=== PATIENT | female | born 1960 | race Caucasian/White ===

== ENCOUNTER 2016-01-30 11:20 | Outpatient (RCR) | payer BC ==
[~2016-01-30 11:20] MED LIST: ACET1TAB19 PO; ALPR0.5T7 PO; BTR10SP2 NS; CIPR-225 PO; DIVA500T7 PO; DOCU100C37 PO; DULO60CA58 PO; ENAL20TA PO; ESTR1TAB24 PO; HYDR-753 PO; HYDR12.5 PO; HYDR1TAB8 PO; HYOS0.1218 SL; HYOS0.1283 SL; IBUP-1780; IBUP-1780 PO; METR500T PO; NITR-65 PO; NORT25CA PO; OMEP20CA12 PO; OMEP20TA7 PO; ONDA4TAB8 SL; TRAM50TA2 PO
--- OUTSIDE RECORDS SUMMARY | 2016-01-30 11:24 | XMS REPORT | Continuity of Care Document ---
Author Author [facility] Organization [facility] Address Unknown Phone Unavailable Care Team Providers Care Documentation Lead Name Role Phone Unverified, Unverified PCP Unavailable Source Comments Some departments are not documenting in the electronic medical record. If you do not see the information that you expected, contact Release of Information in the Health Information Management department at [phone] for further assistance in locating additional records.[facility] Active Allergies and Adverse Reactions Not on File Current Medications Not on file Active Problems Not on file Social History Tobacco Use Types Packs/Day Years Used Date Never Assessed Plan of Care Health Maintenance Due Date Last Done Comments Physical (Comprehensive) 12/15/1967 Exam Pertussis Vaccine 12/15/1971 Tetanus Vaccine 1977 Cervical Cancer Screening 1981 Breast Cancer Screening 2000 Colorectal Cancer 2010 Screening Influenza Vaccine 12/20/2015 Results from Last 3 Months Not on file
[2016-01-30 11:42] LABS: RED BLOOD COUNT 4.91 10^6/uL (4.35-5.85); RED CELL DISTRIBUTION WIDTH 13.6 % (10.0-14.5); WHITE BLOOD COUNT 9.9 10^3/uL (4.3-11.0)
[2016-01-30 12:09] LABS: ALANINE AMINOTRANSFERASE 30 U/L (0-55); ALBUMIN 4.6 G/DL (3.2-4.5); ANION GAP 16 MMOL/L (5-14); ASPARTATE AMINO TRANSFERASE 21 U/L (5-34); BILIRUBIN,TOTAL 0.4 MG/DL (0.1-1.0); BLOOD UREA NITROGEN 9 MG/DL (7-18); BUN/CREATININE RATIO 11; CARBON DIOXIDE 21 MMOL/L (21-32); CHLORIDE 101 MMOL/L (98-107); CREATININE SERUM 0.83 MG/DL (0.60-1.30); GFR ESTIMATED > 60; GLUCOSE 99 MG/DL (70-105); POTASSIUM 3.9 MMOL/L (3.6-5.0); SODIUM 138 MMOL/L (135-145); TOTAL PROTEIN 7.3 G/DL (6.4-8.2)
== END 2016-04-29 | disposition home or self-care (01) ==
LOC: LAB 11:20
PROVIDERS: ATTEND Family Medicine
DX: R10.13 Epigastric pain (principal); R10.2 Pelvic and perineal pain
CPT/HCPCS: 36415; 80053; 85027

== ENCOUNTER 2016-05-25 17:35 | Emergency (ER) | payer BC ==
[~2016-05-25] VITALS: Ht 165.1 cm; Wt 80.7 kg
--- OUTSIDE RECORDS SUMMARY | 2016-05-25 17:40 | XMS REPORT | Continuity of Care Document ---
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 If you do not see the information that you expected, contact Release of Information in the Health Information Management department at [phone] for further assistance in locating additional records.[facility] Active Allergies and Adverse Reactions Allergen Noted Date Severity Reactions Comments Augmentin 03/03/2016 Medium RASH Latex 03/31/2016 Medium RASH Current Medications Prescription Sig. Disp. Refills Start End Date Status Date DULOXETINE HCL (CYMBALTA Take 1 Tab by mouth every Active PO) 48 hours. DOCOSAHEXANOIC ACID/EPA Take 1,200 mg by mouth at Active (FISH OIL PO) bedtime daily. ATORVASTATIN CALCIUM Take 10 mg by mouth at Active (LIPITOR PO) bedtime daily. enalapril (VASOTEC) 10 mg Take 20 mg by mouth at Active tablet bedtime daily. butorphanol (STADOL) 10 Apply 1 [place] to one Active mg/mL nasal spray nostril as directed every 4 hours as needed. traMADol (ULTRAM) 50 mg Take 50 mg by mouth every Active tablet 6 hours as needed for Pain. Acetaminophen-Caffeine Take 2 Tabs by mouth as Active (EXCEDRIN TENSION Needed. HEADACHE) 500-65 mg tab electrolyte GUT PEG Split dose 4000 mL 0 03/03/20 Active (NULYTELY, COLYTE, 16 GAVILYTE-N) 420 gram oral solution estradiol (ESTRACE) 1 mg Take 1 mg by mouth daily. Active tablet nortriptyline (PAMELOR) Take 3 Caps by mouth at 90 Cap 1 04/02/20 Active 25 mg capsule bedtime daily. 16 Active Problems Problem Noted Date Ischemic colitis (HCC) 04/01/2016 Most Recent Encounters Date Type Specialty Providers Description 05/22/2016 Telephone Anesthesia Pain Emiliana Long RN Appointment 05/19/2016 Telephone Anesthesia Pain Emiliana Long RN Post Procedure 04/17/2016 Procedure visit Anesthesia Pain Sergio Whitt MD Incisional pain (Primary Bello Marina MD Dx); Abdominal pain, epigastric; Abdominal pain, right lower quadrant; Abdominal pain, left lower quadrant; Neuropathic pain; Periumbilical pain 04/02/2016 Telephone Anesthesia Pain Deandre James MD Medication Reconciliation 04/01/2016 Hospital Radiology Bello Marina MD Encounter 04/01/2016 Office Visit Cardiology Latonia Miller MD Test - CTA abd /Pelv @ Glendy Owen MD 10am today; New Patient - Ischemic colitis 04/01/2016 Hospital Radiology Latonia Miller MD Encounter 04/01/2016 Ancillary Radiology Bello Marina MD H/O degenerative disc Orders disease (Primary Dx) 04/01/2016 Ancillary Anesthesia Pain Bello Marina MD Orders 03/31/2016 Office Visit Gastroenterology Farideh Parmar ARNP Abdominal pain, unspecified location (Primary Dx); Ischemic colitis (HCC) 03/31/2016 Office Visit Anesthesia Pain Bello Marina MD Abdominal pain, epigastric (Primary Dx); Abdominal pain, left lower quadrant; Abdominal pain, right lower quadrant; Periumbilical pain; Incisional pain; Neuropathic pain; Allodynia; Myofascial pain 03/31/2016 Telephone Anesthesia Pain Emiliana Long RN Appointment Question 03/28/2016 Screening Form 03/20/2016 Result Letter Gastroenterology Latonia Miller MD 03/20/2016 Ancillary Radiology Outpatient, Radiologist Diagnosis unknown Orders (Primary Dx) 03/19/2016 Telephone Cardiology Teresa Navarro RN Referral - From Dr. Miller 03/19/2016 Telephone GastroenterLatonia Arriaga MD Records Request - Via Jessika Scanlon in PACS 03/19/2016 Telephone Latonia Mckinnon MD Follow-up Phone Call 03/18/2016 Telephone GastroenterLatonia Arriaga MD Follow-up Phone Call 03/17/2016 [facility] Latonia Miller MD Unspecified abdominal Encounter pain 03/17/2016 Orders Only Gastroenterology Latonia Miller MD 03/12/2016 Screening Form 03/05/2016 Telephone Gastroenterology Latonia Miller MD Follow-up Phone Call 03/03/2016 [facility] Latonia Miller MD Encounter 03/03/2016 Office Visit Gastroenterology Latonia Miller MD Abdominal pain, unspecified location (Primary Dx); Colitis Social History Tobacco Use Types Packs/Day Years Used Date Never Smoker Alcohol Use Drinks/Week oz/Week Comments Yes 0-1 Glasses 0.0 - 0.6 of wine Last Filed Vital Signs Vital Sign Reading Time Taken Blood Pressure 136/102 04/17/2016 9:29 AM OR SCRUB TECH Pulse 111 04/17/2016 9:27 AM OR SCRUB TECH Temperature 36.7 C (98 F) 04/17/2016 9:27 AM OR SCRUB TECH Respiratory Rate 18 04/17/2016 9:27 AM OR SCRUB TECH Height 1.651 m (5' 5") 04/17/2016 9:27 AM OR SCRUB TECH Weight 81.194 kg (179 lb) 04/17/2016 9:27 AM OR SCRUB TECH Body Mass Index 29.79 04/17/2016 9:27 AM OR SCRUB TECH Oxygen Saturation 99% 04/17/2016 9:27 AM OR SCRUB TECH Plan of Care Date Type Specialty Providers Description 05/26/2016 Appointment Anesthesia Pain Bello Marina MD [address] [facility] [address] [place] [address] [phone] (Fax) Health Maintenance Due Date Last Done Comments Hepatitis C Screening 1960 Physical (Comprehensive) 12/15/1967 Exam Pertussis Vaccine 12/15/1971 Tetanus Vaccine 1977 Cervical Cancer Screening 1981 Breast Cancer Screening 2000 Influenza Vaccine 12/20/2015 Colorectal Cancer 03/17/2026 03/17/2016 Screening Procedures from Last 3 Months Procedure Name Priority Date/Time Associated Diagnosis Comments MI INJECT NERV BLCK,OTHR Routine 04/17/2016 Abdominal pain, Results for this PERIPH NERV 5:17 PM OR SCRUB TECH epigastric procedure are in the Abdominal pain, right results section. lower quadrant Abdominal pain, left lower quadrant Incisional pain Neuropathic pain Periumbilical pain MI INJECTION INTO SKIN Routine 04/17/2016 Abdominal pain, right Results for this LESIONS 5:16 PM OR SCRUB TECH lower quadrant procedure are in the Abdominal pain, left results section. lower quadrant Incisional pain Neuropathic pain Periumbilical pain Results from Last 3 Months [facility] (04/17/2016 5:17 PM) Alexandru Marina MD 04/17/20165:17 PM Nerve Block Nerve: abdominal cutaneous Laterality: bilateral Consent: Consent obtained: verbal Consent given by: patient Alternatives discussed: referral, no treatment, delayed treatment and alternative treatment Discussed with patient the purpose of the treatment/procedure, other ways of treating my condition, including no treatment/ procedure and the risks and benefits of the alternatives. Patient has decided to proceed with treatment/procedure. [place] Protocol: Relevant documents: relevant documents present and verified Site marked: the operative site was marked Patient identity confirmed: Patient identify confirmed verbally with patient. Time out: Immediately prior to procedure a "time out" was called to verify the correct patient, procedure, equipment, customer support specialist and site/side marked as required Procedures Details: Indications: Neuritis and Pain Relief Preparation: Patient was prepped and draped in the usual sterile fashion. Prep: 2% chlorhexidine Patient position: supine Needle gauge: 25 G Guidance: ultrasound Justification for use of ultrasound guidance: The use of direct sonographic visualization of the needle was required to ensure accurate injection placement for diagnostic specificity, to maximize clinical efficacy and for safety purposes to minimize risk of bleeding or injury to nearby neurovascular structures Medications administered: 10 mL bupivacaine PF 0.25 %; 5 mL lidocaine PF 20 mg/mL (2 %) Outcome: Pain improved Patient tolerance: tolerated well, no immediate complications Comments: PROCEDURE: bilateral Transverse Abdominis Plexus Block (TAP) with Ultrasound needle guidance PREPROCEDURE DIAGNOSES: Abdominal pain and neuropathic pain. POSTPROCEDURE DIAGNOSES: Abdominal pain and neuropathic pain. SURGEON: Bello Marina MD MEDICATION INJECTED: 10mL of 25:75 solution of Lidocaine 2% and Bupivacaine 0.25% each side. LOCAL ANESTHETIC: As above. SEDATION: None. ESTIMATED BLOOD LOSS: None. COMPLICATIONS: None. TECHNIQUE: A time-out was taken to identify the correct patient, procedure, and site prior to starting the procedure. A consent was signed and placed in the chart. Lying in a supine position, the patient was prepped in sterile fashion using DuraPrep. The area to be injected was determined using Ultrasound guidance. A 22-gauge, 3.5-inch spinal needle was advanced to the border between the internal oblique and the transverse abdominus muscle under ultrasound visualization. Following negative aspiration initially and intermittently, the solution was injected with excellent spread in the desired plane. The procedure was completed without complications and was tolerated well. The patient was monitored after the procedure. The patient was given postprocedure and discharge instructions to follow at home. The patient was discharged in stable condition. SKIN LESION DESTRUCTION (04/17/2016 5:16 PM) Narrative Bello Marina MD 04/17/20165:16 PM PROCEDURE: Intra-Incisional Injection (Scar injection) Pre-Procedure Diagnoses: 1. Incisional pain Post-Procedure Diagnoses: Same Physician: Bello Marina MD ANESTHESIA: 3ml of Bupivacaine 0.5% and 1ml of lidocaine 2% and 40mg of Kenalog COMPLICATIONS: None. DESCRIPTION OF PROCEDURE: The procedure risks, hazards and alternatives were discussed with the patient and a proper consent was obtained. The area surrounding the incision was prepped with alcohol utilizing sterile technique. A 27-gauge 1.5" needle was inserted in the daly-incisional area and with multiple passes through and around the incision scar tissue and following negative aspiration, the solution above was injected. The patient tolerated the procedure well without any complications. FLUORO MOBILE IN OR (04/01/2016 2:51 PM) Narrative This order has been auto finalized and does not contain a result. CTA ABD/PELVIS (04/01/2016 8:37 AM) Impressions 1. Normal caliber abdominal aorta with minimal aortoiliac atherosclerotic plaque. Patent central mesenteric vasculature.No high-grade stenosis. 2. Normal caliber large and small bowel loops. No bowel obstruction, pericolonic inflammation, or ascites. Finalized by MOMO BOYER M.D. on 04/01/2016 9:38 AM. Dictated by MOMO BOYER M.D. on 04/01/2016 8:58 AM. Narrative CTA ABDOMEN AND PELVIS Clinical Indication:Female, 55 years old. Ischemic colitis. Recurrent ischemic colitis. Technique:Multiple contiguous axial images were obtained through the abdomen and pelvis following the administration of IV contrast material. Noncontrast and delayed imaging was also obtained. Post processing coronal and sagittal reconstruction images were made from the axial images.Image post- processing was obtained. IV contrast: Isovue-370 Bowel contrast:None Comparison: Outside CT abdomen and pelvis exams on 11/21/2015 and 01/30/2016. FINDINGS: Lower Thorax: Minimal bibasilar atelectasis or scarring. Heart size normal. Liver and Biliary system: Unremarkable. Spleen: Unremarkable. Adrenal Glands and Kidneys: Adrenal glands unremarkable. Punctate subcentimeter hypodensity in the lower pole left kidney is too small to characterize but probably a benign cyst. Kidneys otherwise unremarkable. No hydronephrosis. Pancreas and Retroperitoneum: Unremarkable. Aorta and Major Vessels: Normal caliber abdominal aorta with minimal calcified eccentric infrarenal atherosclerotic plaque. The celiac axis and superior mesenteric artery are patent. Accessory left hepatic artery arising from the left gastric artery. The inferior mesenteric artery is opacified. Single right renal artery is patent with early branching just after the takeoff from the abdominal aorta. Two left renal arteries are patent. Common iliac arteries are patent with mild calcified eccentric atherosclerotic plaque in the distal left common iliac artery. The bilateral internal iliac arteries are patent with mild calcified atherosclerotic plaque. Bilateral external iliac and common femoral arteries are patent without significant atherosclerotic plaque. No high-grade stenosis identified. Bowel, Mesentery and Peritoneal space: Large and small bowel loops normal in caliber. Mild retained stool throughout the colon. No pericolonic inflammation or fluid collection. Normal appendix. No mesenteric adenopathy or ascites. Pelvis: Uterus absent. Region of the vaginal cuff markable. Urinary bladder is decompressed but grossly unremarkable. No pelvic lymphadenopathy or ascites. Abdominal wall and Osseous Structures: Mild laxity of the ventral abdominal wall in the region of the umbilicus. Mild thoracolumbar spondylosis. No destructive osseous lesion. Procedure Note Interface, Radiant Results - Tue Apr 01, 2016 9:41 AM OR SCRUB TECH CTA ABDOMEN AND PELVIS Clinical Indication: Female, 55 years old. Ischemic colitis. Recurrent ischemic colitis. Technique: Multiple contiguous axial images were obtained through the abdomen and pelvis following the administration of IV contrast material. Noncontrast and delayed imaging was also obtained. Post processing coronal and sagittal reconstruction images were made from the axial images. Image post-processing was obtained. IV contrast: Isovue-370 Bowel contrast: None Comparison: Outside CT abdomen and pelvis exams on 11/21/2015 and 01/30/2016. FINDINGS: Lower Thorax: Minimal bibasilar atelectasis or scarring. Heart size normal. Liver and Biliary system: Unremarkable. Spleen: Unremarkable. Adrenal Glands and Kidneys: Adrenal glands unremarkable. Punctate subcentimeter hypodensity in the lower pole left kidney is too small to characterize but probably a benign cyst. Kidneys otherwise unremarkable. No hydronephrosis. Pancreas and Retroperitoneum: Unremarkable. Aorta and Major Vessels: Normal caliber abdominal aorta with minimal calcified eccentric infrarenal atherosclerotic plaque. The celiac axis and superior mesenteric artery are patent. Accessory left hepatic artery arising from the left gastric artery. The inferior mesenteric artery is opacified. Single right renal artery is patent with early branching just after the takeoff from the abdominal aorta. Two left renal arteries are patent. Common iliac arteries are patent with mild calcified eccentric atherosclerotic plaque in the distal left common iliac artery. The bilateral internal iliac arteries are patent with mild calcified atherosclerotic plaque. Bilateral external iliac and common femoral arteries are patent without significant atherosclerotic plaque. No high-grade stenosis identified. Bowel, Mesentery and Peritoneal space: Large and small bowel loops normal in caliber. Mild retained stool throughout the colon. No pericolonic inflammation or fluid collection. Normal appendix. No mesenteric adenopathy or ascites. Pelvis: Uterus absent. Region of the vaginal cuff markable. Urinary bladder is decompressed but grossly unremarkable. No pelvic lymphadenopathy or ascites. Abdominal wall and Osseous Structures: Mild laxity of the ventral abdominal wall in the region of the umbilicus. Mild thoracolumbar spondylosis. No destructive osseous lesion. IMPRESSION 1. Normal caliber abdominal aorta with minimal aortoiliac atherosclerotic plaque. Patent central mesenteric vasculature. No high-grade stenosis. 2. Normal caliber large and small bowel loops. No bowel obstruction, pericolonic inflammation, or ascites. Finalized by MOMO BOYER M.D. on 04/01/2016 9:38 AM. Dictated by MOMO BOYER M.D. on 04/01/2016 8:58 AM. SURGICAL PATHOLOGY (03/17/2016 8:13 AM) Component Value Range PATHOLOGY REPORT [facility] [email or web address] Sherrill Gibson MD, PhD, Director of Anatomic Pathology Department of Pathology and Laboratory Medicine [address] [place] [phone] Surgical Pathology Office: [phone] SURGICAL PATHOLOGY REPORT NAME: ALYCIA LYNCH SURG PATH #: [id number] MR #: [id number] SPECIMEN CLASS: SR BILLING #: [id number] ALT ID #: LOCATION: [facility] DATE OF PROCEDURE: 03/17/2016 AGE: 55 SEX: F DATE RECEIVED: 03/18/2016 : 1960 TIME RECEIVED: 08:13 PHYSICIAN: LATONIA MILLER M.D. DATE OF REPORT: 03/20/2016 COPY TO: DATE OF PRINTIN03/20/2016 ################################################## ###################### Final Diagnosis: A. Small bowel mucosa, duodenal", biopsy: Normal villous architecture with no diagnostic abnormalities. B. Gastric mucosa, "gastric", biopsy: No diagnostic abnormalities. No H. pylorilike organisms are identified on H and E stained sections. C. Colonic mucosa, "random colon", biopsy: No diagnostic abnormalities. Attestation: By this signature, I attest that I have personally formulated the final interpretation expressed in this report and that the above diagnosis is based upon my examination of the slides and/or other material indicated in this report. +++Electronically Signed Out By+++ ma/03/19/2016 Interpreted by: Tanika Arredondo D.O. 03/20/2016 ################################################## ###################### Material Received: A: duodenal biopsy B: gastric biopsy C: random colon biopsy History: 55-year-old female with a clinical history of ischemic colitis, abdominal pain. Gross Description: A. Received in formalin labeled "duodenum" is a 0.7 x 0.6 x 0.4 cm aggregate of arguelles-brown soft tissue fragments. The specimen is entirely submitted in cassette A1. (tn) B. Received in formalin labeled "gastric" is a 0.6 x 0.4 x 0.3 cm aggregate of arguelles-brown soft tissue fragments. The specimen is entirely submitted in cassette B1. (tn) C. Received in formalin labeled "random colon" is a 0.7 x 0.6 x 0.2 cm aggregate of arguelles-brown soft tissue fragments. The specimen is entirely submitted in cassette C1. (tn) arguelles/03/18/2016 Carmen Eastman D.O. COLONOSCOPY (03/17/2016)EGD (03/17/2016)ANTI-NUCLEAR AB(YRIS)-QUANT (03/03/2016 11:29 AM) Component Value Range YRIS Titer/Pattern 160 (H)Comment: SPECKLED <80 ACTIVATED PC RESISTANCE (03/03/2016 11:29 AM) Component Value Range Activated Protein C 3.4 >2.7 RATIO Resistance MPO/MI-3 (03/03/2016 11:29 AM) Component Value Range Myeloperoxidase AB <0.2 Reference range: <0.4 (Negative) Unit: U [facility] [employer] Serine Protease3 AB <0.2 Reference range: <0.4 (Negative) Unit: U [facility] Specimen Blood ANTI-NEUT CYTO AB (ANCA/PANCA) (03/03/2016 11:29 AM) Component Value Range C-ANCA <20,NEGATIVE TITER P-ANCA <20,NEGATIVE TITER Specimen Blood ANTI-NUCLEAR ANTIBODY(YRIS) (03/03/2016 11:29 AM) Component Value Range YRIS Screen SEE TITER <80 TITER Specimen Blood C REACTIVE PROT-HI SENSITIVITY (03/03/2016 11:29 AM) Component Value Range CRP, High Sensitivity 0.66Comment: MG/DL HSCRP CARDIAC RISK RANGES <0.06 LOWEST 0.06 - 0.09 LOW 0.10 - 0.16 MODERATE 0.17 - 0.32 HIGH >0.32 HIGHEST Specimen Blood SED RATE (03/03/2016 11:29 AM) Component Value Range Sed Rate -ESR 13 0-30 MM/HR Specimen Blood COMPREHENSIVE METABOLIC PANEL (03/03/2016 11:29 AM) Component Value Range Sodium 135 (L) 137-147 MMOL/L Potassium 3.9 3.5-5.1 MMOL/L Chloride 100 98-110 MMOL/L Glucose 88 70-100 MG/DL Blood Urea Nitrogen 15 7-25 MG/DL Creatinine 0.71 0.4-1.00 MG/DL Calcium 9.4 8.5-10.6 MG/DL Total Protein 6.8 6.0-8.0 G/DL Total Bilirubin 0.2 (L) 0.3-1.2 MG/DL Albumin 4.1 3.5-5.0 G/DL Alk Phosphatase 102 25-110 U/L AST (SGOT) 26 7-40 U/L CO2 26 21-30 MMOL/L ALT (SGPT) 51 7-56 U/L Anion Gap 9 3-12 eGFR Non >60Comment: >60 mL/min The eGFR is not validated for use in drug dosing adjustments. Continue to use estimated creatinine clearance per dosing reference text. Please contact the Clinical Pharmacist for questions. eGFR >60Comment: >60 mL/min The eGFR is not validated for use in drug dosing adjustments. Continue to use estimated creatinine clearance per dosing reference text. Please contact the Clinical Pharmacist for questions. Specimen Blood DILUTE OMID VIPER VENOM (03/03/2016 11:29 AM) Component Value Range Dilute Omid Viper 1.0 <1.3 RATIO Venom DRVVT Comment Dilute Omid viper venom time ratio is negative for lupus anticoagulant. The hexagonal phospholipid neutralization test should also be performed before excluding lupus anticoagulant (Call [phone] to request further testing). Pathologist Signature INTERPRETED BY CATHY TENA M.D. 03/17/16 By the PATH SIGNATURE ABOVE, I attest that I have personally formulated the final interpretation expressed in this report and that the above diagnosis is based upon my examination of the slides and/or other material indicated in this report. Specimen Blood CARDIOLIPIN AB IGG/IGM (03/03/2016 11:29 AM) Component Value Range Cardiolipin, IgG 2.8 <15 GPL/ML Cardiolipin, IgM 10.2 <12.5 MPL/ML Specimen Blood ANTI-THROMBIN III(AT3) (03/03/2016 11:29 AM) Component Value Range Anti-Thrombin 3 99 80-120 % Specimen Blood PROTEIN C ACTIVITY (03/03/2016 11:29 AM) Component Value Range Protein C Activity >150 (H) 70-130 % Specimen Blood PROTEIN S SCREEN (03/03/2016 11:29 AM) Component Value Range Protein S Screen 112.0 54.7-123.7 % PTT (APTT) (03/03/2016 11:29 AM) Component Value Range APTT 31.3 24.0-40.0 SEC Specimen Blood PROTIME INR (PT) (03/03/2016 11:29 AM) Component Value Range INR 0.9 0.8-1.2 Specimen Blood
[2016-05-25] MEDS ORDERED: ORPHENADRINE 60 MG/2 ML (NORFLEX) AMP IV STA (19:49)
[2016-05-25] MEDS ORDERED: KETOROLAC 30 MG/ML VIAL IVP STA (19:49)
[2016-05-25] MEDS ORDERED: NS IV 1000 ML 1,000 ML IV ONE (19:49)
[2016-05-25] MEDS ORDERED: ONDANSETRON 4 MG/2 ML (SDV) Z0FRAN IVP ONE ×2 (20:00→21:45)
--- NOTE | 2016-05-25 20:09 | ED Headache ---
General Chief Complaint: Head/Cervical Problems Stated Complaint: MIGRAINE, STOMACH ACHE Nursing Triage Note: PT TO ED 3 W/ FRIEND FOR C/O HERMOSILLO ONSET THIS AM, WORSE TONIGHT. REPORTS HX OF MIGRAINES, HAS TAKEN STADOL NASAL SPRAY FOR C/O BUT DENIES IMPROVEMENT. ALSO C/O N/V X1. Nursing Sepsis Screen: No Definite Risk Source: patient, family Exam Limitations: no limitations History of Present Illness Time seen by provider: 19:50 Initial Comments 55-year-old female patient presents to the emergency department complains of a migraine headache beginning this a.m. Symptoms worse this evening. Patient states she did try using her Stadol without improvement in symptoms. Does report nausea, vomiting, photophobia, sound sensitivities. Patient reports similar to usual migraines. Patient denies using any other medications at home for the pain. Patient states she has chronic upper abdominal pain and sees her PCP for this. Patient reports home medications as lipitor, Aventy?, cymbalta, vasotec, estradiol, and stadol. Timing/Duration: other (onset this AM.) Severity/Quality: throbbing Location: frontal (rt), parietal (rt) Prior Headaches/Recent Trauma: chronic headaches Modifying Factors: worse with exposure to light, worse with medication (no improvement with stadol.) Allergies and Home Medications Allergies Coded Allergies: amoxicillin (Verified Allergy, Unknown, 02/17/15) clavulanic acid (Verified Allergy, Unknown, 02/17/15) Home Medications Docusate Sodium 100 Mg Capsule #60 100 MG PO BID Prescribed by: HAKAN VALLE on 12/18/15734 Duloxetine HCl 60 Mg Capsule.dr 60 MG PO Q48H (Reported) TAKES AT BEDTIME Enalapril Maleate 20 Mg Tablet 10 MG PO HS (Reported) TAKES 1/2 (20MG) TABLET Estradiol 1 Mg Tablet #90 1 MG PO DAILY Prescribed by: HAKAN VALLE on 12/18/15734 Ibuprofen 800 Mg Tablet #60 800 MG PO Q6HR Prescribed by: HAKAN VALLE on 12/18/1535 Constitutional: No chills, No diaphoresis, No dizziness, No fever, No malaise Eyes: Denies Blindness, Denies Blurred Vision, Denies Inflammation, Denies Pain , PhotophobiaDenies Tunnel Vision, Denies Vision Changes Ears, Nose, Mouth, Throat: no symptoms reported Respiratory: no symptoms reported Cardiovascular: no symptoms reported Gastrointestinal: No abdominal pain, No constipation, No diarrhea, loss of appetite nausea vomiting Genitourinary: no symptoms reported Musculoskeletal: no symptoms reported Skin: no symptoms reported Psychiatric/Neurological: HeadacheDenies Numbness, Denies Paresthesia, Denies Seizure, Denies Tingling, Denies Weakness All Other Systems Reviewed Negative Unless Noted: Yes (Negative excepted noted.) Past Dlmjkjn-Hvfpqx-Miujrd Hx Patient Social History Alcohol Use: Denies Use Recreational Drug Use: No Smoking Status: Never a Smoker 2nd Hand Smoke Exposure: No Recent Foreign Travel: No Contact w/Someone Who Travel: No Recent Infectious Disease Expo: No Recent Hopitalizations: Yes (COLITIS) Immunizations Up To Date Tetanus Booster (TDap): Less than 5yrs PED Vaccines UTD: No Seasonal Allergies Seasonal Allergies: No Surgeries HX Surgeries: Yes (LAPAROSCOPY X3-ENDOMETRIOSIS, LEFT BREAST BX) Surgeries: Abdominal, Breast, Section, Eye Surgery, Tonsillectomy, Tubal Ligation Respiratory Hx Respiratory Disorders: No Respiratory Disorders: Sleep Apnea Cardiovascular Hx Cardiac Disorders: Yes Cardiac Disorders: Hypertension Neurological Hx Neurological Disorders: Yes Neurological Disorders: 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 Reproductive System Hx Reproductive Disorders: Yes (CPP, DUB) Sexually Transmitted Disease: No HIV/AIDS: No Female Reproductive Disorders: Endometriosis, Ovarian Cyst Genitourinary Hx Genitourinary Disorders: No Genitourinary Disorders: UTI-Chronic Gastrointestinal Hx Gastrointestinal Disorders: Yes Gastrointestinal Disorders: Colitis Musculoskeletal Hx Musculoskeletal Disorders: Yes (NECK PAIN AND RIGHT ARM PAIN) Endocrine Hx Endocrine Disorders: No HEENT HX ENT Disorders: Yes (GLASSES) HEENT Disorders: Cataract Loss of Vision: Bilateral Hearing Impairment: Denies Cancer Hx Cancer: No Psychosocial Hx Psychiatric Problems: No Behavioral Health Disorders: Depression Integumentary HX Skin/Integumentary Disorder: No Blood Transfusions Hx Blood Disorders: No Adverse Reaction to a Blood Tr: No (N/A) Reviewed Nursing Assessment Reviewed/Agree w Nursing PMH: Yes Family Medical History Significant Family History: GI Disease, Hypertension Family Medial History: Arthritis 19 MOTHER Gastroenteritis G8 BROTHER Headache disorder 19 MOTHER G8 SISTER Hypertension 19 FATHER Prostate cancer 19 FATHER Physical Exam Vital Signs Vital Sign - Last 12Hours 05/25/16 19:19 Temp 97.0 Pulse 114 Resp 16 B/P 142/99 Capillary Refill : Less Than 3 Seconds General Appearance: WD/WN no apparent distress HEENT: PERRL/EOMI normal ENT inspection TMs normal pharynx normal photophobia Neck: non-tender full range of motion supple normal inspection Cardiovascular: normal peripheral pulses no edema no murmur tachycardia Respiratory: lungs clear normal breath sounds no respiratory distress Gastrointestinal: normal bowel sounds soft no organomegalyNo distended, No guarding, No rebound, tenderness ((epigastric)) Extremities: normal inspection no pedal edema normal capillary refill Psychiatric: alert oriented x 3 Crainal Nerves: normal hearing normal speech PERRL Coordination/Gait: normal finger to nose normal gait negative Romberg's sign Motor/Sensory: no motor deficit no sensory deficit no pronator drift Skin: normal color warm/dry Progress/Results/Core Measures Results/Orders My Orders Orders-CARLEE LIU Saline Lock/Iv-Start (05/25/16 19:49) Ketorolac Injection (Toradol Injection) (05/25/16 19:49) Orphenadrine Injection (Norflex Injectio (05/25/16 19:49) Ondansetron Injection (Zofran Injectio (05/25/16 20:00) Ns Iv 1000 Ml (Sodium Chloride 0.9%) (05/25/16 19:49) Morphine Injection (Morphine Injection (05/25/16 20:44) Promethazine Injection (Phenergan Injec (05/25/16 20:44) Acetaminophen Tablet (Tylenol Tablet) (05/25/16 21:35) Hydromorphone Injection (Dilaudid Inject (05/25/16 21:35) Ondansetron Injection (Zofran Injectio (05/25/16 21:45) Medications Given in ED Current Medications Medications Dose Ordered Sig/Litzy Route Start Time Stop Time Status Last Admin Dose Admin Ondansetron HCl 4 mg ONCE ONCE IVP 05/25/16 21:45 05/25/16 21:46 DC 05/25/16 21:57 4 MG Ondansetron HCl 4 mg 4 mg ONCE ONCE IVP 05/25/16 20:00 05/25/16 20:07 DC 05/25/16 20:29 4 MG Sodium Chloride 1,000 ml @ 0 mls/hr Q0M ONCE IV 05/25/16 19:49 05/25/16 20:07 DC 05/25/16 20:28 1,000 MLS/HR Vital Signs/I&O Vital Sign - Last 12Hours 05/25/16 19:19 Temp 97.0 Pulse 114 Resp 16 B/P 142/99 Blood Pressure Mean: 113 Departure Communication Progress Notes Patient is seen and evaluated. Patient was given 30 mg of toradol, 60 mg of norflex, 4 mg of zofran, and 1 L NS. Patient reports headache improved to an 8/ 10. Friend reports that she does not think the patient can take benadryl due to it "makes her about crawl out of her skin." Patient agrees with this. Patient was then given 8 mg of Morphine and 12.5 mg of phenergan. Patient reported very little improvement with these medications. I did ask the patient what pain medication works for her headache. Patient is unable to recall the name of the pain medication and she states "I just have a really high tolerance to pain medication. I'm not really sure why though." Patient had previously reported only having Stadol at home for migraine symptoms. Per [facility] patient receives frequent tramadol and hydrocodone prescriptions as well as A monthly Stadol prescription. See information below. Patient instructed to take one hydrocodone or tramadol at home after arriving. She is also to follow-up with Dr. Lou as an outpatient for recheck. Patient states she is to schedule an appointment with him in the next 2 weeks. All return precautions were discussed with the patient as described in the discharge instructions of this report. Patient voices understanding and agrees with the treatment plan. Patient ambulated from the emergency department without difficulty. Per [facility] patient receives stadol 10 mg/ml spray #3 bottles/month; tramadol 50 mg po QID #40 tabs every 10 days from Robbie Lou MD in [place], [place]; and Hydrocodone 10/325 mg po BID #[address] Jaiden Alanis. Patient has had 49 narcotic prescriptions from 6 different prescribers in the last 12 months. She has filled at 5 different pharmacies. Impression Impression: Primary Impression: Migraine Disposition: 01 HOME, SELF-CARE Condition: Improved Departure-Patient Inst. Decision time for Depature: 20:33 Referrals: ISAI ALANIS MD (PCP/Family) Primary Care Physician Patient Instructions: Migraine Headache (DC) Add. Discharge Instructions: All discharge instructions reviewed with patient and/or family. Voiced understanding. Continue usual home medications including the tramadol, stadol, and hydrocodone as prescribed by Dr. Robbie Ackerman and Dr. Jaiden Alanis. Tylenol Extra Strength hrib-fut-dknqijd as directed for pain or headache. DO NOT TAKE MORE THAN 3000 MG OF TYLENOL IN 24 HOURS. Ibuprofen 800 mg by mouth every 8 hours as needed for pain or headache. Drink plenty of fluids. Avoid bright lights and loud noises. Follow-up with your family practitioner for recheck if needed. Return to the emergency department for worsened headache, dizziness, changes in vision, slurred speech, numbness, weakness, seizure, shortness of air, chest pain, decreased urination, or any other concerns. Copy Copies To 1: ISAI ALANIS MD Copies To 2: MD ALEXA Troy GRETCHEN L PA May 25, 2016 20:09
[2016-05-25] MEDS ORDERED: morphine INJ 10 MG/ML 1ML (SYR OR VIAL) IVP STA (20:44)
[2016-05-25] MEDS ORDERED: PROMETHAZINE INJ 25 MG/ML (PHENERGAN) AMP IVP STA (20:44)
[2016-05-25] MEDS ORDERED: ACETAMINOPHEN 500 MG TAB (TYLENOL) PO STA (21:35)
[2016-05-25] MEDS ORDERED: HYDROmorphone (DILAUDID) 2 MG/ML VIAL IVP STA (21:35)
[2016-05-25 22:06] VITALS: BP 136/91
== END 2016-05-25 22:06 | disposition home or self-care (01) ==
LOC: EDUNIT# 17:35 → ER 17:36
DX: G43.909 Migraine, unspecified, not intractable, without status migrainosus (principal); I10 Essential (primary) hypertension; Z79.891 Long term (current) use of opiate analgesic; Z79.899 Other long term (current) drug therapy
CPT/HCPCS: 96361; 96374; 96375; 96376

== ENCOUNTER 2016-05-30 16:00 | Emergency (ER) | payer BC ==
[~2016-05-30] VITALS: Ht 165.1 cm; Wt 80.7 kg
--- OUTSIDE RECORDS SUMMARY | 2016-05-30 16:06 | XMS REPORT | Continuity of Care Document ---
Author Author [facility] Organization [facility] Address Unknown Phone Unavailable Care Team Providers Care Bill Clerk Name Role Phone Zeke Freddy PCP [phone] Source Comments Some departments are not documenting in the electronic medical record. If you do not see the information that you expected, contact Release of Information in the Health Information Management department at [phone] for further assistance in locating additional records.[facility] Active Allergies and Adverse Reactions Allergen [...] bedtime daily. butorphanol (STADOL) 10 Apply 1 Constantia to one Active mg/mL nasal spray nostril [...] Recent Encounters Date Type Specialty Providers Description 05/26/2016 Telephone Anesthesia Pain Emiliana Long RN Appointment Request 05/22/2016 Telephone Anesthesia Emiliana Park RN Appointment 05/19/2016 Telephone Anesthesia Emiliana Park RN Post Procedure 04/17/2016 Procedure visit Anesthesia [...] Question 03/28/2016 Screening Form 03/20/2016 Result Letter GastroenterLatonia Arriaga MD 03/20/2016 Ancillary Radiology Outpatient, Radiologist Diagnosis unknown Orders (Primary Dx) 03/19/2016 Telephone Cardiology Teresa Navarro RN Referral - From Dr. Miller 03/19/2016 Telephone Latonia Mckinnon MD Records Request - Via [facility] in [facility] 03/19/2016 Telephone Latonia Mckinnon MD Follow-up Phone Call 03/18/2016 Telephone Latonia Mckinnon MD Follow-up Phone Call 03/17/2016 [facility] Latonia Miller MD Unspecified abdominal Encounter pain 03/17/2016 Orders Only Gastroenterology Latonia Miller MD 03/12/2016 Screening Form 03/05/2016 Telephone Gastroenterology Latonia Miller MD Follow-up Phone Call 03/03/2016 [facility] Latonia Miller MD Encounter 03/03/2016 Office Visit Gastroenterology Latonia Miller MD Abdominal pain, unspecified location (Primary Dx); Colitis Social History Tobacco Use Types Packs/Day Years Used Date Never Smoker Alcohol Use Drinks/Week oz/Week Comments Yes 0-1 Glasses 0.0 - 0.6 of wine Last Filed Vital Signs Vital Sign Reading Time Taken Blood Pressure 136/102 04/17/2016 9:29 AM [employer] Pulse 111 04/17/2016 9:27 AM [employer] Temperature 36.7 C (98 F) 04/17/2016 9:27 AM [employer] Respiratory Rate 18 04/17/2016 9:27 AM [employer] Height 1.651 m (5' 5") 04/17/2016 9:27 AM [employer] Weight 81.194 kg (179 lb) 04/17/2016 9:27 AM [employer] Body Mass Index 29.79 04/17/2016 9:27 AM [employer] Oxygen Saturation 99% 04/17/2016 9:27 AM [employer] Plan of Care Date Type Specialty Providers Description 06/02/2016 Appointment Anesthesia Pain Bello Marina MD [address] [facility] [address] [place] [address] [phone] (Fax) Health Maintenance Due Date Last Done Comments Hepatitis C Screening 1960 Physical (Comprehensive) 12/15/1967 Exam Pertussis Vaccine 12/15/1971 Tetanus Vaccine 1977 Cervical Cancer Screening 1981 Breast Cancer Screening 2000 Influenza Vaccine 12/20/2015 Colorectal Cancer 03/17/2026 03/17/2016 Screening Procedures from Last 3 Months Procedure Name Priority Date/Time Associated Diagnosis Comments FL INJECTION ANES OTHER Routine 04/17/2016 Abdominal pain, Results for this PERIPHERAL NERVE/BRANCH 5:17 PM [employer] epigastric procedure are in the Abdominal pain, right results section. lower quadrant Abdominal pain, left lower quadrant Incisional pain Neuropathic pain Periumbilical pain FL INJECTION Routine 04/17/2016 Abdominal pain, right Results for this INTRALESIONAL UP TO & 5:16 PM [employer] lower quadrant procedure are in the INCLUD 7 LESIONS Abdominal pain, left results section. lower quadrant Incisional pain Neuropathic pain Periumbilical pain Results from Last 3 Months [facility] (04/17/2016 5:17 PM) Alexandru [...] Patient has decided to proceed with treatment/procedure. Stem Protocol: Relevant documents: relevant documents present and verified Site marked: the operative site was marked Patient identity confirmed: Patient identify confirmed verbally with patient. Time out: Immediately prior to procedure a "time out" was called to verify the correct patient, procedure, equipment, support merchandiser and site/side marked as required Procedures Details: [...] - Tue Apr 01, 2016 9:41 AM [employer] CTA ABDOMEN AND PELVIS Clinical Indication: Female, [...] AM) Component Value Range PATHOLOGY REPORT [facility] [email or web address] Sherrill Gibson MD, PhD, Director of Anatomic Pathology Department of Pathology and Laboratory Medicine [address] [place] [id number] Surgical Pathology Office: [phone] SURGICAL PATHOLOGY REPORT NAME: ALYCIA LYNCH Edu SURG PATH #: [id number] MR #: [id number] SPECIMEN CLASS: SR BILLING #: [id number] ALT ID #: LOCATION: [facility] DATE OF PROCEDURE: 03/17/2016 AGE: 55 SEX: [...] Activated Protein C 3.4 >2.7 RATIO Resistance MPO/FL-3 (03/03/2016 11:29 AM) Component Value Range Myeloperoxidase AB <0.2 Reference range: <0.4 (Negative) Unit: [facility] Serine Protease3 AB <0.2 Reference range: <0.4 (Negative) Unit: [facility] Specimen Blood ANTI-NEUT CYTO AB (ANCA/PANCA) (03/03/2016 [...] be performed before excluding lupus anticoagulant (Call [id number] to request further testing). Pathologist Signature INTERPRETED [...]
--- NOTE | 2016-05-30 16:22 | ED Headache ---
General Chief Complaint: Head/Cervical Problems Stated Complaint: MIGRAINE Source: patient Exam Limitations: no limitations History of Present Illness Time seen by provider: 16:20 Initial Comments To ER with a recurrent retro-orbital right-sided headache that radiates into the right side of her neck. This is typical of her migraines for which she sees neurology, Dr. Lou in [place]. She receives a monthly supply of Stadol nasal spray, ultram and when necessary hydrocodone. She has not taken any Stadol or the Ultram today because she states they do not help. Severity/Quality: moderate Location: frontal, temporal, parietal Associated Symptoms: No confusion, No fatigue, No facial pain, No fever/chills , No flushing, No loss of consciousness, No nausea/vomiting, No sinus infection , No vision changes Allergies and Home Medications Allergies Coded Allergies: amoxicillin (Verified Allergy, Unknown, 02/17/15) clavulanic acid (Verified Allergy, Unknown, 02/17/15) Home Medications Atorvastatin Calcium 10 Mg Tablet #30 (Reported) Butorphanol Tartrate 25 Mg [place] #3 (Reported) Estradiol 1 Mg Tablet #90 1 MG PO DAILY Prescribed by: HAKAN VALLE on 12/18/15 0735 Nortriptyline HCl 25 Mg Capsule #60 (Reported) Tramadol HCl 50 Mg Tablet #40 (Reported) Constitutional: see HPINo chills, No fever Eyes: No Symptoms Reported Ears, Nose, Mouth, Throat: no symptoms reported Respiratory: no symptoms reported Cardiovascular: no symptoms reported Genitourinary: no symptoms reported Musculoskeletal: no symptoms reported Skin: no symptoms reported Psychiatric/Neurological: No Symptoms Reported Past Awcrteg-Cwknee-Phnlqn Hx Patient Social History 2nd Hand Smoke Exposure: No Recent Foreign Travel: No Contact w/Someone Who Travel: No Recent Hopitalizations: Yes (COLITIS) Immunizations Up To Date Tetanus Booster (TDap): Less than 5yrs PED Vaccines UTD: No Seasonal Allergies Seasonal Allergies: No Surgeries HX Surgeries: Yes (LAPAROSCOPY X3-ENDOMETRIOSIS, LEFT BREAST BX) Surgeries: Abdominal, Breast, Section, Eye Surgery, Tonsillectomy, Tubal Ligation Respiratory Hx Respiratory Disorders: No Respiratory Disorders: Sleep Apnea Cardiovascular Hx Cardiac Disorders: Yes Cardiac Disorders: Hypertension Neurological Hx Neurological Disorders: Yes Neurological Disorders: 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 Reproductive System Hx Reproductive Disorders: Yes (CPP, DUB) Sexually Transmitted Disease: No HIV/AIDS: No Female Reproductive Disorders: Endometriosis, Ovarian Cyst Genitourinary Hx Genitourinary Disorders: No Genitourinary Disorders: UTI-Chronic Gastrointestinal Hx Gastrointestinal Disorders: Yes Gastrointestinal Disorders: Colitis Musculoskeletal Hx Musculoskeletal Disorders: Yes (NECK PAIN AND RIGHT ARM PAIN) Endocrine Hx Endocrine Disorders: No HEENT HX ENT Disorders: Yes (GLASSES) HEENT Disorders: Cataract Loss of Vision: Bilateral Hearing Impairment: Denies Cancer Hx Cancer: No Psychosocial Hx Psychiatric Problems: No Behavioral Health Disorders: Depression Integumentary HX Skin/Integumentary Disorder: No Blood Transfusions Hx Blood Disorders: No Adverse Reaction to a Blood Tr: No (N/A) Family Medical History Significant Family History: GI Disease, Hypertension Family Medial History: Arthritis 19 MOTHER Gastroenteritis G8 BROTHER Headache disorder 19 MOTHER G8 SISTER Hypertension 19 FATHER Prostate cancer 19 FATHER Physical Exam Vital Signs Vital Sign - Last 12Hours 05/30/16 16:10 Temp 98.0 Pulse 100 Resp 18 B/P 175/109 Pulse Ox 98 Capillary Refill : General Appearance: WD/WN no apparent distress HEENT: PERRL/EOMI normal ENT inspection TMs normal (all) Neck: non-tender full range of motion Cardiovascular: regular rate, rhythm no murmur Respiratory: lungs clear normal breath sounds no respiratory distress no accessory muscle use Gastrointestinal: normal bowel sounds non tender Extremities: normal range of motion non-tender Psychiatric: alert Skin: normal color warm/dry Progress/Results/Core Measures Results/Orders My Orders Orders-MIGUEL CHENG APRN Clonidine Tablet (Catapres Tablet) (05/30/16 16:30) Prochlorperazine Injection (Compazine In (05/30/16 16:30) Ketorolac Injection (Toradol Injection) (05/30/16 16:30) Medications Given in ED Current Medications Medications Dose Ordered Sig/Litzy Route Start Time Stop Time Status Last Admin Dose Admin Clonidine HCl 0.1 mg ONCE ONCE PO 05/30/16 16:30 05/30/16 16:31 DC 05/30/16 16:30 0.1 MG Ketorolac Tromethamine 60 mg ONCE ONCE IM 05/30/16 16:30 05/30/16 16:31 DC 05/30/16 16:33 60 MG Prochlorperazine Edisylate 10 mg ONCE ONCE IM 05/30/16 16:30 05/30/16 16:31 DC 05/30/16 16:32 10 MG Vital Signs/I&O Vital Sign - Last 12Hours 05/30/16 05/30/16 16:10 17:18 Temp 98.0 Pulse 100 86 Resp 18 16 B/P 175/109 Pulse Ox 98 98 Departure Impression Impression: Primary Impression: Migraine Qualified Code: G43.009 - Migraine without aura, not intractable, without status migrainosus Disposition: HOME, SELF-CARE Condition: Stable Departure-Patient Inst. Decision time for Depature: 16:22 Referrals: ISAI TRAORE MD (PCP/Family) Primary Care Physician Patient Instructions: Migraine Headache (DC) Add. Discharge Instructions: 1. Go home and take your headache medications 2. Follow-up with your doctor next week 3. All discharge instructions reviewed with patient and/or family. Voiced understanding. MIGUEL CHENG APRN May 30, 2016 16:22
[2016-05-30] MEDS ORDERED: BTR10SP2 (16:24)
[2016-05-30] MEDS ORDERED: NORT25CA (16:24)
[2016-05-30] MEDS ORDERED: ATOR10TA66 (16:24)
[2016-05-30] MEDS ORDERED: TRAM50TA2 (16:24)
[2016-05-30] MEDS ORDERED: cloNIDine 0.1 MG (CATAPRES) TAB PO ONE (16:30)
[2016-05-30] MEDS ORDERED: PROCHLORPERAZINE 10 MG/2ML INJ (COMPAZINE) IM ONE (16:30)
[2016-05-30] MEDS ORDERED: KETOROLAC 60 MG/2 ML VIAL IM ONE (16:30)
[2016-05-30 17:18] VITALS: BP 116/72
== END 2016-05-30 17:18 | disposition home or self-care (01) ==
LOC: EDUNIT# 16:00 → ER 16:01
DX: G43.909 Migraine, unspecified, not intractable, without status migrainosus (principal); I10 Essential (primary) hypertension; Z79.899 Other long term (current) drug therapy
CPT/HCPCS: 96372; 99282

== ENCOUNTER 2016-06-19 19:16 | Emergency (ER) | payer BC ==
[~2016-06-19] VITALS: Ht 165.1 cm; Wt 79.4 kg
[~2016-06-19 19:16] MED LIST changes: +ATOR10TA66; +BTR10SP2; +NORT25CA; +TRAM50TA2
--- OUTSIDE RECORDS SUMMARY | 2016-06-19 19:21 | XMS REPORT | Continuity of Care Document ---
[facility] Address Unknown Phone Unavailable Care Team Providers Care School Based Therapist Name Role Phone MaulikFreddy aranda PCP [phone] Source Comments Some departments are not documenting in the electronic medical record. If you do not see the information that you expected, contact Release of Information in the Health Information Management department at [phone] for further assistance in locating additional records.[facility] Active Allergies and Adverse Reactions Allergen Noted Date Severity Reactions Comments Augmentin 03/03/2016 Medium RASH Benadryl 06/02/2016 Low SEE COMMENTS Makes Pt. twitchy Latex 03/31/2016 Medium RASH Current Medications Prescription [...] bedtime daily. butorphanol (STADOL) 10 Apply 1 Bowden to one Active mg/mL nasal spray nostril [...] Active 25 mg capsule bedtime daily. 16 pregabalin (LYRICA) 25 mg Take 1 Cap by mouth three 90 Cap 2 06/02/19 Active capsule times daily. One cap qhs 17 x7d, then bid x7d, then tid Active Problems Problem Noted Date Ischemic colitis (HCC) 04/01/2016 Most Recent Encounters Date Type Specialty Providers Description 06/02/2016 Office Visit Anesthesia Pain Bello Marina MD Abdominal pain, right lower quadrant (Primary Dx); Abdominal pain, epigastric; Abdominal pain, left lower quadrant; Incisional pain; Neuropathic pain; Allodynia; Periumbilical pain 05/26/2016 Telephone Anesthesia Pain Emiliana Long RN Appointment Request 05/22/2016 Telephone Anesthesia Pain Emiliana Long RN Appointment 05/19/2016 Telephone Anesthesia Pain Emiliana Long RN Post Procedure 04/17/2016 Procedure visit Anesthesia Pain Sergio Whitt MD Incisional pain (Primary Bello Marina MD Dx); Abdominal pain, epigastric; Abdominal pain, right lower quadrant; Abdominal pain, left lower quadrant; Neuropathic pain; Periumbilical pain 04/02/2016 Telephone Anesthesia Pain Deandre James MD Medication Reconciliation 04/01/2016 [facility] Radiology Bello Marina MD Encounter 04/01/2016 Office Visit Cardiology Alejandro Miller MD Test - CTA abd /Pelv @ Glendy Owen MD 10am today; New Patient - Ischemic colitis 04/01/2016 [facility] Radiology Alejandro Miller MD Encounter 04/01/2016 Ancillary Radiology Bello [...] Long RN Appointment Question 03/28/2016 Screening Form Social History Tobacco Use Types Packs/Day Years Used Date Never Smoker Alcohol Use Drinks/Week oz/Week Comments Yes 0-1 Glasses 0.0 - 0.6 of wine Last Filed Vital Signs Vital Sign Reading Time Taken Blood Pressure 155/103 06/02/2016 11:24 AM EQUIPMENT MAINTENANCE ENGINEER Pulse 105 06/02/2016 11:24 AM EQUIPMENT MAINTENANCE ENGINEER Temperature 36.4 C (97.5 F) 06/02/2016 11:24 AM EQUIPMENT MAINTENANCE ENGINEER Respiratory Rate 18 04/17/2016 9:27 AM EQUIPMENT MAINTENANCE ENGINEER Height 1.651 m (5' 5") 06/02/2016 11:24 AM EQUIPMENT MAINTENANCE ENGINEER Weight 81.194 kg (179 lb) 06/02/2016 11:24 AM EQUIPMENT MAINTENANCE ENGINEER Body Mass Index 29.79 06/02/2016 11:24 AM EQUIPMENT MAINTENANCE ENGINEER Oxygen Saturation 97% 06/02/2016 11:24 AM EQUIPMENT MAINTENANCE ENGINEER Plan of Care Health Maintenance Due Date Last Done Comments Hepatitis C Screening 1960 Physical (Comprehensive) 12/15/1967 Exam Pertussis Vaccine 12/15/1971 Tetanus Vaccine 1977 Cervical Cancer Screening 1981 Breast Cancer Screening 2000 Influenza Vaccine 12/19/2016 Colorectal Cancer 03/17/2026 03/17/2016 Screening Procedures from Last 3 Months Procedure Name Priority Date/Time Associated Diagnosis Comments NM INJECTION ANES OTHER Routine 04/17/2016 Abdominal pain, Results for this PERIPHERAL NERVE/BRANCH 5:17 PM EQUIPMENT MAINTENANCE ENGINEER epigastric procedure are in the Abdominal pain, right results section. lower quadrant Abdominal pain, left lower quadrant Incisional pain Neuropathic pain Periumbilical pain NM INJECTION Routine 04/17/2016 Abdominal pain, right Results for this INTRALESIONAL UP TO & 5:16 PM EQUIPMENT MAINTENANCE ENGINEER lower quadrant procedure are in the INCLUD 7 LESIONS Abdominal pain, left results section. lower quadrant Incisional pain Neuropathic pain Periumbilical pain Results from Last 3 Months [facility] (04/17/2016 5:17 PM) Narrative Bello Marina MD 04/17/20165:17 PM Nerve Block Nerve: abdominal cutaneous Laterality: bilateral Consent: Consent obtained: verbal Consent given by: patient Alternatives discussed: referral, no treatment, delayed treatment and alternative treatment Discussed with patient the purpose of the treatment/procedure, other ways of treating my condition, including no treatment/ procedure and the risks and benefits of the alternatives. Patient has decided to proceed with treatment/procedure. [place] Protocol: Relevant documents: relevant documents present and verified Site marked: the operative site was marked Patient identity confirmed: Patient identify confirmed verbally with patient. 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
[2016-06-19] MEDS ORDERED: ENAL20TA (20:00)
[2016-06-19] MEDS ORDERED: ONDANSETRON 4 MG (ZOFRAN) ORAL DISSOLVE TAB SL STA (20:01)
[2016-06-19] MEDS ORDERED: KETOROLAC 60 MG/2 ML VIAL IM STA (20:01)
--- NOTE | 2016-06-19 20:16 | ED Headache ---
General Chief Complaint: Head/Cervical Problems Stated Complaint: MIGRAINE Nursing Triage Note: Onset of migraine this am. Has taken motrin one time this morning around 0900. States she is nauseated and is vomiting in room. has history of migraine Nursing Sepsis Screen: No Definite Risk History of Present Illness Time seen by provider: 20:05 Initial Comments Patient evaluated for a headache, started at 09 100 this morning on the right frontal side. She has vomited once today upon arrival to the room, small amount. She reports a history of migraine she sees Dr. Ackerman in [place] she has tried multiple different medications with no success. This is her third emergency room visit since May 25, 2016 for migraines. She has multiple medications per [facility] Tracs. She is taking by mouth fluids well. Timing/Duration: 4-6 hours Severity/Quality: moderate Location: frontal (right) Prior Headaches/Recent Trauma: frequent headaches, chronic headaches Modifying Factors: improves with immobilization, improves with rest Associated Symptoms: nausea/vomiting Allergies and Home Medications Allergies Coded Allergies: amoxicillin (Verified Allergy, Unknown, 06/19/16) clavulanic acid (Verified Allergy, Unknown, 06/19/16) diphenhydramine (Unverified Allergy, Unknown, "hebby jebby", 06/19/16) Home Medications Atorvastatin Calcium 10 Mg Tablet #30 (Reported) Butorphanol Tartrate 25 Mg Rescue #3 (Reported) Enalapril Maleate 20 Mg Tablet #30 (Reported) Estradiol 1 Mg Tablet #90 1 MG PO DAILY Prescribed by: HAKAN VALLE on 12/18/15 0735 Nortriptyline HCl 25 Mg Capsule #60 (Reported) Tramadol HCl 50 Mg Tablet #40 (Reported) Constitutional: no symptoms reported see HPI Eyes: See HPI Photophobia Ears, Nose, Mouth, Throat: no symptoms reported see HPI Respiratory: no symptoms reported see HPI Cardiovascular: no symptoms reported see HPI Gastrointestinal: no symptoms reported see HPI Genitourinary: no symptoms reported see HPI Musculoskeletal: no symptoms reported see HPI Skin: no symptoms reported see HPI Psychiatric/Neurological: No Symptoms Reported See HPI All Other Systems Reviewed Negative Unless Noted: Yes Past Zitpfvj-Xlnfth-Apdnsb Hx Patient Social History 2nd Hand Smoke Exposure: No Recent Foreign Travel: No Contact w/Someone Who Travel: No Recent Infectious Disease Expo: No Recent Hopitalizations: Yes (COLITIS) Immunizations Up To Date Tetanus Booster (TDap): Less than 5yrs PED Vaccines UTD: No Seasonal Allergies Seasonal Allergies: No Surgeries HX Surgeries: Yes (LAPAROSCOPY X3-ENDOMETRIOSIS, LEFT BREAST BX) Surgeries: Abdominal, Breast, Section, Eye Surgery, Tonsillectomy, Tubal Ligation Respiratory Hx Respiratory Disorders: No Respiratory Disorders: Sleep Apnea Cardiovascular Hx Cardiac Disorders: Yes Cardiac Disorders: Hypertension Neurological Hx Neurological Disorders: Yes Neurological Disorders: 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 Reproductive System Hx Reproductive Disorders: Yes (CPP, DUB) Sexually Transmitted Disease: No HIV/AIDS: No Female Reproductive Disorders: Endometriosis, Ovarian Cyst Genitourinary Hx Genitourinary Disorders: No Genitourinary Disorders: UTI-Chronic Gastrointestinal Hx Gastrointestinal Disorders: Yes Gastrointestinal Disorders: Colitis Musculoskeletal Hx Musculoskeletal Disorders: Yes (NECK PAIN AND RIGHT ARM PAIN) Endocrine Hx Endocrine Disorders: No HEENT HX ENT Disorders: Yes (GLASSES) HEENT Disorders: Cataract Loss of Vision: Bilateral Hearing Impairment: Denies Cancer Hx Cancer: No Psychosocial Hx Psychiatric Problems: No Behavioral Health Disorders: Depression Integumentary HX Skin/Integumentary Disorder: No Blood Transfusions Hx Blood Disorders: No Adverse Reaction to a Blood Tr: No (N/A) Reviewed Nursing Assessment Reviewed/Agree w Nursing PMH: Yes Family Medical History Significant Family History: GI Disease, Hypertension Family Medial History: Arthritis 19 MOTHER Gastroenteritis G8 BROTHER Headache disorder 19 MOTHER G8 SISTER Hypertension 19 FATHER Prostate cancer 19 FATHER Physical Exam Vital Signs Vital Sign - Last 12Hours 06/19/16 19:53 Temp 98.3 Pulse 111 Resp 18 B/P 127/60 Pulse Ox 97 Capillary Refill : Less Than 3 Seconds General Appearance: WD/WN no apparent distress HEENT: PERRL/EOMI normal ENT inspection TMs normal pharynx normal Neck: non-tender full range of motion supple normal inspection Cardiovascular: normal peripheral pulses regular rate, rhythm no edema no murmur Respiratory: chest non-tender lungs clear normal breath sounds Gastrointestinal: normal bowel sounds non tender soft no organomegalyNo distended, No guarding, No rebound, No tenderness Back: normal inspection no CVA tenderness no vertebral tenderness Extremities: normal range of motion non-tender normal inspection no pedal edema no calf tenderness normal capillary refill Psychiatric: alert oriented x 3 Crainal Nerves: normal hearing normal speech PERRLNo facial droop, No facial paresthesias, No facial weakness, No tongue deviation to R, No tongue deviation to L Coordination/Gait: normal finger to nose normal gait Motor/Sensory: no motor deficit no sensory deficit no pronator drift Skin: normal color warm/dry Lymphatic: no adenopathy Progress/Results/Core Measures Results/Orders My Orders Orders-JOHANNA BAEZ Ondansetron Oral Dissolve Tab (Zofran (06/19/16 20:01) Ketorolac Injection (Toradol Injection) (06/19/16 20:01) Hydrocodone/Apap 7.5/325 Tab (Lortab 7. (06/19/16 20:56) Vital Signs/I&O Vital Sign - Last 12Hours 06/19/16 06/19/16 19:53 22:05 Temp 98.3 98.0 Pulse 111 90 Resp 18 18 B/P 127/60 Pulse Ox 97 99 Blood Pressure Mean: 82 Progress Note : Time: 20:05 Progress Note Initial evaluation completed, reviewed previous ER visits from May 2016. Toradol 60 mg IM and Zofran 4 mg sublingual. Will reevaluate. Will delay starting IV fluids at this time to see if she improves with current treatment. 2049 patient reports nausea is improving, pain is subsiding slowly but still not relieved. Will get Hydrocodone 7.5 mg by mouth. Discussed with the patient and her follow-up with Dr. 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 2199 no further nausea, pain reported at 4/10. Discharge to home. Departure Impression Impression: Primary Impression: Migraine Qualified Code: G43.009 - Migraine without aura, not intractable, without status migrainosus Disposition: HOME, SELF-CARE Condition: Improved Departure-Patient Inst. Decision time for Depature: 21:45 Referrals: ISAI TRAORE MD (PCP/Family) Primary Care Physician Patient Instructions: Migraine Headache (DC) Add. Discharge Instructions: All discharge instructions reviewed with patient and/or family. Voiced understanding. Increase oral intake. Continue to manage migraines with medication she has at home. Follow up with Dr. Ackerman for additional treatment Return to emergency room for worsening headache, uncontrolled vomiting, changes in mental status, or new concerns. Copy Copies To 1: ISAI TRAORE MD, AMY ARNP Jun 19, 2016 20:16
[2016-06-19] MEDS ORDERED: HYDROcodone/APAP 7.5 MG/325 MG (LORTAB, LORCET PLUS) TABLET PO STA (20:56)
[2016-06-19 22:05] VITALS: BP 123/62
== END 2016-06-19 22:05 | disposition home or self-care (01) ==
LOC: EDUNIT# 19:16 → ER 19:17
DX: G43.909 Migraine, unspecified, not intractable, without status migrainosus (principal); I10 Essential (primary) hypertension; Z79.899 Other long term (current) drug therapy
CPT/HCPCS: 96372; 99282

== ENCOUNTER 2016-08-27 20:16 | Emergency (ER) | payer BC ==
[~2016-08-27] VITALS: Ht 165.1 cm; Wt 83.0 kg
[~2016-08-27 20:16] MED LIST changes: +ENAL20TA
[2016-08-27] MEDS ORDERED: PREG25CA PO (20:30)
[2016-08-27] MEDS ORDERED: PROCHLORPERAZINE 10 MG/2ML INJ (COMPAZINE) IM ONE (20:45)
--- NOTE | 2016-08-27 20:53 | ED Headache ---
General Chief Complaint: Head/Cervical Problems Stated Complaint: MIGRAINE Nursing Triage Note: pt states she has a migraine but also has chronic migraines. This migraine started this morning. Nursing Sepsis Screen: No Definite Risk Source: patient Exam Limitations: no limitations History of Present Illness Time seen by provider: 20:50 Initial Comments To ER with a left frontal migraine that is typical of her chronic migraines for which she sees a neurologist, Dr. Robbie Lou in [place]. She took an Ultram at home without relief. This began this morning and is associated with nausea. Timing/Duration: waxing and waning Severity/Quality: moderate Location: frontal Prior Headaches/Recent Trauma: frequent headaches, chronic headaches Associated Symptoms: No confusion, No loss of consciousness, No nausea/vomiting , No nasal congestion, No seizures, No stiff neck Allergies and Home Medications Allergies Coded Allergies: amoxicillin (Verified Allergy, Unknown, 06/19/16) clavulanic acid (Verified Allergy, Unknown, 06/19/16) diphenhydramine (Unverified Allergy, Unknown, "hebby jebby", 06/19/16) latex (Verified Allergy, Unknown, 08/27/16) Home Medications Atorvastatin Calcium 10 Mg Tablet, #30 (Reported) Enalapril Maleate 20 Mg Tablet, #30 (Reported) Estradiol 1 Mg Tablet, 1 MG PO DAILY, #90 Ref 3 Prescribed by: HAKAN VALLE on 12/18/15 0735 Nortriptyline HCl 25 Mg Capsule, #60 (Reported) Pregabalin 25 Mg Capsule, 25 MG PO, (Reported) Tramadol HCl 50 Mg Tablet, #40 (Reported) Constitutional: see HPI Eyes: No Symptoms Reported Ears, Nose, Mouth, Throat: no symptoms reported Respiratory: no symptoms reported Cardiovascular: no symptoms reported Genitourinary: no symptoms reported Musculoskeletal: no symptoms reported Skin: no symptoms reported Psychiatric/Neurological: No Symptoms Reported Past Ymlmsrw-Gtumdz-Hwpyah Hx Patient Social History Alcohol Use: Denies Use Recreational Drug Use: No Smoking Status: Never a Smoker 2nd Hand Smoke Exposure: No Recent Foreign Travel: No Contact w/Someone Who Travel: No Recent Infectious Disease Expo: No Recent Hopitalizations: Yes (COLITIS) Immunizations Up To Date Tetanus Booster (TDap): Less than 5yrs PED Vaccines UTD: No Seasonal Allergies Seasonal Allergies: No Surgeries HX Surgeries: Yes (LAPAROSCOPY X3-ENDOMETRIOSIS, LEFT BREAST BX) Surgeries: Abdominal, Breast, Section, Eye Surgery, Tonsillectomy, Tubal Ligation Respiratory Hx Respiratory Disorders: No Respiratory Disorders: Sleep Apnea Cardiovascular Hx Cardiac Disorders: Yes Cardiac Disorders: Hypertension Neurological Hx Neurological Disorders: Yes Neurological Disorders: 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 Reproductive System Hx Reproductive Disorders: Yes (CPP, DUB) Sexually Transmitted Disease: No HIV/AIDS: No Female Reproductive Disorders: Endometriosis, Ovarian Cyst Genitourinary Hx Genitourinary Disorders: No Genitourinary Disorders: UTI-Chronic Gastrointestinal Hx Gastrointestinal Disorders: Yes Gastrointestinal Disorders: Colitis Musculoskeletal Hx Musculoskeletal Disorders: Yes (NECK PAIN AND RIGHT ARM PAIN) Endocrine Hx Endocrine Disorders: No HEENT HX ENT Disorders: Yes (GLASSES) HEENT Disorders: Cataract Loss of Vision: Bilateral Hearing Impairment: Denies Cancer Hx Cancer: No Psychosocial Hx Psychiatric Problems: No Behavioral Health Disorders: Depression Integumentary HX Skin/Integumentary Disorder: No Blood Transfusions Hx Blood Disorders: No Adverse Reaction to a Blood Tr: No (N/A) Family Medical History Significant Family History: GI Disease, Hypertension Family Medial History: Arthritis 19 MOTHER Gastroenteritis G8 BROTHER Headache disorder 19 MOTHER G8 SISTER Hypertension 19 FATHER Prostate cancer 19 FATHER Physical Exam Vital Signs Vital Sign - Last 12Hours 08/27/16 20:20 Temp 96.5 Pulse 98 Resp 20 B/P (MAP) 130/87 Pulse Ox 99 O2 Delivery Room Air Capillary Refill : Less Than 3 Seconds General Appearance: WD/WN, no apparent distress HEENT: PERRL/EOMI, normal ENT inspection Neck: non-tender, full range of motion Cardiovascular: regular rate, rhythm, no murmur Respiratory: normal breath sounds, no respiratory distress, no accessory muscle use Gastrointestinal: non tender, soft Psychiatric: alert, oriented x 3 Crainal Nerves: normal hearing, normal speech, PERRL Skin: normal color, warm/dry Progress/Results/Core Measures Results/Orders My Orders Orders - MIGUEL CHENG APRN Ketorolac Injection (Toradol Injection) (08/27/16 20:45) Prochlorperazine Injection (Compazine In (08/27/16 20:45) Vital Signs/I&O Vital Sign - Last 12Hours 08/27/16 20:20 Temp 96.5 Pulse 98 Resp 20 B/P (MAP) 130/87 Pulse Ox 99 O2 Delivery Room Air Blood Pressure Mean: 101 Departure Impression Impression: Primary Impression: Headache Disposition: 01 HOME, SELF-CARE Condition: Stable Departure-Patient Inst. Decision time for Depature: 20:52 Referrals: ISAI TRAORE MD (PCP/Family) Primary Care Physician Patient Instructions: Headache, Adult (DC) Add. Discharge Instructions: All discharge instructions reviewed with patient and/or family. Voiced understanding. MIGUEL CHENG ROAD ADVISOR August 27, 2016 20:53
[2016-08-27] MEDS: KETOROLAC 60 MG/2 ML VIAL IM ONE ×2 (21:08→21:11)
[2016-08-27] MEDS ORDERED: ONDANSETRON 4 MG (ZOFRAN) ORAL DISSOLVE TAB PO ONE (21:45)
[2016-08-27 21:50] VITALS: BP 119/68
== END 2016-08-27 21:53 | disposition home or self-care (01) ==
LOC: EDUNIT# 20:16 → ER 20:18
DX: R51 Headache (principal); I10 Essential (primary) hypertension; Z79.899 Other long term (current) drug therapy
CPT/HCPCS: 99282

== ENCOUNTER → 2017-06-29 | Outpatient (CLI) | payer BC ==
[~2017-06-29] MED LIST changes: +HYOS-19 SL; -HYOS0.1218 SL; +PREG25CA PO
--- NOTE | 2017-06-29 17:17 | Diagnostic Imaging Report ---
INDICATION: Cough and chest tightness. PA and lateral chest obtained at 5:03 p.m. FINDINGS: Heart and mediastinal silhouette are normal in appearance. The lungs are clear. There is no pneumothorax or pleural fluid. IMPRESSION: Negative chest. Dictated by: Dictated on workstation # [id number]
== END ==
LOC: RAD 16:35
PROVIDERS: ATTEND Family Medicine
DX: R05 Cough (principal); R07.89 Other chest pain
CPT/HCPCS: 71046

== ENCOUNTER → 2017-08-31 | Outpatient (CLI) | payer BC ==
--- NOTE | 2017-08-31 14:55 | Diagnostic Imaging Report ---
INDICATION: Right breast lump. The lump was felt by the patient's physician at the 10 o'clock location. The patient denies a palpable abnormality. COMPARISON: Correlation is made with the diagnostic mammogram from earlier the same day. FINDINGS: Sonography interrogation of the area of lump at the 10 o'clock location of the right breast was performed. No sonographic abnormality is identified. No solid or cystic mass is detected. IMPRESSION: No sonographic abnormality is identified. Continued close clinical and self breast exams are recommended to confirm stability of the clinically palpable abnormality. ACR BI-RADS Category 1: Negative. Dictated by: Dictated on workstation # [id number]
--- NOTE | 2017-08-31 19:00 | Diagnostic Imaging Report ---
INDICATION: Palpable lump at the 10 o'clock location of the right breast. COMPARISON is made with prior mammograms from 02/29/2016 and 10/10/2014. EXAM: 2D and 3D bilateral diagnostic mammography was performed. The current study was also evaluated with a Computer Aided Detection (CAD) system. FINDINGS: Scattered fibroglandular densities are identified bilaterally. There are benign calcifications bilaterally. No mass or malignant appearing microcalcifications are seen. Specifically, at the area of palpable abnormality (upper-outer right breast posterior depth), no underlying abnormality is seen. The axillae are unremarkable. IMPRESSION: ACR BI-RADS Category 0: Incomplete. (Needs additional imaging evaluation). Result letter will be mailed to the patient. Note: At least 10% of breast cancer is not imaged by mammography. No mammographic features suspicious for malignancy are identified. Even so, directed sonographic interrogation of the area of palpable abnormality in the right breast is recommended for further evaluation. Dictated by: Dictated on workstation # [id number]
== END ==
LOC: RAD 14:04
PROVIDERS: ATTEND Obstetrics & Gynecology
DX: N63.11 Unspecified lump in the right breast, upper outer quadrant (principal)
CPT/HCPCS: 77066

== ENCOUNTER 2018-06-12 09:07 | Emergency (ER) | payer BC ==
[~2018-06-12] VITALS: Ht 165.1 cm; Wt 88.9 kg
[~2018-06-12 09:07] MED LIST changes: +DIVA-76 PO; -DIVA500T7 PO; +HYDR-4196 PO; -HYDR-753 PO
[2018-06-12 10:23] LABS: BASOPHILS % (AUTO) 0 % (0-10); EOSINOPHILS # (AUTO) 0.1 10^3/uL (0.0-0.3); EOSINOPHILS % (AUTO) 2 % (0-10); HEMATOCRIT 41 % (35-52); HEMOGLOBIN 13.2 G/DL (11.5-16.0); LYMPHOCYTES # (AUTO) 1.4 X 10^3 (1.0-4.0); LYMPHOCYTES % (AUTO) 19 % (12-44); MEAN CORPUSCULAR HEMOGLOBIN 28 PG (25-34); MEAN CORPUSCULAR HGB CONC 32 G/DL (32-36); MEAN CORPUSCULAR VOLUME 87 FL (80-99); MEAN PLATELET VOLUME 10.3 FL (7.4-10.4); MONOCYTES # (AUTO) 0.5 X 10^3 (0.0-1.0); MONOCYTES % (AUTO) 7 % (0-12); NEUTROPHILS # (AUTO) 5.4 X 10^3 (1.8-7.8); NEUTROPHILS % (AUTO) 73 % (42-75); PLATELET COUNT 302 10^3/uL (130-400); RED CELL DISTRIBUTION WIDTH 15.7 % (10.0-14.5); WHITE BLOOD COUNT 7.4 10^3/uL (4.3-11.0)
[2018-06-12 10:24] LABS: BILIRUBIN,URINE NEGATIVE (NEGATIVE); CLARITY,URINE VERY CLOUDY; COLOR,URINE YELLOW; GLUCOSE, URINE (UA) NEGATIVE (NEGATIVE); KETONES,URINE NEGATIVE (NEGATIVE); LEUKOCYTE ESTERASE ,URINE NEGATIVE (NEGATIVE); NITRITE,URINE NEGATIVE (NEGATIVE); PH,URINE 6 (5-9); PROTEIN,URINE NEGATIVE (NEGATIVE); UROBILINOGEN,URINE NORMAL (NORMAL)
[2018-06-12] MEDS ORDERED: fentaNYL INJECTION 100 MCG/2 ML AMP IVP ONE ×2 (10:30→12:45)
[2018-06-12] MEDS ORDERED: ONDANSETRON 4 MG/2 ML (SDV) Z0FRAN IVP ONE (10:30)
[2018-06-12 10:31] LABS: BACTERIA,URINE MODERATE /HPF; RBC,URINE 0-2 /HPF; WBC,URINE 0-2 /HPF
[2018-06-12 10:40] LABS: ALANINE AMINOTRANSFERASE 34 U/L (0-55); ALBUMIN 4.3 GM/DL (3.2-4.5); ALKALINE PHOSPHATASE 121 U/L (40-136); BILIRUBIN,TOTAL 0.2 MG/DL (0.1-1.0); BUN/CREATININE RATIO 16; CALCIUM 9.8 MG/DL (8.5-10.1); CARBON DIOXIDE 25 MMOL/L (21-32); CHLORIDE 102 MMOL/L (98-107); CREATININE SERUM 0.86 MG/DL (0.60-1.30); GFR ESTIMATED > 60; GLUCOSE 99 MG/DL (70-105); LIPASE 15 U/L (8-78); POTASSIUM 4.1 MMOL/L (3.6-5.0); SODIUM 138 MMOL/L (135-145); TOTAL PROTEIN 7.2 GM/DL (6.4-8.2)
--- NOTE | 2018-06-12 11:04 | Diagnostic Imaging Report ---
INDICATION: Right upper quadrant pain. FINDINGS: Lungs are clear. The heart and vessels normal. There is no effusion or pneumothorax. IMPRESSION: No acute appearing abnormality. Dictated by: Dictated on workstation # [id number]
[2018-06-12] MEDS ORDERED: PROMETHAZINE INJ 25 MG/ML (PHENERGAN) AMP IVP ONE (12:45)
--- NOTE | 2018-06-12 13:25 | Diagnostic Imaging Report ---
PROCEDURE: US Gallbladder. TECHNIQUE: Multiple real-time grayscale images were obtained over the right upper quadrant in various projections. INDICATION: Right upper quadrant pain. FINDINGS: The liver is normal in size and without focal lesions. There is no intrahepatic or extrahepatic biliary ductal dilatation. The common bile duct measures less than 5 mm. There is no cholelithiasis, gallbladder wall thickening, or pericholecystic fluid. The right kidney is normal in appearance. There is no ascites. IMPRESSION: Essentially unremarkable right upper quadrant ultrasound. Dictated by: Dictated on workstation # [id number]
[2018-06-12] MEDS ORDERED: ANTACID SUSP 30 ML UDC (MYLANTA) PO ONE (14:15)
[2018-06-12] MEDS ORDERED: LIDOCAINE 2% VISCOUS 15 ML UDC PO ONE (14:15)
[2018-06-12] MEDS ORDERED: TRAM-42 PO (15:20)
[2018-06-12] MEDS ORDERED: OMEP20CA12 PO (15:20)
[2018-06-12] MEDS ORDERED: ONDA4TAB11 SL (15:21)
--- NOTE | 2018-06-12 15:21 | ED Abdominal Pain ---
General Chief Complaint: Abdominal/GI Problems Stated Complaint: ABDOMINAL PAIN, ACHES Nursing Triage Note: PT PRESENTS TO ER WITH COMPLAINT OF RUQ ABD PAIN. STATES PAIN SHOOTS UP INTO RIB CAGE/CHEST. 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 Sepsis Screen: No Definite Risk Source of Information: Patient Exam Limitations: No Limitations History of Present Illness Date Seen by Provider: Jun 12, 2018 Time Seen by Provider: 09:40 Initial Comments This 57-year-old woman presents to the emergency room with about 3 days of headache, generalized fatigue, nausea, and right upper quadrant abdominal pain. Pain is worse with movement and deep breathing. She denies any other exacerbating or alleviating factors. She denies vomiting, constipation or diarrhea. She's had a little shortness of air as well. Her last oral intake was at 08:30 when she took her medications with some sameer nolberto. Her last solid intake was at 18:00 yesterday. She has been afebrile. Allergies and Home Medications Allergies Coded Allergies: amoxicillin (Verified Allergy, Unknown, 06/19/16) clavulanic acid (Verified Allergy, Unknown, 06/19/16) diphenhydramine (Unverified Allergy, Unknown, "hebby jebby", 06/19/16) latex (Verified Allergy, Unknown, 08/27/16) Home Medications Estradiol 1 Mg Tablet, 1 MG PO DAILY Prescribed by: HAKAN VALLE on 12/18/15 0735 Omeprazole 20 Mg Capsule.dr, 20 MG PO DAILY Prescribed by: JED CHAU on 06/12/18 1520 Ondansetron 4 Mg Tab.rapdis, 4 MG SL Q4H PRN for NAUSEA/VOMITING Prescribed by: JED CHAU on 06/12/18 1521 Tramadol HCl 50 Mg Tablet, 50 MG PO Q6H PRN for PAIN-MODERATE TO SEVERE Prescribed by: JED CHAU on 06/12/18 1520 Patient Home Medication List Home Medication List Reviewed: Yes Review of Systems Review of Systems Constitutional: see HPI EENTM: No Symptoms Reported Respiratory: See HPI Cardiovascular: No Symptoms Reported Gastrointestinal: See HPI Genitourinary: No Symptoms Reported Musculoskeletal: no symptoms reported Skin: no symptoms reported Psychiatric/Neurological: See HPI Endocrine: No Symptoms Reported Hematologic/Lymphatic: No Symptoms Reported Past Kixguzj-Vwhghw-Oycycd Hx Past Med/Social Hx: Reviewed and Corrections made Patient Social History Alcohol Use: Denies Use Recreational Drug Use: No Smoking Status: Never a Smoker 2nd Hand Smoke Exposure: No Recent Foreign Travel: No Contact w/Someone Who Travel: No Recent Infectious Disease Expo: No Recent Hopitalizations: No Immunizations Up To Date Tetanus Booster (TDap): Less than 5yrs PED Vaccines UTD: No Seasonal Allergies Seasonal Allergies: No Past Medical History Surgeries: Yes (LAPAROSCOPY X3-ENDOMETRIOSIS, LEFT BREAST BX) Abdominal, Breast (Left breast biopsy), Section, Eye Surgery, Hysterectomy, Tonsillectomy, Tubal Ligation Respiratory: No Sleep Apnea Currently Using CPAP: No Currently Using BIPAP: No Cardiac: Yes Hypertension Neurological: Yes 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 Reproductive Disorders: Yes (CPP, DUB) Female Reproductive Disorders: Endometriosis, Ovarian Cyst Sexually Transmitted Disease: No HIV/AIDS: No Genitourinary: No UTI-Chronic Gastrointestinal: Yes Colitis Musculoskeletal: Yes (NECK PAIN AND RIGHT ARM PAIN) Endocrine: No HEENT: Yes Cataract Loss of Vision: Bilateral Hearing Impairment: Denies Cancer: No Psychosocial: Yes Depression Integumentary: No Blood Disorders: No Adverse Reaction/Blood Tranf: No (N/A) Family Medical History Arthritis 19 MOTHER Gastroenteritis G8 BROTHER Headache disorder 19 MOTHER G8 SISTER Hypertension 19 FATHER Prostate cancer 19 FATHER GI Disease, Hypertension Physical Exam Vital Signs Vital Signs - First Documented 06/12/18 09:27 Temp 97.7 Pulse 89 Resp 16 B/P (MAP) 129/86 (100) Pulse Ox 97 O2 Delivery Room Air Capillary Refill : Less Than 3 Seconds Height/Weight/BMI Height: 5'5.00" Weight: 196lbs. oz. 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, no motor/sensory deficits, alert, normal mood/affect, oriented x 3 Skin: normal color, warm/dry Progress/Results/Core Measures Results/Orders Lab Results Laboratory Tests Test 06/12/18 09:34 06/12/18 09:46 Range/Units Urine Color YELLOW Urine Clarity VERY CLOUDY H Urine pH 6 5-9 Urine Specific [place] 1.020 1.016-1.022 Urine Protein NEGATIVE NEGATIVE Urine Glucose (UA) NEGATIVE NEGATIVE Urine Ketones NEGATIVE NEGATIVE Urine Nitrite NEGATIVE NEGATIVE Urine Bilirubin NEGATIVE NEGATIVE Urine Urobilinogen NORMAL NORMAL MG/DL Urine Leukocyte Esterase NEGATIVE NEGATIVE Urine RBC (Auto) 2+ H NEGATIVE Urine RBC 0-2 /HPF Urine WBC 0-2 /HPF Urine Squamous Epithelial Cells 5-10 /HPF Urine Crystals NONE /LPF Urine Bacteria MODERATE H /HPF Urine Casts NONE /LPF Urine Mucus NEGATIVE /LPF Urine Culture Indicated NO White Blood Count 7.4 4.3-11.0 10^3/uL Red Blood Count 4.73 4.35-5.85 10^6/uL Hemoglobin 13.2 11.5-16.0 G/DL Hematocrit 41 35-52 % Mean Corpuscular Volume 87 80-99 FL Mean Corpuscular Hemoglobin 28 25-34 PG Mean Corpuscular Hemoglobin Concent 32 32-36 G/DL Red Cell Distribution Width 15.7 H 10.0-14.5 % Platelet Count 302 130-400 10^3/uL Mean Platelet Volume 10.3 7.4-10.4 FL Neutrophils (%) (Auto) 73 42-75 % Lymphocytes (%) (Auto) 19 12-44 % Monocytes (%) (Auto) 7 0-12 % Eosinophils (%) (Auto) 2 0-10 % Basophils (%) (Auto) 0 0-10 % Neutrophils # (Auto) 5.4 1.8-7.8 X 10^3 Lymphocytes # (Auto) 1.4 1.0-4.0 X 10^3 Monocytes # (Auto) 0.5 0.0-1.0 X 10^3 Eosinophils # (Auto) 0.1 0.0-0.3 10^3/uL Basophils # (Auto) 0.0 0.0-0.1 10^3/uL Sodium Level 138 135-145 MMOL/L Potassium Level 4.1 3.6-5.0 MMOL/L Chloride Level 102 98-107 MMOL/L Carbon Dioxide Level 25 21-32 MMOL/L Anion Gap 11 5-14 MMOL/L Blood Urea Nitrogen 14 7-18 MG/DL Creatinine 0.86 0.60-1.30 MG/DL Estimat Glomerular Filtration Rate > 60 BUN/Creatinine Ratio 16 Glucose Level 99 70-105 MG/DL Calcium Level 9.8 8.5-10.1 MG/DL Corrected Calcium 9.6 8.5-10.1 MG/DL Total Bilirubin 0.2 0.1-1.0 MG/DL Aspartate Amino Transf (AST/SGOT) 24 5-34 U/L Alanine Aminotransferase (ALT/SGPT) 34 0-55 U/L Alkaline Phosphatase 121 40-136 U/L C-Reactive Protein High Sensitivity 1.00 H 0.00-0.50 MG/DL Total Protein 7.2 6.4-8.2 GM/DL Albumin 4.3 3.2-4.5 GM/DL Lipase 15 8-78 U/L My Orders Orders - JED MONTANO MD Ekg Tracing (06/12/18 09:40) Fentanyl Injection (Sublimaze Injection (06/12/18 10:30) Ondansetron Injection (Zofran Injectio (06/12/18 10:30) Cbc With Automated Diff (06/12/18 10:16) Comprehensive Metabolic Panel (06/12/18 10:16) Hs C Reactive Protein (06/12/18 10:16) Lipase (06/12/18 10:16) Ua Culture If Indicated (06/12/18 10:16) Saline Lock/Iv-Start (06/12/18 10:16) Chest Pa/Lat (2 View) (06/12/18 10:36) Us Gallbladder 10780 (06/12/18 12:40) Fentanyl Injection (Sublimaze Injection (06/12/18 12:45) Promethazine Injection (Phenergan Injec (06/12/18 12:45) Lidocaine 2% Viscous 15 Ml (Xylocaine Vi (06/12/18 14:15) Antacid Suspension (Mylanta Suspension (06/12/18 14:15) Medications Given in ED Current Medications Medications Dose Ordered Sig/Litzy Route Start Time Stop Time Status Last Admin Dose Admin Al Hydrox/Mg Hydrox/Simethicone 30 ml ONCE ONCE PO 06/12/18 14:15 06/12/18 14:16 DC 06/12/18 14:16 30 ML Fentanyl Citrate 50 mcg ONCE ONCE IVP 06/12/18 10:30 06/12/18 10:31 DC 06/12/18 10:33 50 MCG Fentanyl Citrate 50 mcg ONCE ONCE IVP 06/12/18 12:45 06/12/18 12:46 DC 06/12/18 12:56 50 MCG Lidocaine HCl 15 ml ONCE ONCE PO 06/12/18 14:15 06/12/18 14:16 DC 06/12/18 14:16 15 ML Ondansetron HCl 8 mg ONCE ONCE IVP 06/12/18 10:30 06/12/18 10:31 DC 06/12/18 10:33 8 MG Promethazine HCl 12.5 mg ONCE ONCE IVP 06/12/18 12:45 06/12/18 12:46 DC 06/12/18 12:56 12.5 MG Vital Signs/I&O 06/12/18 06/12/18 09:27 15:33 Temp 97.7 Pulse 89 94 Resp 16 20 B/P (MAP) 129/86 (100) 121/89 (100) Pulse Ox 97 97 O2 Delivery Room Air Room Air Blood Pressure Mean: 100 Progress Progress Note : Progress Note Labs were obtained and were relatively unremarkable. Chest x-ray showed no evidence of lower lobe pneumonia. Patient was treated with Zofran followed by Phenergan for nausea. Fentanyl was given for pain. Gallbladder ultrasound revealed no gallbladder pathology. GI cocktail was tried for further treatment of pain and evaluation of etiology. It had no effect on her pain. Patient was offered CT scan for further evaluation. After discussion of risks and benefits she declines. She elected to treat her symptoms for now and monitor her condition. She will return if symptoms worsen, otherwise she will follow-up with her primary care provider to discuss further workup which might include endoscopy and/or CT scan. Patient does have a history of colitis but states this does not feel like colitis. Initial ECG Impression Date: Jun 12, 2018 Initial ECG Impression Time: 09:52 Initial ECG Rate: 85 Initial ECG Rhythm: Normal Sinus Initial ECG Intervals: Normal Comment Normal sinus rhythm with no ST elevation or depression. No abnormal intervals. Left axis deviation by automated read. Diagnostic Imaging Diagonstic Imaging: Xray Plain Films/CT/US/NM/MRI: chest Comments Chest x-ray viewed by me and report reviewed. See report below: NAME: [facility] REC#: [id number] PT STATUS: REG ER : 1960 PHYSICIAN: JED MONTANO MD ADMIT DATE: 06/12/18/ER Signed Date of Exam: 06/12/18 CHEST PA/LAT (2 VIEW) INDICATION: Right upper quadrant pain. FINDINGS: Lungs are clear. The heart and vessels normal. There is no effusion or pneumothorax. IMPRESSION: No acute appearing abnormality. Dictated by: Dictated on workstation # [id number] Dict: 06/12/18 1102 Trans: 06/12/18 1119 Interpreted by: KAYLEE JAIMES Electronically signed by: KAYLEE JAIMES 06/12/18 111 Diagonstic Imaging: Ultrasound Plain Films/CT/US/NM/MRI: abdomen Comments Gallbladder ultrasound report reviewed. See report below: NAME: [facility] REC#: [id number] PT STATUS: REG ER : 1960 PHYSICIAN: JED MONTANO MD ADMIT DATE: 06/12/18/ER Signed Date of Exam: 06/12/18 US GALLBLADDER [id number] PROCEDURE: US Gallbladder. TECHNIQUE: Multiple real-time grayscale images were obtained over the right upper quadrant in various projections. INDICATION: Right upper quadrant pain. FINDINGS: The liver is normal in size and without focal lesions. There is no intrahepatic or extrahepatic biliary ductal dilatation. The common bile duct measures less than 5 mm. There is no cholelithiasis, gallbladder wall thickening, or pericholecystic fluid. The right kidney is normal in appearance. There is no ascites. IMPRESSION: Essentially unremarkable right upper quadrant ultrasound. Dictated by: Dictated on workstation # [id number] Dict: 06/12/18 1320 Trans: 06/12/18 1330 Interpreted by: BOB HERRERA MD Electronically signed by: BOB HERRERA MD 06/12/18 133 Departure Impression Primary Impression: Right upper quadrant pain Additional Impression: Nausea and vomiting Qualified Codes: R11.2 - Nausea with vomiting, unspecified Disposition: 01 HOME, SELF-CARE Condition: Improved Departure-Patient Inst. Decision time for Depature: 15:05 Referrals: ISAI TRAORE MD (PCP/Family) Primary Care Physician Patient Instructions: Acute Abdomen (Belly Pain), Adult (DC) Add. Discharge Instructions: Start with a clear liquid diet and gradually advance your diet with small quantities of bland food as tolerated. You may use Zofran (ondansetron) as prescribed for nausea and vomiting. Use Tylenol (acetaminophen) up to 1000 mg every 6 hours as needed for pain. Add Ultram (tramadol) as prescribed for pain not controlled by Tylenol. Take a stool softener such as Colace on days that you take Ultram to prevent constipation. Follow-up with your primary care provider as soon as possible and return to the ER if symptoms are worsening. Taken antiacid medication such as omeprazole or Pepcid (famotidine) daily until otherwise instructed. All discharge instructions reviewed with patient and/or family. Voiced understanding. Scripts Ondansetron (Ondansetron Odt) 4 Mg Tab.rapdis 4 MG SL Q4H PRN for NAUSEA/VOMITING, #10 TAB Prov: JED MONTANO MD 06/12/18 Tramadol HCl (Ultram) 50 Mg Tablet 50 MG PO Q6H PRN for PAIN-MODERATE TO SEVERE, #10 TAB Prov: JED MONTANO MD 06/12/18 Omeprazole (Omeprazole) 20 Mg Capsule.dr 20 MG PO DAILY, #30 CAP Prov: JED MONTANO MD 06/12/18 Copy Copies To 1: ISAI TRAORE MD, JOSHUA T MD Jun 12, 2018 15:21
[2018-06-12 15:33] VITALS: BP 121/89
== END 2018-06-12 15:33 | disposition home or self-care (01) ==
LOC: EDUNIT# 09:07 → ER 09:09
DX: R10.11 Right upper quadrant pain (principal); R11.2 Nausea with vomiting, unspecified; G47.30 Sleep apnea, unspecified; I10 Essential (primary) hypertension; G43.909 Migraine, unspecified, not intractable, without status migrainosus; F32.9 Major depressive disorder, single episode, unspecified; Z87.19 Personal history of other diseases of the digestive system; Z87.448 Personal history of other diseases of urinary system; Z88.0 Allergy status to penicillin; Z88.8 Allergy status to other drugs, medicaments and biological substances; Z82.49 Family history of ischemic heart disease and other diseases of the circulatory system; Z80.42 Family history of malignant neoplasm of prostate; Z91.040 Latex allergy status; Z98.890 Other specified postprocedural states; Z90.710 Acquired absence of both cervix and uterus; Z90.89 Acquired absence of other organs; Z98.51 Tubal ligation status
CPT/HCPCS: 36415; 71046; 76705; 80053; 81000; 83690; 85025; 86141; 93005

== ENCOUNTER → 2018-11-24 | Outpatient (CLI) | payer BC ==
[~2018-11-24] MED LIST changes: -DULO60CA58 PO; +DULO60CA59 PO; -OMEP20CA12 PO; +OMEP20CA13 PO; +ONDA4TAB11 SL; +TRAM-42 PO
--- NOTE | 2018-11-24 16:48 | Diagnostic Imaging Report ---
INDICATION: Routine screening. COMPARISON: 08/31/2017 and 02/29/2016. TECHNIQUE: 2D and 3D bilateral screening mammography was performed with CAD. FINDINGS: Scattered fibroglandular densities are identified bilaterally. The parenchymal pattern is stable. No mass or malignant appearing microcalcifications are seen. The axillae are unremarkable. IMPRESSION: No mammographic features suspicious for malignancy are identified. ACR BI-RADS Category 1: Negative. Result letter will be mailed to the patient. Note: At least 10% of breast cancer is not imaged by mammography. Dictated by: Dictated on workstation # [id number]
== END ==
LOC: RAD 15:00
PROVIDERS: ATTEND Obstetrics & Gynecology
DX: Z12.31 Encounter for screening mammogram for malignant neoplasm of breast (principal)
CPT/HCPCS: 77067

== ENCOUNTER → 2019-04-22 | Outpatient (CLI) | payer BC ==
[~2019-04-22] MED LIST changes: -TRAM50TA2; -TRAM50TA2 PO; +TRM50T; +TRM50T PO
[2019-04-22 10:08] LABS: ALANINE AMINOTRANSFERASE 23 U/L (0-55); ALBUMIN 3.9 GM/DL (3.2-4.5); ALKALINE PHOSPHATASE 111 U/L (40-136); BILIRUBIN,TOTAL 0.2 MG/DL (0.1-1.0); BUN/CREATININE RATIO 22; CALCIUM 9.4 MG/DL (8.5-10.1); CARBON DIOXIDE 23 MMOL/L (21-32); CHLORIDE 102 MMOL/L (98-107); CHOLESTEROL 167 MG/DL (< 200); CREATININE SERUM 0.76 MG/DL (0.60-1.30); GFR ESTIMATED > 60; GLUCOSE 85 MG/DL (70-105); HDL CHOLESTEROL 64 MG/DL (40-60); POTASSIUM 4.2 MMOL/L (3.6-5.0); SODIUM 137 MMOL/L (135-145); TOTAL PROTEIN 6.7 GM/DL (6.4-8.2); TRIGLYCERIDES 191 MG/DL (<150); VLDL CHOLESTEROL 38 MG/DL (5-40)
== END ==
LOC: CARD 08:40
PROVIDERS: ATTEND Physician Assistant
DX: I10 Essential (primary) hypertension (principal); I25.10 Atherosclerotic heart disease of native coronary artery without angina pectoris; R94.31 Abnormal electrocardiogram [ECG] [EKG]
CPT/HCPCS: 36415; 80053; 80061; 93306

== ENCOUNTER → 2019-11-28 | Outpatient (CLI) | payer BC ==
[~2019-11-28] MED LIST changes: -OMEP20CA13 PO; +OMEP20CA18 PO
--- NOTE | 2019-11-29 12:26 | Diagnostic Imaging Report ---
INDICATION: Routine screening. COMPARISON: 11/24/2018 and 08/31/2017. TECHNIQUE: 2D and 3D bilateral screening mammography was performed with CAD. FINDINGS: Scattered fibroglandular densities are identified bilaterally. No mass or malignant appearing microcalcifications are seen. The axillae are unremarkable. IMPRESSION: No mammographic features suspicious for malignancy are identified. ACR BI-RADS Category 1: Negative. Result letter will be mailed to the patient. Note: At least 10% of breast cancer is not imaged by mammography. Dictated by: Dictated on workstation # [id number]
== END ==
LOC: RAD 14:32
PROVIDERS: ATTEND Obstetrics & Gynecology
DX: Z12.31 Encounter for screening mammogram for malignant neoplasm of breast (principal)
CPT/HCPCS: 77063; 77067

== ENCOUNTER 2020-01-23 08:15 | Emergency (ER) | payer BC ==
[~2020-01-23] VITALS: Ht 165.1 cm; Wt 89.5 kg
[~2020-01-23 08:15] MED LIST changes: -ENAL20TA; -ENAL20TA PO; +ENAL20TA16; +ENAL20TA16 PO
[2020-01-23 08:57] LABS: BASOPHILS % (AUTO) 0 % (0-10); EOSINOPHILS % (AUTO) 0 % (0-10); HEMATOCRIT 43 % (35-52); HEMOGLOBIN 13.8 g/dL (11.5-16.0); LYMPHOCYTES # (AUTO) 0.9 10^3/uL (1.0-4.0); LYMPHOCYTES % (AUTO) 5 % (12-44); MEAN CORPUSCULAR HEMOGLOBIN 27 pg (25-34); MEAN CORPUSCULAR HGB CONC 32 g/dL (32-36); MEAN CORPUSCULAR VOLUME 86 fL (80-99); MEAN PLATELET VOLUME 10.1 fL (9.0-12.2); MONOCYTES % (AUTO) 6 % (0-12); NEUTROPHILS # (AUTO) 16.1 10^3/uL (1.8-7.8); NEUTROPHILS % (AUTO) 89 % (42-75); PLATELET COUNT 368 10^3/uL (130-400); WHITE BLOOD COUNT 18.1 10^3/uL (4.3-11.0)
[2020-01-23 09:02] LABS: BILIRUBIN,URINE NEGATIVE (NEGATIVE); CLARITY,URINE SL CLOUDY; COLOR,URINE YELLOW; GLUCOSE, URINE (UA) NEGATIVE (NEGATIVE); KETONES,URINE NEGATIVE (NEGATIVE); LEUKOCYTE ESTERASE ,URINE NEGATIVE (NEGATIVE); NITRITE,URINE NEGATIVE (NEGATIVE); PH,URINE 5.5 (5-9); PROTEIN,URINE NEGATIVE (NEGATIVE)
[2020-01-23 09:08] LABS: ALBUMIN 4.2 GM/DL (3.2-4.5)
[2020-01-23 09:09] LABS: INR 0.9 (0.8-1.4); POTASSIUM 4.1 MMOL/L (3.6-5.0); PROTHROMBIN TIME PATIENT 12.7 SEC (12.2-14.7)
[2020-01-23 09:10] LABS: CALCIUM 11.1 MG/DL (8.5-10.1)
[2020-01-23 09:11] LABS: TOTAL PROTEIN 7.3 GM/DL (6.4-8.2)
[2020-01-23 09:12] LABS: BACTERIA,URINE NEGATIVE /HPF; SQUAMOUS EPITHELIAL CELL,UR 0-2 /HPF; WBC,URINE RARE /HPF
[2020-01-23 09:13] LABS: BILIRUBIN,TOTAL 0.4 MG/DL (0.1-1.0)
[2020-01-23 09:15] LABS: CREATININE SERUM 0.98 MG/DL (0.60-1.30)
[2020-01-23] MEDS ORDERED: HYOSCYAMINE 0.125 MG (LEVSIN) TAB SL ONE (09:15)
[2020-01-23 09:42] LABS: BAND NEUTROPHILS 0 %; BASOPHILS % (MANUAL) 0 %; EOSINOPHILS % (MANUAL) 1 %; LYMPHOCYTES % (MANUAL) 6 %; MONOCYTES % (MANUAL) 3 %; NEUTROPHILS % (MANUAL) 90 %; RBC MORPH NORMAL
[2020-01-23] MEDS ORDERED: fentaNYL INJECTION 100 MCG/2 ML AMP ONE (09:59)
[2020-01-23] MEDS ORDERED: LACTATED RINGERS 1,000 ML IV ONE ×2 (10:00→11:34)
[2020-01-23] MEDS ORDERED: fentaNYL INJECTION 100 MCG/2 ML AMP IVP ONE ×2 (10:15→12:45)
[2020-01-23] MEDS ORDERED: CATHETER FLUSH 10 ML SYR IV PRN (10:30)
[2020-01-23] MEDS ORDERED: HOLD METFORMIN - RECEIVED CONTRAST 20 ML VIAL IV SCH (10:30)
[2020-01-23] MEDS ORDERED: IOHEXOL 350 MG/ML 100 ML (OMNIPAQUE 350) VIAL IV ONE (10:30)
[2020-01-23] MEDS ORDERED: NS 100 ML (IVPB) BAG IV ONE (10:30)
--- NOTE | 2020-01-23 10:54 | Diagnostic Imaging Report ---
PROCEDURE: CT abdomen and pelvis with contrast. TECHNIQUE: Multiple contiguous axial images were obtained through the abdomen and pelvis after administration of intravenous contrast. Auto Exposure Controls were utilized during the CT exam to meet ALARA standards for radiation dose reduction. All CT scans use one or more of the following dose optimizing techniques: automated exposure control, MA and/or KvP adjustment based on patient size and exam type or iterative reconstruction. INDICATION: Abdominal pain, nausea, diarrhea, leukocytosis, blood in the stool. History of colitis. COMPARISON: 01/30/2016 FINDINGS: There is dependent atelectasis in the lungs bilaterally. The heart is normal in size. The liver demonstrates no focal lesions. The spleen appears normal. The pancreas is normal. The adrenal glands appear normal. The kidneys are unremarkable. The aorta appears normal in caliber, with mild atherosclerosis. No lymphadenopathy is seen. There is marked wall thickening with mild pericolonic edema involving the transverse colon and splenic flexure. No fluid collection is seen. No free air or significant free fluid is seen. There is no bowel obstruction. No acute osseous abnormality is seen. IMPRESSION: 1. Colitis of the transverse colon and splenic flexure. No perforation or obstruction is seen. Dictated by: Dictated on workstation # [id number]
--- NOTE | 2020-01-23 11:43 | ED Abdominal Pain ---
General Chief Complaint: Abdominal/GI Problems Stated Complaint: CRAMPING; BLOOD IN STOOL Nursing Triage Note: AMB TO ROOM WITH C/O ABD CRAMPING AND NOTICED BLOOD IN STOOL. ONSET 1230 A TODAY Sepsis Screen: No Definite Risk Source of Information: Patient, Old Records Exam Limitations: No Limitations History of Present Illness Date Seen by Provider: Jan 23, 2020 Time Seen by Provider: 08:40 Initial Comments This 59-year-old woman presents to the emergency room with complaints of lower abdominal pain and left upper quadrant pain since last night. Around 00:30 she also developed some bloody diarrhea and cramping. She denies fever, respiratory symptoms, or urinary symptoms. The blood in the diarrhea was bright red. 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 She thinks this is colitis again. She has had colonoscopies performed in [place]. Her primary care providers Dr. Portillo. She has had nausea without vomiting. Allergies and Home Medications Allergies Coded Allergies: amoxicillin (Verified Allergy, Unknown, 06/19/16) clavulanic acid (Verified Allergy, Unknown, 06/19/16) diphenhydramine (Unverified Allergy, Unknown, "hebby jebby", 06/19/16) latex (Verified Allergy, Unknown, 08/27/16) Home Medications Estradiol 1 Mg Tablet, 1 MG PO DAILY Prescribed by: HAKAN VALLE on 12/18/15 0735 Omeprazole 20 Mg Capsule.dr, 20 MG PO DAILY Prescribed by: JED CHAU on 06/12/18 1520 Ondansetron 4 Mg Tab.rapdis, 4 MG SL Q4H PRN for NAUSEA/VOMITING Prescribed by: JED CHAU on 06/12/18 1521 Tramadol HCl 50 Mg Tablet, 50 MG PO Q6H PRN for PAIN-MODERATE TO SEVERE Prescribed by: JED CHAU on 06/12/18 1520 Patient Home Medication List Home Medication List Reviewed: Yes Review of Systems Review of Systems Constitutional: no symptoms reported EENTM: No Symptoms Reported Respiratory: No Symptoms Reported Cardiovascular: No Symptoms Reported Gastrointestinal: See HPI Genitourinary: No Symptoms Reported Musculoskeletal: no symptoms reported Skin: no symptoms reported Psychiatric/Neurological: No Symptoms Reported Endocrine: No Symptoms Reported Hematologic/Lymphatic: See HPI Past Xovxekd-Itbqiv-Ilfcai Hx Past Med/Social Hx: Reviewed and Corrections made Patient Social History Alcohol Use: Denies Use Recreational Drug Use: No Smoking Status: Never a Smoker 2nd Hand Smoke Exposure: No Recent Foreign Travel: No Contact w/Someone Who Travel: No Recent Infectious Disease Expo: No Recent Hopitalizations: No Immunizations Up To Date Tetanus Booster (TDap): Less than 5yrs PED Vaccines UTD: No Seasonal Allergies Seasonal Allergies: No Past Medical History Surgeries: Yes (LAPAROSCOPY X3-ENDOMETRIOSIS, LEFT BREAST BX) Abdominal, Breast, Section, Eye Surgery, Hysterectomy, Tonsillectomy, Tubal Ligation Respiratory: Yes Sleep Apnea Currently Using CPAP: No Currently Using BIPAP: No Cardiac: Yes High Cholesterol, Hypertension Neurological: Yes 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 Reproductive Disorders: Yes (CPP, DUB) Female Reproductive Disorders: Endometriosis, Ovarian Cyst Sexually Transmitted Disease: No HIV/AIDS: No Genitourinary: No UTI-Chronic Gastrointestinal: Yes Colitis Musculoskeletal: Yes (NECK PAIN AND RIGHT ARM PAIN) Endocrine: No HEENT: Yes Cataract Loss of Vision: Bilateral Hearing Impairment: Denies Cancer: No Psychosocial: Yes Depression Integumentary: No Blood Disorders: No Adverse Reaction/Blood Tranf: No (N/A) Family Medical History Reviewed and Corrections made Arthritis 19 MOTHER Gastroenteritis G8 BROTHER Headache disorder 19 MOTHER G8 SISTER Hypertension 19 FATHER Prostate cancer 19 FATHER GI Disease, Hypertension, Other Conditions/Hx (crohns disease) Physical Exam Vital Signs Vital Signs - First Documented 01/23/20 08:38 Temp 36.6 Pulse 112 Resp 18 B/P (MAP) 178/102 (127) Pulse Ox 99 O2 Delivery Room Air Capillary Refill : Less Than 3 Seconds Height/Weight/BMI Height: 5'5.00" Weight: 196lbs. oz. 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, no motor/sensory deficits, alert, normal mood/affect, oriented x 3 Skin: normal color, warm/dry Focused Exam Lactate Level 01/23/20 11:51: Lactic Acid Level 2.21*H Lactic Acid Level Laboratory Tests Test 01/23/20 11:51 Lactic Acid Level 2.21 MMOL/L (0.50-2.00) *H Progress/Results/Core Measures Results/Orders Lab Results Laboratory Tests Test 01/23/20 08:50 01/23/20 08:57 01/23/20 11:51 Range/Units White Blood Count 18.1 H 4.3-11.0 10^3/uL Red Blood Count 5.03 3.80-5.11 10^6/uL Hemoglobin 13.8 11.5-16.0 g/dL Hematocrit 43 35-52 % Mean Corpuscular Volume 86 80-99 fL Mean Corpuscular Hemoglobin 27 25-34 pg Mean Corpuscular Hemoglobin Concent 32 32-36 g/dL Red Cell Distribution Width 15.0 H 10.0-14.5 % Platelet Count 368 130-400 10^3/uL Mean Platelet Volume 10.1 9.0-12.2 fL Immature Granulocyte % (Auto) 0 % Neutrophils (%) (Auto) 89 H 42-75 % Lymphocytes (%) (Auto) 5 L 12-44 % Monocytes (%) (Auto) 6 0-12 % Eosinophils (%) (Auto) 0 0-10 % Basophils (%) (Auto) 0 0-10 % Neutrophils # (Auto) 16.1 H 1.8-7.8 10^3/uL Lymphocytes # (Auto) 0.9 L 1.0-4.0 10^3/uL Monocytes # (Auto) 1.0 0.0-1.0 10^3/uL Eosinophils # (Auto) 0.0 0.0-0.3 10^3/uL Basophils # (Auto) 0.0 0.0-0.1 10^3/uL Immature Granulocyte # (Auto) 0.1 0.0-0.1 10^3/uL Neutrophils % (Manual) 90 % Lymphocytes % (Manual) 6 % Monocytes % (Manual) 3 % Eosinophils % (Manual) 1 % Basophils % (Manual) 0 % Band Neutrophils 0 % Blood Morphology Comment NORMAL Prothrombin Time 12.7 12.2-14.7 SEC INR Comment 0.9 0.8-1.4 Activated Partial Thromboplast Time 26 24-35 SEC Sodium Level 139 135-145 MMOL/L Potassium Level 4.1 3.6-5.0 MMOL/L Chloride Level 99 98-107 MMOL/L Carbon Dioxide Level 24 21-32 MMOL/L Anion Gap 16 H 5-14 MMOL/L Blood Urea Nitrogen 13 7-18 MG/DL Creatinine 0.98 0.60-1.30 MG/DL Estimat Glomerular Filtration Rate 58 BUN/Creatinine Ratio 13 Glucose Level 113 H 70-105 MG/DL Calcium Level 11.1 H 8.5-10.1 MG/DL Corrected Calcium 10.9 H 8.5-10.1 MG/DL Total Bilirubin 0.4 0.1-1.0 MG/DL Aspartate Amino Transf (AST/SGOT) 18 5-34 U/L Alanine Aminotransferase (ALT/SGPT) 30 0-55 U/L Alkaline Phosphatase 132 40-136 U/L C-Reactive Protein High Sensitivity 2.05 H 0.00-0.50 MG/DL Total Protein 7.3 6.4-8.2 GM/DL Albumin 4.2 3.2-4.5 GM/DL Lipase 10 8-78 U/L Urine Color YELLOW Urine Clarity SL CLOUDY Urine pH 5.5 5-9 Urine Specific [place] 1.020 1.016-1.022 Urine Protein NEGATIVE NEGATIVE Urine Glucose (UA) NEGATIVE NEGATIVE Urine Ketones NEGATIVE NEGATIVE Urine Nitrite NEGATIVE NEGATIVE Urine Bilirubin NEGATIVE NEGATIVE Urine Urobilinogen 0.2 < = 1.0 MG/DL Urine Leukocyte Esterase NEGATIVE NEGATIVE Urine RBC (Auto) 1+ H NEGATIVE Urine RBC 2-5 H /HPF Urine WBC RARE /HPF Urine Squamous Epithelial Cells 0-2 /HPF Urine Crystals NONE /LPF Urine Bacteria NEGATIVE /HPF Urine Casts NONE /LPF Urine Mucus NEGATIVE /LPF Urine Culture Indicated NO Lactic Acid Level 2.21 *H 0.50-2.00 MMOL/L My Orders Orders - JED MONTANO MD Cbc With Automated Diff (01/23/20 08:40) Comprehensive Metabolic Panel (01/23/20 08:40) Hs C Reactive Protein (01/23/20 08:40) Lipase (01/23/20 08:40) Protime With Inr (01/23/20 08:40) Partial Thromboplastin Time (01/23/20 08:40) Ua Culture If Indicated (01/23/20 08:40) Ed Iv/Invasive Line Start (01/23/20 08:40) Fecal Occult Bedside (01/23/20 08:40) Manual Differential (01/23/20 08:50) Hyoscyamine Sl Tablet (Levsin Sl Tablet) (01/23/20 09:15) Lactated Ringers (Lr 1000 Ml Iv Solution (01/23/20 10:00) Ct Abdomen/Pelvis W (01/23/20 10:00) Fentanyl Injection (Sublimaze Injection (01/23/20 10:15) Fentanyl Injection (Sublimaze Injection (01/23/20 09:59) Iohexol Injection (Omnipaque 350 Mg/Ml 1 (01/23/20 10:30) Received Contrast (Hold Metformin- Contr (01/23/20 10:30) Sodium Chloride Flush (Catheter Flush Sy (01/23/20 10:30) Ns (Ivpb) (Sodium Chloride 0.9% Ivpb Bag (01/23/20 10:30) Blood Culture (01/23/20 11:30) Vital Signs Adult Sepsis Patie Q15M (01/23/20 11:30) Remove Rings In Anticipation O (01/23/20 11:30) Lactic Acid Analyzer (01/23/20 11:30) Meropenem (Merrem 1000 Mg) (01/23/20 11:45) Lactated Ringers (Lr 1000 Ml Iv Solution (01/23/20 11:34) Fentanyl Injection (Sublimaze Injection (01/23/20 12:45) Medications Given in ED Current Medications Medications Dose Ordered Sig/Litzy Route Start Time Stop Time Status Last Admin Dose Admin Fentanyl Citrate 50 mcg ONCE ONCE IVP 01/23/20 10:15 01/23/20 10:16 DC 01/23/20 10:07 50 MCG Fentanyl Citrate 50 mcg ONCE ONCE IVP 01/23/20 12:45 01/23/20 12:46 DC 01/23/20 12:40 50 MCG Hyoscyamine Sulfate 0.25 mg ONCE ONCE SL 01/23/20 09:15 01/23/20 09:16 DC 01/23/20 09:21 0.25 MG Iohexol 100 ml ONCE ONCE IV 01/23/20 10:30 01/23/20 10:31 DC 01/23/20 10:36 100 ML Lactated Ringer's 1,000 ml @ 0 mls/hr Q0M ONCE IV 01/23/20 10:00 01/23/20 10:01 DC 01/23/20 10:08 0 MLS/HR Lactated Ringer's 1,000 ml @ 0 mls/hr Q0M ONCE IV 01/23/20 11:34 01/23/20 11:36 DC 01/23/20 12:14 1,000 MLS/HR Meropenem 1000 mg/ Sterile Water 20 ml @ 240 mls/hr ONCE ONCE IV 01/23/20 11:45 01/23/20 11:49 DC 01/23/20 12:03 240 MLS/HR Sodium Chloride 10 ml NEEDED PRN IV 01/23/20 10:30 01/23/20 12:59 DC 01/23/20 10:37 10 ML Sodium Chloride 100 ml ONCE ONCE IV 01/23/20 10:30 01/23/20 10:31 DC 01/23/20 10:37 80 ML Vital Signs/I&O 01/23/20 01/23/20 08:38 12:53 Temp 36.6 Pulse 112 90 Resp 18 18 B/P (MAP) 178/102 (127) 142/82 Pulse Ox 99 98 O2 Delivery Room Air Room Air Blood Pressure Mean: 127 Progress Progress Note : Time: 11:37 Progress Note Patient's labs revealed leukocytosis. She was also tachycardic. For this reason CT was pursued. Colitis was identified on the CT. Patient then met septic criteria due to identification of source of infection. We are ordering lactic acid and blood cultures, giving a second liter of IV fluid, and starting antibiotic therapy with meropenem. Patient will be transferred to [facility] as [facility] is on [facility] diversion due to capacity patient load. Patient is agreeable to transfer. Pain was controlled with fentanyl. Diagnostic Imaging Diagonstic Imaging: CT Plain Films/CT/US/NM/MRI: abdomen, pelvis Comments CT abdomen and pelvis viewed by me and report reviewed. See report below: NAME: [facility] REC#: [id number] PT STATUS: REG ER : 1960 PHYSICIAN: JED MONTANO MD ADMIT DATE: 01/23/20/ER Draft Date of Exam:01/23/20 CT ABDOMEN/PELVIS W PROCEDURE: CT abdomen and pelvis with contrast. TECHNIQUE: Multiple contiguous axial images were obtained through the abdomen and pelvis after administration of intravenous contrast. Auto Exposure Controls were utilized during the CT exam to meet ALARA standards for radiation dose reduction. All CT scans use one or more of the following dose optimizing techniques: automated exposure control, MA and/or KvP adjustment based on patient size and exam type or iterative reconstruction. INDICATION: Abdominal pain, nausea, diarrhea, leukocytosis, blood in the stool. History of colitis. COMPARISON: 01/30/2016 FINDINGS: There is dependent atelectasis in the lungs bilaterally. The heart is normal in size. The liver demonstrates no focal lesions. The spleen appears normal. The pancreas is normal. The adrenal glands appear normal. The kidneys are unremarkable. The aorta appears normal in caliber, with mild atherosclerosis. No lymphadenopathy is seen. There is marked wall thickening with mild pericolonic edema involving the transverse colon and splenic flexure. No fluid collection is seen. No free air or significant free fluid is seen. There is no bowel obstruction. No acute osseous abnormality is seen. IMPRESSION: 1. Colitis of the transverse colon and splenic flexure. No perforation or obstruction is seen. Dictated on workstation # [id number] Dict: 01/23/20 1047 Trans: 01/23/20 1053 [facility] [id number] Interpreted by: LATONIA HALE MD Departure Impression Primary Impression: Sepsis Qualified Codes: A41.9 - Sepsis, unspecified organism Additional Impression: Colitis Disposition: XFER SHT-TRM HOSP Condition: Stable Transfer Transfer Reason: Diversion Time Spoke to Accepting Phy: 11:[address] Bernstein accepting. Transfer Time: 12:59 Transfer Facility: [facility] Method of Transfer: EMS Departure-Patient Inst. Referrals: NO,LOCAL PHYSICIAN (PCP/Family) Primary Care Physician JED MONTANO MD Jan 23, 2020 11:43
[2020-01-23] MEDS ORDERED: MEROPENEM 1,000 MG in WATER (STERILE) FOR INJECTION 20 ML IV ONE (11:45)
--- NOTE | 2020-01-23 11:52 | NUR ---
LAB HERE TO DRAW 2ND BLOOD CULTURE
--- NOTE | 2020-01-23 12:00 | NUR ---
EMS CALLED FOR TRANSFER
[2020-01-23 12:53] VITALS: BP 142/82
== END 2020-01-23 12:59 | disposition short-term general hospital (02) ==
LOC: EDUNIT# 08:15 → ER 08:16
DX: A41.9 Sepsis, unspecified organism (principal); K52.9 Noninfective gastroenteritis and colitis, unspecified; Z88.1 Allergy status to other antibiotic agents; Z91.040 Latex allergy status; Z88.8 Allergy status to other drugs, medicaments and biological substances; Z82.61 Family history of arthritis; Z82.49 Family history of ischemic heart disease and other diseases of the circulatory system; Z80.42 Family history of malignant neoplasm of prostate
CPT/HCPCS: 36415; 74177; 80053; 81000; 83605; 83690; 85007; 85027; 85610; 85730; 86141; 87040

== ENCOUNTER 2020-02-27 09:38 | Emergency (ER) | payer BC ==
[~2020-02-27] VITALS: Ht 165 cm; Wt 87.0 kg
[2020-02-27 10:04] LABS: BASOPHILS % (AUTO) 0 % (0-10); EOSINOPHILS # (AUTO) 0.1 10^3/uL (0.0-0.3); EOSINOPHILS % (AUTO) 2 % (0-10); HEMATOCRIT 35 % (35-52); HEMOGLOBIN 11.1 g/dL (11.5-16.0); LYMPHOCYTES # (AUTO) 1.2 10^3/uL (1.0-4.0); LYMPHOCYTES % (AUTO) 16 % (12-44); MEAN CORPUSCULAR HEMOGLOBIN 28 pg (25-34); MEAN CORPUSCULAR HGB CONC 32 g/dL (32-36); MEAN CORPUSCULAR VOLUME 87 fL (80-99); MEAN PLATELET VOLUME 9.8 fL (9.0-12.2); MONOCYTES # (AUTO) 0.5 10^3/uL (0.0-1.0); MONOCYTES % (AUTO) 7 % (0-12); NEUTROPHILS # (AUTO) 5.7 10^3/uL (1.8-7.8); NEUTROPHILS % (AUTO) 75 % (42-75); PLATELET COUNT 289 10^3/uL (130-400); WHITE BLOOD COUNT 7.5 10^3/uL (4.3-11.0)
[2020-02-27 10:11] LABS: ALBUMIN 3.8 GM/DL (3.2-4.5); CHLORIDE 103 MMOL/L (98-107); POTASSIUM 3.6 MMOL/L (3.6-5.0); SODIUM 138 MMOL/L (135-145)
[2020-02-27 10:13] LABS: CALCIUM 8.8 MG/DL (8.5-10.1)
[2020-02-27 10:14] LABS: GLUCOSE 98 MG/DL (70-105); TOTAL PROTEIN 6.4 GM/DL (6.4-8.2)
[2020-02-27 10:15] LABS: CARBON DIOXIDE 24 MMOL/L (21-32)
[2020-02-27 10:16] LABS: BILIRUBIN,TOTAL 0.3 MG/DL (0.1-1.0)
[2020-02-27 10:17] LABS: ALKALINE PHOSPHATASE 97 U/L (40-136); CREATININE SERUM 0.92 MG/DL (0.60-1.30); GFR ESTIMATED > 60
[2020-02-27 10:19] LABS: BUN/CREATININE RATIO 13
[2020-02-27 10:20] LABS: ALANINE AMINOTRANSFERASE 26 U/L (0-55); MAGNESIUM 1.9 MG/DL (1.6-2.4)
--- NOTE | 2020-02-27 10:22 | Diagnostic Imaging Report ---
Indication: Dizziness PA view of the chest is obtained with comparison made study of 06/12/2018. FINDINGS: Heart size and pulmonary vascularity are within normal limits, and the lungs are clear, bilaterally. IMPRESSION: Unremarkable chest. Dictated by: Dictated on workstation # [id number]
--- NOTE | 2020-02-27 10:25 | Diagnostic Imaging Report ---
PROCEDURE: CT head wo r/o stroke. TECHNIQUE: Multiple contiguous axial images were obtained through the brain without the use of intravenous contrast. Auto Exposure Controls were utilized during the CT exam to meet ALARA standards for radiation dose reduction. INDICATION: Neurologic deficit. COMPARISON: CT head from 08/09/2015. FINDINGS: No intracranial hemorrhage, mass effect, hydrocephalus, or extra-axial fluid collections. No CT evidence of a territorial infarction. Osseous structures are intact. The paranasal sinuses and mastoids are clear. IMPRESSION: Negative head CT. Dictated by: Dictated on workstation # [id number]
--- NOTE | 2020-02-27 10:37 | ED General ---
General Chief Complaint: Dizziness/Syncope Stated Complaint: DIZZINESS Nursing Triage Note: ARRIVED VIA AMB TO ROOM 07 WITH COMPLAINTS OF WAKING UP WITH DIZZINESS. Nursing Sepsis Screen: No Definite Risk Source of Information: Patient History of Present Illness Date Seen by Provider: Feb 27, 2020 Time Seen by Provider: 09:57 Initial Comments PT ARRIVES VIA POV FROM HOME STATES SHE BECAME DIZZY THIS MORNING WHEN SHE WAS GETTING OUT OF BED AROUND 0600 STATES SHE COULDN'T WALK STRAIGHT AND WAS "LISTING TO THE LEFT" STATES "MY EYES TRIED TO CROSS" AND VISION IS SLIGHTLY BLURRY NO NAUSEA/VOMITING C/O MILD HEADACHE TO BACK OF HEAD AND BELOW RIGHT EYE--STATES IT FEELS LIKE SINUS PRESSURE, HAS HISTORY OF MIGRAINES AND IS NOT TYPICAL OF HER MIGRAINES--STATES THOSE HEADACHES ARE ALWAYS IN FRONTAL AREA. NO CHANGES IN HEARING AND NO RINGING/ROARING IN EARS NO CHEST PAIN NO SHORTNESS OF BREATH NO PALPITATIONS NO FEVER NO NASAL CONGESTION OR SORE THROAT NO PARESTHESIAS OR MOTOR DEFICITS NO PROBLEMS TALKING OR SWALLOWING NO HISTORY OF SIMILAR HAD COLITIS 3 WEEKS AGO--COMPLETED ANTIBIOTICS AND THOSE SYMPTOMS ARE BETTER, NO LONGER HAS DIARRHEA. STILL WITH SOME MILD ACHING IN HER ABDOMEN HAD COVID-19 THE END OF NOVEMBER. PT DID NOT HAVE SYMPTOMS AND TESTED NEGATIVE AT THAT TIME. PCP: DR. MIJARES INFANTRY UNIT LEADER: DR. MORGAN SEES NEUROLOGIST IN [place] FOR [facility]RAINES Allergies and Home Medications Allergies Coded Allergies: amoxicillin (Verified Allergy, Unknown, 06/19/16) clavulanic acid (Verified Allergy, Unknown, 06/19/16) diphenhydramine (Unverified Allergy, Unknown, "hebby jebby", 06/19/16) latex (Verified Allergy, Unknown, 08/27/16) Home Medications Estradiol 1 Mg Tablet, 1 MG PO DAILY Prescribed by: HAKAN VALLE on 12/18/15 0735 Meclizine HCl 25 Mg Tablet, 50 MG PO Q6 PRN for DIZZINESS Prescribed by: CHELSEY GUERRA on 02/27/20 1201 Omeprazole 20 Mg Capsule.dr, 20 MG PO DAILY Prescribed by: JED CHAU on 06/12/18 1520 Ondansetron 4 Mg Tab.rapdis, 4 MG SL Q4H PRN for NAUSEA/VOMITING Prescribed by: JED CHAU on 06/12/18 1521 Scopolamine 1 Each Patch.td72, 1 EACH TD Q72H Prescribed by: CHELSEY GUERRA on 02/27/20 1201 Tramadol HCl 50 Mg Tablet, 50 MG PO Q6H PRN for PAIN-MODERATE TO SEVERE Prescribed by: JED CHAU on 06/12/18 1520 Patient Home Medication List Home Medication List Reviewed: Yes Review of Systems Review of Systems Constitutional: No chills, No diaphoresis; dizziness; No fever, No malaise, No weakness EENTM: see HPI, blurred vision; No ear discharge, No hearing loss, No ear pain, No eye pain, No nose congestion, No throat pain Respiratory: no symptoms reported; No cough, No short of breath Cardiovascular: no symptoms reported; No chest pain, No edema, No palpitations, No syncope, No vascular heart diseas Gastrointestinal: see HPI; No diarrhea, No loss of appetite, No nausea, No vomiting Genitourinary: no symptoms reported Musculoskeletal: no symptoms reported; No back pain, No neck pain Skin: no symptoms reported Psychiatric/Neurological: See HPI, Headache; Denies Numbness, Denies Paresthesia, Denies Seizure, Denies Tingling, Denies Weakness Hematologic/Lymphatic: No Symptoms Reported Immunological/Allergic: no symptoms reported Past Xgpnssz-Lpanwp-Ocalzk Hx Past Med/Social Hx: Reviewed and Corrections made Patient Social History Alcohol Use: Denies Use Recreational Drug Use: No Smoking Status: Never a Smoker 2nd Hand Smoke Exposure: No Recent Foreign Travel: No Contact w/Someone Who Travel: No Recent Infectious Disease Expo: No Recent Hopitalizations: No Immunizations Up To Date Tetanus Booster (TDap): Less than 5yrs PED Vaccines UTD: No Seasonal Allergies Seasonal Allergies: No Past Medical History Surgeries: Yes (LAPAROSCOPY X3-ENDOMETRIOSIS, LEFT BREAST BX) Abdominal, Breast, Section, Eye Surgery, Hysterectomy, Tonsillectomy, Tubal Ligation Respiratory: Yes Sleep Apnea Currently Using CPAP: No Currently Using BIPAP: No Cardiac: Yes High Cholesterol, Hypertension Neurological: Yes 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 Reproductive Disorders: Yes (CPP, DUB) Female Reproductive Disorders: Endometriosis, Ovarian Cyst Sexually Transmitted Disease: No HIV/AIDS: No Genitourinary: Yes UTI-Chronic Gastrointestinal: Yes Colitis Musculoskeletal: Yes (NECK PAIN AND RIGHT ARM PAIN) Endocrine: No HEENT: Yes Cataract Loss of Vision: Bilateral Hearing Impairment: Denies Cancer: No Psychosocial: Yes Depression Integumentary: No Blood Disorders: No Adverse Reaction/Blood Tranf: No (N/A) Family Medical History Arthritis 19 MOTHER Gastroenteritis G8 BROTHER Headache disorder 19 MOTHER G8 SISTER Hypertension 19 FATHER Prostate cancer 19 FATHER GI Disease, Hypertension, Other Conditions/Hx Physical Exam Vital Signs Vital Signs - First Documented 02/27/20 09:50 Temp 36.2 Pulse 92 Resp 16 B/P (MAP) 122/84 (97) Pulse Ox 97 O2 Delivery Room Air Capillary Refill : Less Than 3 Seconds Height, Weight, BMI Height: 5'5.00" Weight: 196lbs. oz. 88.010169dj; 31.00 BMI Method:Stated General Appearance: No Apparent Distress, WD/WN HEENT: PERRL/EOMI, TMs Normal, Normal ENT Inspection, Pharynx Normal, Moist Mucous Membranes Neck: Full Range of Motion, Normal Inspection, Non Tender, Supple; No Carotid Bruit, No JVD Respiratory: Normal Breath Sounds, No Accessory Muscle Use, No Respiratory Distress Cardiovascular: Regular Rate, Rhythm, No Edema, No JVD, No Murmur, Normal Peripheral Pulses Gastrointestinal: Normal Bowel Sounds, No Organomegaly, No Pulsatile Mass, Non Tender, Soft Back: Normal Inspection Extremity: Normal Capillary Refill, Normal Inspection, Normal Range of Motion, Non Tender, No Calf Tenderness, No Pedal Edema Neurologic/Psychiatric: Alert, Oriented x3, No Motor/Sensory Deficits, Normal 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 ) Skin: Normal Color, Warm/Dry Progress/Results/Core Measures Suspected Sepsis Recent Fever Within 48 Hours: No Infection Criteria Present: None New/Unexplained Altered Menta: No Sepsis Screen: No Definite Risk SIRS Temperature: Pulse: 92 Respiratory Rate: 16 Laboratory Tests 02/27/20 09:55: White Blood Count 7.5 Blood Pressure 122 /84 Mean: 97 Laboratory Tests 02/27/20 09:55: Creatinine 0.92, Platelet Count 289, Total Bilirubin 0.3 Results/Orders Lab Results Laboratory Tests Test 02/27/20 09:55 02/27/20 10:46 Range/Units White Blood Count 7.5 4.3-11.0 10^3/uL Red Blood Count 4.03 3.80-5.11 10^6/uL Hemoglobin 11.1 L 11.5-16.0 g/dL Hematocrit 35 35-52 % Mean Corpuscular Volume 87 80-99 fL Mean Corpuscular Hemoglobin 28 25-34 pg Mean Corpuscular Hemoglobin Concent 32 32-36 g/dL Red Cell Distribution Width 15.3 H 10.0-14.5 % Platelet Count 289 130-400 10^3/uL Mean Platelet Volume 9.8 9.0-12.2 fL Immature Granulocyte % (Auto) 0 % Neutrophils (%) (Auto) 75 42-75 % Lymphocytes (%) (Auto) 16 12-44 % Monocytes (%) (Auto) 7 0-12 % Eosinophils (%) (Auto) 2 0-10 % Basophils (%) (Auto) 0 0-10 % Neutrophils # (Auto) 5.7 1.8-7.8 10^3/uL Lymphocytes # (Auto) 1.2 1.0-4.0 10^3/uL Monocytes # (Auto) 0.5 0.0-1.0 10^3/uL Eosinophils # (Auto) 0.1 0.0-0.3 10^3/uL Basophils # (Auto) 0.0 0.0-0.1 10^3/uL Immature Granulocyte # (Auto) 0.0 0.0-0.1 10^3/uL Sodium Level 138 135-145 MMOL/L Potassium Level 3.6 3.6-5.0 MMOL/L Chloride Level 103 98-107 MMOL/L Carbon Dioxide Level 24 21-32 MMOL/L Anion Gap 11 5-14 MMOL/L Blood Urea Nitrogen 12 7-18 MG/DL Creatinine 0.92 0.60-1.30 MG/DL Estimat Glomerular Filtration Rate > 60 BUN/Creatinine Ratio 13 Glucose Level 98 70-105 MG/DL Calcium Level 8.8 8.5-10.1 MG/DL Corrected Calcium 9.0 8.5-10.1 MG/DL Magnesium Level 1.9 1.6-2.4 MG/DL Total Bilirubin 0.3 0.1-1.0 MG/DL Aspartate Amino Transf (AST/SGOT) 13 5-34 U/L Alanine Aminotransferase (ALT/SGPT) 26 0-55 U/L Alkaline Phosphatase 97 40-136 U/L Total Protein 6.4 6.4-8.2 GM/DL Albumin 3.8 3.2-4.5 GM/DL TSH [place] Testing 0.47 0.35-4.94 UIU/ML Urine Color YELLOW Urine Clarity SL CLOUDY Urine pH 5.5 5-9 Urine Specific [place] >=1.030 1.016-1.022 Urine Protein NEGATIVE NEGATIVE Urine Glucose (UA) NEGATIVE NEGATIVE Urine Ketones NEGATIVE NEGATIVE Urine Nitrite NEGATIVE NEGATIVE Urine Bilirubin NEGATIVE NEGATIVE Urine Urobilinogen 0.2 < = 1.0 MG/DL Urine Leukocyte Esterase NEGATIVE NEGATIVE Urine RBC (Auto) NEGATIVE NEGATIVE Urine RBC NONE /HPF Urine WBC 0-2 /HPF Urine Squamous Epithelial Cells 25-50 H /HPF Urine Crystals NONE /LPF Urine Bacteria FEW H /HPF Urine Casts NONE /LPF Urine Mucus LARGE H /LPF Urine Culture Indicated NO My Orders Orders - CHELSEY GUERRA DO Ed Iv/Invasive Line Start (02/27/20 09:58) Ekg Tracing (02/27/20 09:58) Monitor-Rhythm Ecg Trace Only (02/27/20 09:58) Ct Head Wo-R/O Stroke (02/27/20 09:58) Chest 1 View, Ap/Pa Only (02/27/20 09:58) Cbc With Automated Diff (02/27/20 09:58) Comprehensive Metabolic Panel (02/27/20 09:58) Magnesium (02/27/20 09:58) Thyroid Analyzer (02/27/20 09:58) Ua Culture If Indicated (02/27/20 09:58) Scopolamine Patch (Transderm-Scop Patch) (02/27/20 10:45) Meclizine Tablet (Antivert Tablet) (02/27/20 10:45) Ct Angio Head/Neck (02/27/20 10:39) Iohexol Injection (Omnipaque 350 Mg/Ml 1 (02/27/20 10:45) Received Contrast (Hold Metformin- Contr (02/27/20 10:45) Ns (Ivpb) (Sodium Chloride 0.9% Ivpb Bag (02/27/20 10:45) Medications Given in ED Current Medications Medications Dose Ordered Sig/Litzy Route Start Time Stop Time Status Last Admin Dose Admin Iohexol 75 ml ONCE ONCE IV 02/27/20 10:45 02/27/20 10:46 DC 02/27/20 11:38 75 ML Meclizine HCl 50 mg ONCE ONCE PO 02/27/20 10:45 02/27/20 10:46 DC 02/27/20 10:54 50 MG Scopolamine 1.5 mg ONCE ONCE TD 02/27/20 10:45 02/27/20 10:46 DC 02/27/20 10:54 1.5 MG Sodium Chloride 100 ml ONCE ONCE IV 02/27/20 10:45 02/27/20 10:46 DC 02/27/20 11:39 80 ML Vital Signs/I&O 02/27/20 02/27/20 09:50 12:09 Temp 36.2 Pulse 92 72 Resp 16 16 B/P (MAP) 122/84 (97) 136/81 Pulse Ox 97 98 O2 Delivery Room Air Room Air Capillary Refill : Less Than 3 Seconds Blood Pressure Mean: 97 Progress Note : Progress Note UNEVENTFUL ER STAY SYMPTOMS IMPROVED AT DISMISSAL ECG Initial ECG Impression Date: Feb 27, 2020 Initial ECG Impression Time: 09:59 Initial ECG Rate: 87 Initial ECG Rhythm: Normal Sinus Initial ECG Impression: Nonspecific Changes Initial ECG Comparisson: Unchanged Diagnostic Imaging Comments CT HEAD--PER RADIOLOGIST REPORT AT 1035 FINDINGS: No intracranial hemorrhage, mass effect, hydrocephalus, or extra-axial fluid collections. No CT evidence of a territorial infarction. Osseous structures are intact. The paranasal sinuses and mastoids are clear. IMPRESSION: Negative head CT. CXR--PER RADIOLOGIST REPORT AT [address] ANGIOGRAM HEAD/NECK--PER RADIOLOGIST REPORT AT 1159 IMPRESSION: Unremarkable CT angiogram of the head and neck. No thromboembolism or large branch occlusion is identified. Reviewed: Reviewed by Me Departure Impression Primary Impression: Vertigo Disposition: 01 HOME, SELF-CARE Condition: Stable Departure-Patient Inst. Referrals: EARNEST MIJARES MD (PCP/Family) Primary Care Physician Patient Instructions: Vertigo (a Type of Dizziness) (DC) Add. Discharge Instructions: SLOW POSITION CHANGES NO DRIVING LEAVE SCOPOLAMINE PATCH IN PLACE FOR 72 HOURS FOLLOW UP WITH DR. MIJARES THIS WEEK FOR FURTHER CARE, RETURN TO ER IF WORSE All discharge instructions reviewed with patient and/or family. Voiced understanding. Scripts Meclizine HCl (Meclizine HCl) 25 Mg Tablet 50 MG PO Q6 PRN for DIZZINESS, #20 TAB Prov: CHELSEY GUERRA DO 02/27/20 Scopolamine (Transderm-Scop) 1 Each Patch.td72 1 EACH TD Q72H, #3 PATCH Prov: CHELSEY GURERA DO 02/27/20 Work/School Note: Work Release Form Date Seen in the Emergency Department: Feb 27, 2020 Restrictions: Need Release from Doctor CHELSEY GUERRA DO Feb 27, 2020 10:37
[2020-02-27 10:41] LABS: TSH (THYROID ANALYZER) 0.47 UIU/ML (0.35-4.94)
[2020-02-27] MEDS ORDERED: NS 100 ML (IVPB) BAG IV ONE (10:45)
[2020-02-27] MEDS ORDERED: MECLIZINE 25 MG (ANTIVERT) TAB PO ONE (10:45)
[2020-02-27] MEDS ORDERED: HOLD METFORMIN - RECEIVED CONTRAST 20 ML VIAL IV SCH (10:45)
[2020-02-27] MEDS ORDERED: IOHEXOL 350 MG/ML 100 ML (OMNIPAQUE 350) VIAL IV ONE (10:45)
[2020-02-27] MEDS ORDERED: SCOPOLAMINE 1.5 MG (TRANSDERM-SCOP) PATCH TD ONE (10:45)
[2020-02-27 10:52] LABS: BILIRUBIN,URINE NEGATIVE (NEGATIVE); CLARITY,URINE SL CLOUDY; COLOR,URINE YELLOW; GLUCOSE, URINE (UA) NEGATIVE (NEGATIVE); KETONES,URINE NEGATIVE (NEGATIVE); LEUKOCYTE ESTERASE ,URINE NEGATIVE (NEGATIVE); NITRITE,URINE NEGATIVE (NEGATIVE); PH,URINE 5.5 (5-9); PROTEIN,URINE NEGATIVE (NEGATIVE)
[2020-02-27 11:09] LABS: BACTERIA,URINE FEW /HPF; SQUAMOUS EPITHELIAL CELL,UR 25-50 /HPF; WBC,URINE 0-2 /HPF
--- NOTE | 2020-02-27 11:56 | Diagnostic Imaging Report ---
PROCEDURE: CT angiography of the head and CT angiography of the neck with and without contrast. TECHNIQUE: Contiguous noncontrast images were obtained from the skull base through the vertex. After intravenous contrast administration, helical CT angiography of the neck was performed. Source data was reformatted into 3D MIP projections. Delayed post contrast acquisition was also obtained. Auto Exposure Controls were utilized during the CT exam to meet ALARA standards for radiation dose reduction. INDICATION: Dizziness. Delayed postcontrast imaging through the brain is without enhancing lesion. There is a three-vessel branching pattern to the aortic arch. Right common carotid artery is widely patent. The left common carotid artery is widely patent. The left and right internal carotid arteries are patent. Right and left middle cerebral arteries appear to be patent. Right and left anterior cerebral arteries are patent. Bilateral posterior cerebral arteries are patent. Basilar artery is patent. Vertebral arteries are codominant. No stenosis is seen. There is no thromboembolism or large branch occlusion. IMPRESSION: Unremarkable CT angiogram of the head and neck. No thromboembolism or large branch occlusion is identified. Dictated by: Dictated on workstation # [id number]
[2020-02-27] MEDS ORDERED: MECL-149 PO (12:01)
[2020-02-27] MEDS ORDERED: SCOP1PAT11 TD (12:01)
[2020-02-27 12:09] VITALS: BP 136/81
== END 2020-02-27 12:09 | disposition home or self-care (01) ==
LOC: EDUNIT# 09:38 → ER 09:42
DX: R42 Dizziness and giddiness (principal); G43.909 Migraine, unspecified, not intractable, without status migrainosus; Z79.52 Long term (current) use of systemic steroids; Z88.0 Allergy status to penicillin; Z88.8 Allergy status to other drugs, medicaments and biological substances; Z91.040 Latex allergy status; Z82.49 Family history of ischemic heart disease and other diseases of the circulatory system; Z80.42 Family history of malignant neoplasm of prostate
CPT/HCPCS: 36415; 70450; 70496; 70498; 71045; 80053; 81000; 83735; 84443; 85025; 93005; 93041

== ENCOUNTER 2020-04-16 10:13 | Inpatient (IN) | payer BC ==
[~2020-04-16] VITALS: Ht 165.1 cm; Wt 88.9 kg
[~2020-04-16 10:13] MED LIST changes: -ATOR10TA66; +ATOR10TA66 PO; -ENAL20TA16; +MECL-149 PO; -NORT25CA; +SCOP1PAT11 TD
[2020-04-16 10:38] LABS: BILIRUBIN,URINE NEGATIVE (NEGATIVE); CLARITY,URINE CLEAR; COLOR,URINE YELLOW; GLUCOSE, URINE (UA) NEGATIVE (NEGATIVE); KETONES,URINE NEGATIVE (NEGATIVE); LEUKOCYTE ESTERASE ,URINE NEGATIVE (NEGATIVE); NITRITE,URINE NEGATIVE (NEGATIVE); PH,URINE 5.5 (5-9); PROTEIN,URINE NEGATIVE (NEGATIVE)
[2020-04-16 10:41] LABS: ABG BASE EXCESS -3.7 MMOL/L (-2.5-2.5); ABG OXYGEN SATURATION 87 % (94-100); ABG PCO2 34 MMHG (35-45); ABG PH 7.39 (7.37-7.43); ABG PO2 64 MMHG (79-93); ABG TCO2 21.5 MMOL/L (21.0-31.0)
[2020-04-16 10:42] LABS: BASOPHILS % (AUTO) 0 % (0-10); EOSINOPHILS % (AUTO) 0 % (0-10); HEMATOCRIT 32 % (35-52); HEMOGLOBIN 10.5 g/dL (11.5-16.0); LYMPHOCYTES # (AUTO) 0.8 10^3/uL (1.0-4.0); LYMPHOCYTES % (AUTO) 9 % (12-44); MEAN CORPUSCULAR HEMOGLOBIN 28 pg (25-34); MEAN CORPUSCULAR HGB CONC 33 g/dL (32-36); MEAN CORPUSCULAR VOLUME 86 fL (80-99); MEAN PLATELET VOLUME 9.9 fL (9.0-12.2); MONOCYTES # (AUTO) 0.3 10^3/uL (0.0-1.0); MONOCYTES % (AUTO) 3 % (0-12); NEUTROPHILS % (AUTO) 86 % (42-75); PLATELET COUNT 286 10^3/uL (130-400); WHITE BLOOD COUNT 9.3 10^3/uL (4.3-11.0)
[2020-04-16 10:42] LABS: ALLENS TEST YES-POS; INSPIRED O2 RA; PATIENT TEMP 98.2; VENTILATOR NO
[2020-04-16 10:54] LABS: BACTERIA,URINE TRACE /HPF; SQUAMOUS EPITHELIAL CELL,UR 0-2 /HPF; WBC,URINE 0-2 /HPF
--- NOTE | 2020-04-16 10:58 | Diagnostic Imaging Report ---
INDICATION: Sepsis, positive Covid test, shortness of breath. Frontal chest obtained at at 10:46 a.m. and compared to 02/27/2020. FINDINGS: Heart is borderline in size. There is new perihilar interstitial and groundglass infiltrates suspicious for pneumonia. There is no pneumothorax or pleural fluid. IMPRESSION: New perihilar interstitial and groundglass infiltrates are present bilaterally, suspicious for pneumonia. This is new compared to 02/27/2020. Dictated by: Dictated on workstation # [id number]
[2020-04-16 11:00] LABS: ALBUMIN 3.1 GM/DL (3.2-4.5); BILIRUBIN,TOTAL 0.2 MG/DL (0.1-1.0); CALCIUM 8.4 MG/DL (8.5-10.1); CREATININE SERUM 2.84 MG/DL (0.60-1.30); POTASSIUM 3.3 MMOL/L (3.6-5.0); TOTAL PROTEIN 6.3 GM/DL (6.4-8.2)
[2020-04-16 11:05] LABS: FIBRIN DEGRADATION PRODUCTS 0.91 UG/ML (0.00-0.49); INR 0.9 (0.8-1.4); PROTHROMBIN TIME PATIENT 12.6 SEC (12.2-14.7)
[2020-04-16 11:09] LABS: ANISOCYTOSIS SLIGHT; BAND NEUTROPHILS 5 %; BASOPHILS % (MANUAL) 0 %; EOSINOPHILS % (MANUAL) 0 %; LYMPHOCYTES % (MANUAL) 8 %; MONOCYTES % (MANUAL) 4 %; NEUTROPHILS % (MANUAL) 83 %
--- NOTE | 2020-04-16 11:30 | NUR ---
1000 ml NS from EMS infused.
[2020-04-16] MEDS ORDERED: LACTATED RINGERS 1,000 ML IV ONE ×3 (11:54→15:05)
--- NOTE | 2020-04-16 11:59 | ED Respiratory ---
General Chief Complaint: Respiratory Problems Stated Complaint: COVID + SOA Nursing Triage Note: TO ED PER EMS WAS DX WITH COVID 1WEEK AGO ONSET OF SYPTOMS THURSDAY BEFORE. LAST SEVERAL DAY'S HAS BEEN WEAK AND LETHARGIC. Source: patient Exam Limitations: clinical condition History of Present Illness Date Seen by Provider: Apr 16, 2020 Time Seen by Provider: 10:16 Initial Comments This 59-year-old woman presents to the emergency room via EMS with progressive weakness and COVID-19. She has had symptoms since April 05 and was diagnosed about a week ago. Over the last few days she has had a decline with worsening weakness. Oxygen saturation is 85% on high flow nonrebreather mask for EMS. She has not had any significant vomiting or diarrhea. Allergies and Home Medications Allergies Coded Allergies: amoxicillin (Verified Allergy, Unknown, 06/19/16) clavulanic acid (Verified Allergy, Unknown, 06/19/16) diphenhydramine (Unverified Allergy, Unknown, "hebby jebby", 06/19/16) latex (Verified Allergy, Unknown, 08/27/16) Home Medications Estradiol 1 Mg Tablet, 1 MG PO DAILY Prescribed by: HAKAN VALLE on 12/18/15 0735 Meclizine HCl 25 Mg Tablet, 50 MG PO Q6 PRN for DIZZINESS Prescribed by: CHELSEY GUERRA on 02/27/20 1201 Omeprazole 20 Mg Capsule.dr, 20 MG PO DAILY Prescribed by: JED CHAU on 06/12/18 1520 Ondansetron 4 Mg Tab.rapdis, 4 MG SL Q4H PRN for NAUSEA/VOMITING Prescribed by: JED CHAU on 06/12/18 1521 Scopolamine 1 Each Patch.td72, 1 EACH TD Q72H Prescribed by: CHELSEY GUERRA on 02/27/20 1201 Tramadol HCl 50 Mg Tablet, 50 MG PO Q6H PRN for PAIN-MODERATE TO SEVERE Prescribed by: JED CHAU on 06/12/18 1520 Patient Home Medication List Home Medication List Reviewed: Yes Review of Systems Review of Systems Constitutional: see HPI EENTM: no symptoms reported Respiratory: see HPI Cardiovascular: no symptoms reported Gastrointestinal: no symptoms reported Genitourinary: no symptoms reported : No Musculoskeletal: no symptoms reported Skin: no symptoms reported Psychiatric/Neurological: No Symptoms Reported Hematologic/Lymphatic: No Symptoms Reported Past Rzkphqg-Iprrdv-Vrhyjd Hx Patient Social History Alcohol Use: Denies Use Recreational Drug Use: No 2nd Hand Smoke Exposure: No Recent Foreign Travel: No Contact w/Someone Who Travel: No Recent Infectious Disease Expo: No Recent Hopitalizations: No Immunizations Up To Date Tetanus Booster (TDap): Less than 5yrs PED Vaccines UTD: No Seasonal Allergies Seasonal Allergies: No Past Medical History Surgeries: Yes (LAPAROSCOPY X3-ENDOMETRIOSIS, LEFT BREAST BX) Abdominal, Breast, Section, Eye Surgery, Hysterectomy, Tonsillectomy, Tubal Ligation Respiratory: Yes (COVID +) Sleep Apnea Currently Using CPAP: No Currently Using BIPAP: No Cardiac: Yes High Cholesterol, Hypertension Neurological: Yes 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 Reproductive Disorders: Yes (CPP, DUB) Female Reproductive Disorders: Endometriosis, Ovarian Cyst Sexually Transmitted Disease: No HIV/AIDS: No Genitourinary: Yes UTI-Chronic Gastrointestinal: Yes Colitis Musculoskeletal: Yes (NECK PAIN AND RIGHT ARM PAIN) Endocrine: No HEENT: Yes Cataract Loss of Vision: Bilateral Hearing Impairment: Denies Cancer: No Psychosocial: Yes Depression Integumentary: No Blood Disorders: No Adverse Reaction/Blood Tranf: No (N/A) Family Medical History Reviewed Nursing Family Hx Arthritis 19 MOTHER Gastroenteritis G8 BROTHER Headache disorder 19 MOTHER G8 SISTER Hypertension 19 FATHER Prostate cancer 19 FATHER GI Disease, Hypertension, Other Conditions/Hx Physical Exam Vital Signs - First Documented 04/16/20 04/16/20 10:16 10:20 Pulse 100 Resp 22 B/P (MAP) 102/60 (74) Pulse Ox 84 O2 Delivery Non Rebreather FiO2 80 Capillary Refill : Less Than 3 Seconds Height: 5'5.00" Weight: 196lbs. oz. 88.535670ha; 28.00 BMI Method:Stated General Appearance: WD/WN, mild distress (Respiratory) HEENT: PERRL/EOMI, normal ENT inspection, other (Oropharynx dry) Neck: normal inspection Respiratory: no respiratory distress, no accessory muscle use, decreased breath sounds, crackles (Faint crackles in the bases), other (Tachypnea) Cardiovascular: regular rate, rhythm, no edema, no murmur Gastrointestinal: normal bowel sounds, non tender, soft Extremities: normal inspection, no pedal edema Neurologic/Psychiatric: service officer II-XII nml as tested, no motor/sensory deficits, alert, normal mood/affect, oriented x 3 Skin: normal color, warm/dry Focused Exam Lactate Level 04/16/20 10:25: Lactic Acid Level 2.10*H Lactic Acid Level Laboratory Tests Test 04/16/20 10:25 Lactic Acid Level 2.10 MMOL/L (0.50-2.00) *H Progress/Results/Core Measures Suspected Sepsis Recent Fever Within 48 Hours: No Infection Criteria Present: Documented Infection New/Unexplained Altered Menta: Yes Sepsis Screen: Possible Severe Sepsis Risk SIRS Temperature: Pulse: 84 Respiratory Rate: 27 Laboratory Tests 04/16/20 10:25: White Blood Count 9.3 Blood Pressure 102 /60 Mean: 74 04/16/20 10:25: Lactic Acid Level 2.10*H Laboratory Tests 04/16/20 10:25: Creatinine 2.84H, INR Comment 0.9, Platelet Count 286, Total Bilirubin 0.2 Results/Orders Lab Results Laboratory Tests Test 04/16/20 10:25 04/16/20 10:31 Range/Units White Blood Count 9.3 4.3-11.0 10^3/uL Red Blood Count 3.77 L 3.80-5.11 10^6/uL Hemoglobin 10.5 L 11.5-16.0 g/dL Hematocrit 32 L 35-52 % Mean Corpuscular Volume 86 80-99 fL Mean Corpuscular Hemoglobin 28 25-34 pg Mean Corpuscular Hemoglobin Concent 33 32-36 g/dL Red Cell Distribution Width 15.3 H 10.0-14.5 % Platelet Count 286 130-400 10^3/uL Mean Platelet Volume 9.9 9.0-12.2 fL Immature Granulocyte % (Auto) 1 % Neutrophils (%) (Auto) 86 H 42-75 % Lymphocytes (%) (Auto) 9 L 12-44 % Monocytes (%) (Auto) 3 0-12 % Eosinophils (%) (Auto) 0 0-10 % Basophils (%) (Auto) 0 0-10 % Neutrophils # (Auto) 8.0 H 1.8-7.8 10^3/uL Lymphocytes # (Auto) 0.8 L 1.0-4.0 10^3/uL Monocytes # (Auto) 0.3 0.0-1.0 10^3/uL Eosinophils # (Auto) 0.0 0.0-0.3 10^3/uL Basophils # (Auto) 0.0 0.0-0.1 10^3/uL Immature Granulocyte # (Auto) 0.1 0.0-0.1 10^3/uL Neutrophils % (Manual) 83 % Lymphocytes % (Manual) 8 % Monocytes % (Manual) 4 % Eosinophils % (Manual) 0 % Basophils % (Manual) 0 % Band Neutrophils 5 % Anisocytosis SLIGHT Prothrombin Time 12.6 12.2-14.7 SEC INR Comment 0.9 0.8-1.4 Activated Partial Thromboplast Time 21 L 24-35 SEC D-Dimer 0.91 H 0.00-0.49 UG/ML Urine Color YELLOW Urine Clarity CLEAR Urine pH 5.5 5-9 Urine Specific Pinson 1.020 1.016-1.022 Urine Protein NEGATIVE NEGATIVE Urine Glucose (UA) NEGATIVE NEGATIVE Urine Ketones NEGATIVE NEGATIVE Urine Nitrite NEGATIVE NEGATIVE Urine Bilirubin NEGATIVE NEGATIVE Urine Urobilinogen 0.2 < = 1.0 MG/DL Urine Leukocyte Esterase NEGATIVE NEGATIVE Urine RBC (Auto) NEGATIVE NEGATIVE Urine RBC NONE /HPF Urine WBC 0-2 /HPF Urine Squamous Epithelial Cells 0-2 /HPF Urine Crystals NONE /LPF Urine Bacteria TRACE /HPF Urine Casts NONE /LPF Urine Mucus SMALL H /LPF Urine Culture Indicated NO Sodium Level 132 L 135-145 MMOL/L Potassium Level 3.3 L 3.6-5.0 MMOL/L Chloride Level 98 98-107 MMOL/L Carbon Dioxide Level 24 21-32 MMOL/L Anion Gap 10 5-14 MMOL/L Blood Urea Nitrogen 40 H 7-18 MG/DL Creatinine 2.84 H 0.60-1.30 MG/DL Estimat Glomerular Filtration Rate 17 BUN/Creatinine Ratio 14 Glucose Level 111 H 70-105 MG/DL Lactic Acid Level 2.10 *H 0.50-2.00 MMOL/L Calcium Level 8.4 L 8.5-10.1 MG/DL Corrected Calcium 9.1 8.5-10.1 MG/DL Total Bilirubin 0.2 0.1-1.0 MG/DL Aspartate Amino Transf (AST/SGOT) 34 5-34 U/L Alanine Aminotransferase (ALT/SGPT) 13 0-55 U/L Alkaline Phosphatase 72 40-136 U/L Lactate Dehydrogenase 400 H 125-220 U/L C-Reactive Protein High Sensitivity 13.09 H 0.00-0.50 MG/DL Total Protein 6.3 L 6.4-8.2 GM/DL Albumin 3.1 L 3.2-4.5 GM/DL Procalcitonin 0.08 <0.10 NG/ML Blood Gas Puncture Site RR Blood Gas Patient Temperature 98.2 Arterial Blood pH 7.39 7.37-7.43 Arterial Blood Partial Pressure CO2 34 L 35-45 MMHG Arterial Blood Partial Pressure O2 64 L 79-93 MMHG Arterial Blood HCO3 21 L 23-27 MMOL/L Arterial Blood Total CO2 21.5 21.0-31.0 MMOL/L Arterial Blood Oxygen Saturation 87 L 94-100 % Arterial Blood Base Excess -3.7 L -2.5-2.5 MMOL/L Vicente Test YES-POS Blood Gas Ventilator Setting NO Blood Gas Inspired Oxygen RA My Orders Orders - JED MONTANO MD Cbc With Automated Diff (04/16/20 10:29) Comprehensive Metabolic Panel (04/16/20 10:29) Blood Culture (04/16/20 10:29) Sputum Culture (04/16/20 10:29) Urinalysis (04/16/20 10:29) Urine Culture (04/16/20 10:29) Protime With Inr (04/16/20 10:29) Partial Thromboplastin Time (04/16/20 10:29) Chest 1 View, Ap/Pa Only (04/16/20 10:29) Ed Iv/Invasive Line Start (04/16/20 10:29) Ed Iv/Invasive Line Start (04/16/20 10:29) Vital Signs Adult Sepsis Patie Q15M (04/16/20 10:29) O2 (04/16/20 10:29) Remove Rings In Anticipation O (04/16/20 10:29) Lactic Acid Analyzer (04/16/20 10:29) Fibrin Degradation Products (04/16/20 10:29) Procalcitonin (Pct) (04/16/20 10:29) Hs C Reactive Protein (04/16/20 10:29) LDH (04/16/20 10:29) Arterial Blood Gas (04/16/20 10:33) Dexamethasone Injection (Decadron Inje (04/16/20 10:45) Manual Differential (04/16/20 10:25) Convalescent Plasma (04/16/20 10:54) Medications Given in ED Vital Signs/I&O 04/16/20 04/16/20 10:16 10:20 Pulse 100 Resp 22 B/P (MAP) 102/60 (74) Pulse Ox 84 91 O2 Delivery Non Rebreather NIV Bilevel FiO2 80 Capillary Refill : Less Than 3 Seconds Blood Pressure Mean: 74 Progress Note : Time: 11:58 Progress Note Patient was seen and examined immediately upon arrival. Oxygen saturation was 85% on 15 L by nonrebreather. BiPAP was applied and immediately resuscitated her oxygen saturation to 100%. Dexamethasone was administered. A liter of IV fluids was administered. At this time systolic blood pressure is reading 77. A second liter of IV fluid is being administered. She is going to be admitted to the ICU. Dr. Sheehan accepts the patient. Patient verbally consented to convalescent plasma use. Diagnostic Imaging Diagonstic Imaging: Xray Plain Films/CT/US/NM/MRI: chest Comments NAME: EMILE BOYER [facility] REC#: [id number] PT STATUS: ADM IN : 1960 PHYSICIAN: JED MONTANO MD ADMIT DATE: 04/16/20/ICU Signed Date of Exam:04/16/20 CHEST 1 VIEW, AP/PA ONLY INDICATION: Sepsis, positive Covid test, shortness of breath. Frontal chest obtained at at 10:46 a.m. and compared to 02/27/2020. FINDINGS: Heart is borderline in size. There is new perihilar interstitial and groundglass infiltrates suspicious for pneumonia. There is no pneumothorax or pleural fluid. IMPRESSION: New perihilar interstitial and groundglass infiltrates are present bilaterally, suspicious for pneumonia. This is new compared to 02/27/2020. Dictated by: Dictated on workstation # [id number] Dict: 04/16/20 1054 Trans: 04/16/20 1232 [id number] Interpreted by: ANNE FREITAS MD Electronically signed by: ANNE FREITAS MD 04/16/20 1232 Reviewed: Reviewed by Me Departure Communication (Admissions) Time/Spoke to Admitting Phy: 10:55 Dr. Sheehan Impression Primary Impression: Respiratory failure Qualified Codes: J96.01 - Acute respiratory failure with hypoxia Additional Impression: COVID-19 Disposition: 09 ADMITTED INPATIENT Condition: Improved Admissions Decision to Admit Reason: Admit from ER (General) Decision to Admit/Date: Apr 16, 2020 Time/Decision to Admit Time: 10:16 Departure-Patient Inst. Referrals: EARNEST MIJAERS MD (PCP/Family) Primary Care Physician Copy Copies To 1: EARNEST MIJARES MD, JOSHUA T MD Apr 16, 2020 11:59
--- NOTE | 2020-04-16 12:59 | NUR ---
Spoke to pt's regarding admission.
[2020-04-16] MEDS ORDERED: ACETAMINOPHEN 650 MG SUPP (TYLENOL) PR PRN (15:30)
[2020-04-16] MEDS: ONDANSETRON 4 MG/2 ML (SDV) Z0FRAN IVP PRN (16:07)
[2020-04-16] MEDS: LACTATED RINGERS 1,000 ML IV SCH ×2 (16:07→22:32)
[2020-04-16] MEDS: ACETAMINOPHEN 325 MG TABLET PO PRN (16:20)
[2020-04-16] MEDS ORDERED: ZOLPIDEM 5 MG (AMBIEN) TAB PO ONE (22:30)
[2020-04-17 02:20] VITALS: BP 130/76
[2020-04-17] MEDS: guaiFENesin/DM (ROBITUSSIN DM) 10 ML UDC PO PRN (02:44)
[2020-04-17] MEDS ORDERED: ONDANSETRON 4 MG/2 ML (SDV) Z0FRAN IVP ONE (02:45)
[2020-04-17 03:31] LABS: BASOPHILS % (AUTO) 0 % (0-10); EOSINOPHILS % (AUTO) 0 % (0-10); HEMATOCRIT 34 % (35-52); HEMOGLOBIN 10.7 g/dL (11.5-16.0); LYMPHOCYTES # (AUTO) 0.7 10^3/uL (1.0-4.0); LYMPHOCYTES % (AUTO) 10 % (12-44); MEAN CORPUSCULAR HEMOGLOBIN 28 pg (25-34); MEAN CORPUSCULAR HGB CONC 32 g/dL (32-36); MEAN CORPUSCULAR VOLUME 87 fL (80-99); MEAN PLATELET VOLUME 9.9 fL (9.0-12.2); MONOCYTES # (AUTO) 0.3 10^3/uL (0.0-1.0); MONOCYTES % (AUTO) 4 % (0-12); NEUTROPHILS # (AUTO) 5.5 10^3/uL (1.8-7.8); NEUTROPHILS % (AUTO) 82 % (42-75); PLATELET COUNT 278 10^3/uL (130-400); WHITE BLOOD COUNT 6.7 10^3/uL (4.3-11.0)
[2020-04-17 03:33] LABS: ABG BASE EXCESS -1.4 MMOL/L (-2.5-2.5); ABG OXYGEN SATURATION 89 % (94-100); ABG PCO2 32 MMHG (35-45); ABG PH 7.45 (7.37-7.43); ABG PO2 64 MMHG (79-93); ABG TCO2 23.3 MMOL/L (21.0-31.0)
[2020-04-17 03:35] LABS: ALLENS TEST YES-POS; INSPIRED O2 50%; VENTILATOR NO
[2020-04-17 03:49] LABS: CALCIUM 8.7 MG/DL (8.5-10.1); CREATININE SERUM 1.06 MG/DL (0.60-1.30); MAGNESIUM 2.2 MG/DL (1.6-2.4); PHOSPHORUS 3.1 MG/DL (2.3-4.7); POTASSIUM 4.7 MMOL/L (3.6-5.0)
--- NOTE | 2020-04-17 04:29 | Pulmonary Consultation ---
History of Present Illness History of Present Illness Date Seen by Provider: Apr 16, 2020 (Late Note ) Time Seen by Provider: 14:30 Date of Admission Allergies and Home Medications Allergies Coded Allergies: amoxicillin (Verified Allergy, Unknown, 06/19/16) clavulanic acid (Verified Allergy, Unknown, 06/19/16) diphenhydramine (Unverified Allergy, Unknown, "hebby jebby", 06/19/16) latex (Verified Allergy, Unknown, 08/27/16) Home Medications Estradiol 1 Mg Tablet, 1 MG PO DAILY Prescribed by: HAKAN VALLE on 12/18/15 0735 Meclizine HCl 25 Mg Tablet, 50 MG PO Q6 PRN for DIZZINESS Prescribed by: CHELSEY GUERRA on 02/27/20 1201 Omeprazole 20 Mg Capsule.dr, 20 MG PO DAILY Prescribed by: JED CHAU on 06/12/18 1520 Ondansetron 4 Mg Tab.rapdis, 4 MG SL Q4H PRN for NAUSEA/VOMITING Prescribed by: JED CHAU on 06/12/18 1521 Scopolamine 1 Each Patch.td72, 1 EACH TD Q72H Prescribed by: CHELSEY GUERRA on 02/27/20 1201 Tramadol HCl 50 Mg Tablet, 50 MG PO Q6H PRN for PAIN-MODERATE TO SEVERE Prescribed by: JED CHAU on 06/12/18 1520 Past Yobivjl-Ofwpjt-Vxnasb Hx Patient Social History Alcohol Use: Denies Use Recreational Drug Use: No 2nd Hand Smoke Exposure: No Recent Foreign Travel: No Contact w/Someone Who Travel: No Recent Infectious Disease Expo: No Recent Hopitalizations: No Immunizations Up To Date Tetanus Booster (TDap): Less than 5yrs PED Vaccines UTD: No Seasonal Allergies Seasonal Allergies: No Past Medical History Surgeries: Yes (LAPAROSCOPY X3-ENDOMETRIOSIS, LEFT BREAST BX) Abdominal, Breast, Section, Eye Surgery, Hysterectomy, Tonsillectomy, Tubal Ligation Respiratory: Yes (COVID +) Sleep Apnea Currently Using CPAP: No Currently Using BIPAP: No Cardiac: Yes High Cholesterol, Hypertension Neurological: Yes 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 Reproductive Disorders: Yes (CPP, DUB) Female Reproductive Disorders: Endometriosis, Ovarian Cyst Sexually Transmitted Disease: No HIV/AIDS: No Genitourinary: Yes UTI-Chronic Gastrointestinal: Yes Colitis Musculoskeletal: Yes (NECK PAIN AND RIGHT ARM PAIN) Endocrine: No HEENT: Yes Cataract Loss of Vision: Bilateral Hearing Impairment: Denies Cancer: No Psychosocial: Yes Depression Integumentary: No Blood Disorders: No Adverse Reaction/Blood Tranf: No (N/A) Family Medical History Reviewed Nursing Family Hx Arthritis 19 MOTHER Gastroenteritis G8 BROTHER Headache disorder 19 MOTHER G8 SISTER Hypertension 19 FATHER Prostate cancer 19 FATHER GI Disease, Hypertension, Other Conditions/Hx Sepsis Event Evaluation Height, Weight, BMI Height: 5'5.00" Weight: 196lbs. oz. 88.618691sb; 28.00 BMI Method:Stated Exam Exam Vital Signs Date Time Temp Pulse Resp B/P (MAP) Pulse Ox O2 Delivery O2 Flow Rate FiO2 04/17/20 03:57 NIV Bilevel 65.00 04/17/20 02:20 72 24 100 50.00 04/17/20 02:17 NIV Bilevel 50.00 04/17/20 01:00 75 04/17/20 00:12 NIV Bilevel 40.00 04/16/20 23:18 35.4 04/16/20 22:00 NIV Bilevel 60.00 04/16/20 21:41 72 26 95 70.00 04/16/20 21:09 NIV Bilevel 70 04/16/20 20:30 NIV Bilevel 70.00 04/16/20 20:21 69 20 129/75 (93) 100 NIV Bilevel 80.00 04/16/20 19:19 36.4 04/16/20 19:00 68 04/16/20 18:50 84 27 98 90.00 04/16/20 17:00 97 18 83 NIV Bilevel 100.00 04/16/20 16:00 36.4 87 30 119/54 (75) 100 NIV Bilevel 100.00 04/16/20 15:12 81 04/16/20 15:00 36.7 79 25 115/64 (81) 100 NIV Bilevel 100.00 04/16/20 15:00 NIV Bilevel 100 04/16/20 13:06 78 25 86/58 (74) 90 NIV Bilevel 04/16/20 11:01 84 27 98 85.00 04/16/20 10:20 91 NIV Bilevel 80 12/28/20 10:16 100 22 102/60 (90) 84 Non Rebreather I & O 04/17/20 07:00 Intake Total 1800 ml Output Total 2350 ml Balance -550 ml Height & Weight Height: 5'5.00" Weight: 196lbs. oz. 88.660645sc; 28.00 BMI Method:Stated Capillary Refill: Less Than 3 Seconds Gastrointestinal: normal bowel sounds, non tender, soft Results Lab Laboratory Tests 04/16/20 10:25 04/17/20 03:11 Assessment/Plan Assessment/Plan Acute respiratory failure secondary to COVID -Currently requiring BiPAP with 60% -will trail pt to Vapotherm -DX 04/09 symptoms started 04/05 -CVP pending -Out of window for Remdesivir - Decadron Anemia -Monitor DVT/GI ppx -Add Lovenox DL HARDWICK DO Apr 17, 2020 04:29
[2020-04-17] MEDS ORDERED: FAMOTIDINE 20 MG (PEPCID) TABLET PO PRN (04:30)
[2020-04-17 06:37] VITALS: BP 140/83
[2020-04-17] MEDS: RT-ALBUTEROL INHALER HFA (VENTOLIN HFA) 18 GM IH SCH ×5 (06:40→21:01)
--- NOTE | 2020-04-17 07:34 | Pulmonary Progress Note ---
Subjective Date Seen by a Provider: Apr 17, 2020 Time Seen by a Provider: 07:34 Sepsis Event Evaluation Height, Weight, BMI Height: 5'5.00" Weight: 196lbs. oz. 88.008483lp; 28.00 BMI Method:Stated Focused Exam Lactate Level 04/16/20 10:25: Lactic Acid Level 2.10*H 04/16/20 13:15: Lactic Acid Level 1.01 Exam Exam Vital Signs Date Time Temp Pulse Resp B/P (MAP) Pulse Ox O2 Delivery O2 Flow Rate FiO2 04/17/20 06:48 86 26 97 Vapotherm 40.00 100.00 04/17/20 06:40 94 Vapotherm 40.00 100 04/17/20 06:37 85 21 95 65.00 04/17/20 06:00 81 28 138/83 (101) 93 NIV Bilevel 65.00 04/17/20 05:00 84 27 134/89 (104) 93 NIV Bilevel 65.00 04/17/20 04:00 76 22 141/81 (101) 94 NIV Bilevel 65.00 04/17/20 03:57 NIV Bilevel 65.00 04/17/20 03:20 36.0 04/17/20 03:00 78 20 124/70 (88) 89 NIV Bilevel 50.00 04/17/20 02:20 72 24 100 50.00 04/17/20 02:17 NIV Bilevel 50.00 04/17/20 02:00 78 23 130/76 (94) 90 NIV Bilevel 40.00 04/17/20 01:00 75 04/17/20 01:00 75 28 137/95 (109) 94 NIV Bilevel 40.00 04/17/20 00:12 NIV Bilevel 40.00 04/17/20 00:00 76 28 140/90 (107) 97 NIV Bilevel 60.00 04/16/20 23:18 35.4 04/16/20 23:00 73 20 133/80 (97) 99 NIV Bilevel 60.00 04/16/20 22:00 71 14 127/57 (80) 97 NIV Bilevel 60.00 04/16/20 22:00 NIV Bilevel 60.00 04/16/20 21:41 72 26 95 70.00 04/16/20 21:09 NIV Bilevel 70 04/16/20 21:00 70 20 113/76 (88) 93 NIV Bilevel 70.00 04/16/20 20:30 NIV Bilevel 70.00 04/16/20 20:21 69 20 129/75 (93) 100 NIV Bilevel 80.00 04/16/20 19:19 36.4 04/16/20 19:17 70 17 96 NIV Bilevel 90.00 04/16/20 19:00 68 18 99 NIV Bilevel 100.00 04/16/20 19:00 68 04/16/20 18:50 84 27 98 90.00 04/16/20 17:00 97 18 83 NIV Bilevel 100.00 04/16/20 16:00 36.4 87 30 119/54 (75) 100 NIV Bilevel 100.00 04/16/20 15:12 81 04/16/20 15:00 36.7 79 25 115/64 (81) 100 NIV Bilevel 100.00 04/16/20 15:00 NIV Bilevel 100 04/16/20 13:06 78 25 86/58 (74) 90 NIV Bilevel 04/16/20 11:01 84 27 98 85.00 04/16/20 10:20 91 NIV Bilevel 80 04/16/20 10:16 100 22 102/60 (74) 84 Non Rebreather I & O 04/17/20 07:00 Intake Total 2000 ml Output Total 2800 ml Balance -800 ml Height & Weight Height: 5'5.00" Weight: 196lbs. oz. 88.131206et; 28.00 BMI Method:Stated General Appearance: Anxious, Mild Distress HEENT: PERRL/EOMI, Normal ENT Inspection, Pharynx Normal Neck: Full Range of Motion, Supple Respiratory: No Accessory Muscle Use, No Respiratory Distress, Crackles, Decreased Breath Sounds Cardiovascular: Regular Rate, Rhythm Capillary Refill: Less Than 3 Seconds Gastrointestinal: normal bowel sounds, non tender, soft Extremity: Normal Capillary Refill, Normal Range of Motion Skin: Normal Color, Warm/Dry Lymphatic: No Adenopathy Results Lab Laboratory Tests 04/16/20 10:25 04/17/20 03:11 Assessment/Plan Assessment/Plan Acute respiratory failure secondary to COVID -Currently requiring BiPAP with 60% -will trail pt to Vapotherm -DX 04/09 symptoms started 04/05 -CVP pending -Out of window for Remdesivir - Decadron Anemia -Monitor DVT/GI ppx -Add Lovenox DL HARDWICK DO Apr 17, 2020 07:34
--- NOTE | 2020-04-17 08:22 | Diagnostic Imaging Report ---
INDICATION: Dyspnea. TECHNIQUE: Single view chest 3:38 AM. CORRELATION STUDY: 04/16/2020 FINDINGS: Bilateral pulmonary opacities do persist but overall are slightly improved and diminished from prior. Heart size remains enlarged. Likely underlying vascular congestion persisting but also appears likely improved. IMPRESSION: 1. Bilateral pulmonary opacities and vascular congestion does persist but overall appearing slightly improved from previous. Dictated by: Dictated on workstation # [id number]
[2020-04-17] MEDS: ENOXAPARIN 40 MG/0.4 ML (LOVENOX) SYR SC SCH (08:29)
[2020-04-17] MEDS: FAMOTIDINE 20 MG (PEPCID) TABLET PO SCH ×2 (08:29→20:14)
[2020-04-17] MEDS: ACETAMINOPHEN 325 MG TABLET PO PRN (08:41)
[2020-04-17 14:05] VITALS: BP 130/75
[2020-04-17 14:20] VITALS: BP 140/80
[2020-04-17] MEDS ORDERED: PREG100C PO (14:34)
[2020-04-17] MEDS ORDERED: ESTR1TAB27 PO (14:34)
[2020-04-17] MEDS ORDERED: BUSP10TA95 PO (14:34)
[2020-04-17] MEDS ORDERED: DULO60CA59 PO (14:34)
[2020-04-17] MEDS ORDERED: OXYC-471 PO (14:34)
[2020-04-17] MEDS ORDERED: PRD10T PO (14:34)
[2020-04-17] MEDS ORDERED: SULF1TAB35 PO (14:34)
[2020-04-17] MEDS ORDERED: TIZA4TAB4 PO (14:35)
--- NOTE | 2020-04-17 14:37 | NUR ---
UNABLE TO SPEAK WITH THE PT AT THIS TIME- I DID CALL HER (SURJIT), WENT THRU THE EXT MED HISTORY AND GOT A MED LIST FROM DR. MIJARES TO COMPLETE THE MED REC UNFORTUNATELY SURJIT WAS NOT ABLE TO GIVE ME MUCH INFORMATION REGARDING THE PTS MEDICATIONS, AND HE SUGGESTED I GET A MED LIST FROM [facility] AND [facility]. FOR THESE REASONS I HAVE COMPLETED THE MED REC ONLY USING THE INFORMATION FROM HER PROVIDERS. I WILL REACH OUT TO THE PT AT A LATER TIME IN HOPES OF GETTING MORE DETAILS ABOUT HER MEDS
[2020-04-17] MEDS ORDERED: morphine INJ 4 MG/ML 1 ML (VIAL/SYRINGE) ONE (15:13)
[2020-04-17] MEDS: oxyCODONE/APAP 5/325MG (PERCOCET 5) TABLET PO PRN (20:18)
[2020-04-18] MEDS: RT-ALBUTEROL INHALER HFA (VENTOLIN HFA) 18 GM IH SCH ×5 (01:26→19:44)
[2020-04-18] MEDS: oxyCODONE/APAP 5/325MG (PERCOCET 5) TABLET PO PRN (02:57)
[2020-04-18 03:08] LABS: BASOPHILS % (AUTO) 0 % (0-10); EOSINOPHILS % (AUTO) 0 % (0-10); HEMATOCRIT 32 % (35-52); HEMOGLOBIN 10.2 g/dL (11.5-16.0); LYMPHOCYTES # (AUTO) 0.6 10^3/uL (1.0-4.0); LYMPHOCYTES % (AUTO) 6 % (12-44); MEAN CORPUSCULAR HEMOGLOBIN 27 pg (25-34); MEAN CORPUSCULAR HGB CONC 32 g/dL (32-36); MEAN CORPUSCULAR VOLUME 86 fL (80-99); MEAN PLATELET VOLUME 10.2 fL (9.0-12.2); MONOCYTES # (AUTO) 0.5 10^3/uL (0.0-1.0); MONOCYTES % (AUTO) 5 % (0-12); NEUTROPHILS # (AUTO) 7.3 10^3/uL (1.8-7.8); NEUTROPHILS % (AUTO) 84 % (42-75); PLATELET COUNT 321 10^3/uL (130-400); WHITE BLOOD COUNT 8.7 10^3/uL (4.3-11.0)
[2020-04-18 03:18] LABS: CHLORIDE 100 MMOL/L (98-107); POTASSIUM 4.1 MMOL/L (3.6-5.0); SODIUM 135 MMOL/L (135-145)
[2020-04-18 03:19] LABS: CALCIUM 8.8 MG/DL (8.5-10.1)
[2020-04-18 03:20] LABS: GLUCOSE 94 MG/DL (70-105)
[2020-04-18 03:21] LABS: CARBON DIOXIDE 23 MMOL/L (21-32)
[2020-04-18 03:23] LABS: PHOSPHORUS 2.1 MG/DL (2.3-4.7)
[2020-04-18 03:24] LABS: CREATININE SERUM 0.71 MG/DL (0.60-1.30); GFR ESTIMATED > 60
[2020-04-18 03:25] LABS: BUN/CREATININE RATIO 18
[2020-04-18 03:26] LABS: MAGNESIUM 2.1 MG/DL (1.6-2.4)
--- NOTE | 2020-04-18 04:24 | Pulmonary Progress Note ---
Subjective Time Seen by a Provider: 04:21 Subjective/Events-last exam Pt is still currently on Vapotherm. Sepsis Event Evaluation Height, Weight, BMI Height: 5'5.00" Weight: 196lbs. oz. 88.310783rd; 28.00 BMI Method:Stated Focused Exam Lactate Level 04/16/20 10:25: Lactic Acid Level 2.10*H 04/16/20 13:15: Lactic Acid Level 1.01 Exam Exam Vital Signs Date Time Temp Pulse Resp B/P (MAP) Pulse Ox O2 Delivery O2 Flow Rate FiO2 04/18/20 04:00 85 26 128/69 (88) 99 Vapotherm 35.00 60.00 04/18/20 03:00 90 29 124/71 (96) 88 Vapotherm 35.00 60.00 04/18/20 03:00 Vapotherm 35.00 60.00 04/18/20 02:00 93 26 120/71 (89) 96 Vapotherm 35.00 70.00 04/18/20 01:30 Vapotherm 35.00 70.00 04/18/20 01:26 99 Vapotherm 40.00 90 04/18/20 01:00 89 27 124/72 (90) 97 Vapotherm 40.00 80.00 04/18/20 01:00 94 04/18/20 00:00 95 40 139/78 (96) 88 Vapotherm 40.00 80.00 04/17/20 23:00 82 26 128/68 (88) 95 Vapotherm 40.00 80.00 04/17/20 22:00 82 17 120/65 (90) 94 Vapotherm 40.00 80.00 04/17/20 21:11 Vapotherm 40.00 80.00 04/17/20 21:02 97 Vapotherm 40.00 90 04/17/20 21:00 82 24 119/64 (72) 96 04/17/20 20:41 Vapotherm 40.00 90 04/17/20 20:13 96 22 122/76 (91) 94 Vapotherm 40.00 90.00 04/17/20 20:00 92 34 122/76 (97) 94 Vapotherm 40.00 90.00 04/17/20 19:31 36.0 04/17/20 19:00 96 28 123/78 (91) 97 Vapotherm 40.00 90.00 04/17/20 19:00 96 04/17/20 18:25 Vapotherm 40.00 90.00 04/17/20 18:16 99 Vapotherm 40.00 100 04/17/20 18:00 93 26 120/82 (95) 99 Vapotherm 40.00 65.00 04/17/20 17:00 99 31 112/67 (82) 99 Vapotherm 40.00 65.00 04/17/20 16:00 101 31 127/71 (89) 96 Vapotherm 40.00 65.00 04/17/20 15:35 36.3 04/17/20 15:28 94 Vapotherm 40.00 100 04/17/20 15:00 101 27 132/79 (96) 100 Vapotherm 40.00 65.00 04/17/20 14:20 36.7 98 18 140/80 100 Vapotherm 40.00 100 04/17/20 14:05 36.6 104 34 130/75 94 Room Air 40.00 100 04/17/20 14:00 104 34 130/75 (93) 94 Vapotherm 40.00 65.00 04/17/20 13:00 106 29 129/71 (90) 97 Vapotherm 40.00 65.00 04/17/20 12:49 110 04/17/20 12:00 36.8 04/17/20 12:00 105 28 125/70 (88) 82 Vapotherm 40.00 65.00 04/17/20 11:05 97 Vapotherm 40.00 100 04/17/20 11:00 89 27 138/85 (102) 96 Vapotherm 40.00 65.00 04/17/20 10:00 90 25 130/81 (97) 96 Vapotherm 40.00 65.00 04/17/20 09:00 Vapotherm 40.00 100 04/17/20 09:00 86 31 145/84 (104) 93 Vapotherm 40.00 65.00 04/17/20 08:00 37.0 04/17/20 08:00 88 26 142/87 (105) 95 Vapotherm 40.00 65.00 04/17/20 07:00 87 29 143/82 (102) 94 Vapotherm 40.00 100.00 04/17/20 06:48 86 26 97 Vapotherm 40.00 100.00 04/17/20 06:40 94 Vapotherm 40.00 100 04/17/20 06:37 85 21 95 65.00 04/17/20 06:33 84 04/17/20 06:00 81 28 138/83 (101) 93 NIV Bilevel 65.00 04/17/20 05:00 84 27 134/89 (104) 93 NIV Bilevel 65.00 I & O 04/18/20 07:00 Intake Total 1764 ml Output Total 1375 ml Balance 389 ml Height & Weight Height: 5'5.00" Weight: 196lbs. oz. 88.110511bs; 28.00 BMI Method:Stated General Appearance: Anxious HEENT: PERRL/EOMI Neck: Full Range of Motion Respiratory: No Accessory Muscle Use, Accessory Muscle Use, Decreased Breath Sounds Cardiovascular: Regular Rate, Rhythm Capillary Refill: Less Than 3 Seconds Gastrointestinal: normal bowel sounds, non tender, soft Extremity: Normal Capillary Refill, Normal Range of Motion Skin: Normal Color, Warm/Dry Lymphatic: No Adenopathy Results Lab Laboratory Tests 04/16/20 10:25 04/17/20 03:11 04/18/20 02:36 Assessment/Plan Assessment/Plan Acute respiratory failure secondary to COVID - Vapotherm 60% -BiPAP PRN -DX 04/09 symptoms started 04/05 -CVP pending -Out of window for Remdesivir - Decadron Anemia -Monitor DVT/GI ppx -Add Lovenox DL HARDWICK DO Apr 18, 2020 04:24
[2020-04-18] MEDS ORDERED: FUROSEMIDE 40 MG/4 ML INJ (LASIX) IVP ONE (04:30)
[2020-04-18] MEDS: ONDANSETRON 4 MG/2 ML (SDV) Z0FRAN IVP PRN (06:33)
[2020-04-18] MEDS: guaiFENesin/DM (ROBITUSSIN DM) 10 ML UDC PO PRN (06:33)
[2020-04-18] MEDS: ENOXAPARIN 40 MG/0.4 ML (LOVENOX) SYR SC SCH (07:52)
[2020-04-18] MEDS: morphine INJ 4 MG/ML 1 ML (VIAL/SYRINGE) IVP PRN ×4 (07:52→22:49)
[2020-04-18] MEDS: FAMOTIDINE 20 MG (PEPCID) TABLET PO SCH ×2 (08:00→21:21)
[2020-04-18] MEDS ORDERED: POTASSIUM PHOSPHATE INJ 30 MM in NS (IVPB) 250 ML IV ONE (08:00)
[2020-04-18] MEDS: DexMEDEtomidine PRE MIX 100 ML IV SCH ×3 (08:02→21:46)
--- NOTE | 2020-04-18 08:02 | Diagnostic Imaging Report ---
INDICATION: Dyspnea AP view of the chest is obtained with comparison made to study of one day earlier. There is no significant change in diffuse bilateral airspace disease. Density is greatest in the left base. There is no pneumothorax. IMPRESSION: Bilateral pulmonary opacity has not significantly changed. This may be due to edema or pneumonitis with possible superimposed focal infiltrate in the left base. Dictated by: Dictated on workstation # [id number]
[2020-04-18] MEDS: risperiDONE 1 MG (RisperDAL) TAB PO SCH ×2 (08:32→21:21)
--- NOTE | 2020-04-18 14:49 | NUR ---
"RD ASSESSMENT PMHx: hypercholesterolemia; HTN; colitis; chronic UTI; PT INTERACTION: Note pt is currently in COVID isolation, per chart review. Note all diet information for nutrition assessment is per Naomi RN, or per chart review. Naomi states current appetite is poor. Note avg PO intake <25% x2d, per chart review. Naomi states some issues with nausea that she is aware of. Note no BM has been recorded and pt not currently on bowel regimen per chart review. Note recent 11# wt gain x2mon, per chart review. ABNORMAL NUTRITION-RELATED LAB VALUES LOW: phos 2.1; HIGH: Est. kcal needs: 3024-1496 kcal | 15-20 kcal/kg Est. Pro needs: 74-92 g Pro | 0.8-1.0 g Pro/kg PES STATEMENT: Inadequate oral intake (NI-2.1) related to loss of appetite, and nausea, as evidenced by chart review, communication with care staff, and avg PO intake <25% x2d. INTERVENTION: Continue with current diet order of Regular diet. Add Ensure Enlive to meals TID, for increased kcal intake. Provides 350 kcal and 20 g Pro per serving. Will continue to follow and reassess as pt needs, intake, and status change. Rom ROLDAN, MS RD LD [phone] cell"
--- NOTE | 2020-04-18 19:15 | NUR ---
192: PT'S O2 SATURATION IN THE 60'S AT THIS TIME. THIS RN AND [facility] JENKINS RESPONDED TO ROOM. PT PULLED OFF HER VAPO THERM AND APPEARS TO BE VERY ANXIOUS. RESPIRATORY RATE IN THE 40'S AND PT REPORTS THAT SHE "IS SCARED AND CAN'T BREATHE." CANNULA FOR VAPO-THERM REAPPLIED TO PT'S FACE AND THIS RN REASSURED PT THAT WE ARE THERE TO HELP HER. O2 SATURATION UP TO 85% AT THIS TIME ON 30 L AND 100% FIO2. PT SWITCHED TO BIPAP AT THIS TIME (17/10 AND 65% FIO2) . O2 SATURATIONS UP TO 97%. PT ATTEMPTING TO PULL OFF BI-PAP. THIS RN ATTEMPTED TO EDUCATE PATIENT ON THE NEED TO KEEP BIPAP ON HER O2 LEVELS DROP DANGEROUSLY LOW WITHOUT IT. PRECEDEX DRIP INCREASED TO 1.5 MCG/KG/HR AN PRN HALDOL ADMINISTERED ORDERED. PT CONTINUES TO BE VERY ANXIOUS. E-ICU NOTIFIED OF PT'S SEVERE ANXIETY AND MORPHINE TIME INCREASED TO 2 MG Q1 HR. 2009: PT APPEARS MUCH MORE RELAXED AT THIS TIME; RESTING QUIETLY WITH EYES CLOSED. FIO2 TITRATED TO 40% ON BIPAP; O2 SAT 96%. PT'S CALL LIGHT IS WITHIN REACH, BED EXIT ALARM IS ON AND BED IS IN LOWEST POSITION. WILL CONTINUE TO MONITOR.
[2020-04-18] MEDS: HALOPERIDOL 5 MG/ML (HALDOL) VIAL IM PRN (19:24)
[2020-04-18 19:44] VITALS: BP 172/99
--- NOTE | 2020-04-18 21:30 | NUR ---
2129: PT PULLED OFF BIPAP AT THIS TIME; O2 SATURATION IN THE LOW 80'S. ENSURE SPILLED ON THE FLOOR. PT IS ALERT AND ORIENTED BUT STATES SHE WAS THIRSTY. BIPAP REAPPLIED; O2 SATURATION UP TO 96%. THIS RN PROVIDED FRESH WATER AND WIPED PT'S LIPS WITH A WET WASH CLOTH. THIS RN ALSO EDUCATED PT ON PRESSING THE CALL LIGHT IF SHE NEEDS A DRINK OF WATER AND THIS RN WILL ASSIST HER. 2149: PT AND BELONGINGS MOVED TO ICU-4 FOR BETTER VISUAL MONITORING. CALL LIGHT IS WITHIN REACH, BED IS IN LOWEST POSITION AND BED EXIT ALARM IS ON.
[2020-04-19] MEDS ORDERED: LACTATED RINGERS 1,000 ML IV ONE ×2 (00:28→00:45)
[2020-04-19] MEDS: DexMEDEtomidine PRE MIX 100 ML IV SCH ×9 (00:42→23:10)
[2020-04-19] MEDS: LACTATED RINGERS 1,000 ML IV SCH ×3 (00:43→19:11)
[2020-04-19] MEDS ORDERED: LACTATED RINGERS 1,000 ML IV SCH ×2 (00:45→05:00)
--- NOTE | 2020-04-19 00:45 | NUR ---
PT HAS HAD ONLY 130 ML OF (DARK YELLOW) URINE OUTPUT SINCE 1900. CATHETER FLUSHED AND PATENT. THIS RN CALLED E-ICU TO REPORT DECREASED URINE OUTPUT. NEW ORDER RECEIVED FOR 500 ML LR BOLUS X1/NOW AND THEN LR TO RUN AT 100 ML/HR AFTER BOLUS.
[2020-04-19] MEDS ORDERED: LACTATED RINGERS 500 ML IV ONE (01:15)
[2020-04-19] MEDS: RT-ALBUTEROL INHALER HFA (VENTOLIN HFA) 18 GM IH SCH ×7 (03:07→22:55)
[2020-04-19 03:08] VITALS: BP 166/105
[2020-04-19] MEDS: morphine INJ 4 MG/ML 1 ML (VIAL/SYRINGE) IVP PRN ×4 (03:12→14:23)
[2020-04-19 04:22] LABS: ABG BASE EXCESS 5.7 MMOL/L (-2.5-2.5); ABG OXYGEN SATURATION 96 % (94-100); ABG PCO2 43 MMHG (35-45); ABG PH 7.45 (7.37-7.43); ABG PO2 80 MMHG (79-93); ABG TCO2 31.3 MMOL/L (21.0-31.0)
[2020-04-19 04:25] LABS: ALLENS TEST POS; INSPIRED O2 30%; PATIENT TEMP 36.1; VENTILATOR NO
[2020-04-19 04:31] LABS: BASOPHILS % (AUTO) 0 % (0-10); EOSINOPHILS % (AUTO) 0 % (0-10); HEMATOCRIT 32 % (35-52); HEMOGLOBIN 10.1 g/dL (11.5-16.0); LYMPHOCYTES # (AUTO) 0.7 10^3/uL (1.0-4.0); LYMPHOCYTES % (AUTO) 9 % (12-44); MEAN CORPUSCULAR HEMOGLOBIN 27 pg (25-34); MEAN CORPUSCULAR HGB CONC 32 g/dL (32-36); MEAN CORPUSCULAR VOLUME 87 fL (80-99); MEAN PLATELET VOLUME 10.2 fL (9.0-12.2); MONOCYTES # (AUTO) 0.5 10^3/uL (0.0-1.0); MONOCYTES % (AUTO) 7 % (0-12); NEUTROPHILS # (AUTO) 5.6 10^3/uL (1.8-7.8); NEUTROPHILS % (AUTO) 80 % (42-75); PLATELET COUNT 307 10^3/uL (130-400)
--- NOTE | 2020-04-19 04:53 | Pulmonary Progress Note ---
Subjective Time Seen by a Provider: 04:48 Subjective/Events-last exam PT has been agitated through the night. Sepsis Event Evaluation Height, Weight, BMI Height: 5'5.00" Weight: 196lbs. oz. 88.239454qx; 28.00 BMI Method:Stated Focused Exam Lactate Level 04/16/20 10:25: Lactic Acid Level 2.10*H 04/16/20 13:15: Lactic Acid Level 1.01 Exam Exam Vital Signs Date Time Temp Pulse Resp B/P (MAP) Pulse Ox O2 Delivery O2 Flow Rate FiO2 04/19/20 03:12 36.0 81 25 166/105 97 30.00 04/19/20 03:08 81 25 97 60.00 04/19/20 00:49 NIV Bilevel 35.00 04/19/20 00:42 36.0 81 21 172/99 96 NIV/Bilevel 40.00 04/18/20 23:35 36.0 04/18/20 23:00 60 22 158/94 (115) 91 NIV Bilevel 50.00 04/18/20 22:58 NIV Bilevel 50.00 04/18/20 22:00 70 28 158/95 (116) 94 NIV Bilevel 40.00 04/18/20 21:46 36.4 81 21 172/99 96 NIV/Bilevel 40.00 04/18/20 21:00 NIV Bilevel 65 04/18/20 21:00 62 18 151/91 (111) 90 NIV Bilevel 40.00 04/18/20 20:50 96 NIV Bilevel 40.00 04/18/20 20:32 36.4 04/18/20 20:00 86 22 182/113 (136) 97 NIV Bilevel 65.00 04/18/20 19:44 81 21 98 65.00 04/18/20 19:40 44 97 NIV Bilevel 65.00 04/18/20 19:20 42 60 Vapotherm 30.00 100.00 04/18/20 19:04 36.0 86 31 129/82 100 30.00 04/18/20 19:00 Vapotherm 30.00 100.00 04/18/20 19:00 90 18 172/99 (123) 93 Vapotherm 30.00 100.00 04/18/20 19:00 90 04/18/20 18:00 86 31 129/82 (98) 100 Vapotherm 30.00 50.00 04/18/20 17:00 98 28 139/87 (104) 92 Vapotherm 30.00 50.00 04/18/20 16:00 100 27 137/87 (104) 96 Vapotherm 30.00 50.00 04/18/20 15:49 36.0 04/18/20 15:00 101 25 128/68 (88) 98 Vapotherm 30.00 50.00 04/18/20 14:56 98 Vapotherm 30.00 75 04/18/20 14:00 99 30 139/92 (108) 99 Vapotherm 30.00 50.00 04/18/20 13:00 92 19 137/86 (103) 94 Vapotherm 30.00 50.00 04/18/20 12:40 96 04/18/20 12:00 98 24 136/93 (107) 98 Vapotherm 30.00 50.00 04/18/20 12:00 36.6 04/18/20 11:00 93 26 122/86 (98) 98 Vapotherm 30.00 50.00 04/18/20 10:04 94 Vapotherm 30.00 85 04/18/20 10:00 87 28 113/68 (83) 98 Vapotherm 30.00 50.00 04/18/20 09:00 91 27 124/85 (98) 99 Vapotherm 30.00 50.00 04/18/20 08:41 94 Vapotherm 35.00 95 04/18/20 08:11 36.4 04/18/20 08:02 35.9 92 30 114/62 94 35.00 04/18/20 08:00 100 33 125/71 (89) 93 Vapotherm 30.00 50.00 04/18/20 07:08 94 Vapotherm 35.00 95 04/18/20 07:00 101 37 125/74 (91) 94 Vapotherm 30.00 50.00 04/18/20 06:38 97 04/18/20 06:00 92 30 114/62 (79) 91 Vapotherm 30.00 50.00 04/18/20 05:37 95 Vapotherm 30.00 50.00 04/18/20 05:00 88 30 129/72 (91) 97 Vapotherm 35.00 60.00 I & O 04/19/20 07:00 Intake Total 740 ml Output Total 1920 ml Balance -1180 ml Height & Weight Height: 5'5.00" Weight: 196lbs. oz. 88.997770du; 28.00 BMI Method:Stated Capillary Refill: Less Than 3 Seconds Gastrointestinal: normal bowel sounds, non tender, soft Results Lab Laboratory Tests 04/18/20 02:36 04/19/20 03:23 Assessment/Plan Assessment/Plan Acute respiratory failure secondary to COVID -BiPAP currently 40% -Titrate Vapotherm -DX 04/09 symptoms started 04/05 -CVP pending -Out of window for Remdesivir - Decadron Agitation/ICU psychosis -Risperdol -Haldol PRN -Precedex gtt -Morphine Anemia -Monitor DVT/GI ppx -Add Lovenox UPDATE 1030: RN and I called and updated on pt's clinical status. All questions answered to the best of my ability. Critical Care: Critically Ill Patient Time spent with patient (mins): 60 DL HARDWICK DO Apr 19, 2020 04:53
[2020-04-19 05:12] LABS: BUN/CREATININE RATIO 26; CALCIUM 8.8 MG/DL (8.5-10.1); CARBON DIOXIDE 25 MMOL/L (21-32); CHLORIDE 100 MMOL/L (98-107); GFR ESTIMATED > 60; GLUCOSE 110 MG/DL (70-105); MAGNESIUM 2.3 MG/DL (1.6-2.4); PHOSPHORUS 2.4 MG/DL (2.3-4.7); POTASSIUM 4.8 MMOL/L (3.6-5.0); SODIUM 136 MMOL/L (135-145)
[2020-04-19] MEDS: HALOPERIDOL 5 MG/ML (HALDOL) VIAL IM PRN (05:41)
[2020-04-19 06:51] VITALS: BP 179/101
--- NOTE | 2020-04-19 08:02 | Diagnostic Imaging Report ---
INDICATION: Shortness of breath, COVID positive COMPARISON: 04/18/2020 FINDINGS: Single view chest demonstrates unchanged bilateral pulmonary infiltrates. There is dependent atelectasis. There is trace effusion in the costophrenic angles. Heart remains prominent. There is no pneumothorax but osseous structures stable. IMPRESSION: 1. New trace bilateral pleural effusions 2. Unchanged bilateral pulmonary infiltrates. Report was faxed to [facility] by gaby at 8:01am. Dictated by: Dictated on workstation # [id number]
[2020-04-19] MEDS: PREGABALIN 100 MG (LYRICA) CAPSULE PO SCH ×2 (08:34→21:49)
[2020-04-19] MEDS: busPIRone 10 MG (BUSPAR) TAB PO SCH ×2 (08:34→21:49)
[2020-04-19] MEDS: risperiDONE 1 MG (RisperDAL) TAB PO SCH ×2 (08:34→21:49)
[2020-04-19] MEDS: FAMOTIDINE 20 MG (PEPCID) TABLET PO SCH ×2 (08:34→21:50)
[2020-04-19] MEDS: lisINopril 20 MG (PRINIVIL) TABLET PO SCH (08:34)
[2020-04-19] MEDS: ENOXAPARIN 40 MG/0.4 ML (LOVENOX) SYR SC SCH (08:35)
[2020-04-19] MEDS: meTOprolol TARTRATE 25 MG (LOPRESSOR) TABLET PO SCH ×2 (08:35→21:49)
--- NOTE | 2020-04-19 10:40 | NUR ---
1030 PT'S UPDATED ON PT'S CONDITION ALONG WITH THIS RN AND DR. HARDWICK. PT'S GIVEN DIRECT NUMBER TO THE ICU.
[2020-04-19 10:51] VITALS: BP 133/122
[2020-04-19 14:27] VITALS: BP 127/85
--- NOTE | 2020-04-19 14:59 | NUR ---
1430 PT YELLING HELP, NOTED TO HAVE PULLED OFF BIPAP, RT IN ROOM ALONG WITH THIS RN, PT STATES " I'M SCARED," THIS RN REITERATED THE IMPORTANCE OF LEAVING BIPAP ON, MORPHINE GIVEN FOR AIR HUNGER, AND PT REPOSITIONED PER COMFORT, CALL LIGHT WITHIN REACH AND BED ALARM SET. WILL CONTINUE TO MONITOR CLOSELY.
[2020-04-19] MEDS: LORazepam INJ 2 MG/ML (ATIVAN) VIAL IVP PRN ×2 (17:32→21:50)
--- NOTE | 2020-04-19 18:03 | NUR ---
1645 PT AGAIN YELLING OUT, PT NOTED TO HAVE TAKEN OFF BIPAP AND SA02 NOTED IN THE 60'S, PT ALERT AND ORIENTED, STATES "I DON'T KNOW WHY I KEEP DOING THIS," PT PLACED BACK ON BIPAP AND REPOSITIONED PER COMFORT, E-ICU NOTIFIED AND NEW ORDERS RECEIVED FOR ATIVAN PRN. PT'S BED ALARM SET AND CALL LIGHT AND OTHER PERSONAL ITEMS WITHIN REACH WILL CONTINUE TO MONITOR.
[2020-04-19 19:55] VITALS: BP 163/89
[2020-04-19 22:55] VITALS: BP 155/87
[2020-04-20] MEDS: DexMEDEtomidine PRE MIX 100 ML IV SCH ×7 (02:17→20:41)
[2020-04-20 03:08] VITALS: BP 119/73
[2020-04-20] MEDS: RT-ALBUTEROL INHALER HFA (VENTOLIN HFA) 18 GM IH SCH ×6 (03:08→22:01)
--- NOTE | 2020-04-20 04:58 | Pulmonary Progress Note ---
Subjective Time Seen by a Provider: 04:54 Sepsis Event Evaluation Height, Weight, BMI Height: 5'5.00" Weight: 196lbs. oz. 88.854414nj; 28.00 BMI Method:Stated Exam Exam Vital Signs Date Time Temp Pulse Resp B/P (MAP) Pulse Ox O2 Delivery O2 Flow Rate FiO2 04/20/20 03:08 55 21 99 65.00 04/20/20 02:17 71 23 133/82 100.00 04/20/20 00:00 53 24 130/81 (97) 98 NIV Bilevel 50.00 04/19/20 23:10 54 26 122/76 97 100.00 04/19/20 23:00 53 22 122/76 (91) 97 NIV Bilevel 50.00 04/19/20 22:58 NIV Bilevel 50.00 04/19/20 22:55 53 23 100 65.00 04/19/20 22:00 61 24 157/94 (115) 95 NIV Bilevel 65.00 04/19/20 21:00 55 22 143/86 (105) 98 NIV Bilevel 65.00 04/19/20 20:50 98 NIV Bilevel 100 04/19/20 20:00 56 24 145/84 (104) 97 NIV Bilevel 65.00 04/19/20 19:58 NIV Bilevel 65.00 04/19/20 19:55 55 19 100 100.00 04/19/20 19:47 54 24 163/89 100 04/19/20 19:00 54 24 163/94 (117) 100 NIV Bilevel 55.00 04/19/20 19:00 54 04/19/20 18:50 35.1 04/19/20 18:00 60 28 173/93 (119) 100 NIV Bilevel 55.00 04/19/20 17:00 77 19 188/106 (133) 99 NIV Bilevel 55.00 04/19/20 16:49 88 23 115/104 87 NIV/Bilevel 55.00 04/19/20 16:08 35.8 04/19/20 16:00 85 26 157/96 (116) 96 NIV Bilevel 55.00 04/19/20 15:00 64 18 169/98 (121) 96 NIV Bilevel 55.00 04/19/20 14:27 69 30 91 55.00 04/19/20 14:00 72 33 161/90 (113) 91 NIV Bilevel 40.00 04/19/20 13:50 36.2 77 34 108/74 93 30.00 04/19/20 13:49 77 34 108/74 (85) 93 NIV Bilevel 40.00 04/19/20 13:00 60 23 159/91 (113) 93 NIV Bilevel 50.00 04/19/20 12:38 59 04/19/20 12:00 59 22 153/97 (115) 96 NIV Bilevel 50.00 04/19/20 11:26 36.2 60 31 134/79 92 30.00 04/19/20 11:00 56 25 133/80 (97) 92 NIV Bilevel 50.00 04/19/20 10:51 63 26 95 40.00 04/19/20 10:00 58 26 149/87 (107) 94 NIV Bilevel 50.00 04/19/20 09:00 53 23 151/91 (111) 90 NIV Bilevel 50.00 04/19/20 08:45 NIV Bilevel 65 04/19/20 08:35 36.2 70 25 163/86 92 30.00 04/19/20 07:53 36.2 70 25 163/106 (125) 92 NIV Bilevel 50.00 04/19/20 07:00 70 04/19/20 07:00 65 21 183/104 (130) 96 NIV Bilevel 35.00 04/19/20 06:51 71 20 98 50.00 04/19/20 06:00 79 22 161/105 (123) 91 NIV Bilevel 35.00 04/19/20 05:45 36.5 81 25 166/105 97 30.00 04/19/20 05:38 36.5 04/19/20 05:00 98 22 148/117 (127) 96 NIV Bilevel 35.00 I & O 04/20/20 07:00 Intake Total 1030 ml Output Total 925 ml Balance 105 ml Height & Weight Height: 5'5.00" Weight: 196lbs. oz. 88.780295cg; 28.00 BMI Method:Stated Capillary Refill: Less Than 3 Seconds Gastrointestinal: normal bowel sounds, non tender, soft Results Lab Laboratory Tests 04/19/20 03:23 Assessment/Plan Assessment/Plan Acute respiratory failure secondary to COVID -BiPAP currently 65% -Titrate Oxygen down -Titrate Vapotherm -Labs pending -DX 04/09 symptoms started 04/05 -CVP pending -Out of window for Remdesivir - Decadron Agitation/ICU psychosis -Risperdol -Haldol PRN -Precedex gtt -Morphine Anemia -Monitor DVT/GI ppx -Add Lovenox DL HARDWICK DO Apr 20, 2020 04:58
[2020-04-20] MEDS ORDERED: SODIUM PHOSPHATE INJ 15 MM in D5W 100 ML IVPB 100 ML IV ONE (05:00)
[2020-04-20] MEDS: LACTATED RINGERS 1,000 ML IV SCH ×2 (05:20→15:31)
[2020-04-20] MEDS: LORazepam INJ 2 MG/ML (ATIVAN) VIAL IVP PRN (05:20)
[2020-04-20 06:16] LABS: BASOPHILS % (AUTO) 0 % (0-10); EOSINOPHILS # (AUTO) 0.1 10^3/uL (0.0-0.3); EOSINOPHILS % (AUTO) 1 % (0-10); HEMATOCRIT 35 % (35-52); HEMOGLOBIN 10.7 g/dL (11.5-16.0); LYMPHOCYTES # (AUTO) 0.8 10^3/uL (1.0-4.0); LYMPHOCYTES % (AUTO) 11 % (12-44); MEAN CORPUSCULAR HEMOGLOBIN 28 pg (25-34); MEAN CORPUSCULAR HGB CONC 31 g/dL (32-36); MEAN CORPUSCULAR VOLUME 89 fL (80-99); MEAN PLATELET VOLUME 10.1 fL (9.0-12.2); MONOCYTES # (AUTO) 0.4 10^3/uL (0.0-1.0); MONOCYTES % (AUTO) 6 % (0-12); NEUTROPHILS % (AUTO) 82 % (42-75); PLATELET COUNT 294 10^3/uL (130-400); WHITE BLOOD COUNT 7.4 10^3/uL (4.3-11.0)
[2020-04-20 06:27] LABS: CHLORIDE 99 MMOL/L (98-107); POTASSIUM 4.5 MMOL/L (3.6-5.0); SODIUM 132 MMOL/L (135-145)
[2020-04-20 06:29] LABS: CALCIUM 8.5 MG/DL (8.5-10.1); GLUCOSE 89 MG/DL (70-105)
[2020-04-20 06:31] LABS: CARBON DIOXIDE 23 MMOL/L (21-32)
[2020-04-20 06:33] LABS: CREATININE SERUM 0.61 MG/DL (0.60-1.30); GFR ESTIMATED > 60; PHOSPHORUS 2.8 MG/DL (2.3-4.7)
[2020-04-20 06:34] LABS: BUN/CREATININE RATIO 25
[2020-04-20 06:36] LABS: MAGNESIUM 1.8 MG/DL (1.6-2.4)
[2020-04-20 07:10] VITALS: BP 117/71
--- NOTE | 2020-04-20 08:28 | Diagnostic Imaging Report ---
Indication: Shortness of air. Time of exam: 2:13 AM Correlation is made with prior chest from one day earlier. Heart size normal. Patchy airspace pulmonary infiltrates in the bilateral lungs appear stable. No pleural fluid is seen. No pneumothorax. Impression: Stable bilateral airspace infiltrates when compared with the examination one day earlier. Dictated by: Dictated on workstation # [id number]
[2020-04-20] MEDS: lisINopril 20 MG (PRINIVIL) TABLET PO SCH (09:00)
[2020-04-20] MEDS: busPIRone 10 MG (BUSPAR) TAB PO SCH ×2 (09:00→20:18)
[2020-04-20] MEDS: meTOprolol TARTRATE 25 MG (LOPRESSOR) TABLET PO SCH ×2 (09:00→20:18)
[2020-04-20] MEDS: risperiDONE 1 MG (RisperDAL) TAB PO SCH ×2 (09:00→20:18)
[2020-04-20] MEDS: PREGABALIN 100 MG (LYRICA) CAPSULE PO SCH ×2 (09:00→20:18)
[2020-04-20] MEDS: FAMOTIDINE 20 MG (PEPCID) TABLET PO SCH ×2 (09:00→20:18)
[2020-04-20 11:31] VITALS: BP 142/95
[2020-04-20] MEDS: ENOXAPARIN 40 MG/0.4 ML (LOVENOX) SYR SC SCH (11:54)
--- NOTE | 2020-04-20 14:00 | NUR ---
PT'S NOTIFIED OF PT CONDITION.
[2020-04-20 14:28] VITALS: BP 156/88
[2020-04-20 18:38] VITALS: BP 180/98
[2020-04-20] MEDS: NORTRIPTYLINE 25 MG (PAMELOR) CAP PO SCH (20:18)
[2020-04-20] MEDS: hydrALAZINE (APESOLINE) 20 MG/ML VIAL IV PRN (20:35)
[2020-04-20 22:01] VITALS: BP 180/98
[2020-04-21] MEDS: DexMEDEtomidine PRE MIX 100 ML IV SCH ×8 (00:26→22:10)
[2020-04-21] MEDS: RT-ALBUTEROL INHALER HFA (VENTOLIN HFA) 18 GM IH SCH ×6 (01:22→21:17)
[2020-04-21 01:23] VITALS: BP 171/91
[2020-04-21] MEDS: LACTATED RINGERS 1,000 ML IV SCH ×3 (01:47→22:04)
[2020-04-21] MEDS: LORazepam INJ 2 MG/ML (ATIVAN) VIAL IVP PRN ×4 (03:27→23:49)
[2020-04-21] MEDS: morphine INJ 4 MG/ML 1 ML (VIAL/SYRINGE) IVP PRN ×4 (03:28→23:49)
[2020-04-21 04:42] LABS: BASOPHILS % (AUTO) 0 % (0-10); EOSINOPHILS # (AUTO) 0.1 10^3/uL (0.0-0.3); EOSINOPHILS % (AUTO) 1 % (0-10); HEMATOCRIT 31 % (35-52); HEMOGLOBIN 9.9 g/dL (11.5-16.0); LYMPHOCYTES # (AUTO) 0.6 10^3/uL (1.0-4.0); LYMPHOCYTES % (AUTO) 10 % (12-44); MEAN CORPUSCULAR HEMOGLOBIN 28 pg (25-34); MEAN CORPUSCULAR HGB CONC 32 g/dL (32-36); MEAN CORPUSCULAR VOLUME 85 fL (80-99); MEAN PLATELET VOLUME 9.9 fL (9.0-12.2); MONOCYTES # (AUTO) 0.4 10^3/uL (0.0-1.0); MONOCYTES % (AUTO) 6 % (0-12); NEUTROPHILS # (AUTO) 5.2 10^3/uL (1.8-7.8); NEUTROPHILS % (AUTO) 81 % (42-75); PLATELET COUNT 323 10^3/uL (130-400); WHITE BLOOD COUNT 6.5 10^3/uL (4.3-11.0)
[2020-04-21 04:52] LABS: CHLORIDE 98 MMOL/L (98-107); POTASSIUM 3.5 MMOL/L (3.6-5.0); SODIUM 135 MMOL/L (135-145)
[2020-04-21 04:54] LABS: CALCIUM 8.4 MG/DL (8.5-10.1); GLUCOSE 93 MG/DL (70-105)
[2020-04-21 04:56] LABS: CARBON DIOXIDE 27 MMOL/L (21-32)
[2020-04-21 04:58] LABS: CREATININE SERUM 0.55 MG/DL (0.60-1.30); GFR ESTIMATED > 60; PHOSPHORUS 2.7 MG/DL (2.3-4.7)
[2020-04-21 04:59] LABS: BUN/CREATININE RATIO 18
[2020-04-21 05:00] LABS: MAGNESIUM 1.7 MG/DL (1.6-2.4)
[2020-04-21] MEDS: POTASSIUM CL 10MEQ/50ML IVPB 50 ML IV SCH ×3 (05:05→06:35)
[2020-04-21] MEDS: MAGNESIUM 1 GM/100 ML IVPB 100 ML IV SCH ×3 (05:06→06:35)
[2020-04-21] MEDS: KCL 20 MEQ TAB (K-DUR) PO SCH (05:06)
[2020-04-21 06:51] VITALS: BP 142/86
[2020-04-21 07:20] LABS: ABG BASE EXCESS 7.2 MMOL/L (-2.5-2.5); ABG OXYGEN SATURATION 92 % (94-100); ABG PCO2 43 MMHG (35-45); ABG PH 7.47 (7.37-7.43); ABG PO2 67 MMHG (79-93); ABG TCO2 32.4 MMOL/L (21.0-31.0)
[2020-04-21 07:22] LABS: ALLENS TEST POSITIVE; PATIENT TEMP 37; VENTILATOR NO
--- NOTE | 2020-04-21 07:55 | Diagnostic Imaging Report ---
INDICATION: COVID positive, shortness of air. TECHNIQUE: Single view chest 2:35 AM. CORRELATION STUDY: 04/20/2020 FINDINGS: Significant motion artifact is present. However, there is again demonstration of extensive, patchy nodular pulmonary infiltrates throughout both lung santos. Overall likely stable to perhaps slightly more prominent. Mediastinal structures generally stable. IMPRESSION: 1. Limitation of the study with significant motion artifact. 2. Extensive bilateral pulmonary infiltrates are again demonstrated overall perhaps slightly increased in severity from prior. Dictated by: Dictated on workstation # [id number]
--- NOTE | 2020-04-21 08:04 | Progress Note - Hospitalist ---
Subjective HPI/CC On Admission Date Seen by Provider: Apr 21, 2020 Time Seen by Provider: 07:59 Subjective/Events-last exam Pt remains on BiPAP. When I told her I would just listen to her heart and lungs and let her rest she stated "I don't know how to do that." She was able to just hold my hand and settled. Objective Exam Vital Signs Vital Signs Date Time Temp Pulse Resp B/P (MAP) Pulse Ox O2 Delivery O2 Flow Rate FiO2 04/21/20 06:51 94 27 92 55.00 04/21/20 06:35 143/78 04/21/20 06:00 NIV Bilevel 04/20/20 21:00 40 04/20/20 19:33 35.7 Capillary Refill : Less Than 3 Seconds General Appearance: Chronically ill, Mild Distress (anxious, on BiPAP) Respiratory: No Accessory Muscle Use, Other (course breath sounds, on BiPAP) Cardiovascular: Regular Rate, Rhythm, No Murmur Gastrointestinal: Normal Bowel Sounds, Non Tender, Soft Neurologic/Psychiatric: Alert, Disoriented Results/Procedures Lab Laboratory Tests 04/21/20 04:20 Patient resulted labs reviewed. Assessment/Plan Assessment and Plan Assess & Plan/Chief Complaint Acute hypoxic respiratory failure secondary to COVID with ARDS -BiPAP currently 65%, unable to trial Vapotherm yesterday -DX 04/09 symptoms started 04/05 -CVP given 04/17 -Out of window for Remdesivir -Decadron Agitation/ICU psychosis -Risperdal -Haldol PRN, ativan PRN -Precedex gtt -Morphine -Continue home Buspar and Duloxetine Anemia -Monitor, stable DVT/GI ppx -Lovenox Critical Care Critically Ill Patient Clinical Quality Measures DVT/VTE Risk/Contraindication: Risk Factor Score Per Nursin RFS Level Per Nursing on Admit: 1=Low/No VTE PPX MELINA CALDWELL MD Apr 21, 2020 08:04
[2020-04-21] MEDS: FAMOTIDINE 20 MG (PEPCID) TABLET PO SCH ×2 (08:06→19:47)
[2020-04-21] MEDS: risperiDONE 1 MG (RisperDAL) TAB PO SCH ×2 (08:06→19:47)
[2020-04-21] MEDS: meTOprolol TARTRATE 25 MG (LOPRESSOR) TABLET PO SCH ×2 (08:06→19:47)
[2020-04-21] MEDS: PREGABALIN 100 MG (LYRICA) CAPSULE PO SCH ×2 (08:06→19:47)
[2020-04-21] MEDS: lisINopril 20 MG (PRINIVIL) TABLET PO SCH (08:06)
[2020-04-21] MEDS: busPIRone 10 MG (BUSPAR) TAB PO SCH ×2 (08:06→19:47)
[2020-04-21] MEDS: ENOXAPARIN 40 MG/0.4 ML (LOVENOX) SYR SC SCH (08:06)
[2020-04-21] MEDS ORDERED: LORazepam INJ 2 MG/ML (ATIVAN) VIAL ONE (09:58)
--- NOTE | 2020-04-21 10:00 | NUR ---
Patient had pulled BIPAP off at this time, pt O2 sat low, this RN and another RN helped pt with bipap, and reposition in bed, linens changed at this time. Call light placed within reach, pt reoriented to surroundings.
[2020-04-21 11:04] VITALS: BP 126/80
--- NOTE | 2020-04-21 11:15 | NUR ---
Pt trying to get out of bed at this time, Upon arrival to room, pt had taken bipap off, pt O2 sats low, O2 probe off, BP cuff removed by pt, stat lock for Newsome catheter had been removed, IV pulled out. This RN and RT assisted pt back into bed. Placed pt on Vapotherm at this time. See EMAR, new IV started on pt, pt reoriented to surroundings, call light within reach. Pt repositioned in bed. Pt resting in bed at this time.
[2020-04-21] MEDS: HALOPERIDOL 5 MG/ML (HALDOL) VIAL IM PRN ×2 (11:22→19:42)
--- NOTE | 2020-04-21 13:20 | NUR ---
Spoke with at this time, update given.
--- NOTE | 2020-04-21 13:25 | NUR ---
Call placed to EICU for patient trying to get out of bed, and taking off vapotherm. Sitter in room 1:1 with pt at this time. Staff attempted to reorient pt to surroundings, pt unable to comprehend at this time. See EYALR. Addendum: 04/21/20 at 1705 by TARAS HAYS RN Pt hitting at staff at this time, also kicking at staff, and attempting to bend staff fingers backwards.
[2020-04-21] MEDS ORDERED: LORazepam INJ 2 MG/ML (ATIVAN) VIAL IVP ONE (13:30)
[2020-04-21 13:47] LABS: ABG BASE EXCESS 3.5 MMOL/L (-2.5-2.5); ABG OXYGEN SATURATION 76 % (94-100); ABG PCO2 45 MMHG (35-45); ABG PH 7.41 (7.37-7.43); ABG PO2 50 MMHG (79-93); ABG TCO2 29.3 MMOL/L (21.0-31.0)
[2020-04-21 13:48] LABS: ALLENS TEST POSITIVE; INSPIRED O2 60% 40/100; VENTILATOR NO
[2020-04-21 13:49] LABS: PATIENT TEMP 36.8
[2020-04-21] MEDS: NORTRIPTYLINE 25 MG (PAMELOR) CAP PO SCH (19:47)
[2020-04-21] MEDS: hydrALAZINE (APESOLINE) 20 MG/ML VIAL IV PRN (22:03)
[2020-04-22] MEDS: DexMEDEtomidine PRE MIX 100 ML IV SCH ×6 (01:14→20:11)
[2020-04-22] MEDS: RT-ALBUTEROL INHALER HFA (VENTOLIN HFA) 18 GM IH SCH ×6 (01:32→23:52)
[2020-04-22] MEDS: HALOPERIDOL 5 MG/ML (HALDOL) VIAL IM PRN (01:44)
[2020-04-22] MEDS: morphine INJ 4 MG/ML 1 ML (VIAL/SYRINGE) IVP PRN ×3 (04:14→16:49)
[2020-04-22] MEDS: LORazepam INJ 2 MG/ML (ATIVAN) VIAL IVP PRN ×4 (04:14→23:31)
[2020-04-22 04:49] LABS: BASOPHILS % (AUTO) 0 % (0-10); EOSINOPHILS # (AUTO) 0.1 10^3/uL (0.0-0.3); EOSINOPHILS % (AUTO) 1 % (0-10); HEMATOCRIT 32 % (35-52); HEMOGLOBIN 10.3 g/dL (11.5-16.0); LYMPHOCYTES # (AUTO) 0.7 10^3/uL (1.0-4.0); LYMPHOCYTES % (AUTO) 7 % (12-44); MEAN CORPUSCULAR HEMOGLOBIN 28 pg (25-34); MEAN CORPUSCULAR HGB CONC 32 g/dL (32-36); MEAN CORPUSCULAR VOLUME 86 fL (80-99); MONOCYTES # (AUTO) 0.6 10^3/uL (0.0-1.0); MONOCYTES % (AUTO) 5 % (0-12); NEUTROPHILS # (AUTO) 9.7 10^3/uL (1.8-7.8); NEUTROPHILS % (AUTO) 85 % (42-75); PLATELET COUNT 420 10^3/uL (130-400); WHITE BLOOD COUNT 11.4 10^3/uL (4.3-11.0)
[2020-04-22 05:02] LABS: CHLORIDE 96 MMOL/L (98-107); POTASSIUM 3.8 MMOL/L (3.6-5.0); SODIUM 135 MMOL/L (135-145)
[2020-04-22 05:03] LABS: CALCIUM 8.4 MG/DL (8.5-10.1)
[2020-04-22 05:04] LABS: GLUCOSE 93 MG/DL (70-105)
[2020-04-22] MEDS: POTASSIUM CL 10MEQ/50ML IVPB 50 ML IV SCH (05:04)
[2020-04-22] MEDS: KCL 20 MEQ TAB (K-DUR) PO SCH (05:04)
[2020-04-22 05:05] LABS: CARBON DIOXIDE 30 MMOL/L (21-32)
[2020-04-22 05:07] LABS: GFR ESTIMATED > 60; PHOSPHORUS 2.7 MG/DL (2.3-4.7)
[2020-04-22 05:08] LABS: BUN/CREATININE RATIO 17
[2020-04-22 05:10] LABS: MAGNESIUM 1.8 MG/DL (1.6-2.4)
--- NOTE | 2020-04-22 05:11 | Progress Note - Hospitalist ---
Subjective HPI/CC On Admission Date Seen by Provider: Apr 22, 2020 Time Seen by Provider: 05:08 Subjective/Events-last exam Pt sleeping soundly. Was very agitated and just received ativan prior to my visit. Was satting 88-89% so I increased to 90% on vapotherm. Objective Exam Vital Signs Vital Signs Date Time Temp Pulse Resp B/P (MAP) Pulse Ox O2 Delivery O2 Flow Rate FiO2 04/22/20 04:14 98 120/69 04/22/20 04:00 35.7 04/22/20 01:50 92 Vapotherm 40.00 80.00 04/22/20 01:32 75 04/22/20 01:00 19 Capillary Refill : Less Than 3 Seconds General Appearance: Other (ill appearing woman laying in bed on vapotherm, sleeping) Respiratory: Decreased Breath Sounds; No Rhonci, No Wheezing; Other (on vapotherm) Cardiovascular: Regular Rate, Rhythm, No Murmur Gastrointestinal: Normal Bowel Sounds, Non Tender, Soft Results/Procedures Lab Laboratory Tests 04/22/20 04:10 Patient resulted labs reviewed. Assessment/Plan Assessment and Plan Assess & Plan/Chief Complaint Acute hypoxic respiratory failure secondary to COVID with ARDS -Currently on Vapotherm 40lpm at 90% -DX 04/09 symptoms started 04/05 -CVP given 04/17 -Out of window for Remdesivir -Decadron Agitation/ICU psychosis -Risperdal -Haldol PRN, ativan PRN -Precedex gtt -Morphine -Continue home Buspar and Duloxetine - continues to be quite agitated, needed a sitter overnight Anemia -Monitor, stable DVT/GI ppx -Lovenox Critical Care Critically Ill Patient Diagnosis/Problems Diagnosis/Problems (1) Respiratory failure Status: Acute Qualifiers: Chronicity: acute Respiratory failure complication: hypoxia Qualified Codes: J96.01 - Acute respiratory failure with hypoxia (2) COVID-19 Status: Acute Clinical Quality Measures DVT/VTE Risk/Contraindication: Risk Factor Score Per Nursin RFS Level Per Nursing on Admit: 1=Low/No VTE PPX MELINA CALDWELL MD Apr 22, 2020 05:11
[2020-04-22] MEDS: MAGNESIUM 1 GM/100 ML IVPB 100 ML IV SCH (05:17)
--- NOTE | 2020-04-22 06:15 | NUR ---
PATIENT PULLED CATHETER OUT. FOUND CATHETER WITH BALLOON STILL INFLATED LAYING ON PATIENT'S BED. [id number] CATHETER INSERTED. ALICE Greenfield RN ASSISTED D/T PATIENT BEING UNCOOPERATIVE. SNOW PATENT AND 300ML BRIGHT YELLOW URINE RETURNED OUT OF CATHETER. SECUREMENT DEVICE PLACED ON PATIENT'S LEFT UPPER THIGH.
--- NOTE | 2020-04-22 07:04 | NUR ---
tx not given due to pt resting and was informed not to wake pt
[2020-04-22] MEDS: FAMOTIDINE 20 MG (PEPCID) TABLET PO SCH ×2 (08:29→20:07)
[2020-04-22] MEDS: LACTATED RINGERS 1,000 ML IV SCH ×2 (08:29→17:59)
[2020-04-22] MEDS: ENOXAPARIN 40 MG/0.4 ML (LOVENOX) SYR SC SCH (08:29)
[2020-04-22] MEDS: PREGABALIN 100 MG (LYRICA) CAPSULE PO SCH ×2 (08:29→20:07)
[2020-04-22] MEDS: risperiDONE 1 MG (RisperDAL) TAB PO SCH ×2 (08:30→20:07)
[2020-04-22] MEDS: busPIRone 10 MG (BUSPAR) TAB PO SCH ×2 (08:30→20:07)
[2020-04-22] MEDS: lisINopril 20 MG (PRINIVIL) TABLET PO SCH (08:30)
[2020-04-22] MEDS: meTOprolol TARTRATE 25 MG (LOPRESSOR) TABLET PO SCH ×2 (08:30→20:07)
--- NOTE | 2020-04-22 17:42 | NUR ---
Spoke with pt at this time, updated on pt condition, answered questions and concerns that had.
--- NOTE | 2020-04-22 18:19 | NUR ---
Pt restless in room, pt pulled off O2, O2 probe, and pulled out Newsome. New Newsome reinserted, pt repositioned in bed. called at this time, able to talk with .
[2020-04-22] MEDS: NORTRIPTYLINE 25 MG (PAMELOR) CAP PO SCH (21:21)
[2020-04-23] MEDS: DexMEDEtomidine PRE MIX 100 ML IV SCH (01:09)
[2020-04-23] MEDS: RT-ALBUTEROL INHALER HFA (VENTOLIN HFA) 18 GM IH SCH ×6 (02:34→22:22)
[2020-04-23 03:37] LABS: BASOPHILS % (AUTO) 0 % (0-10); EOSINOPHILS # (AUTO) 0.1 10^3/uL (0.0-0.3); EOSINOPHILS % (AUTO) 1 % (0-10); HEMATOCRIT 32 % (35-52); HEMOGLOBIN 10.3 g/dL (11.5-16.0); LYMPHOCYTES # (AUTO) 0.7 10^3/uL (1.0-4.0); LYMPHOCYTES % (AUTO) 7 % (12-44); MEAN CORPUSCULAR HEMOGLOBIN 27 pg (25-34); MEAN CORPUSCULAR HGB CONC 32 g/dL (32-36); MEAN CORPUSCULAR VOLUME 85 fL (80-99); MEAN PLATELET VOLUME 10.2 fL (9.0-12.2); MONOCYTES # (AUTO) 0.6 10^3/uL (0.0-1.0); MONOCYTES % (AUTO) 5 % (0-12); NEUTROPHILS # (AUTO) 9.2 10^3/uL (1.8-7.8); NEUTROPHILS % (AUTO) 85 % (42-75); PLATELET COUNT 441 10^3/uL (130-400); WHITE BLOOD COUNT 10.8 10^3/uL (4.3-11.0)
[2020-04-23 03:55] LABS: CHLORIDE 95 MMOL/L (98-107); POTASSIUM 3.7 MMOL/L (3.6-5.0); SODIUM 136 MMOL/L (135-145)
[2020-04-23 03:57] LABS: CALCIUM 8.7 MG/DL (8.5-10.1); GLUCOSE 78 MG/DL (70-105)
[2020-04-23 03:59] LABS: CARBON DIOXIDE 28 MMOL/L (21-32)
[2020-04-23 04:01] LABS: CREATININE SERUM 0.58 MG/DL (0.60-1.30); GFR ESTIMATED > 60; PHOSPHORUS 3.9 MG/DL (2.3-4.7)
[2020-04-23 04:02] LABS: BUN/CREATININE RATIO 16
[2020-04-23 04:03] LABS: MAGNESIUM 1.8 MG/DL (1.6-2.4)
--- NOTE | 2020-04-23 04:53 | Pulmonary Progress Note ---
Subjective Time Seen by a Provider: 04:47 Subjective/Events-last exam No complications noted., Sepsis Event Evaluation Height, Weight, BMI Height: 5'5.00" Weight: 196lbs. oz. 88.933778bn; 28.00 BMI Method:Stated Exam Exam Vital Signs Date Time Temp Pulse Resp B/P (MAP) Pulse Ox O2 Delivery O2 Flow Rate FiO2 04/23/20 03:00 Vapotherm 30.00 60.00 04/23/20 02:35 95 Vapotherm 40.00 70 04/23/20 01:09 66 125/77 04/23/20 01:00 Vapotherm 40.00 75.00 04/23/20 01:00 66 04/22/20 23:57 Vapotherm 40.00 80.00 04/22/20 23:52 93 Vapotherm 40.00 75 04/22/20 23:00 96 19 152/102 (119) 91 Vapotherm 40.00 70.00 04/22/20 22:00 105 20 156/94 (114) 89 Vapotherm 40.00 70.00 04/22/20 21:00 101 32 155/96 (115) 92 Vapotherm 40.00 70.00 04/22/20 21:00 Vapotherm 40.00 70 04/22/20 20:11 109 26 150/85 93 04/22/20 20:00 110 24 150/85 (106) 93 Vapotherm 40.00 70.00 04/22/20 19:28 35.7 Vapotherm 40.00 70.00 04/22/20 19:00 87 04/22/20 19:00 87 27 186/107 (133) 94 Vapotherm 40.00 70.00 04/22/20 18:54 93 Vapotherm 40.00 80 04/22/20 18:00 86 27 181/105 (130) 94 Vapotherm 40.00 80.00 04/22/20 17:00 88 31 165/96 (119) 94 Vapotherm 40.00 80.00 04/22/20 16:18 92 22 107/64 94 04/22/20 16:00 72 23 107/64 (78) 91 Vapotherm 40.00 80.00 04/22/20 15:35 35.7 04/22/20 15:00 52 31 168/89 (115) 97 Vapotherm 40.00 80.00 04/22/20 14:57 98 Vapotherm 40.00 90 04/22/20 14:00 55 24 168/88 (114) 98 Vapotherm 40.00 100.00 04/22/20 13:00 65 173/100 (124) 97 Vapotherm 40.00 100.00 04/22/20 12:20 63 04/22/20 12:00 65 23 151/91 (111) 94 Vapotherm 40.00 100.00 04/22/20 11:34 36.0 04/22/20 11:00 63 24 145/84 (104) 92 Vapotherm 40.00 100.00 04/22/20 10:37 93 Vapotherm 40.00 90 04/22/20 10:18 92 116/69 04/22/20 10:00 66 22 116/69 (85) 93 Vapotherm 40.00 100.00 04/22/20 09:00 71 22 103/62 (76) 97 Vapotherm 40.00 100.00 04/22/20 08:40 96 Vapotherm 90 04/22/20 08:00 71 21 115/56 (75) 93 Vapotherm 40.00 100.00 04/22/20 07:17 82 153/83 04/22/20 07:05 97 Vapotherm 40.00 100 04/22/20 07:00 73 22 153/83 (106) 97 Vapotherm 40.00 90.00 04/22/20 07:00 74 04/22/20 06:00 77 24 112/68 (83) 92 Vapotherm 40.00 90.00 04/22/20 05:26 Vapotherm 40.00 90.00 04/22/20 05:00 67 21 146/83 (104) 90 Vapotherm 40.00 80.00 I & O 04/23/20 07:00 Intake Total 2200 ml Output Total 3250 ml Balance -1050 ml Height & Weight Height: 5'5.00" Weight: 196lbs. oz. 88.768021di; 28.00 BMI Method:Stated General Appearance: Other (ill appearing woman laying in bed on vapotherm, sleeping) Respiratory: Decreased Breath Sounds; No Rhonci, No Wheezing; Other (on vapotherm) Cardiovascular: Regular Rate, Rhythm, No Murmur Capillary Refill: Less Than 3 Seconds Gastrointestinal: normal bowel sounds, non tender, soft Neurologic/Psychiatric: Alert, Disoriented Results Lab Laboratory Tests 04/22/20 04:10 04/23/20 02:44 Assessment/Plan Assessment/Plan Acute respiratory failure secondary to COVID -BiPAP currently 65% -Titrate Oxygen down -Titrate Vapotherm -DX 04/09 symptoms started 04/05 -CVP -Out of window for Remdesivir - Decadron -SL IVF Agitation/ICU psychosis -Risperdol -Haldol PRN -Precedex gtt -- D/C -Morphine Anemia -Monitor DVT/GI ppx -Add Lovenox DL HARDWICK DO Apr 23, 2020 04:53
[2020-04-23] MEDS: POTASSIUM CL 10MEQ/50ML IVPB 50 ML IV SCH (05:30)
[2020-04-23] MEDS: KCL 20 MEQ TAB (K-DUR) PO SCH (05:30)
[2020-04-23] MEDS: MAGNESIUM 1 GM/100 ML IVPB 100 ML IV SCH (05:30)
[2020-04-23] MEDS: morphine INJ 4 MG/ML 1 ML (VIAL/SYRINGE) IVP PRN ×2 (06:12→22:51)
--- NOTE | 2020-04-23 07:27 | Diagnostic Imaging Report ---
INDICATION: COVID pneumonia COMPARISON: 04/21/2020 FINDINGS: Single view of the chest demonstrates unchanged bilateral pulmonary infiltrates. There is no pneumothorax. The heart is prominent. Osseous structures stable. IMPRESSION: Stable bilateral pulmonary infiltrates Dictated by: Dictated on workstation # [id number]
[2020-04-23] MEDS: lisINopril 20 MG (PRINIVIL) TABLET PO SCH (08:18)
[2020-04-23] MEDS: risperiDONE 1 MG (RisperDAL) TAB PO SCH ×2 (08:18→21:00)
[2020-04-23] MEDS: PREGABALIN 100 MG (LYRICA) CAPSULE PO SCH ×2 (08:18→21:00)
[2020-04-23] MEDS: busPIRone 10 MG (BUSPAR) TAB PO SCH ×2 (08:18→21:00)
[2020-04-23] MEDS: FAMOTIDINE 20 MG (PEPCID) TABLET PO SCH ×2 (08:18→21:00)
[2020-04-23] MEDS: ENOXAPARIN 40 MG/0.4 ML (LOVENOX) SYR SC SCH (08:18)
[2020-04-23] MEDS: meTOprolol TARTRATE 25 MG (LOPRESSOR) TABLET PO SCH ×2 (08:19→21:00)
[2020-04-23] MEDS: HALOPERIDOL 5 MG/ML (HALDOL) VIAL IM PRN (18:36)
[2020-04-23] MEDS: oxyCODONE/APAP 5/325MG (PERCOCET 5) TABLET PO PRN (19:44)
[2020-04-23] MEDS: NORTRIPTYLINE 25 MG (PAMELOR) CAP PO SCH (21:00)
[2020-04-24] MEDS: oxyCODONE/APAP 5/325MG (PERCOCET 5) TABLET PO PRN ×3 (01:43→17:13)
[2020-04-24] MEDS: RT-ALBUTEROL INHALER HFA (VENTOLIN HFA) 18 GM IH SCH ×6 (01:52→21:05)
[2020-04-24 03:58] LABS: BASOPHILS % (AUTO) 0 % (0-10); EOSINOPHILS % (AUTO) 0 % (0-10); HEMATOCRIT 31 % (35-52); HEMOGLOBIN 10.1 g/dL (11.5-16.0); LYMPHOCYTES # (AUTO) 0.7 10^3/uL (1.0-4.0); LYMPHOCYTES % (AUTO) 7 % (12-44); MEAN CORPUSCULAR HEMOGLOBIN 28 pg (25-34); MEAN CORPUSCULAR HGB CONC 32 g/dL (32-36); MEAN CORPUSCULAR VOLUME 86 fL (80-99); MEAN PLATELET VOLUME 10.2 fL (9.0-12.2); MONOCYTES # (AUTO) 0.8 10^3/uL (0.0-1.0); MONOCYTES % (AUTO) 7 % (0-12); NEUTROPHILS # (AUTO) 8.3 10^3/uL (1.8-7.8); NEUTROPHILS % (AUTO) 82 % (42-75); PLATELET COUNT 499 10^3/uL (130-400); WHITE BLOOD COUNT 10.2 10^3/uL (4.3-11.0)
[2020-04-24 04:16] LABS: CHLORIDE 98 MMOL/L (98-107); POTASSIUM 3.3 MMOL/L (3.6-5.0); SODIUM 140 MMOL/L (135-145)
[2020-04-24 04:18] LABS: CALCIUM 8.9 MG/DL (8.5-10.1); GLUCOSE 88 MG/DL (70-105)
[2020-04-24 04:20] LABS: CARBON DIOXIDE 27 MMOL/L (21-32)
[2020-04-24 04:22] LABS: GFR ESTIMATED > 60; PHOSPHORUS 3.8 MG/DL (2.3-4.7)
[2020-04-24 04:23] LABS: BUN/CREATININE RATIO 20
[2020-04-24] MEDS: MAGNESIUM 1 GM/100 ML IVPB 100 ML IV SCH (04:26)
[2020-04-24] MEDS: KCL 20 MEQ TAB (K-DUR) PO SCH (04:27)
[2020-04-24] MEDS: POTASSIUM CL 10MEQ/50ML IVPB 50 ML IV SCH (04:29)
[2020-04-24] MEDS ORDERED: POTASSIUM CL 10MEQ/50ML IVPB 50 ML IV SCH ×2 (04:30→05:15)
--- NOTE | 2020-04-24 05:07 | Pulmonary Progress Note ---
Subjective Time Seen by a Provider: 05:01 Subjective/Events-last exam Pt is doing better she is on 50% Vapotherm. Sepsis Event Evaluation Height, Weight, BMI Height: 5'5.00" Weight: 196lbs. oz. 88.701217mo; 28.00 BMI Method:Stated Exam Exam Vital Signs Date Time Temp Pulse Resp B/P (MAP) Pulse Ox O2 Delivery O2 Flow Rate FiO2 04/24/20 03:00 98 25 148/84 (105) 95 Vapotherm 30.00 60.00 04/24/20 02:00 109 14 138/73 (94) Vapotherm 30.00 60.00 04/24/20 01:52 94 Vapotherm 30.00 50 04/24/20 01:00 103 04/24/20 01:00 103 33 144/81 (102) 92 Vapotherm 30.00 60.00 04/24/20 00:00 102 36 145/83 (103) 92 Vapotherm 30.00 60.00 04/23/20 23:00 109 27 130/80 (97) 90 Vapotherm 30.00 60.00 04/23/20 22:22 92 Vapotherm 30.00 50 04/23/20 22:00 101 19 160/90 (113) 92 Vapotherm 30.00 60.00 04/23/20 21:00 104 20 131/75 (93) 94 Vapotherm 30.00 60.00 04/23/20 21:00 Vapotherm 30.00 60 04/23/20 20:00 122 19 127/71 (89) 96 Vapotherm 30.00 60.00 04/23/20 19:45 Vapotherm 30.00 60 04/23/20 19:45 Vapotherm 30.00 60 04/23/20 19:00 135 04/23/20 19:00 135 42 144/96 (112) 86 Vapotherm 30.00 60.00 04/23/20 18:17 94 Vapotherm 30.00 50 04/23/20 18:00 131 24 140/83 (102) 92 Vapotherm 30.00 60.00 04/23/20 17:00 126 18 152/96 (114) 94 Vapotherm 30.00 60.00 04/23/20 16:00 125 21 143/78 (99) 95 Vapotherm 30.00 60.00 04/23/20 15:29 36.5 04/23/20 15:00 125 15 162/88 (112) 94 Vapotherm 30.00 60.00 04/23/20 14:27 95 Vapotherm 28.00 45 04/23/20 14:00 125 21 151/87 (108) 94 Vapotherm 30.00 60.00 04/23/20 13:00 126 17 153/85 (107) 95 Vapotherm 30.00 60.00 04/23/20 12:55 126 04/23/20 12:11 37.0 04/23/20 12:00 133 11 150/81 (104) 96 Vapotherm 30.00 60.00 04/23/20 11:00 133 19 140/82 (101) 93 Vapotherm 30.00 60.00 04/23/20 10:11 93 Vapotherm 30.00 55 04/23/20 10:00 130 15 150/78 (102) 94 Vapotherm 30.00 60.00 04/23/20 09:00 130 28 126/77 (93) 97 Vapotherm 30.00 60.00 04/23/20 09:00 Vapotherm 30.00 60 04/23/20 08:00 126 26 105/84 (91) 94 Vapotherm 30.00 60.00 04/23/20 07:31 36.2 04/23/20 07:08 93 Vapotherm 30.00 60 04/23/20 07:00 118 28 142/88 (106) 93 Vapotherm 30.00 60.00 04/23/20 06:35 121 04/23/20 06:00 117 16 141/89 (106) 90 Vapotherm 30.00 60.00 I & O 04/24/20 07:00 Intake Total 425 ml Output Total 1400 ml Balance -975 ml Height & Weight Height: 5'5.00" Weight: 196lbs. oz. 88.867394fr; 28.00 BMI Method:Stated General Appearance: No Apparent Distress, WD/WN, Anxious, Other (ill appearing woman laying in bed on vapotherm, sleeping) HEENT: PERRL/EOMI, Normal ENT Inspection, Pharynx Normal Neck: Full Range of Motion, Non Tender, Supple Respiratory: Chest Non Tender, No Respiratory Distress, Decreased Breath Sounds; No Rhonci, No Wheezing; Other (on vapotherm) Cardiovascular: Regular Rate, Rhythm, No Murmur Capillary Refill: Less Than 3 Seconds Gastrointestinal: normal bowel sounds, non tender, soft Extremity: Normal Capillary Refill, Normal Inspection Neurologic/Psychiatric: Alert, Disoriented Results Lab Laboratory Tests 04/23/20 02:44 04/24/20 02:45 Assessment/Plan Assessment/Plan Acute respiratory failure secondary to COVID -Vapotherm 50% currently -Titrate Oxygen down -DX 04/09 symptoms started 04/05 -Repeat DDIMer and Ferritin -CVP -Out of window for Remdesivir - Decadron -SL IVF -No abx needed at this time. Agitation/ICU psychosis -Risperdol -Haldol PRN -Precedex gtt -- D/C -Morphine Anemia -Monitor DVT/GI ppx -Add Lovenox Will sign off once pt transfers to 4th floor[address] Dr. Carrasco will take over care. DL HARDWICK DO Apr 24, 2020 05:07
[2020-04-24] MEDS ORDERED: KCL 20 MEQ TAB (K-DUR) PO ONE ×2 (06:22→06:30)
--- NOTE | 2020-04-24 07:52 | Diagnostic Imaging Report ---
INDICATION: Dyspnea. EXAMINATION: Chest 04/24/2020 COMPARISON: 04/23/2020 FINDINGS: There are patchy scattered airspace opacities throughout both lungs slightly improved. The heart and pulmonary vasculature stable. No pneumothorax or effusions. IMPRESSION: 1. Slight improvement in appearance of the lungs. Dictated by: Dictated on workstation # [id number]
[2020-04-24] MEDS: PREGABALIN 100 MG (LYRICA) CAPSULE PO SCH ×2 (09:42→21:04)
[2020-04-24] MEDS: risperiDONE 1 MG (RisperDAL) TAB PO SCH ×2 (09:42→21:03)
[2020-04-24] MEDS: FAMOTIDINE 20 MG (PEPCID) TABLET PO SCH ×2 (09:42→21:04)
[2020-04-24] MEDS: busPIRone 10 MG (BUSPAR) TAB PO SCH ×2 (09:43→21:04)
[2020-04-24] MEDS: ENOXAPARIN 40 MG/0.4 ML (LOVENOX) SYR SC SCH (09:43)
[2020-04-24] MEDS: lisINopril 20 MG (PRINIVIL) TABLET PO SCH (09:43)
[2020-04-24] MEDS: meTOprolol TARTRATE 25 MG (LOPRESSOR) TABLET PO SCH ×2 (09:43→21:03)
--- NOTE | 2020-04-24 10:45 | NUR ---
RECIEVED PATIENT TO ROOM 401. REPORT GIVEN BY VIANNEY VELAZQUEZ. ASSUMED CARE OF PATIENT.
[2020-04-24 16:00] VITALS: BP 136/78
[2020-04-24] MEDS ORDERED: LORazepam INJ 2 MG/ML (ATIVAN) VIAL IVP PRN (18:45)
[2020-04-24 19:13] VITALS: BP 118/55
[2020-04-24] MEDS: NORTRIPTYLINE 25 MG (PAMELOR) CAP PO SCH (21:04)
[2020-04-24 21:12] VITALS: BP 133/81
--- NOTE | 2020-04-24 22:22 | NUR ---
2109-pt had removed her o2-o2 sat 88% o2 placed back in nose on 4l-sat increased to 94% at 2111 with this rn encouraging pt to take deep breaths in through the now and out the mouth. 2221-pt resting in bed with eyes closed, respirations even not labored, o2 4L nc spo2 94% hr 86 per minute.
[2020-04-24 23:33] VITALS: BP 124/75
[2020-04-25] MEDS: RT-ALBUTEROL INHALER HFA (VENTOLIN HFA) 18 GM IH SCH ×6 (02:22→22:20)
[2020-04-25 04:00] VITALS: BP 117/71
[2020-04-25 06:11] LABS: BASOPHILS % (AUTO) 0 % (0-10); EOSINOPHILS # (AUTO) 0.1 10^3/uL (0.0-0.3); EOSINOPHILS % (AUTO) 1 % (0-10); HEMATOCRIT 32 % (35-52); HEMOGLOBIN 10.1 g/dL (11.5-16.0); LYMPHOCYTES % (AUTO) 11 % (12-44); MEAN CORPUSCULAR HEMOGLOBIN 27 pg (25-34); MEAN CORPUSCULAR HGB CONC 31 g/dL (32-36); MEAN CORPUSCULAR VOLUME 87 fL (80-99); MEAN PLATELET VOLUME 9.7 fL (9.0-12.2); MONOCYTES # (AUTO) 0.9 10^3/uL (0.0-1.0); MONOCYTES % (AUTO) 10 % (0-12); NEUTROPHILS # (AUTO) 6.7 10^3/uL (1.8-7.8); NEUTROPHILS % (AUTO) 74 % (42-75); PLATELET COUNT 527 10^3/uL (130-400)
[2020-04-25 06:22] LABS: CHLORIDE 99 MMOL/L (98-107); POTASSIUM 3.9 MMOL/L (3.6-5.0); SODIUM 137 MMOL/L (135-145)
[2020-04-25 06:23] LABS: CALCIUM 8.9 MG/DL (8.5-10.1)
[2020-04-25 06:24] LABS: GLUCOSE 83 MG/DL (70-105)
[2020-04-25 06:25] LABS: CARBON DIOXIDE 28 MMOL/L (21-32)
[2020-04-25 06:27] LABS: PHOSPHORUS 2.9 MG/DL (2.3-4.7)
[2020-04-25 06:28] LABS: CREATININE SERUM 0.68 MG/DL (0.60-1.30); GFR ESTIMATED > 60
[2020-04-25 06:29] LABS: BUN/CREATININE RATIO 19
--- NOTE | 2020-04-25 07:43 | Diagnostic Imaging Report ---
Indication: Dyspnea Portable chest shows normal heart size and vascularity. There are patchy bilateral infiltrates similar to the 04/24/2020 study. There is no effusion or pneumothorax. IMPRESSION: Stable infiltrates. Dictated by: Dictated on workstation # [id number]
[2020-04-25 08:00] VITALS: BP 126/57
[2020-04-25] MEDS: ENOXAPARIN 40 MG/0.4 ML (LOVENOX) SYR SC SCH (08:23)
[2020-04-25] MEDS: risperiDONE 1 MG (RisperDAL) TAB PO SCH ×2 (08:24→20:07)
[2020-04-25] MEDS: lisINopril 20 MG (PRINIVIL) TABLET PO SCH (08:24)
[2020-04-25] MEDS: meTOprolol TARTRATE 25 MG (LOPRESSOR) TABLET PO SCH ×2 (08:24→20:06)
[2020-04-25] MEDS: PREGABALIN 100 MG (LYRICA) CAPSULE PO SCH ×2 (08:24→20:07)
[2020-04-25] MEDS: FAMOTIDINE 20 MG (PEPCID) TABLET PO SCH ×2 (08:24→20:06)
[2020-04-25] MEDS: busPIRone 10 MG (BUSPAR) TAB PO SCH ×2 (08:24→20:07)
[2020-04-25] MEDS: oxyCODONE/APAP 5/325MG (PERCOCET 5) TABLET PO PRN ×2 (10:38→20:07)
[2020-04-25 12:00] VITALS: BP 123/63
--- NOTE | 2020-04-25 13:47 | NUR ---
"RD ASSESSMENT PMHx: hypercholesterolemia; HTN; colitis; chronic UTI; PT INTERACTION: Note pt is currently in COVID isolation per chart review. Note all diet information for nutrition follow-up is per Manjit RN, or per chart review. Manjit states current appetite appears to be getting better, and that she ate 75% of her breakfast. Note avg PO intake <25% meals, per chart review. Manjit states no issues with nausea, vomiting, constipation or diarrhea that he is aware of. Note last BM was 04/24, and pt not currently on bowel regimen per chart review. Note lab values are WNL at this time, per chart review. Est. kcal needs: 4206-7184 kcal | 20-25 kcal/kg Est. Pro needs: 69-86 g Pro | 0.8-1.0 g Pro/kg PES STATEMENT: Inadequate oral intake (NI-2.1) related to loss of appetite, as evidenced by chart review, communication with RN, and avg PO intake <25% meals. INTERVENTION: Continue with current diet order of Regular diet. Continue with current supplementation order of Ensure Enlive with meals TID, for increased kcal intake. Provides 350 kcal and 20 g Pro per serving. Will continue to follow and reassess as pt needs, intake, and status change. Rom ROLDAN, MS RD LD [phone] cell"
--- NOTE | 2020-04-25 14:31 | Progress Note - Hospitalist ---
Subjective HPI/CC On Admission Date Seen by Provider: Apr 25, 2020 Time Seen by Provider: 11:15 Subjective/Events-last exam She is feeling better. She is not confused this morning. She denies shortness of breath. She denies cough. She has not fevers. Objective Exam Vital Signs Vital Signs Date Time Temp Pulse Resp B/P (MAP) Pulse Ox O2 Delivery O2 Flow Rate FiO2 04/25/20 14:21 93 Nasal Cannula 3.00 04/25/20 12:30 103 04/25/20 12:00 36.3 16 123/63 (83) 04/24/20 09:00 45 Capillary Refill : Less Than 3 Seconds General Appearance: No Apparent Distress, WD/WN Respiratory: Lungs Clear, Normal Breath Sounds, No Respiratory Distress Cardiovascular: Regular Rate, Rhythm, No Edema, No Murmur Gastrointestinal: Normal Bowel Sounds, Non Tender, Soft Extremity: Normal Inspection, Non Tender, No Pedal Edema Neurologic/Psychiatric: Alert, Oriented x3, No Motor/Sensory Deficits, Normal Mood/Affect Skin: Normal Color, Warm/Dry Results/Procedures Lab Laboratory Tests 04/25/20 06:03 Patient resulted labs reviewed. Imaging: Reviewed Imaging Report Assessment/Plan Assessment and Plan Assess & Plan/Chief Complaint Acute respiratory failure due to COVID -19 Previously requiring Vapotherm, now on 4 L nasal cannula Continue Decadron Agitation/ICU psychosis Risperdol Haldol as needed Anemia Hgb 10, stable DVT prophylaxis: Lovenox Critical Care Critically Ill Patient Diagnosis/Problems Diagnosis/Problems (1) Respiratory failure Status: Acute Qualifiers: Chronicity: acute Respiratory failure complication: hypoxia Qualified Codes: J96.01 - Acute respiratory failure with hypoxia (2) COVID-19 Status: Acute (3) Delirium Status: Acute Clinical Quality Measures DVT/VTE Risk/Contraindication: Risk Factor Score Per Nursin RFS Level Per Nursing on Admit: 1=Low/No VTE PPX MISYT HERNANDES MD Apr 25, 2020 14:30
--- NOTE | 2020-04-25 15:31 | Physical Therapy Evaluation ---
PT Evaluation-General Medical Diagnosis Admission Date Apr 16, 2020 at 10:55 Medical Diagnosis: acute respiratory failure Onset Date: Apr 16, 2020 Therapy Diagnosis Therapy Diagnosis: impaired mobility, strength, endurance Height/Weight Height (Feet): 5 Height (Inches): 5.00 Weight (Pounds): 196 Precautions Precautions/Isolations: Airborne Isolation, Standard Precautions Referral Physician: Luna Reason for Referral: Evaluation/Treatment Medical History Additional Medical History Past Medical History Surgeries: Yes (LAPAROSCOPY X3-ENDOMETRIOSIS, LEFT BREAST BX) Abdominal, Breast, Section, Eye Surgery, Hysterectomy, Tonsillectomy, Tubal Ligation Respiratory: Yes (COVID +) Sleep Apnea Currently Using CPAP: No Currently Using BIPAP: No Cardiac: Yes High Cholesterol, Hypertension Neurological: Yes 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 Reproductive Disorders: Yes (CPP, DUB) Female Reproductive Disorders: Endometriosis, Ovarian Cyst Sexually Transmitted Disease: No HIV/AIDS: No Genitourinary: Yes UTI-Chronic Gastrointestinal: Yes Colitis Musculoskeletal: Yes (NECK PAIN AND RIGHT ARM PAIN) Endocrine: No HEENT: Yes Cataract Loss of Vision: Bilateral Hearing Impairment: Denies Cancer: No Psychosocial: Yes Depression Reviewed History: Yes Social History Home: Single Level Current Living Status: Spouse Entry Into Home: Stairs With Railing PT Steps Into Home: 5 Prior Prior Level of Function SCALE: Activities may be completed with or without assistive devices. 4-Aiakerkpfj-jjdskfq completes the activity by him/herself with no assistance from a helper. 5-Set-up or Clean-up Assistance-helper sets up or cleans up; patient completes activity. [place] assists only prior to or following the activity. 4-Supervision or Touching Assistance-helper provides verbal cues and/or touching/steadying and/or contact guard assistance as patient completes activity. Assistance may be provided throughout the activity or intermittently. 3-Partial/Moderate Assistance-helper does LESS THAN HALF the effort. [place] lifts, holds or supports trunk or limbs, but provides less than half the effort. 2-Substantial/Maximal Assistance-helper does MORE THAN HALF the effort. [place] lifts or holds trunk or limbs and provides more than half the effort. 2-Nizdzhszu-awlioo does ALL the effort. Patient does none of the effort to complete the activity. Or, the assistance of 2 or more helpers is required for the patient to complete the activity. If activity was not attempted, code reason: 7-Patient Refused. 9-Not Applicable-not attempted and the patient did not perform the activity before the current illness, exacerbation or injury. 10-Not Attempted due to Environmental Limitations-(lack of equipment, weather restraints, etc.). 88-Not Attempted due to Medical Conditions or Safety Concerns. Bed Mobility: 6 Transfers (B,C,W/C): 6 Gait: 6 Stairs: 6 Indoor Mobility (Ambulation): Independent Stairs: Independent PT Evaluation-Current Subjective Patient in recliner pre tx, agrees to PT, has no complaints of pain at rest. Pt/Family Goals "to go home" Objective Patient Orientation: Person, Place, Situation Attachments: Oxygen ROM/Strength ROM Lower Extremities WNL Strength Lower Extremities 4/5 hip flexion bilaterally, 5/5 all other Sensory Vision: Functional Hearing: Functional Sensation Right Lower Extremit: Intact Sensation Left Lower Extremity: Intact Transfers Sit to Stand (QC): 4 Chair/Vjk-dz-Vilvf Xfer(QC): 4 Gait Does the Patient Walk?: Yes Mode of Locomotion: Walk Anticipated Mode of Locomotion: Walk Walk 10 feet (QC): 4 Walk 50 ft with 2 Turns(QC): 4 Distance: 60' Gait Assistive Device: Handheld Assist Comments/Gait Description BRACE[employer] BR[employer]CH [employer]KER for balance, patient is unsteady, slightly SOB after ambulation Balance Sitting Static: Normal Sitting Dynamic: Normal Standing Static: Fair Standing Dynamic: Poor Assessment/Needs Patient has impaired mobility, strength, endurance, balance. She needs BR[employer]CH [employer]KER during ambulation, unsteady. Rehab Potential: Fair PT Snf Goals Snf Goals PT Aging Box Hand Goals Time Frame: May 02, 2020 Roll Left & Right (QC): 6 Sit to Lying (QC): 6 Lying-Sitting on Side/Bed(QC): 6 Sit to Stand (QC): 6 Chair/Cfd-st-Blava Xfer(QC): 6 Toilet Transfer (QC): 6 Walk 10 feet (QC): 6 Walk 50ft with 2 Turns (QC): 6 Walk 150 ft (QC): 6 PT Plan Problem List Problem List: Activity Tolerance, Functional Strength, Safety, Balance, Gait, Transfer, Bed Mobility Treatment/Plan Treatment Plan: Continue Plan of Care Treatment Plan: Bed Mobility, Education, Functional Activity Simeon, Functional Strength, Gait, Safety, Therapeutic Exercise, Transfers Treatment Duration: May 02, 2020 Frequency: 6 times per week Estimated Hrs Per Day: .25 hour per day Patient and/or Family Agrees t: Yes Safety Risks/Education Patient Education: Gait Training, Transfer Techniques, Correct Positioning, Safety Issues Teaching Recipient: Patient Teaching Methods: Demonstration, Discussion Response to Teaching: Reinforcement Needed Discharge Recommendations Plan Patient will perform bed mobility and transfer training, balance and endurance training, functional strengthening, stair training, gait training, and education, to improve functional mobility and independence at home. Therapy Discharge Recommendati: Home & Family Time/GCodes Time In: 1506 Time Out: 1520 Total Billed Treatment Time: 14 Total Billed Treatment 1 visit BREANA BUENROSTRO PT Apr 25, 2020 15:31
[2020-04-25 16:30] VITALS: BP 132/72
[2020-04-25 18:50] VITALS: BP 149/78
[2020-04-25] MEDS: NORTRIPTYLINE 25 MG (PAMELOR) CAP PO SCH (20:07)
[2020-04-25 23:40] VITALS: BP 114/55
[2020-04-26] MEDS: RT-ALBUTEROL INHALER HFA (VENTOLIN HFA) 18 GM IH SCH ×4 (02:12→14:35)
[2020-04-26 04:29] VITALS: BP 144/58
[2020-04-26 06:13] LABS: BASOPHILS % (AUTO) 0 % (0-10); EOSINOPHILS # (AUTO) 0.1 10^3/uL (0.0-0.3); EOSINOPHILS % (AUTO) 1 % (0-10); HEMATOCRIT 30 % (35-52); HEMOGLOBIN 9.3 g/dL (11.5-16.0); LYMPHOCYTES # (AUTO) 1.3 10^3/uL (1.0-4.0); LYMPHOCYTES % (AUTO) 16 % (12-44); MEAN CORPUSCULAR HEMOGLOBIN 27 pg (25-34); MEAN CORPUSCULAR HGB CONC 31 g/dL (32-36); MEAN CORPUSCULAR VOLUME 87 fL (80-99); MEAN PLATELET VOLUME 10.1 fL (9.0-12.2); MONOCYTES # (AUTO) 0.8 10^3/uL (0.0-1.0); MONOCYTES % (AUTO) 10 % (0-12); NEUTROPHILS # (AUTO) 5.9 10^3/uL (1.8-7.8); NEUTROPHILS % (AUTO) 71 % (42-75); PLATELET COUNT 437 10^3/uL (130-400); WHITE BLOOD COUNT 8.2 10^3/uL (4.3-11.0)
[2020-04-26 06:26] LABS: CHLORIDE 99 MMOL/L (98-107); POTASSIUM 3.6 MMOL/L (3.6-5.0); SODIUM 138 MMOL/L (135-145)
[2020-04-26 06:27] LABS: CALCIUM 8.5 MG/DL (8.5-10.1); GLUCOSE 86 MG/DL (70-105)
[2020-04-26 06:29] LABS: CARBON DIOXIDE 25 MMOL/L (21-32)
[2020-04-26 06:31] LABS: CREATININE SERUM 0.65 MG/DL (0.60-1.30); GFR ESTIMATED > 60; PHOSPHORUS 3.4 MG/DL (2.3-4.7)
[2020-04-26 06:32] LABS: BUN/CREATININE RATIO 23
[2020-04-26 06:35] LABS: MAGNESIUM 1.8 MG/DL (1.6-2.4)
[2020-04-26 08:02] VITALS: BP 125/67
--- NOTE | 2020-04-26 08:46 | Diagnostic Imaging Report ---
INDICATION: Dyspnea, COVID positive. TECHNIQUE: Single view chest 4:59 AM. CORRELATION STUDY: 04/25/2020 FINDINGS: Heart size is enlarged. Vasculature is slightly prominent. Scattered bilateral pulmonary opacities, presumed pneumonia, appears generally stable. IMPRESSION: 1. Stable heart size. 2. Bilateral pulmonary infiltrates persisting, overall generally stable. Dictated by: Dictated on workstation # [id number]
[2020-04-26] MEDS: ENOXAPARIN 40 MG/0.4 ML (LOVENOX) SYR SC SCH (08:52)
[2020-04-26] MEDS: PREGABALIN 100 MG (LYRICA) CAPSULE PO SCH (08:52)
[2020-04-26] MEDS: risperiDONE 1 MG (RisperDAL) TAB PO SCH (08:52)
[2020-04-26] MEDS: FAMOTIDINE 20 MG (PEPCID) TABLET PO SCH (08:52)
[2020-04-26] MEDS: meTOprolol TARTRATE 25 MG (LOPRESSOR) TABLET PO SCH (08:52)
[2020-04-26] MEDS: lisINopril 20 MG (PRINIVIL) TABLET PO SCH (08:52)
[2020-04-26 12:27] VITALS: BP 100/58
[2020-04-26] MEDS: busPIRone 10 MG (BUSPAR) TAB PO SCH (12:44)
--- NOTE | 2020-04-26 13:42 | NUR ---
HOME OXYGEN STUDY PHYSICAL THERAPY WALKED PT IN ROOM AND PT SPO2 DECREASED TO 82% PLACED ON 2LPM NASAL CANNULA AND PT DID NOT DROP SPO2 BELOW 90%, PT WILL REQUIRE 2LPM AT ALL TIMES NASAL CANNULA
--- NOTE | 2020-04-26 14:31 | Physical Therapy Daily Note ---
PT Daily Note-Current Subjective Patient agrees to PT. No c/o. Mental Status Patient Orientation: Normal For Age Attachments: Oxygen, [place] Catheter Transfers SCALE: Activities may be completed with or without assistive devices. 5-Aizdjlpvgo-sdcbpaq completes the activity by him/herself with no assistance from a helper. 5-Set-up or Clean-up Assistance-helper sets up or cleans up; patient completes activity. [place] assists only prior to or following the activity. 4-Supervision or Touching Assistance-helper provides verbal cues and/or touching/steadying and/or contact guard assistance as patient completes activity. Assistance may be provided throughout the activity or intermittently. 3-Partial/Moderate Assistance-helper does LESS THAN HALF the effort. [place] lifts, holds or supports trunk or limbs, but provides less than half the effort. 2-Substantial/Maximal Assistance-helper does MORE THAN HALF the effort. [place] lifts or holds trunk or limbs and provides more than half the effort. 7-Cnxvluoaq-kseqyb does ALL the effort. Patient does none of the effort to complete the activity. Or, the assistance of 2 or more helpers is required for the patient to complete the activity. If activity was not attempted, code reason: 7-Patient Refused. 9-Not Applicable-not attempted and the patient did not perform the activity before the current illness, exacerbation or injury. 10-Not Attempted due to Environmental Limitations-(lack of equipment, weather restraints, etc.). 88-Not Attempted due to Medical Conditions or Safety Concerns. Sit to Stand (QC): 6 Gait Training Does the Patient Walk?: Yes Distance: 150' x 2 Walk 10 feet (QC): 6 Walk 50 ft with 2 Turns(QC): 6 Walk 150 ft (QC): 6 Gait Assistive Device: None 1 episode of LOB with self correct Assessment Patient on 1.5L O2 upon arrival. Resting SAO2 94%. Patient ambulated in room 150' on 1.5L with SAO2 decreasing to 82% with long recovery. PT increased O2 to 2L with SAO2 improving to 92% at rest. Ambulated 150' again on 2L O2 with SAO2 maintaining 90%. Physician, RT and RN notified. Plan dismissal this week. PT Shelter Goals Shelter Goals PT Community Development Technician Goals Time Frame: May 02, 2020 Roll Left & Right (QC): 6 Sit to Lying (QC): 6 Lying-Sitting on Side/Bed(QC): 6 Sit to Stand (QC): 6 Chair/Nym-km-Mpjbq Xfer(QC): 6 Toilet Transfer (QC): 6 Walk 10 feet (QC): 6 Walk 50ft with 2 Turns (QC): 6 Walk 150 ft (QC): 6 PT Plan Treatment/Plan Treatment Plan: Continue Plan of Care Treatment Plan: Bed Mobility, Education, Functional Activity Simeon, Functional Strength, Gait, Safety, Therapeutic Exercise, Transfers Treatment Duration: May 02, 2020 Frequency: 6 times per week Estimated Hrs Per Day: .25 hour per day Patient and/or Family Agrees t: Yes Time/GCodes Time In: 1320 Time Out: 1343 Total Billed Treatment Time: 23 Total Billed Treatment 1 visit FA x 2 23 min HOWARD SCHULZ PT Apr 26, 2020 14:31
--- NOTE | 2020-04-26 15:02 | NUR ---
CM/SS finalized discharge. Plan: The patient will discharge today 04/26 with home health and oxygen. Home Health: The patient was provided with a choice list and chose [facility]. CM/SS contacted Maura to make referral. She stated they don't have an opening until Thursday. Dr. Carrasco Ok'd for them to open on Thursday. DME: CM/SS provided the patient with a choice list. She chose [id number] in [place]. CM/SS contacted the agency and spoke with Malcolm. They will deliver to the hospital. CM/SS faxed script, home o2 study, face sheet, and H&P. CM/SS contacted the patient's to discuss discharge. He reports the patient prior to admission is independent but did start to get weak right before admission. He reports that the patient can stay in the chair or sleep on the couch 15' from the bathroom and the will come home every couple of hours to check on her. No further needs at this time.
--- NOTE | 2020-04-26 15:06 | Discharge Summary ---
Discharge Summary Reconcile Patient Problems Problems Reviewed?: Yes Instructions for Patient Via [employer] [employer], Assessment/Instructions Take medications as prescribed. Follow-up with your primary care physician. You're being set up with home oxygen. You're being set up with home health care. Return with worsening shortness of breath or if you feel like you're getting worse. Physician to follow Patient: Bandar Discharge Diet for Home: No Restrictions Hospital Course Date of Admission: Apr 16, 2020 at 10:55 Admission Diagnosis : Acute respiratory failure due to COVID-19 Family Physician/Provider: Clark Portillo MD Date of Discharge: 04/26/20 Discharge Diagnosis: Acute respiratory failure due to COVID-19 Hospital Course: Alycia Lynch is a 59-year-old female who was admitted with acute respiratory failure due to COVID-19. She was initially requiring BiPAP and was admitted to the ICU. She improved and was transitioned to Vapotherm. She was eventually able to be weaned down to nasal cannula and moved to the medical floor. She was treated with Decadron and convalescent plasma. Her versus complicated by delirium and this resolved prior to the time of discharge. She was requiring 2 L continuously via nasal cannula on the day of discharge and she was set up with home oxygen. She was also set up with home health for ongoing therapies. She should follow-up with her primary care physician in a week or two. Labs and Pending Lab Test: Laboratory Tests 04/26/20 05:43: White Blood Count 8.2, Red Blood Count 3.42L, Hemoglobin 9.3L, Hematocrit 30L, Mean Corpuscular Volume 87, Mean Corpuscular Hemoglobin 27, Mean Corpuscular Hemoglobin Concent 31L, Red Cell Distribution Width 14.6H, Platelet Count 437H, Mean Platelet Volume 10.1, Immature Granulocyte % (Auto) 2, Neutrophils (%) (Auto) 71, Lymphocytes (%) (Auto) 16, Monocytes (%) (Auto) 10, Eosinophils (%) (Auto) 1, Basophils (%) (Auto) 0, Neutrophils # (Auto) 5.9, Lymphocytes # (Auto) 1.3, Monocytes # (Auto) 0.8, Eosinophils # (Auto) 0.1, Basophils # (Auto) 0.0, Immature Granulocyte # (Auto) 0.2H, Sodium Level 138, Potassium Level 3.6, Chloride Level 99, Carbon Dioxide Level 25, Anion Gap 14, Blood Urea Nitrogen 15, Creatinine 0.65, Estimat Glomerular Filtration Rate > 60, BUN/Creatinine Ratio 23, Glucose Level 86, Calcium Level 8.5, Phosphorus Level 3.4, Magnesium Level 1.8 Microbiology 04/16/20 MRSA Screen - Final, Complete MRSA not isolated 04/16/20 Blood Culture - Final, Complete No growth 04/16/20 Urine Culture - Final, Complete NO GROWTH Home Meds Active Reported Tizanidine HCl 4 Mg Tablet 4 Mg PO BID PRN Estrace Tablet (Estradiol) 1 Mg Tablet 1 Mg PO HS Duloxetine HCl 60 Mg Capsule.dr 60 Mg PO BID Oxycodone-Acetaminophen 5-325 (Oxycodone HCl/Acetaminophen) 1 Each Tablet 1 Ea PO Q6H PRN Lyrica (Pregabalin) 100 Mg Capsule 100 Mg PO BID Buspirone HCl 10 Mg Tablet 10 Mg PO BID Bactrim Ds Tablet (Sulfamethoxazole/Trimethoprim) 1 Each Tablet 1 Ea PO Q12H FILLED 04-12-2020 #14/7 DAY SUPPLY Prednisone 10 Mg Tab Mg PO UD TAPER DOSE DIRECTIONS: 3 TABS DAILY X 3 DAYS, THEN 2 TABS DAILY X 3 DAYS, THEN 1 TAB DAILY THEN STOP Enalapril Maleate 20 Mg Tablet 20 Mg PO HS Nortriptyline HCl 25 Mg Capsule 75 Mg PO HS TAKES 3 (25MG) CAPS Atorvastatin Calcium 10 Mg Tablet 10 Mg PO HS Consulations Pulmonology Patient Allergies: Coded Allergies: amoxicillin (Verified Allergy, Unknown, 06/19/16) clavulanic acid (Verified Allergy, Unknown, 06/19/16) diphenhydramine (Unverified Allergy, Unknown, "hebby jebby", 06/19/16) latex (Verified Allergy, Unknown, 08/27/16) Height (Feet): 5 Height (Inches): 5.00 Weight (Pounds): 196 Home Health Need/Face to Face Date of Face to Face: Apr 26, 2020 Clinical Findings: Generalized weakness and fatigue, Muscle weakness, Shortness of breath I have seen Pt [id number]: Yes Discharged To: Home Diagnosis/Conditions: Respiratory failure with hypoxia Debility Problems/Diagnosis/Condition: (1) Debility (2) RESPIRATORY FAILURE, UNSP, UNSP W HYPOXIA OR HYPERCAPNIA Patient is Homebound due to: Venkatesh fall risk due to instabilty, Muscle weakness, Shortness of breath/distress Homebound Status Due to the above stated illness, injury or surgical procedure (medical condition or diagnosis) and associated clinical findings, the patient is homebound because of his/her inability to leave home except with aid of a bello pportive device and/or person AND leaving the home requires a considerable and taxing effort or is medically contraindicated. Pt req the following assistanc: Aid of another person Home Health Nursing Orders Home Health Services Order: Nursing Services, Superintendent Production-Evaluate & Treat, Physical Therapy-Evaluate & Treat Ok to begin Home Health on Saturday 04/29 Home Health Infusion Therapy Line Start Date: Apr 16, 2020 Therapy Orders Therapy Orders: OT (must have SN or PT order), Physical Therapy Therapy Specific Orders: Eval assistive deivces, Teach enviro modifications/safety, Gait training, Increase strength/endurance Certify Stmt I certify that this patient is under my care and that I, a nurse practitioner or a physician; a dental ceramist assistant working with me, had a face to face encounter that - meets the physician face to face encounter requirements with this patient as dated. Discharge Physical Exam General: Alert, Oriented X3, Cooperative, No Acute Distress HEENT: Atraumatic, EOMI, Mucous Memb Moist/[place] Lungs: Clear to Auscultation, Normal Air Movement Heart: Regular Rate, Normal S1, Normal S2, No Murmurs Abdomen: Normal Bowel Sounds, Soft, No Tenderness Extremities: No Edema, No Tenderness/Swelling Skin: No Rashes, No Significant Lesion Neuro: Normal Speech, Normal Tone Psych/Mental Status: Mental Status NL, Mood NL MISTY HERNANDES MD Apr 26, 2020 15:01
[2020-04-26 16:21] VITALS: BP 120/62
== END 2020-04-26 17:45 | disposition home health service (06) | DRG 177 ==
LOC: EDUNIT# 10:13 → ER 10:16 → UNDOADMOB 10:55 → INTOOBSV 10:55 → ICU 10:55 → 4TH 04-24 10:27 → ICU 04-24 10:27 → 4TH 04-24 10:27 → UNDODISOB 04-26 17:45
PROVIDERS: ADMIT Family Medicine; ATTEND Internal Medicine
PROC: XW13325 Transfusion of Convalescent Plasma (Nonautologous) into Peripheral Vein, Percutaneous Approach, New Technology Group 5 (ICD-10-PCS; principal; 2020-04-17)
PROC: 5A09457 Assistance with Respiratory Ventilation, 24-96 Consecutive Hours, Continuous Positive Airway Pressure (ICD-10-PCS; 2020-04-18)
DX: U07.1 COVID-19 (principal); J80 Acute respiratory distress syndrome; F23 Brief psychotic disorder; G47.30 Sleep apnea, unspecified; I10 Essential (primary) hypertension; D64.9 Anemia, unspecified; E78.00 Pure hypercholesterolemia, unspecified; G43.909 Migraine, unspecified, not intractable, without status migrainosus; F32.9 Major depressive disorder, single episode, unspecified; Z79.899 Other long term (current) drug therapy; Z88.1 Allergy status to other antibiotic agents; Z91.040 Latex allergy status; Z88.8 Allergy status to other drugs, medicaments and biological substances; Z90.710 Acquired absence of both cervix and uterus; Z73.0 Burn-out
CPT/HCPCS: 36415; 36600; 51702; 71045; 80048; 80053; 81000; 82728; 82805; 83605; 83615; 83735; 83880; 84100; 84145; 85007; 85025; 85027; 85379; 85610; 85730; 86141; 86900; 86901; 87040; 87081; 87088; 93005; 94640; 94660; 94760; 94761; 96374; 99291

== ENCOUNTER 2020-08-27 00:53 | Inpatient (IN) | payer BC ==
[2020-08-27] VITALS (7 sets, daily range): BP systolic 100–144; BP diastolic 67–85
[~2020-08-27] VITALS: Ht 165.1 cm; Wt 85.3 kg
[~2020-08-27 00:53] MED LIST changes: +BUSP10TA95 PO; +ESTR1TAB27 PO; +OXYC1TAB11 PO; +PRD10T PO; +PREG100C PO; +SULF1TAB35 PO; +TIZA4TAB4 PO
[2020-08-27] MEDS ORDERED: LACTATED RINGERS 1,000 ML IV ONE (01:08)
[2020-08-27] MEDS ORDERED: LACTATED RINGERS 1,000 ML IV STA ×2 (01:17→01:55)
[2020-08-27 01:24] LABS: BASOPHILS # (AUTO) 0.1 10^3/uL (0.0-0.1); BASOPHILS % (AUTO) 0 % (0-10); EOSINOPHILS # (AUTO) 0.1 10^3/uL (0.0-0.3); EOSINOPHILS % (AUTO) 0 % (0-10); HEMATOCRIT 45 % (35-52); HEMOGLOBIN 14.2 g/dL (11.5-16.0); LYMPHOCYTES # (AUTO) 1.5 10^3/uL (1.0-4.0); LYMPHOCYTES % (AUTO) 6 % (12-44); MEAN CORPUSCULAR HEMOGLOBIN 28 pg (25-34); MEAN CORPUSCULAR HGB CONC 32 g/dL (32-36); MEAN CORPUSCULAR VOLUME 88 fL (80-99); MEAN PLATELET VOLUME 10.1 fL (9.0-12.2); MONOCYTES # (AUTO) 0.9 10^3/uL (0.0-1.0); MONOCYTES % (AUTO) 4 % (0-12); NEUTROPHILS # (AUTO) 23.6 10^3/uL (1.8-7.8); NEUTROPHILS % (AUTO) 89 % (42-75); PLATELET COUNT 477 10^3/uL (130-400); WHITE BLOOD COUNT 26.4 10^3/uL (4.3-11.0)
[2020-08-27 01:26] LABS: ALBUMIN 4.4 GM/DL (3.2-4.5)
[2020-08-27 01:27] LABS: POTASSIUM 4.2 MMOL/L (3.6-5.0)
[2020-08-27 01:28] LABS: CALCIUM 10.5 MG/DL (8.5-10.1)
[2020-08-27 01:29] LABS: TOTAL PROTEIN 7.8 GM/DL (6.4-8.2)
[2020-08-27] MEDS ORDERED: ONDANSETRON 4 MG/2 ML (SDV) Z0FRAN IVP ONE (01:30)
[2020-08-27] MEDS ORDERED: fentaNYL INJ 100 MCG/2 ML AMP IVP ONE (01:30)
--- NOTE | 2020-08-27 01:30 | ED Abdominal Pain ---
General Chief Complaint: Abdominal/GI Problems Stated Complaint: COLITIS Nursing Triage Note: PRESENTS TO ROOM #7 VIA ER W/C FROM [facility] WITH C/O ABD CRAMPING, NAUSEA, DIARRHEA, AND DIZZINESS. STATES SX BEGAN AT 2230, APPROX 40 MINUTES AFTER EATING POPCORN. PT IS UNABLE TO RECALL NUMBER OF DIARRHEA EPISODES. HX COLITIS. AT SIDE. Sepsis Screen: Possible Severe Sepsis Risk Source of Information: Patient Exam Limitations: No Limitations History of Present Illness Date Seen by Provider: August 27, 2020 Time Seen by Provider: 01:20 Initial Comments Patient to the ER by private conveyance with her spouse and chief complaint of nausea without vomiting, diarrhea and cramping abdominal pain consistent across to her abdomen 9 out of 10 since about 2100 yesterday evening. She says this is her fourth bout she has had of this in the past year. No blood in the stool. She has had to be hospitalized for her colitis in the past. She is had endoscopy which was unremarkable as well as CT scans in the past. She had a hysterectomy and section. She does not take opiates routinely. Coronary catheterization [place] [address] Flores showing normal left ventricular end-diastolic pressure and no significant obstructive disease. Allergies and Home Medications Allergies Coded Allergies: amoxicillin (Verified Allergy, Unknown, 06/19/16) clavulanic acid (Verified Allergy, Unknown, 06/19/16) diphenhydramine (Unverified Allergy, Unknown, "hebby jebby", 06/19/16) latex (Verified Allergy, Unknown, 08/27/16) Home Medications Atorvastatin Calcium 10 Mg Tablet, 10 MG PO HS, (Reported) Buspirone HCl 10 Mg Tablet, 10 MG PO BID, (Reported) Duloxetine HCl 60 Mg Capsule.dr, 60 MG PO BID, (Reported) Enalapril Maleate 20 Mg Tablet, 20 MG PO HS, (Reported) Estradiol 1 Mg Tablet, 1 MG PO HS, (Reported) Nortriptyline HCl 25 Mg Capsule, 75 MG PO HS, (Reported) TAKES 3 (25MG) CAPS Oxycodone HCl/Acetaminophen 1 Each Tablet, 1 EA PO Q6H PRN for PAIN-MODERATE (5- 7), (Reported) Pregabalin 100 Mg Capsule, 100 MG PO BID, (Reported) Tizanidine HCl 4 Mg Tablet, 4 MG PO BID PRN for MUSCLE SPASMS, (Reported) Patient Home Medication List Home Medication List Reviewed: Yes Review of Systems Review of Systems Constitutional: No chills, No fever, No malaise EENTM: No Blurred Vision, No Eye Pain Respiratory: Denies Cough, Denies Shortness of Air Cardiovascular: Denies Chest Pain, Denies Edema Gastrointestinal: See HPI; Denies Abdomen Distended; Abdominal Pain, Diarrhea, Nausea; Denies Vomiting Genitourinary: Denies Burning, Denies Discharge Musculoskeletal: No back pain, No joint pain Psychiatric/Neurological: Denies Anxiety, Denies Depressed All Other Systems Reviewed Negative Unless Noted: Yes Past Ayzoyml-Bobzbl-Ehtknj Hx Patient Social History Alcohol Use: Denies Use Smoking Status: Never a Smoker 2nd Hand Smoke Exposure: No Recent Infectious Disease Expo: No Recent Hopitalizations: No Immunizations Up To Date Tetanus Booster (TDap): Less than 5yrs PED Vaccines UTD: No Seasonal Allergies Seasonal Allergies: No Past Medical History Surgeries: Yes (LAPAROSCOPY X3-ENDOMETRIOSIS, LEFT BREAST BX) Abdominal, Breast, Section, Eye Surgery, Hysterectomy, Tonsillectomy, Tubal Ligation Respiratory: Yes (COVID +) Sleep Apnea Currently Using CPAP: No Currently Using BIPAP: No Cardiac: Yes High Cholesterol, Hypertension Neurological: Yes 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 Reproductive Disorders: Yes (CPP, DUB) Female Reproductive Disorders: Endometriosis, Ovarian Cyst Sexually Transmitted Disease: No HIV/AIDS: No Genitourinary: Yes UTI-Chronic Gastrointestinal: Yes Colitis Musculoskeletal: Yes (NECK PAIN AND RIGHT ARM PAIN) Endocrine: No HEENT: Yes Cataract Loss of Vision: Bilateral Hearing Impairment: Denies Cancer: No Psychosocial: Yes Depression Integumentary: No Blood Disorders: No Adverse Reaction/Blood Tranf: No (N/A) Family Medical History Arthritis 19 MOTHER Gastroenteritis G8 BROTHER Headache disorder 19 MOTHER G8 SISTER Hypertension 19 FATHER Prostate cancer 19 FATHER GI Disease, Hypertension, Other Conditions/Hx Physical Exam Vital Signs Vital Signs - First Documented 08/27/20 01:00 Temp 35.8 Pulse 98 Resp 20 B/P (MAP) 93/60 (71) Pulse Ox 98 O2 Delivery Room Air Capillary Refill : Less Than 3 Seconds Height/Weight/BMI Height: 5'5.00" Weight: 196lbs. oz. 88.495018ui; 31.00 BMI Method:Stated General Appearance: WD/WN, mild distress HEENT: PERRL/EOMI, pharynx normal Neck: full range of motion, normal inspection Respiratory: lungs clear, normal breath sounds, no respiratory distress, no accessory muscle use Cardiovascular: normal peripheral pulses, regular rate, rhythm Gastrointestinal: normal bowel sounds, soft, tenderness (All 4 quadrants), other (Negative for heeltap or other mesenteric signs) Extremities: normal range of motion, non-tender, normal capillary refill Neurologic/Psychiatric: alert, normal mood/affect, oriented x 3 Focused Exam Sepsis Stage: Severe Sepsis Possible Source: GI Tract/Intra-Abdominal Lactate Level 08/27/20 02:10: Lactic Acid Level 2.99*H Time of Focused Exam: 02:50 Respiratory: Lungs Clear, Normal Breath Sounds, No Accessory Muscle Use, No Respiratory Distress Cardiovascular: Regular Rate, Rhythm, No Edema, Normal Peripheral Pulses Capillary Refill: Less Than 3 Seconds Peripheral Pulses: 2+ Radial Pulses (R), 2+ Radial Pulses (L) Skin: normal color, warm/dry Lactic Acid Level Laboratory Tests Test 08/27/20 02:10 Lactic Acid Level 2.99 MMOL/L (0.50-2.00) *H Within 3hrs of presentation: Admin fluids, Admin 30ml/kg IBW due to BMI>30, Admin ABX, Blood cultures prior to ABX's, Focus exam, Lactate level Progress/Results/Core Measures Results/Orders Lab Results Laboratory Tests Test 08/27/20 01:05 08/27/20 02:10 Range/Units White Blood Count 26.4 H 4.3-11.0 10^3/uL Red Blood Count 5.13 H 3.80-5.11 10^6/uL Hemoglobin 14.2 11.5-16.0 g/dL Hematocrit 45 35-52 % Mean Corpuscular Volume 88 80-99 fL Mean Corpuscular Hemoglobin 28 25-34 pg Mean Corpuscular Hemoglobin Concent 32 32-36 g/dL Red Cell Distribution Width 13.4 10.0-14.5 % Platelet Count 477 H 130-400 10^3/uL Mean Platelet Volume 10.1 9.0-12.2 fL Immature Granulocyte % (Auto) 1 % Neutrophils (%) (Auto) 89 H 42-75 % Lymphocytes (%) (Auto) 6 L 12-44 % Monocytes (%) (Auto) 4 0-12 % Eosinophils (%) (Auto) 0 0-10 % Basophils (%) (Auto) 0 0-10 % Neutrophils # (Auto) 23.6 H 1.8-7.8 10^3/uL Lymphocytes # (Auto) 1.5 1.0-4.0 10^3/uL Monocytes # (Auto) 0.9 0.0-1.0 10^3/uL Eosinophils # (Auto) 0.1 0.0-0.3 10^3/uL Basophils # (Auto) 0.1 0.0-0.1 10^3/uL Immature Granulocyte # (Auto) 0.2 H 0.0-0.1 10^3/uL Neutrophils % (Manual) 89 % Lymphocytes % (Manual) 5 % Monocytes % (Manual) 6 % Polychromasia SLIGHT Anisocytosis MARKED Blood Morphology Comment NA Prothrombin Time 13.0 12.2-14.7 SEC INR Comment 0.9 0.8-1.4 Activated Partial Thromboplast Time 26 24-35 SEC Sodium Level 140 135-145 MMOL/L Potassium Level 4.2 3.6-5.0 MMOL/L Chloride Level 99 98-107 MMOL/L Carbon Dioxide Level 20 L 21-32 MMOL/L Anion Gap 21 H 5-14 MMOL/L Blood Urea Nitrogen 32 H 7-18 MG/DL Creatinine 1.69 H 0.60-1.30 MG/DL Estimat Glomerular Filtration Rate 31 BUN/Creatinine Ratio 19 Glucose Level 156 H 70-105 MG/DL Calcium Level 10.5 H 8.5-10.1 MG/DL Corrected Calcium 10.2 H 8.5-10.1 MG/DL Total Bilirubin 0.4 0.1-1.0 MG/DL Aspartate Amino Transf (AST/SGOT) 18 5-34 U/L Alanine Aminotransferase (ALT/SGPT) 23 0-55 U/L Alkaline Phosphatase 208 H 40-136 U/L Total Protein 7.8 6.4-8.2 GM/DL Albumin 4.4 3.2-4.5 GM/DL Lipase 20 8-78 U/L Lactic Acid Level 2.99 *H 0.50-2.00 MMOL/L My Orders Orders - [facility] Cbc With Automated Diff (08/27/20 01:17) Comprehensive Metabolic Panel (08/27/20 01:17) Lactated Ringers (Lr 1000 Ml Iv Solution (08/27/20 01:17) Lipase (08/27/20 01:17) Lactated Ringers (Lr 1000 Ml Iv Solution (08/27/20 01:08) Manual Differential (08/27/20 01:05) Fentanyl Inj (Sublimaze Injection) (08/27/20 01:30) Ondansetron Injection (Zofran Injectio (08/27/20 01:30) Lactated Ringers (Lr 1000 Ml Iv Solution (08/27/20 01:55) Blood Culture (08/27/20 01:55) Urine Culture (08/27/20 01:55) Protime With Inr (08/27/20 01:55) Partial Thromboplastin Time (08/27/20 01:55) Ed Iv/Invasive Line Start (08/27/20 01:55) Ed Iv/Invasive Line Start (08/27/20 01:55) Vital Signs Adult Sepsis Patie Q15M (08/27/20 01:55) O2 (08/27/20 01:55) Remove Rings In Anticipation O (08/27/20 01:55) Lactic Acid Analyzer (08/27/20 01:55) Ceftriaxone For Iv Use (Rocephin For I (08/27/20 02:00) Metronidazole 500mg/100ml Ivpb (Flagyl 5 (08/27/20 02:00) Ct Abdomen/Pelvis Wo (08/27/20 01:57) Morphine Injection (Morphine Injection (08/27/20 02:54) Medications Given in ED Current Medications Medications Dose Ordered Sig/Litzy Route Start Time Stop Time Status Last Admin Dose Admin Ceftriaxone Sodium 1000 mg/ Sterile Water 10 ml @ 200 mls/hr ONCE ONCE IV 08/27/20 02:00 08/27/20 02:02 DC 08/27/20 02:35 200 MLS/HR Fentanyl Citrate 50 mcg ONCE ONCE IVP 08/27/20 01:30 08/27/20 01:31 DC 08/27/20 01:38 50 MCG Metronidazole 100 ml @ 100 mls/hr ONCE ONCE IV 08/27/20 02:00 08/27/20 02:59 DC 08/27/20 02:35 100 MLS/HR Ondansetron HCl 4 mg ONCE ONCE IVP 08/27/20 01:30 08/27/20 01:31 DC 08/27/20 01:38 4 MG Vital Signs/I&O 08/27/20 01:00 Temp 35.8 Pulse 98 Resp 20 B/P (MAP) 93/60 (71) Pulse Ox 98 O2 Delivery Room Air Blood Pressure Mean: 71 Progress Progress Note #1: Time: 01:35 Progress Note Diarrhea cramping abdominal pain in a 59-year-old. Plan to get a CT of the abdomen and pelvis with IV contrast. Give her a liter of fluids. Her blood pressure was initially a little soft in the 90s however as we adjusted the cuff it is now 123/95. She is not tachycardic and does not meet septic criteria at this time. Zofran and fentanyl for her discomfort. Labs including a lipase. Progress Note #2: Time: 01:59 Progress Note Patient did have a heart rate in the 90s as well as a white count in the mid 20s making her septic. We did obtain a septic work-up and 2 L of lactated Ringer's which is greater than 20 mL/kg based on an adjusted ideal body weight of 68 kg. Rocephin and Flagyl selected for intra-abdominal infection. Patient has an acute kidney injury so because of the decreased GFR we are giving IV fluids but we will hold off on using IV contrast and do a CT without. Diagnostic Imaging Diagonstic Imaging: CT (With IV contrast) Plain Films/CT/US/NM/MRI: abdomen, pelvis Comments Findings consistent with a small bowel enteritis. Reviewed[facility] Departure Communication (Admissions) Time/Spoke to Admitting Phy: 02:45 Discussed the case with Dr. Rangel and she agrees to admit the patient to the floor, IV antibiotics and fluids. Impression Primary Impression: Enteritis Additional Impressions: Acute kidney injury Severe sepsis Disposition: ADMITTED INPATIENT Condition: Stable Admissions Decision to Admit Reason: Admit from ER (General) Decision to Admit/Date: August 27, 2020 Time/Decision to Admit Time: 02:00 Departure-Patient Inst. Referrals: EARNEST MIJARES MD (PCP/Family) Primary Care Physician [facility] August 27, 2020 01:30
[2020-08-27 01:31] LABS: BILIRUBIN,TOTAL 0.4 MG/DL (0.1-1.0)
[2020-08-27 01:33] LABS: CREATININE SERUM 1.69 MG/DL (0.60-1.30)
[2020-08-27 01:41] LABS: ANISOCYTOSIS MARKED; LYMPHOCYTES % (MANUAL) 5 %; MONOCYTES % (MANUAL) 6 %; NEUTROPHILS % (MANUAL) 89 %; POLYCHROMASIA SLIGHT
[2020-08-27] MEDS ORDERED: cefTRIAXone FOR IV USE 1,000 MG in WATER (STERILE) FOR INJECTION 10 ML IV ONE (02:00)
[2020-08-27] MEDS ORDERED: metroNIDAZOLE 500MG/100ML IVPB 100 ML IV ONE (02:00)
[2020-08-27 02:41] LABS: INR 0.9 (0.8-1.4)
[2020-08-27] MEDS ORDERED: morphine INJ 10 MG/ML 1ML (SYR OR VIAL) IVP STA (02:54)
[2020-08-27] MEDS ORDERED: ONDANSETRON 4 MG/2 ML (SDV) Z0FRAN IVP PRN (04:00)
[2020-08-27] MEDS ORDERED: ACETAMINOPHEN 325 MG TABLET PO PRN (04:00)
[2020-08-27] MEDS: LACTATED RINGERS 1,000 ML IV SCH ×3 (04:24→17:57)
--- NOTE | 2020-08-27 06:15 | Diagnostic Imaging Report ---
PROCEDURE: CT abdomen and pelvis without contrast. TECHNIQUE: Multiple contiguous axial images were obtained through the abdomen and pelvis without the use of intravenous contrast. Auto Exposure Controls were utilized during the CT exam to meet ALARA standards for radiation dose reduction. INDICATION: Abdominal cramping, nausea, and diarrhea COMPARISON: 01/23/2020 FINDINGS: There has been mild increase in interstitial markings in the lung bases. This could be related to mild interstitial edema, pneumonitis or scarring. Unenhanced images of the liver and spleen reveal no focal abnormalities. There is no evidence of pancreatic, gallbladder or adrenal gland abnormality. There is a small hiatal hernia. The stomach is distended with fluid. Unenhanced images of the kidneys are unremarkable. There is mild fluid distention of small bowel. There is mural thickening within small bowel loops of the left abdomen. No definite perforation or pneumoperitoneum is identified. Unopacified urinary bladder is unremarkable. IMPRESSION: Small bowel mural thickening and inflammation in the left abdomen suggest enteritis without dilatation proximally to suggest significant obstruction. Clinical correlation would be of use. Otherwise, no acute abnormality is detected. Dictated by: Dictated on workstation # [id number]
[2020-08-27] MEDS: fentaNYL INJ 100 MCG/2 ML AMP IVP PRN ×5 (08:12→23:26)
[2020-08-27] MEDS: PANTOPRAZOLE 40 MG (PROTONIX) VIAL IV SCH (08:12)
[2020-08-27] MEDS: metroNIDAZOLE 500 MG/100 ML IVPB (PRE-MIX) IV SCH ×2 (11:03→23:25)
[2020-08-27 11:10] LABS: BASOPHILS # (AUTO) 0.1 10^3/uL (0.0-0.1); BASOPHILS % (AUTO) 0 % (0-10); EOSINOPHILS % (AUTO) 0 % (0-10); HEMATOCRIT 34 % (35-52); HEMOGLOBIN 10.5 g/dL (11.5-16.0); LYMPHOCYTES % (AUTO) 4 % (12-44); MEAN CORPUSCULAR HEMOGLOBIN 28 pg (25-34); MEAN CORPUSCULAR HGB CONC 31 g/dL (32-36); MEAN CORPUSCULAR VOLUME 89 fL (80-99); MEAN PLATELET VOLUME 9.9 fL (9.0-12.2); MONOCYTES # (AUTO) 1.1 10^3/uL (0.0-1.0); MONOCYTES % (AUTO) 5 % (0-12); NEUTROPHILS # (AUTO) 21.5 10^3/uL (1.8-7.8); NEUTROPHILS % (AUTO) 90 % (42-75); PLATELET COUNT 295 10^3/uL (130-400); WHITE BLOOD COUNT 23.8 10^3/uL (4.3-11.0)
--- NOTE | 2020-08-27 11:10 | History & Physical-Hospitalist ---
History of Present Illness HPI/Chief Complaint Alycia Lynch is a 59-year-old female with past medical history of hypertension, hyperlipidemia, obesity, chronic pain, who presented with abdominal pain. She reports that the pain is diffuse and currently 6 out of 10 in severity. She describes it as cramping. She reports nausea but no vomiting. She reports having diarrhea but nothing now. She reports having chills. She denies any chest pain or shortness of breath. She has no other complaints or concerns. Source: patient Exam Limitations: no limitations Date Seen 08/27/20 Time Seen by a Provider: 09:35 Attending Physician Audrey Sheehan MD PCP Clark Portillo MD Referring Physician Date of Admission August 27, 2020 at 03:03 Home Medications & Allergies Home Medications Reviewed patient Home Medication Reconciliation performed by pharmacy medication reconciliations assembly technician and/or nursing. Patients Allergies have been reviewed. Allergies Allergies Coded Allergies amoxicillin (Verified Allergy, Unknown, 06/19/16) clavulanic acid (Verified Allergy, Unknown, 06/19/16) diphenhydramine (Unverified Allergy, Unknown, "hebby jebby", 06/19/16) latex (Verified Allergy, Unknown, 08/27/16) Patient Social History Tobacco Use?: No Smoking Status: Never a Smoker Smokeless Tobacco Frequency: Never a User E-Cig and/or Vaping Freq: Never a User Alcohol Use?: No Pt stated abuse/neglect: No Immunizations Up To Date Influenza Vaccine Up-to-Date: Yes; Up-to-Date First/Initial COVID19 Vaccinat: 07/16/20 Second COVID19 Vaccination Panchito: 08/17/20 Tetanus Booster (TDap): Unknown Hepatitis A: Yes Hepatitis B: Yes TB Skin Test: None Current Status status: No status: No Do you have an Advance Directi: No Communicates: Verbally Primary Language: Togolese Preferred Spoken Language: Togolese Is interpretation needed?: No Sensory deficits: Vision impairment Past Medical History Hypertension Hyperlipidemia Obesity Chronic pain Family Medical History Family Hx: Noncontributory Review of Systems Constitutional: chills EENTM: no symptoms reported Respiratory: no symptoms reported Cardiovascular: no symptoms reported Gastrointestinal: abdominal pain, diarrhea, nausea Genitourinary: no symptoms reported Musculoskeletal: no symptoms reported Skin: no symptoms reported Psychiatric/Neurological: No Symptoms Reported Physical Exam Physical Exam Vital Signs Vital Signs - First Documented 08/27/20 01:00 Temp 35.8 Pulse 98 Resp 20 B/P (MAP) 93/60 (71) Pulse Ox 98 O2 Delivery Room Air Capillary Refill : Less Than 3 Seconds Height, Weight, BMI Height: 5'5.00" Weight: 196lbs. oz. 88.994803zs; 32.57 BMI Method:Stated General Appearance: No Apparent Distress, Obese HEENT: PERRL/EOMI, Pharynx Normal Neck: Normal Inspection, Supple Respiratory: Lungs Clear, Normal Breath Sounds, No Respiratory Distress Cardiovascular: No Murmur, Normal Peripheral Pulses, Tachycardia (Regular rhythm) Gastrointestinal: Normal Bowel Sounds, Soft; No Distended, No Guarding; Tenderness Extremity: Normal Inspection, Non Tender, No Pedal Edema Neurologic/Psychiatric: Alert, Oriented x3, No Motor/Sensory Deficits, Normal Mood/Affect Skin: Normal Color, Warm/Dry Results Results/Procedures Labs Laboratory Tests 08/27/20 01:05 Patient resulted labs reviewed. Imaging: Reviewed Imaging Report Assessment/Plan Admission Diagnosis Severe sepsis Admission Status: Inpatient Order (span 2 midnights) Reason for Inpatient Admission: Severe sepsis with gastroenteritis Assessment and Plan Severe sepsis Gastroenteritis Lactic acidosis Acute kidney injury SIRS+ with leukocytosis and tachycardia CT Abdomen showed enteritis Creatinine and lactic acid elevated Started on Rocephin and Flagyl IV fluids Antiemetics Pain regimen Repeat labs this afternoon HTN HLD Chronic pain Resume home meds once med rec completed Obesity Clinically significant, no acute management needs DVT prophylaxis: Lovenox Diagnosis/Problems Diagnosis/Problems (1) Severe sepsis Status: Acute (2) Enteritis Status: Acute (3) Acute kidney injury Status: Acute (4) Lactic acidosis Status: Acute MISTY HERNANDES MD August 27, 2020 11:10
[2020-08-27 11:32] LABS: CHLORIDE 101 MMOL/L (98-107); POTASSIUM 4.4 MMOL/L (3.6-5.0); SODIUM 134 MMOL/L (135-145)
[2020-08-27 11:34] LABS: CALCIUM 8.7 MG/DL (8.5-10.1); GLUCOSE 102 MG/DL (70-105)
[2020-08-27 11:36] LABS: CARBON DIOXIDE 22 MMOL/L (21-32)
[2020-08-27 11:38] LABS: CREATININE SERUM 0.87 MG/DL (0.60-1.30); GFR ESTIMATED > 60
[2020-08-27 11:39] LABS: BUN/CREATININE RATIO 25
[2020-08-27] MEDS: ENOXAPARIN 40 MG/0.4 ML (LOVENOX) SYR SQ SCH (12:53)
[2020-08-27] MEDS ORDERED: ACET-2267 PO (13:29)
[2020-08-27] MEDS ORDERED: MELO15TA39 PO (13:29)
[2020-08-27] MEDS ORDERED: VERA120T10 PO (13:29)
[2020-08-27] MEDS ORDERED: ASPI-789 PO (13:29)
[2020-08-27] MEDS ORDERED: OMEG1CAP24 PO (13:29)
[2020-08-27] MEDS ORDERED: CHOL10007 PO (13:29)
[2020-08-27] MEDS ORDERED: CYAN500T8 PO (13:29)
[2020-08-27] MEDS ORDERED: L.AC1CAP6 PO (13:29)
[2020-08-27] MEDS ORDERED: DILT240C91 PO (13:29)
[2020-08-27] MEDS ORDERED: MULT-1060 PO (13:29)
[2020-08-27] MEDS: HYDROcodone/APAP 5 MG/325 MG (LORTAB) TAB PO PRN (17:59)
[2020-08-27] MEDS ORDERED: diphenhydrAMINE 25 MG TAB (BENADRYL) PO PRN (19:45)
[2020-08-27] MEDS ORDERED: polyethylene glycoL POWDER 17 GM (MIRALAX) PACK PO PRN (19:45)
[2020-08-27] MEDS ORDERED: BISACODYL 10 MG SUPP (DULCOLAX) PR PRN (19:45)
[2020-08-27] MEDS ORDERED: MELATONIN 3 MG TABLET PO PRN (19:45)
[2020-08-27] MEDS ORDERED: ANTACID SUSP 30 ML UDC (MYLANTA) PO PRN (19:45)
[2020-08-27] MEDS ORDERED: MILK OF MAGNESIA 400 MG/5 ML 30 ML UDC PO PRN (19:45)
[2020-08-27] MEDS: cefTRIAXone 1,000 MG/SWFI 10 ML IV PUSH IV SCH ×2 (20:35)
[2020-08-27] MEDS: NORTRIPTYLINE 25 MG (PAMELOR) CAP PO SCH (20:35)
[2020-08-27] MEDS: busPIRone 10 MG (BUSPAR) TAB PO SCH (20:35)
[2020-08-27] MEDS: PREGABALIN 100 MG (LYRICA) CAPSULE PO SCH (20:35)
[2020-08-27] MEDS: ENALAPRIL 10 MG (VASOTEC) TAB PO SCH (20:35)
[2020-08-27] MEDS: ESTRADIOL 1 MG TAB (ESTRACE) PO SCH (20:35)
[2020-08-27] MEDS: VERAPAMIL SR 240 MG (CALAN SR) TAB PO SCH (20:40)
[2020-08-27] MEDS ORDERED: NON-FORMULARY MEDICATION 1 EA EA (Enalapril Maleate 20 MG) PO SCH (21:00)
[2020-08-27] MEDS ORDERED: NON-FORMULARY MEDICATION 1 EA EA (Verapamil HCl (Verapamil ER) 120 MG) PO SCH (21:00)
[2020-08-28] MEDS: LACTATED RINGERS 1,000 ML IV SCH ×5 (00:54→23:01)
[2020-08-28] MEDS: HYDROcodone/APAP 5 MG/325 MG (LORTAB) TAB PO PRN ×3 (01:56→23:05)
[2020-08-28] MEDS: fentaNYL INJ 100 MCG/2 ML AMP IVP PRN ×4 (03:21→20:59)
[2020-08-28 04:23] VITALS: BP 99/64
[2020-08-28 05:48] LABS: BASOPHILS # (AUTO) 0.1 10^3/uL (0.0-0.1); BASOPHILS % (AUTO) 0 % (0-10); EOSINOPHILS # (AUTO) 0.1 10^3/uL (0.0-0.3); EOSINOPHILS % (AUTO) 1 % (0-10); HEMATOCRIT 32 % (35-52); HEMOGLOBIN 10.2 g/dL (11.5-16.0); LYMPHOCYTES % (AUTO) 7 % (12-44); MEAN CORPUSCULAR HEMOGLOBIN 28 pg (25-34); MEAN CORPUSCULAR HGB CONC 32 g/dL (32-36); MEAN CORPUSCULAR VOLUME 87 fL (80-99); MEAN PLATELET VOLUME 10.2 fL (9.0-12.2); MONOCYTES # (AUTO) 1.2 10^3/uL (0.0-1.0); MONOCYTES % (AUTO) 9 % (0-12); NEUTROPHILS # (AUTO) 11.4 10^3/uL (1.8-7.8); NEUTROPHILS % (AUTO) 82 % (42-75); PLATELET COUNT 269 10^3/uL (130-400); WHITE BLOOD COUNT 13.8 10^3/uL (4.3-11.0)
[2020-08-28 05:57] LABS: CHLORIDE 102 MMOL/L (98-107)
[2020-08-28 05:58] LABS: POTASSIUM 3.8 MMOL/L (3.6-5.0); SODIUM 136 MMOL/L (135-145)
[2020-08-28 05:59] LABS: CALCIUM 8.2 MG/DL (8.5-10.1); GLUCOSE 102 MG/DL (70-105)
[2020-08-28 06:01] LABS: CARBON DIOXIDE 22 MMOL/L (21-32)
[2020-08-28 06:03] LABS: CREATININE SERUM 0.78 MG/DL (0.60-1.30); GFR ESTIMATED > 60
[2020-08-28 06:04] LABS: BUN/CREATININE RATIO 14
[2020-08-28 08:00] VITALS: BP 98/50
[2020-08-28] MEDS: busPIRone 10 MG (BUSPAR) TAB PO SCH ×2 (08:20→20:59)
[2020-08-28] MEDS: DULoxetine 30 MG (CYMBALTA) CAP PO SCH (08:20)
[2020-08-28] MEDS: PREGABALIN 100 MG (LYRICA) CAPSULE PO SCH ×2 (08:21→20:58)
[2020-08-28] MEDS: PANTOPRAZOLE 40 MG (PROTONIX) VIAL IV SCH (08:21)
[2020-08-28] MEDS ORDERED: NON-FORMULARY MEDICATION 1 EA EA (Duloxetine HCl 60 MG) PO SCH (09:00)
[2020-08-28] MEDS ORDERED: LOPERAMIDE 2 MG (IMODIUM) TABLET PO PRN (09:15)
--- NOTE | 2020-08-28 10:18 | Progress Note - Hospitalist ---
Subjective HPI/CC On Admission Date Seen by Provider: August 28, 2020 Time Seen by Provider: 09:05 Alycia Lynch is a 59-year-old female with past medical history of hypertension, hyperlipidemia, obesity, chronic pain, who presented with abdominal pain. She reports that the pain is diffuse and currently 6 out of 10 in severity. She tawnya cribes it as cramping. She reports nausea but no vomiting. She reports having diarrhea but nothing now. She reports having chills. She denies any chest pain or shortness of breath. She has no other complaints or concerns. Subjective/Events-last exam She continues to have abdominal pain. She denies nausea and vomiting. She is still having diarrhea. She denies any blood in her stools. Focused Exam Lactate Level 08/27/20 06:10: Lactic Acid Level 3.49*H 08/27/20 08:20: Lactic Acid Level 2.32*H 08/27/20 11:03: Lactic Acid Level 2.49*H Time of Focused Exam: 02:50 Objective Exam Vital Signs Vital Signs Date Time Temp Pulse Resp B/P (MAP) Pulse Ox O2 Delivery O2 Flow Rate FiO2 08/28/20 08:00 Room Air 08/28/20 08:00 36.7 96 16 98/50 (66) 92 08/28/20 04:23 2.00 Capillary Refill : Less Than 3 Seconds General Appearance: No Apparent Distress, Obese Respiratory: Lungs Clear, Normal Breath Sounds, No Respiratory Distress Cardiovascular: Regular Rate, Rhythm, No Edema, No Murmur Gastrointestinal: Normal Bowel Sounds, Soft; No Distended; Tenderness Extremity: Normal Inspection, Non Tender, No Pedal Edema Neurologic/Psychiatric: Alert, Oriented x3, No Motor/Sensory Deficits, Normal Mood/Affect Skin: Normal Color, Warm/Dry Results/Procedures Lab Laboratory Tests 08/27/20 11:03 08/28/20 05:36 Patient resulted labs reviewed. Imaging: Reviewed Imaging Report Assessment/Plan Assessment and Plan Assess & Plan/Chief Complaint Gastroenteritis CT Abdomen showed enteritis Continue Rocephin and Flagyl IV fluids Antiemetics Pain regimen HTN HLD Chronic pain Continue home meds Obesity Clinically significant, no acute management needs DVT prophylaxis: Lovenox Severe sepsis, resolved Lactic acidosis, resolved Acute kidney injury, resolved Diagnosis/Problems Diagnosis/Problems (1) Severe sepsis Status: Resolved Resolution Date/Time: 08/28/20 @ 10:20 (2) Enteritis Status: Acute (3) Acute kidney injury Status: Resolved Resolution Date/Time: 08/28/20 @ 10:20 (4) Lactic acidosis Status: Resolved Resolution Date/Time: 08/28/20 @ 10:20 MISTY HERNANDES MD August 28, 2020 10:18
[2020-08-28] MEDS: metroNIDAZOLE 500 MG/100 ML IVPB (PRE-MIX) IV SCH ×2 (10:39→23:01)
[2020-08-28] MEDS: ENOXAPARIN 40 MG/0.4 ML (LOVENOX) SYR SQ SCH (10:39)
[2020-08-28 12:12] VITALS: BP 110/66
[2020-08-28 15:47] VITALS: BP 133/80
[2020-08-28 19:44] VITALS: BP 127/80
[2020-08-28] MEDS: ESTRADIOL 1 MG TAB (ESTRACE) PO SCH (20:59)
[2020-08-28] MEDS: NORTRIPTYLINE 25 MG (PAMELOR) CAP PO SCH (20:59)
[2020-08-28] MEDS: cefTRIAXone 1,000 MG/SWFI 10 ML IV PUSH IV SCH ×2 (20:59)
[2020-08-28] MEDS: ENALAPRIL 10 MG (VASOTEC) TAB PO SCH (21:24)
[2020-08-28] MEDS: VERAPAMIL SR 240 MG (CALAN SR) TAB PO SCH (21:24)
[2020-08-28 23:06] VITALS: BP 96/59
[2020-08-29] MEDS: HYDROcodone/APAP 5 MG/325 MG (LORTAB) TAB PO PRN ×2 (03:16→08:54)
[2020-08-29 03:18] VITALS: BP 104/64
[2020-08-29] MEDS: LACTATED RINGERS 1,000 ML IV SCH (06:22)
[2020-08-29 08:05] VITALS: BP 94/52
[2020-08-29] MEDS: PANTOPRAZOLE 40 MG (PROTONIX) VIAL IV SCH (08:49)
[2020-08-29] MEDS: PREGABALIN 100 MG (LYRICA) CAPSULE PO SCH (08:49)
[2020-08-29] MEDS: DULoxetine 30 MG (CYMBALTA) CAP PO SCH (08:49)
[2020-08-29] MEDS: busPIRone 10 MG (BUSPAR) TAB PO SCH (08:50)
[2020-08-29] MEDS: metroNIDAZOLE 500 MG/100 ML IVPB (PRE-MIX) IV SCH (11:14)
[2020-08-29] MEDS: ENOXAPARIN 40 MG/0.4 ML (LOVENOX) SYR SQ SCH (11:14)
[2020-08-29] MEDS ORDERED: OXYC5TAB PO (11:16)
[2020-08-29 11:36] VITALS: BP 100/64
--- NOTE | 2020-08-29 14:47 | Discharge Summary ---
Discharge Summary Hospital Course Was the Problem List Reviewed?: Yes Problems/Dx: (1) Severe sepsis Status: Resolved (2) Enteritis Status: Acute (3) Acute kidney injury Status: Resolved (4) Lactic acidosis Status: Resolved Hospital Course Date of Admission: August 27, 2020 at 03:03 Admission Diagnosis : Severe sepsis Family Physician/Provider: Clark Mijares MD Date of Discharge: 08/29/20 Discharge Diagnosis: Severe sepsis due to viral gastroenteritis Hospital Course: Alycia Lynch is a 59 year old female who was admitted with severe sepsis due to viral gastroenteritis. Her course was complicated by lactic acidosis and acute kidney injury which improved with IV fluids. She was also treated with bowel rest, antiemetics, and analgesics. Her symptoms improved. She was discharged home in stable condition. Her course was complicated by hypoxia. She had been on home oxygen for several months after having COVID-19 and it was recently discontinued. She underwent a home oxygen study and was set up with 2 L continuously. Labs and Pending Lab Test: Microbiology 08/27/20 C. difficile GDH Antigen & Toxins - Final, Complete 08/27/20 Blood Culture - Preliminary, Resulted No growth Home Meds Active Oxycodone HCl 5 Mg Tablet 5 Mg PO Q4H PRN 7 Days Reported Weston 3 Fish Oil Softgel (Weston-3 Fatty Acids/Fish Oil) 1 Each Capsule.dr 1 Each PO DAILY Vitamin B-12 (Cyanocobalamin (Vitamin B-12)) 500 Mcg Tablet 500 Mcg PO DAILY Probiotic (L.acidoph & Paracasei,B.lactis) 1 Each Capsule 1 Each PO DAILY Vitamin D3 (Cholecalciferol (Vitamin D3)) 25 Mcg Capsule 25 Mcg PO DAILY Centrum Women Tablet (Multivitamin/Iron/Folic Acid) 1 Each Tablet 1 Each PO D AILY Tylenol Extra Strength (Acetaminophen) 500 Mg Tablet 500-1,000 Mg PO Q6H PRN Excedrin Migraine Caplet (Aspirin/Acetaminophen/Caffeine) 1 Each Tablet 2 Each PO Q6-8HR PRN Verapamil ER (Verapamil HCl) 120 Mg Tablet.er 120 Mg PO HS Meloxicam 15 Mg Tablet 15 Mg PO DAILY Diltiazem 24Hr ER (Diltiazem HCl) 240 Mg Cap.er.24h 240 Mg PO DAILY Tizanidine HCl 4 Mg Tablet 4 Mg PO BID PRN Estrace Tablet (Estradiol) 1 Mg Tablet 1 Mg PO HS Duloxetine HCl 60 Mg Capsule.dr 60 Mg PO DAILY Lyrica (Pregabalin) 100 Mg Capsule 100 Mg PO BID Buspirone HCl 10 Mg Tablet 10 Mg PO BID Enalapril Maleate 20 Mg Tablet 20 Mg PO HS Nortriptyline HCl 25 Mg Capsule 75 Mg PO HS TAKES 3 (25MG) CAPS Atorvastatin Calcium 10 Mg Tablet 10 Mg PO HS Assessment/Pt Instructions Take medications as prescribed. Follow up with your PCP. You may need to undergo endoscopy if your abdominal pain persists. Return with worsening pain, vomiting, or if you feel like you are getting worse. Discharge Planning: <30 minutes discharge planning Discharge Instructions Discharge Diet: No Restrictions Activity as Tolerated: Yes Discharge Physical Examination Vital Signs Vital Signs Date Time Temp Pulse Resp B/P (MAP) Pulse Ox O2 Delivery O2 Flow Rate FiO2 08/29/20 13:31 75 90 2.00 86 08/29/20 11:36 36.1 18 100/64 (76) Nasal Cannula General Appearance: No Apparent Distress, Obese Respiratory: Lungs Clear, Normal Breath Sounds, No Respiratory Distress Cardiovascular: Regular Rate, Rhythm, No Edema, No Murmur Gastrointestinal: Normal Bowel Sounds, Soft, Tenderness Extremity: Normal Inspection, Non Tender, No Pedal Edema Skin: Normal Color, Warm/Dry Neurologic/Psychiatric: Alert, Oriented x3, No Motor/Sensory Deficits, Normal Mood/Affect Allergies: Coded Allergies: amoxicillin (Verified Allergy, Unknown, 06/19/16) clavulanic acid (Verified Allergy, Unknown, 06/19/16) diphenhydramine (Unverified Allergy, Unknown, "hebby jebby", 06/19/16) latex (Verified Allergy, Unknown, 08/27/16) Copy Copies To 1: CLARK MIJARES MD Discharge Summary Date of Admission August 27, 2020 at 03:03 Date of Discharge Discharge Date: August 29, 2020 Discharge Time: 1500 Admission Diagnosis Severe sepsis Discharge Diagnosis Gastroenteritis CT Abdomen showed enteritis Continue Rocephin and Flagyl IV fluids Antiemetics Pain regimen HTN HLD Chronic pain Continue home meds Obesity Clinically significant, no acute management needs DVT prophylaxis: Lovenox Severe sepsis, resolved Lactic acidosis, resolved Acute kidney injury, resolved (1) Severe sepsis Status: Resolved (2) Enteritis Status: Acute (3) Acute kidney injury Status: Resolved (4) Lactic acidosis Status: Resolved MISTY HERNANDES MD August 29, 2020 14:46
[2020-08-29 14:50] VITALS: BP 100/64
[2020-08-30] MEDS ORDERED: PANTOPRAZOLE 40 MG (PROTONIX) TAB PO SCH (09:00)
== END 2020-08-29 14:50 | disposition home or self-care (01) | DRG 872 ==
LOC: EDUNIT# 00:53 → ER 00:55 → 4TH 03:03
PROVIDERS: ADMIT Family Medicine; ATTEND Internal Medicine
DX: A41.89 Other specified sepsis (principal); N17.9 Acute kidney failure, unspecified; E87.2 Acidosis; A08.4 Viral intestinal infection, unspecified; R65.20 Severe sepsis without septic shock; G89.29 Other chronic pain; I10 Essential (primary) hypertension; E78.00 Pure hypercholesterolemia, unspecified; E66.9 Obesity, unspecified; G47.30 Sleep apnea, unspecified; H54.3 Unqualified visual loss, both eyes; F32.9 Major depressive disorder, single episode, unspecified; E78.5 Hyperlipidemia, unspecified; Z86.16 Personal history of COVID-19; Z68.31 Body mass index [BMI] 31.0-31.9, adult; Z88.1 Allergy status to other antibiotic agents; Z82.49 Family history of ischemic heart disease and other diseases of the circulatory system
CPT/HCPCS: 36415; 74176; 80048; 80053; 82784; 83516; 83605; 83690; 85007; 85025; 85027; 85610; 85652; 85730; 86141; 87015; 87040; 87045; 87046; 87324; 87449; 87899; 94761

== ENCOUNTER → 2020-10-25 | Outpatient (CLI) | payer BC ==
[~2020-10-25] MED LIST changes: +ACET-2267 PO; +ASPI-789 PO; +CHOL10007 PO; +CYAN500T8 PO; +DILT240C91 PO; +L.AC1CAP6 PO; +MELO15TA39 PO; +MULT-1060 PO; +OMEG1CAP24 PO; +OXYC5TAB PO; +VERA120T10 PO
--- NOTE | 2020-10-25 17:28 | Diagnostic Imaging Report ---
PROCEDURE: CT abdomen and pelvis without contrast. TECHNIQUE: Multiple contiguous axial images were obtained through the abdomen and pelvis without the use of intravenous contrast. Auto Exposure Controls were utilized during the CT exam to meet ALARA standards for radiation dose reduction. INDICATION: Right lower quadrant pain. COMPARISON: August 27, 2020. FINDINGS: The visualized lung bases are clear. The unenhanced liver, spleen, adrenal glands, and pancreas are unremarkable. The gallbladder is unremarkable. The unenhanced bilateral kidneys and ureters are unremarkable. Mild scattered vascular calcifications without aneurysmal dilatation of the abdominal aorta. The urinary bladder is unremarkable. The uterus is not visualized, likely surgically absent. No abnormal adnexal mass lesion. No bowel obstruction or pneumatosis. Previously noted mural thickening involving the bowel within the left abdomen has resolved. Small fat-containing umbilical hernia. No evidence of acute appendicitis. No significant adenopathy, free air, or free fluid within the abdomen or pelvis. No acute osseous abnormality. IMPRESSION: No acute abnormality. Previously noted mural thickening involving the left-sided bowel has resolved. Dictated by: Dictated on workstation # [id number]
== END ==
LOC: RAD 16:53
DX: R10.31 Right lower quadrant pain (principal)
CPT/HCPCS: 74176

== ENCOUNTER 2020-11-23 17:46 | Emergency (ER) | payer BC ==
[~2020-11-23] VITALS: Ht 165 cm; Wt 85.3 kg
[~2020-11-23 17:46] MED LIST changes: -SULF1TAB35 PO; +SULF1TAB38 PO
[2020-11-23 18:56] LABS: BASOPHILS # (AUTO) 0.1 10^3/uL (0.0-0.1); BASOPHILS % (AUTO) 1 % (0-10); EOSINOPHILS # (AUTO) 0.1 10^3/uL (0.0-0.3); EOSINOPHILS % (AUTO) 1 % (0-10); HEMATOCRIT 34 % (35-52); HEMOGLOBIN 10.8 g/dL (11.5-16.0); LYMPHOCYTES # (AUTO) 2.1 10^3/uL (1.0-4.0); LYMPHOCYTES % (AUTO) 18 % (12-44); MEAN CORPUSCULAR HEMOGLOBIN 27 pg (25-34); MEAN CORPUSCULAR HGB CONC 32 g/dL (32-36); MEAN CORPUSCULAR VOLUME 84 fL (80-99); MEAN PLATELET VOLUME 10.2 fL (9.0-12.2); MONOCYTES # (AUTO) 0.7 10^3/uL (0.0-1.0); MONOCYTES % (AUTO) 6 % (0-12); NEUTROPHILS # (AUTO) 9.1 10^3/uL (1.8-7.8); NEUTROPHILS % (AUTO) 75 % (42-75); PLATELET COUNT 413 10^3/uL (130-400); WHITE BLOOD COUNT 12.1 10^3/uL (4.3-11.0)
--- NOTE | 2020-11-23 19:13 | ED Abdominal Pain ---
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 MIJARES MACHINED PARTS QUALITY INSPECTOR: DR. MORGAN Allergies and Home Medications Allergies Coded Allergies: amoxicillin (Verified Allergy, Unknown, 06/19/16) clavulanic acid (Verified Allergy, Unknown, 06/19/16) diphenhydramine (Unverified Allergy, Unknown, "hebby jebby", 06/19/16) latex (Verified Allergy, Unknown, 08/27/16) Home Medications Acetaminophen 500 Mg Tablet, 500-1,000 MG PO Q6H PRN for PAIN-MILD (1-4), (Reported) Aspirin/Acetaminophen/Caffeine 1 Each Tablet, 2 EACH PO Q6-8HR PRN for Headache, (Reported) Atorvastatin Calcium 10 Mg Tablet, 10 MG PO HS, (Reported) Buspirone HCl 10 Mg Tablet, 10 MG PO BID, (Reported) Cholecalciferol (Vitamin D3) 25 Mcg Capsule, 25 MCG PO DAILY, (Reported) Cyanocobalamin (Vitamin B-12) 500 Mcg Tablet, 500 MCG PO DAILY, (Reported) Diltiazem HCl 240 Mg Cap.er.24h, 240 MG PO DAILY, (Reported) Duloxetine HCl 60 Mg Capsule.dr, 60 MG PO DAILY, (Reported) Enalapril Maleate 20 Mg Tablet, 20 MG PO HS, (Reported) Estradiol 1 Mg Tablet, 1 MG PO HS, (Reported) L.acidoph & Paracasei,B.lactis 1 Each Capsule, 1 EACH PO DAILY, (Reported) Meloxicam 15 Mg Tablet, 15 MG PO DAILY, (Reported) Multivitamin/Iron/Folic Acid 1 Each Tablet, 1 EACH PO DAILY, (Reported) Nortriptyline HCl 25 Mg Capsule, 75 MG PO HS, (Reported) TAKES 3 (25MG) CAPS [place]-3 Fatty Acids/Fish Oil 1 Each Capsule.dr, 1 EACH PO DAILY, (Reported) Ondansetron 4 Mg Tab.rapdis, 4 MG PO Q4H Prescribed by: CHELSEY GUERRA on 11/23/202103 Oxycodone HCl 5 Mg Tablet, 5 MG PO Q4H PRN for PAIN-SEVERE (8-10) Prescribed by: MISTY HERNANDES on 08/29/20 111 Pantoprazole Sodium 40 Mg Tablet.dr, 40 MG PO DAILY Prescribed by: CHELSEY GUERRA on 11/23/202103 Pregabalin 100 Mg Capsule, 100 MG PO BID, (Reported) Sucralfate 1 Gm Tablet, 1 GM PO QID Prescribed by: CHELSEY GUERRA on 11/23/202103 Tizanidine HCl 4 Mg Tablet, 4 MG PO BID PRN for MUSCLE SPASMS, (Reported) Verapamil HCl 120 Mg Tablet.er, 120 MG PO HS, (Reported) Review of Systems Review of Systems Constitutional: no symptoms reported Respiratory: See HPI Cardiovascular: No Symptoms Reported Gastrointestinal: See HPI, Abdominal Pain, Constipated, Nausea Genitourinary: No Symptoms Reported Musculoskeletal: see HPI Skin: no symptoms reported; No rash Psychiatric/Neurological: No Symptoms Reported Endocrine: No Symptoms Reported Hematologic/Lymphatic: No Symptoms Reported Past Pziqbyd-Cczkyk-Yzpeca Hx Patient Social History Tobacco Use?: No Substance use?: No Alcohol Use?: Yes Alcohol Frequency: Rarely Pt feels they are or have been: No Immunizations Up To Date Tetanus Booster (TDap): Less than 5yrs PED Vaccines UTD: No First/Initial COVID19 Vaccinat: june Second COVID19 Vaccination Panchito: july COVID19 Vaccine History Instructor: luis angel Seasonal Allergies Seasonal Allergies: No Past Medical History Surgery/Hospitalization HX: sx: t/a, c-sec, laparoscopy, hyst, l breast biopsy, cardiac cath with no stent placement-2014 Surgeries: Yes (LAPAROSCOPY X3-ENDOMETRIOSIS, LEFT BREAST BX) Abdominal, Breast, Section, Eye Surgery, Hysterectomy, Oophorectomy, Tonsillectomy, Tubal Ligation Respiratory: Yes (COVID + IN [place] 2020) Sleep Apnea Currently Using CPAP: No Currently Using BIPAP: No Cardiac: Yes High Cholesterol, Hypertension, Irregular Heartbeat Neurological: Yes 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 Reproductive Disorders: Yes (CPP, DUB) Female Reproductive Disorders: Endometriosis, Ovarian Cyst 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, 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 Sexually Transmitted Disease: No HIV/AIDS: No Genitourinary: Yes UTI-Chronic Gastrointestinal: Yes Colitis Musculoskeletal: Yes (NECK PAIN AND RIGHT ARM PAIN) Endocrine: No HEENT: Yes Cataract Loss of Vision: Bilateral Hearing Impairment: Denies Cancer: No Psychosocial: Yes Depression Integumentary: No Blood Disorders: No Adverse Reaction/Blood Tranf: No (N/A) Family Medical History Arthritis 19 MOTHER Gastroenteritis G8 BROTHER Headache disorder 19 MOTHER G8 SISTER Hypertension 19 FATHER Prostate cancer 19 FATHER GI Disease, Hypertension, Other Conditions/Hx Noncontributory Physical Exam Vital Signs Vital Signs - First Documented 11/23/20 18:22 Temp 35.9 Pulse 81 Resp 20 B/P (MAP) 157/91 (113) Pulse Ox 98 Capillary Refill : Less Than 3 Seconds Height/Weight/BMI Height: 5'5.00" Weight: 196lbs. oz. 88.800057sy; 31.00 BMI Method:Stated General Appearance: WD/WN, no apparent distress, other (DOES NOT APPEAR ILL OR TO BE IN ANY DISTRESS) Respiratory: chest non-tender, normal breath sounds, no respiratory distress, no accessory muscle use Cardiovascular: regular rate, rhythm, no murmur Gastrointestinal: normal bowel sounds, soft; No distended, No guarding, No rebound; tenderness (EPIGASTRIC, RUQ AND RIGHT FLANK TENDERNESS); No hernia, No mass Extremities: normal inspection Back: CVA tenderness (R) Neurologic/Psychiatric: buyer liaison II-XII nml as tested, no motor/sensory deficits, alert, normal mood/affect, oriented x 3 Skin: normal color, warm/dry; No rash Progress/Results/Core Measures Results/Orders Lab Results Laboratory Tests Test 11/23/20 18:19 11/23/20 18:46 8/6/21 19:39 Range/Units White Blood Count 12.1 H 4.3-11.0 10^3/uL Red Blood Count 4.07 3.80-5.11 10^6/uL Hemoglobin 10.8 L 11.5-16.0 g/dL Hematocrit 34 L 35-52 % Mean Corpuscular Volume 84 80-99 fL Mean Corpuscular Hemoglobin 27 25-34 pg Mean Corpuscular Hemoglobin Concent 32 32-36 g/dL Red Cell Distribution Width 15.4 H 10.0-14.5 % Platelet Count 413 H 130-400 10^3/uL Mean Platelet Volume 10.2 9.0-12.2 fL Immature Granulocyte % (Auto) 0 % Neutrophils (%) (Auto) 75 42-75 % Lymphocytes (%) (Auto) 18 12-44 % Monocytes (%) (Auto) 6 0-12 % Eosinophils (%) (Auto) 1 0-10 % Basophils (%) (Auto) 1 0-10 % Neutrophils # (Auto) 9.1 H 1.8-7.8 10^3/uL Lymphocytes # (Auto) 2.1 1.0-4.0 10^3/uL Monocytes # (Auto) 0.7 0.0-1.0 10^3/uL Eosinophils # (Auto) 0.1 0.0-0.3 10^3/uL Basophils # (Auto) 0.1 0.0-0.1 10^3/uL Immature Granulocyte # (Auto) 0.1 0.0-0.1 10^3/uL Influenza Type A (RT-PCR) Not Detected Not Detecte Influenza Type B (RT-PCR) Not Detected Not Detecte SARS-CoV-2 RNA (RT-PCR) Not Detected Not Detecte Sodium Level 136 135-145 MMOL/L Potassium Level 4.1 3.6-5.0 MMOL/L Chloride Level 101 98-107 MMOL/L Carbon Dioxide Level 24 21-32 MMOL/L Anion Gap 11 5-14 MMOL/L Blood Urea Nitrogen 20 H 7-18 MG/DL Creatinine 0.99 0.60-1.30 MG/DL Estimat Glomerular Filtration Rate 57 BUN/Creatinine Ratio 20 Glucose Level 99 70-105 MG/DL Calcium Level 9.6 8.5-10.1 MG/DL Corrected Calcium 9.7 8.5-10.1 MG/DL Magnesium Level 2.3 1.6-2.4 MG/DL Total Bilirubin 0.2 0.1-1.0 MG/DL Aspartate Amino Transf (AST/SGOT) 14 5-34 U/L Alanine Aminotransferase (ALT/SGPT) 20 0-55 U/L Alkaline Phosphatase 104 40-136 U/L Total Protein 7.0 6.4-8.2 GM/DL Albumin 3.9 3.2-4.5 GM/DL Amylase Level 104 25-125 U/L Lipase 33 8-78 U/L Urine Color YELLOW Urine Clarity CLEAR Urine pH 5.0 5-9 Urine Specific [place] 1.010 L 1.016-1.022 Urine Protein NEGATIVE NEGATIVE Urine Glucose (UA) NEGATIVE NEGATIVE Urine Ketones NEGATIVE NEGATIVE Urine Nitrite NEGATIVE NEGATIVE Urine Bilirubin NEGATIVE NEGATIVE Urine Urobilinogen 0.2 < = 1.0 MG/DL Urine Leukocyte Esterase TRACE H NEGATIVE Urine RBC (Auto) NEGATIVE NEGATIVE Urine RBC NONE /HPF Urine WBC NONE /HPF Urine Squamous Epithelial Cells NONE /HPF Urine Renal Epithelial Cells NONE /HPF Urine Crystals NONE /LPF Urine Bacteria NEGATIVE /HPF Urine Casts NONE /LPF Urine Mucus NEGATIVE /LPF Urine Culture Indicated NO My Orders Orders - CHELSEY GUERRA DO Covid 19 Inhouse Test (11/23/20 18:02) Influenza A And B By Pcr (11/23/20 18:02) Ed Iv/Invasive Line Start (11/23/20 18:46) Amylase (11/23/20 18:46) Cbc With Automated Diff (11/23/20 18:46) Comprehensive Metabolic Panel (11/23/20 18:46) Lipase (11/23/20 18:46) Magnesium (11/23/20 18:46) Ua Culture If Indicated (11/23/20 18:46) Ct Abd/Pelv W (Appendicitis) (11/23/20 19:37) Acute Abd Series (11/23/20 19:37) Ketorolac Injection (Toradol Injection) (11/23/20 19:37) Ondansetron Injection (Zofran Injectio (11/23/20 19:45) Iohexol Injection (Omnipaque 350 Mg/Ml 1 (11/23/20 20:45) Received Contrast (Hold Metformin- Contr (11/23/20 20:45) Ns (Ivpb) (Sodium Chloride 0.9% Ivpb Bag (11/23/20 20:45) Medications Given in ED Current Medications Medications Dose Ordered Sig/Litzy Route Start Time Stop Time Status Last Admin Dose Admin Iohexol 100 ml ONCE ONCE IV 11/23/20 20:45 11/23/20 20:46 DC 11/23/20 20:49 90 ML Ondansetron HCl 4 mg ONCE ONCE IVP 11/23/20 19:45 11/23/20 19:46 DC 11/23/20 19:46 4 MG Sodium Chloride 100 ml ONCE ONCE IV 11/23/20 20:45 11/23/20 20:46 DC 11/23/20 20:49 80 ML Vital Signs/I&O 11/23/20 18:22 Temp 35.9 Pulse 81 Resp 20 B/P (MAP) 157/91 (113) Pulse Ox 98 Blood Pressure Mean: 113 Departure Impression Primary Impression: Abdominal pain Additional Impression: Gastritis Disposition: 01 HOME, SELF-CARE Condition: Improved Departure-Patient Inst. Decision time for Depature: 21:05 Referrals: ASHU DOSHI RICK D MD (PCP/Family) Primary Care Physician Patient Instructions: Abdominal Pain, Adult ED, Gastritis ED Add. Discharge Instructions: AVOID ASPIRIN, IBUPROFEN, ALEVE, AND ALL OTHER ANTI-INFLAMMATORIES, INCLUDING MOBIC/MELOXICAM NO CAFFEINE AVOID ACIDIC FOODS OR DRINKS FOLLOW UP WITH DR. DOSHI, SURGEON, NEXT WEEK FOR FURTHER CARE All discharge instructions reviewed with patient and/or family. Voiced understanding. Scripts Ondansetron (Ondansetron Odt) 4 Mg Tab.rapdis 4 MG PO Q4H for Nausea/Vomiting, #10 TAB Prov: MARI,CHELSEY K DO 11/23/20 Sucralfate (Carafate) 1 Gm Tablet 1 GM PO QID, #60 TAB Prov: MARI,CHELSEY K DO 11/23/20 Pantoprazole Sodium (Protonix) 40 Mg Tablet. 40 MG PO DAILY, #15 TAB Prov: MARI,CHELSEY K DO 11/23/20 MARI,CHELSEY K DO Nov 23, 2020 19:13
[2020-11-23 19:26] LABS: ALBUMIN 3.9 GM/DL (3.2-4.5); BILIRUBIN,TOTAL 0.2 MG/DL (0.1-1.0); CALCIUM 9.6 MG/DL (8.5-10.1); CREATININE SERUM 0.99 MG/DL (0.60-1.30); MAGNESIUM 2.3 MG/DL (1.6-2.4); POTASSIUM 4.1 MMOL/L (3.6-5.0)
[2020-11-23] MEDS ORDERED: KETOROLAC 30 MG/ML VIAL IVP STA (19:37)
[2020-11-23] MEDS ORDERED: ONDANSETRON 4 MG/2 ML (SDV) Z0FRAN IVP ONE (19:45)
[2020-11-23 19:49] LABS: BILIRUBIN,URINE NEGATIVE (NEGATIVE); CLARITY,URINE CLEAR; COLOR,URINE YELLOW; GLUCOSE, URINE (UA) NEGATIVE (NEGATIVE); KETONES,URINE NEGATIVE (NEGATIVE); LEUKOCYTE ESTERASE ,URINE TRACE (NEGATIVE); NITRITE,URINE NEGATIVE (NEGATIVE); PROTEIN,URINE NEGATIVE (NEGATIVE)
[2020-11-23 19:58] LABS: BACTERIA,URINE NEGATIVE /HPF
[2020-11-23] MEDS ORDERED: IOHEXOL 350 MG/ML 100 ML (OMNIPAQUE 350) VIAL IV ONE (20:45)
[2020-11-23] MEDS ORDERED: HOLD METFORMIN - RECEIVED CONTRAST 20 ML VIAL IV SCH (20:45)
[2020-11-23] MEDS ORDERED: NS 100 ML (IVPB) BAG IV ONE (20:45)
--- NOTE | 2020-11-23 21:00 | Diagnostic Imaging Report ---
INDICATION: Abdominal pain and nausea. TECHNIQUE: Multiple contiguous axial images were obtained through the abdomen and pelvis after the administration of intravenous contrast. All CT scans use one or more of the following dose optimizing techniques: automated exposure control, MA and/or KvP adjustment based on patient size and exam type or iterative reconstruction. COMPARISON: 10/25/2020. FINDINGS: The visualized portions of the lung bases show dependent atelectatic changes in the lung bases. There is no pleural fluid or free intraperitoneal air. The liver and gallbladder appear normal. Spleen, adrenals and pancreas appear normal. The kidneys, bilaterally, appear unremarkable. There is no retroperitoneal mass or adenopathy. There is no ascites or abnormal fluid collection. Visualized bowel loops show prominent stool throughout the colon but no intestinal obstruction or intestinal wall thickening. There does appear to be some thickening of the gastric antrum with questionable area of ulceration along the gastric antrum. IMPRESSION: Thickening of the gastric antrum with questionable area of ulceration along the gastric antrum. Consider endoscopy for further evaluation, as clinically warranted. No abdominal mass or abscess. There is prominent stool throughout the colon but no sign of intestinal obstruction or intestinal wall thickening. Dictated by: Dictated on workstation # [id number]
[2020-11-23] MEDS ORDERED: PANT40TA2 PO (21:04)
[2020-11-23] MEDS ORDERED: SUCR1TAB36 PO (21:04)
[2020-11-23] MEDS ORDERED: ONDA4TAB11 PO (21:04)
--- NOTE | 2020-11-23 21:18 | Diagnostic Imaging Report ---
INDICATION: Abdominal pain. EXAMINATION: Abdominal series was obtained with a frontal chest radiograph and supine and upright abdominal films. FINDINGS: Frontal chest view shows the heart is normal in size with mediastinal silhouette unremarkable. The lungs are clear. There is no pneumothorax or pleural fluid. No free intraperitoneal air. Abdominal bowel gas pattern is nonobstructive. There is prominent stool throughout the colon. There is residual contrast in the kidneys and bladder. IMPRESSION: Prominent stool throughout the colon with no overt obstruction or ileus. There is no free intraperitoneal air. There is no acute abnormality in the chest. Dictated by: Dictated on workstation # [id number]
[2020-11-23 21:41] VITALS: BP 144/84
== END 2020-11-23 21:41 | disposition home or self-care (01) ==
LOC: EDUNIT# 17:46 → ER 17:49
DX: K29.70 Gastritis, unspecified, without bleeding (principal); I10 Essential (primary) hypertension; G47.30 Sleep apnea, unspecified; E78.00 Pure hypercholesterolemia, unspecified; F32.9 Major depressive disorder, single episode, unspecified; Z20.822 Contact with and (suspected) exposure to COVID-19; Z79.899 Other long term (current) drug therapy; Z79.82 Long term (current) use of aspirin
CPT/HCPCS: 36415; 74022; 74177; 80053; 81000; 82150; 83690; 83735; 85025; 87636

== ENCOUNTER 2021-02-04 09:29 | Observation (INO) | payer BC ==
[~2021-02-04] VITALS: Ht 165 cm; Wt 86.5 kg
[~2021-02-04 09:29] MED LIST changes: +ONDA4TAB11 PO; +PANT40TA2 PO; +SCOP1PAT10 TD; -SCOP1PAT11 TD; +SUCR1TAB36 PO; -VERA120T10 PO; +VERA120T27 PO
[2021-02-04 10:14] LABS: BASOPHILS % (AUTO) 0 % (0-10); EOSINOPHILS # (AUTO) 0.2 10^3/uL (0.0-0.3); EOSINOPHILS % (AUTO) 2 % (0-10); HEMATOCRIT 38 % (35-52); HEMOGLOBIN 11.2 g/dL (11.5-16.0); LYMPHOCYTES # (AUTO) 0.8 10^3/uL (1.0-4.0); LYMPHOCYTES % (AUTO) 7 % (12-44); MEAN CORPUSCULAR HEMOGLOBIN 24 pg (25-34); MEAN CORPUSCULAR HGB CONC 30 g/dL (32-36); MEAN CORPUSCULAR VOLUME 81 fL (80-99); MEAN PLATELET VOLUME 10.1 fL (9.0-12.2); MONOCYTES % (AUTO) 9 % (0-12); NEUTROPHILS # (AUTO) 9.3 10^3/uL (1.8-7.8); NEUTROPHILS % (AUTO) 82 % (42-75); PLATELET COUNT 401 10^3/uL (130-400); WHITE BLOOD COUNT 11.4 10^3/uL (4.3-11.0)
[2021-02-04] MEDS ORDERED: LACTATED RINGERS 1,000 ML IV ONE (10:15)
[2021-02-04 10:21] LABS: CHLORIDE 99 MMOL/L (98-107); POTASSIUM 4.5 MMOL/L (3.6-5.0); SODIUM 136 MMOL/L (135-145)
[2021-02-04 10:22] LABS: CALCIUM 9.8 MG/DL (8.5-10.1); FIBRIN DEGRADATION PRODUCTS 1.26 UG/ML (0.00-0.49); INR 0.9 (0.8-1.4); PROTHROMBIN TIME PATIENT 12.3 SEC (12.2-14.7)
[2021-02-04 10:23] LABS: GLUCOSE 102 MG/DL (70-105)
[2021-02-04 10:24] LABS: TOTAL PROTEIN 7.2 GM/DL (6.4-8.2)
[2021-02-04 10:25] LABS: BILIRUBIN,TOTAL 0.5 MG/DL (0.1-1.0); CARBON DIOXIDE 24 MMOL/L (21-32)
[2021-02-04 10:27] LABS: ALKALINE PHOSPHATASE 107 U/L (40-136); CREATININE SERUM 1.43 MG/DL (0.60-1.30); GFR ESTIMATED 37
[2021-02-04 10:28] LABS: BUN/CREATININE RATIO 12
[2021-02-04 10:30] LABS: ALANINE AMINOTRANSFERASE 28 U/L (0-55); LIPASE 17 U/L (8-78)
[2021-02-04 10:32] LABS: ANISOCYTOSIS SLIGHT; BAND NEUTROPHILS 6 %; BASOPHILS % (MANUAL) 1 %; EOSINOPHILS % (MANUAL) 1 %; LYMPHOCYTES % (MANUAL) 9 %; MICROCYTOSIS SLIGHT; MONOCYTES % (MANUAL) 3 %; NEUTROPHILS % (MANUAL) 80 %
--- NOTE | 2021-02-04 10:33 | Diagnostic Imaging Report ---
EXAMINATION: Portable erect AP chest at 7:17 AM. INDICATION: Dizziness, abdominal pain. FINDINGS: The heart size is stable when compared to the prior exam of 04/26/2020. The previous study did show diffuse alveolar/interstitial pulmonary infiltrates bilaterally. By history, the patient did have a diagnosis of Covid 19. On this exam, both lungs appear much better aerated. There is little (if any) residual pneumonia/atelectasis still present. There is no significant pleural effusion identified. The mediastinum is not widened. The osseous structures are intact. IMPRESSION: 1. The appearance of the chest has improved considerably since the prior exam as both lungs are much better aerated. There is no evidence for active disease at this time. 2. Reportedly, CTA of the chest is pending for further study. Dictated by: Dictated on workstation # [id number]
--- NOTE | 2021-02-04 10:37 | ED Abdominal Pain ---
General Chief Complaint: Abdominal/GI Problems Stated Complaint: DIZZINESS,ABD PAIN Nursing Triage Note: PT AMB TO [facility] 6 WITH COMPLAINT OF DIZZINESS AND ABD PAIN. STATES SYMPTOMS INITIALLY STARTED IN [place] WHEN SHE HAD COVID. STATES END OF SHE HAD COLITIS WHILE IN [place]. Source of Information: Patient Exam Limitations: No Limitations History of Present Illness Date Seen by Provider: Feb 04, 2021 Time Seen by Provider: 09:35 Initial Comments 60-year-old female with past medical history of recent Covid infection in April coming in due to lightheadedness, general fatigue, abdominal cramping, and shortness of breath. She says she has never felt right since having Covid, and she has been to the hospital numerous times since then. She has been diagnosed with colitis a couple of times. She says the abdominal cramping feels somewhat like that, but not as bad. She did just drive back from [facility] which took a couple of days. Generally just feels more fatigued. She says she is dizzy but when she quantifies that she says it is more of a lightheaded feeling where she has some speckles in her vision every once in a while. Denies any previous cardiac history including heart attack. Denies any prior history of blood clots. Has been eating and drinking normally. No nausea, vomiting, diarrhea, fever, focal weakness or numbness, chest pain, or any other concerns. Allergies and Home Medications Allergies Coded Allergies: amoxicillin (Verified Allergy, Unknown, 06/19/16) clavulanic acid (Verified Allergy, Unknown, 06/19/16) diphenhydramine (Unverified Allergy, Unknown, "hebby jebby", 06/19/16) latex (Verified Allergy, Unknown, 08/27/16) Patient Home Medication List Home Medication List Reviewed: Yes Acetaminophen (Tylenol Extra Strength) 500 Mg Tablet, 500-1,000 MG PO Q6H PRN for PAIN-MILD (1-4), (Reported) Entered as Reported by: KORIN JENSEN on 08/27/20 1329 Aspirin/Acetaminophen/Caffeine (Excedrin Migraine Caplet) 1 Each Tablet, 2 EACH PO Q6-8HR PRN for Headache, (Reported) Entered as Reported by: KORIN JENSEN on 08/27/20 1329 Atorvastatin Calcium (Atorvastatin Calcium) 10 Mg Tablet, 10 MG PO HS, (Reported) Entered as Reported by: TARAS ARMENDARIZ on 05/30/16 162 Buspirone HCl (Buspirone HCl) 10 Mg Tablet, 10 MG PO BID, (Reported) Entered as Reported by: KORIN JENSEN on 04/17/20 143 Cholecalciferol (Vitamin D3) (Vitamin D3) 25 Mcg Capsule, 25 MCG PO DAILY, (Reported) Entered as Reported by: KORIN JENSEN on 08/27/20 132 Cyanocobalamin (Vitamin B-12) (Vitamin B-12) 500 Mcg Tablet, 500 MCG PO DAILY, (Reported) Entered as Reported by: KORIN JENSEN on 08/27/20 132 Diltiazem HCl (Diltiazem 24Hr ER) 240 Mg Cap.er.24h, 240 MG PO DAILY, (Reported) Entered as Reported by: KORIN JENSEN on 08/27/20 132 Duloxetine HCl (Duloxetine HCl) 60 Mg Capsule.dr, 60 MG PO DAILY, (Reported) Entered as Reported by: KORIN JENSEN on 04/17/20 143 Enalapril Maleate (Enalapril Maleate) 20 Mg Tablet, 20 MG PO HS, (Reported) Entered as Reported by: CHRIS HOWARD on 06/19/161999 Estradiol (Estrace Tablet) 1 Mg Tablet, 1 MG PO HS, (Reported) Entered as Reported by: KORIN JENSEN on 04/17/20 143 L.acidoph & Paracasei,B.lactis (Probiotic) 1 Each Capsule, 1 EACH PO DAILY, (Reported) Entered as Reported by: KORIN JENSEN on 08/27/20 132 Meloxicam (Meloxicam) 15 Mg Tablet, 15 MG PO DAILY, (Reported) Entered as Reported by: KORIN JENSEN on 08/27/20 132 Multivitamin/Iron/Folic Acid (Centrum Women Tablet) 1 Each Tablet, 1 EACH PO DAILY, (Reported) Entered as Reported by: KORIN JENSEN on 08/27/20 132 Nortriptyline HCl (Nortriptyline HCl) 25 Mg Capsule, 75 MG PO HS, (Reported) Entered as Reported by: TARAS ARMENDARIZ on 05/30/16 162 [place]-3 Fatty Acids/Fish Oil ([place] 3 Fish Oil Softgel) 1 Each Capsule.dr, 1 EACH PO DAILY, (Reported) Entered as Reported by: KORIN JENSEN on 08/27/20 132 Ondansetron (Ondansetron Odt) 4 Mg Tab.rapdis, 4 MG PO Q4H Prescribed by: CHELSEY GUERRA on 11/23/202103 Oxycodone HCl (Oxycodone HCl) 5 Mg Tablet, 5 MG PO Q4H PRN for PAIN-SEVERE (8- 10) Prescribed by: MISTY HERNANDES on 08/29/20 111 Pantoprazole Sodium (Protonix) 40 Mg Tablet.dr, 40 MG PO DAILY Prescribed by: CHELSEY GUERRA on 11/23/202103 Pregabalin (Lyrica) 100 Mg Capsule, 100 MG PO BID, (Reported) Entered as Reported by: KORIN JENSEN on 04/17/20 143 Sucralfate (Carafate) 1 Gm Tablet, 1 GM PO QID Prescribed by: CHELSEY GUERRA on 11/23/202103 Tizanidine HCl (Tizanidine HCl) 4 Mg Tablet, 4 MG PO BID PRN for MUSCLE SPASMS, (Reported) Entered as Reported by: KORIN JENSEN on 04/17/20 1435 Verapamil HCl (Verapamil ER) 120 Mg Tablet.er, 120 MG PO HS, (Reported) Entered as Reported by: KORIN JENSEN on 08/27/20 1329 Review of Systems Review of Systems Constitutional: No chills; dizziness; No fever EENTM: No Blurred Vision Respiratory: Denies Cough; Shortness of Air Cardiovascular: Denies Chest Pain Gastrointestinal: Abdominal Pain; Denies Diarrhea, Denies Nausea, Denies Vomiting Genitourinary: No Symptoms Reported Musculoskeletal: no symptoms reported Skin: no symptoms reported Psychiatric/Neurological: No Symptoms Reported Endocrine: No Symptoms Reported Hematologic/Lymphatic: No Symptoms Reported All Other Systems Reviewed Negative Unless Noted: Yes Past Rgzvbra-Dizwbz-Qpcqhg Hx Patient Social History Tobacco Use?: No Use of E-Cig and/or Vaping dev: No Substance use?: No Alcohol Use?: No Pt feels they are or have been: No Immunizations Up To Date Tetanus Booster (TDap): Less than 5yrs PED Vaccines UTD: No First/Initial COVID19 Vaccinat: june COVID19 Vaccination Panchito: july COVID19 Vaccine Word Processor: XANDER Seasonal Allergies Seasonal Allergies: No Past Medical History Surgery/Hospitalization HX: sx: t/a, c-sec, laparoscopy, hyst, l breast biopsy, cardiac cath with no stent placement-2014 Surgeries: Yes (LAPAROSCOPY X3-ENDOMETRIOSIS, LEFT BREAST BX) Abdominal, Breast, Section, Eye Surgery, Hysterectomy, Oophorectomy, Tonsillectomy, Tubal Ligation Respiratory: Yes (COVID + IN [place] 2020) Sleep Apnea Currently Using CPAP: No Currently Using BIPAP: No Cardiac: Yes High Cholesterol, Hypertension, Irregular Heartbeat Neurological: Yes 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 Reproductive Disorders: Yes (CPP, DUB) Female Reproductive Disorders: Endometriosis, Ovarian Cyst 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, 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 Sexually Transmitted Disease: No HIV/AIDS: No Genitourinary: Yes UTI-Chronic Gastrointestinal: Yes Colitis Musculoskeletal: Yes (NECK PAIN AND RIGHT ARM PAIN) Endocrine: No HEENT: Yes Cataract Loss of Vision: Bilateral Hearing Impairment: Denies Cancer: No Psychosocial: Yes Depression Integumentary: No Blood Disorders: No Adverse Reaction/Blood Tranf: No (N/A) Family Medical History Arthritis 19 MOTHER Gastroenteritis G8 BROTHER Headache disorder 19 MOTHER G8 SISTER Hypertension 19 FATHER Prostate cancer 19 FATHER GI Disease, Hypertension, Other Conditions/Hx Noncontributory Physical Exam Vital Signs Vital Signs - First Documented 02/04/21 09:40 Temp 35.9 Pulse 102 Resp 15 B/P (MAP) 105/62 (76) Pulse Ox 95 O2 Delivery Room Air Capillary Refill : Less Than 3 Seconds Height/Weight/BMI Height: 5'5.00" Weight: 196lbs. oz. 88.702420yh; 30.00 BMI Method:Stated General Appearance: WD/WN, no apparent distress HEENT: PERRL/EOMI, normal ENT inspection, TMs normal, pharynx normal Neck: non-tender, full range of motion, supple, normal inspection Respiratory: chest non-tender, lungs clear, normal breath sounds, no respiratory distress, no accessory muscle use Cardiovascular: regular rate, rhythm, no edema, no murmur Gastrointestinal: normal bowel sounds, non tender, soft; No distended, No guarding, No rebound Extremities: normal range of motion, non-tender, normal inspection, no pedal edema, no calf tenderness, normal capillary refill Back: normal inspection, no CVA tenderness, no vertebral tenderness 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, no motor/sensory deficits, alert, normal mood/affect, oriented x 3 Skin: normal color, warm/dry Lymphatic: no adenopathy Progress/Results/Core Measures Results/Orders Lab Results Laboratory Tests Test 02/04/21 09:44 Range/Units White Blood Count 11.4 H 4.3-11.0 10^3/uL Red Blood Count 4.61 3.80-5.11 10^6/uL Hemoglobin 11.2 L 11.5-16.0 g/dL Hematocrit 38 35-52 % Mean Corpuscular Volume 81 80-99 fL Mean Corpuscular Hemoglobin 24 L 25-34 pg Mean Corpuscular Hemoglobin Concent 30 L 32-36 g/dL Red Cell Distribution Width 17.4 H 10.0-14.5 % Platelet Count 401 H 130-400 10^3/uL Mean Platelet Volume 10.1 9.0-12.2 fL Immature Granulocyte % (Auto) 1 % Neutrophils (%) (Auto) 82 H 42-75 % Lymphocytes (%) (Auto) 7 L 12-44 % Monocytes (%) (Auto) 9 0-12 % Eosinophils (%) (Auto) 2 0-10 % Basophils (%) (Auto) 0 0-10 % Neutrophils # (Auto) 9.3 H 1.8-7.8 10^3/uL Lymphocytes # (Auto) 0.8 L 1.0-4.0 10^3/uL Monocytes # (Auto) 1.0 0.0-1.0 10^3/uL Eosinophils # (Auto) 0.2 0.0-0.3 10^3/uL Basophils # (Auto) 0.0 0.0-0.1 10^3/uL Immature Granulocyte # (Auto) 0.1 0.0-0.1 10^3/uL Neutrophils % (Manual) 80 % Lymphocytes % (Manual) 9 % Monocytes % (Manual) 3 % Eosinophils % (Manual) 1 % Basophils % (Manual) 1 % Band Neutrophils 6 % Anisocytosis SLIGHT Microcytosis SLIGHT Prothrombin Time 12.3 12.2-14.7 SEC INR Comment 0.9 0.8-1.4 D-Dimer 1.26 H 0.00-0.49 UG/ML Sodium Level 136 135-145 MMOL/L Potassium Level 4.5 3.6-5.0 MMOL/L Chloride Level 99 98-107 MMOL/L Carbon Dioxide Level 24 21-32 MMOL/L Anion Gap 13 5-14 MMOL/L Blood Urea Nitrogen 17 7-18 MG/DL Creatinine 1.43 H 0.60-1.30 MG/DL Estimat Glomerular Filtration Rate 37 BUN/Creatinine Ratio 12 Glucose Level 102 70-105 MG/DL Calcium Level 9.8 8.5-10.1 MG/DL Corrected Calcium 9.8 8.5-10.1 MG/DL Total Bilirubin 0.5 0.1-1.0 MG/DL Aspartate Amino Transf (AST/SGOT) 19 5-34 U/L Alanine Aminotransferase (ALT/SGPT) 28 0-55 U/L Alkaline Phosphatase 107 40-136 U/L Troponin I < 0.028 <0.028 NG/ML B-Type Natriuretic Peptide 14.4 <100.0 PG/ML Total Protein 7.2 6.4-8.2 GM/DL Albumin 4.0 3.2-4.5 GM/DL Lipase 17 8-78 U/L My Orders Orders - JENS RICKS MD Chest 1 View, Ap/Pa Only (02/04/21 10:08) BNP (02/04/21 10:08) Cbc With Automated Diff (02/04/21 10:08) Comprehensive Metabolic Panel (02/04/21 10:08) Fibrin Degradation Products (02/04/21 10:08) Lipase (02/04/21 10:08) Protime With Inr (02/04/21 10:08) Troponin I (02/04/21 10:08) Ekg Tracing (02/04/21 10:08) Monitor-Rhythm Ecg Trace Only (02/04/21 10:08) Lactated Ringers (Lr 1000 Ml Iv Solution (02/04/21 10:15) Manual Differential (02/04/21 09:44) Ct Angio Chest W (02/04/21 10:51) Ketorolac Injection (Toradol Injection) (02/04/21 11:15) Iohexol Injection (Omnipaque 350 Mg/Ml 1 (02/04/21 11:30) Received Contrast (Hold Metformin- Contr (02/04/21 11:30) Ns (Ivpb) (Sodium Chloride 0.9% Ivpb Bag (02/04/21 11:30) Enoxaparin Injection (Lovenox Injection) (02/04/21 12:15) Medications Given in ED Current Medications Medications Dose Ordered Sig/Litzy Route Start Time Stop Time Status Last Admin Dose Admin Iohexol 100 ml ONCE ONCE IV 02/04/21 11:30 02/04/21 11:31 DC 02/04/21 11:36 73 ML Ketorolac Tromethamine 15 mg ONCE ONCE IVP 02/04/21 11:15 02/04/21 11:16 DC 02/04/21 11:42 15 MG Lactated Ringer's 1,000 ml @ 0 mls/hr Q0M ONCE IV 02/04/21 10:15 02/04/21 10:16 DC 02/04/21 10:15 0 MLS/HR Sodium Chloride 100 ml ONCE ONCE IV 02/04/21 11:30 02/04/21 11:31 DC 02/04/21 11:36 80 ML Vital Signs/I&O 02/04/21 09:40 Temp 35.9 Pulse 102 Resp 15 B/P (MAP) 105/62 (76) Pulse Ox 95 O2 Delivery Room Air Blood Pressure Mean: 76 Progress Progress Note : Progress Note 60-year-old female with above history coming in due to vague symptoms most notably lightheadedness, abdominal cramping, now intermittently short of breath. ABCs were intact and vitals were stable on presentation. During my interview with the patient, she had a transient episode where her oxygen was around 90%. And then went back up to 98% without intervention and stayed high. Unsure if this is clinically relevant. However, she did have a long drive recently and she is feeling short of breath, and PE is on the differential. She is otherwise low risk for a PE, so we will further restratify her with a D-dimer. D-dimer was positive. CTA ordered. Her GFR is slightly low at 37 so she was given IV fluids as well. I called and discussed the case with the radiologist on-call and she does not fact have small bilateral pulmonary emboli. She then became consistently hypoxic to the high 80s and required 2 L oxygen. She was given 1 mg/kg of Lovenox, and I discussed the case with the hospitalist on-call Dr. Sheehan who will admit the patient under observation status to the stepdown unit. Initial ECG Impression Date: Feb 04, 2021 Initial ECG Impression Time: 10:15 Initial ECG Rate: 82 Initial ECG Rhythm: Normal Sinus Comment Narrow QRS, left axis deviation, no significant ST changes, flattening of the T waves anteriorly and inferiorly Departure Impression Primary Impression: Pulmonary emboli Qualified Codes: I26.99 - Other pulmonary embolism without acute cor pulmonale Additional Impression: Hypoxia Disposition: 09 ADMITTED INPATIENT Condition: Stable Departure-Patient Inst. Referrals: EARNEST MIJARES MD (PCP/Family) Primary Care Physician JENS RICKS MD Feb 04, 2021 10:37
[2021-02-04] MEDS ORDERED: KETOROLAC 30 MG/ML VIAL IVP ONE (11:15)
[2021-02-04] MEDS ORDERED: IOHEXOL 350 MG/ML 100 ML (OMNIPAQUE 350) VIAL IV ONE (11:30)
[2021-02-04] MEDS ORDERED: HOLD METFORMIN - RECEIVED CONTRAST 20 ML VIAL IV SCH (11:30)
[2021-02-04] MEDS ORDERED: NS 100 ML (IVPB) BAG IV ONE (11:30)
--- NOTE | 2021-02-04 12:07 | Diagnostic Imaging Report ---
PROCEDURE: CT angiography of the chest with contrast. TECHNIQUE: Multiple contiguous axial images were obtained through the chest after uneventful bolus administration of intravenous contrast. 3D reconstructed CTA MIP acquisitions were also performed. Auto Exposure Controls were utilized during the CT exam to meet ALARA standards for radiation dose reduction. INDICATION: Shortness of breath. There are no prior CTA chest examinations available for comparison. The plain film examination of the chest performed on 06/12/2018 failed to show any sign of an acute abnormality. On this study there are small defects within the pulmonary arteries to each lung base. These do suggest pulmonary emboli. There is no other defect within the pulmonary arterial system identified. The aorta is not abnormality dilated and there is no sign of a dissection. The heart size is within normal limits. There is no mediastinal or hilar adenopathy. The thyroid gland is generally unremarkable although it was partially obstructed by streak artifact. There are patchy alveolar/interstitial infiltrates involving both lungs. These findings do suggest mild pneumonia/atelectasis. There is no sign of a pleural effusion. There is no obvious breast mass. The sections through the upper abdomen failed to show any sign of an acute abnormality. 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 The bone windows are unremarkable for fracture or for destructive lesion. IMPRESSION: 1. There are small emboli in the pulmonaries to each lung base. 2. There are also patchy areas of pneumonia/atelectasis involving both lungs. 3. There is no acute cardiopulmonary abnormality noted otherwise. 4. 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 5. These results were discussed with Dr. Haroon Odonnell at the time of this dictation. Critical finding Dictated by: Dictated on workstation # [id number]
[2021-02-04] MEDS ORDERED: ENOXAPARIN 80 MG/0.8 ML (LOVENOX) SYR SC ONE (12:15)
[2021-02-04 13:10] VITALS: BP 119/70
--- NOTE | 2021-02-04 13:18 | History & Physical-Hospitalist ---
History of Present Illness HPI/Chief Complaint Pt is a 60yoCF with a PMH of HTN, HLD, anxiety, chronic pain, neuropathy who presented to the ER due to feeling light headed and having SOB. She has COVID in April of 2020. She was at work this morning and started to get lightheaded and was seeing spots prompting her to seek evaluation in the emergency department. She states she has had shortness of breath and abdominal issues since she had Covid in April and thought it was due to that. She was also treated for colitis while she was visiting her kids in [place] a couple of weeks ago. She has not had follow up for that yet. She denies any chest pain but does have shortness of breath. A D-dimer was checked and was elevated so CTA of her chest was done which revealed small bilateral pulmonary emboli. She is being given Lovenox is being admitted for further management. She is currently satting 97% on 1 Lpm. She is normally on estradiol hormone replacement but has actually been out for about a week waiting on the refill. She also drove back from [place]. Date Seen 02/04/21 Time Seen by a Provider: 13:13 Attending Physician Melina Sheehan MD PCP Clark Portillo MD Referring Physician Date of Admission Feb 04, 2021 at 12:10 Home Medications & Allergies Home Medications Reviewed patient Home Medication Reconciliation performed by pharmacy medication reconciliations set up technician and/or nursing. Patients Allergies have been reviewed. Allergies Allergies Coded Allergies amoxicillin (Verified Allergy, Unknown, 06/19/16) clavulanic acid (Verified Allergy, Unknown, 06/19/16) diphenhydramine (Unverified Allergy, Unknown, "hebby jebby", 06/19/16) latex (Verified Allergy, Unknown, 08/27/16) Past Jpspurj-Efvdtm-Occjrg Hx Patient Social History Marrital Status: Employed/Student: employed Tobacco Use?: No Smoking Status: Never a Smoker Use of E-Cig and/or Vaping dev: No Substance use?: No Alcohol Use?: No Pt feels they are or have been: No Immunizations Up To Date Date of Influenza Vaccine: Jan 18, 2021 First/Initial COVID19 Vaccinat: june Second COVID19 Vaccination Panchito: july Tetanus Booster (TDap): Unknown Hepatitis A: Yes Hepatitis B: Yes PED Vaccines UTD: No Seasonal Allergies Seasonal Allergies: No Current Status Advance Directives: No Primary Language: Tristanian Preferred Spoken Language: Tristanian Past Medical History Surgeries: Abdominal, Breast, Section, Eye Surgery, Hysterectomy, Oophorectomy, Tonsillectomy, Tubal Ligation Sleep Apnea Currently Using CPAP: No Currently Using BIPAP: No High Cholesterol, Hypertension, Irregular Heartbeat 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, 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 Sexually Transmitted Disease: No HIV/AIDS: No UTI-Chronic Colitis Cataract Loss of Vision: Bilateral Hearing Impairment: Denies Depression Blood Disorders: No Adverse Reaction/Blood Tranf: No (N/A) Hypertension Hyperlipidemia Obesity Chronic pain Family Medical History Reviewed Nursing Family Hx Arthritis 19 MOTHER Gastroenteritis G8 BROTHER Headache disorder 19 MOTHER G8 SISTER Hypertension 19 FATHER Prostate cancer 19 FATHER GI Disease, Hypertension, Other Conditions/Hx Review of Systems Constitutional: No fever EENTM: no symptoms reported Respiratory: dyspnea on exertion; No hemoptysis; short of breath; No wheezing Cardiovascular: No chest pain, No edema, No Hx of Intervention, No syncope (but lightheadedness) Gastrointestinal: see HPI, abdominal pain Genitourinary: no symptoms reported Musculoskeletal: no symptoms reported Skin: no symptoms reported Psychiatric/Neurological: No Symptoms Reported All Other Systems Reviewed Negative Unless Noted: Yes (Negative excepted noted.) Physical Exam Physical Exam Vital Signs Vital Signs - First Documented 02/04/21 02/04/21 09:40 12:55 Temp 35.9 Pulse 102 Resp 15 B/P (MAP) 105/62 (76) Pulse Ox 95 O2 Delivery Room Air O2 Flow Rate 2.00 Capillary Refill : Less Than 3 Seconds Height, Weight, BMI Height: 5'5.00" Weight: 196lbs. oz. 88.500719hy; 30.00 BMI Method:Stated General Appearance: No Apparent Distress, WD/WN HEENT: PERRL/EOMI; No Scleral Icterus (L), No Scleral Icterus (R); Other ( mask in place-obscuring oral exam) Neck: Normal Inspection, Supple Respiratory: Lungs Clear, No Accessory Muscle Use, No Respiratory Distress, Other (on 1lpm NC) Cardiovascular: Regular Rate, Rhythm, No JVD, No Murmur Gastrointestinal: Normal Bowel Sounds, Non Tender, Soft Extremity: Normal Capillary Refill, No Calf Tenderness, No Pedal Edema Neurologic/Psychiatric: Alert, Oriented x3, Normal Mood/Affect Skin: Normal Color, Warm/Dry Results Results/Procedures Labs Laboratory Tests 02/04/21 09:44 Patient resulted labs reviewed. Imaging: Reviewed Imaging Report Imaging [facility] [place], [place] NAME: EMILE BOYER [facility] REC#: [id number] PT STATUS: REG ER : 1960 PHYSICIAN: JENS RICKS MD ADMIT DATE: 02/04/21/ER Draft Date of Exam:02/04/21 CHEST 1 VIEW, AP/PA ONLY EXAMINATION: Portable erect AP chest at 7:17 AM. INDICATION: Dizziness, abdominal pain. FINDINGS: The heart size is stable when compared to the prior exam of 04/26/2020. The previous study did show diffuse alveolar/interstitial pulmonary infiltrates bilaterally. By history, the patient did have a diagnosis of Covid 19. On this exam, both lungs appear much better aerated. There is little (if any) residual pneumonia/atelectasis still present. There is no significant pleural effusion identified. The mediastinum is not widened. The osseous structures are intact. IMPRESSION: The appearance of the chest has improved considerably since the prior exam as both lungs are much better aerated. There is no evidence for active disease at this time. Dictated on workstation # [id number] Dict: 02/04/21 1029 Trans: 02/04/21 1032 [id number] Interpreted by: ZAHRA ESCALONA MD Electronically signed by: Assessment/Plan Admission Diagnosis Bilateral pulmonary emboli Admission Status: Observation Reason for Inpatient Admission: see below Assessment and Plan Bilateral pulmonary emboli If not for hypoxia could have been managed at home Already on 1lpm and satting 97% Attempt to wean off and transition to oral anticoagulation Advise against refilling HRT upon discharge and to follow up with PCP regarding continued use Hopefully home tomorrow HTN BP somewhat soft at 105/62 given normal hypertension Hold home antihypertensives and monitor on step down Anxiety HLD Chronic pain Continue home meds DVt ppx: as above Diagnosis/Problems Diagnosis/Problems (1) Pulmonary emboli Status: Acute Qualifiers: Pulmonary embolism type: multiple subsegmental (without acute cor pulmonale) Qualified Codes: I26.94 - Multiple subsegmental pulmonary emboli without acute cor pulmonale (2) HLD (hyperlipidemia) Qualifiers: Hyperlipidemia type: unspecified Qualified Codes: E78.5 - Hyperlipidemia, unspecified (3) Hypertension Status: Chronic Qualifiers: Hypertension type: primary hypertension Qualified Codes: I10 - Essential (primary) hypertension (4) Anxiety Status: Chronic (5) Chronic pain Status: Chronic Qualifiers: Chronic pain type: other chronic pain Qualified Codes: G89.29 - Other chronic pain (6) On hormone replacement therapy Status: Acute (7) Hypoxia Status: Acute MELINA SHEEHAN MD Feb 04, 2021 13:18
[2021-02-04] MEDS ORDERED: CATHETER FLUSH 10 ML SYR IV PRN (13:30)
[2021-02-04] MEDS ORDERED: POLY17PO6 PO (14:07)
[2021-02-04] MEDS ORDERED: PREG100C55 PO (14:07)
[2021-02-04] MEDS ORDERED: OXYC1TAB11 PO (14:07)
[2021-02-04] MEDS ORDERED: ONDA4TAB11 PO (14:07)
[2021-02-04] MEDS ORDERED: CALC10009 PO (14:07)
[2021-02-04 14:31] VITALS: BP 111/68
[2021-02-04 16:04] VITALS: BP 116/63
[2021-02-04] MEDS: CATHETER FLUSH 10 ML SYR IV SCH ×2 (16:06→22:13)
[2021-02-04] MEDS ORDERED: CALCIUM CARBONATE 500 MG (TUMS) TAB.CHEW PO PRN (16:15)
[2021-02-04] MEDS ORDERED: polyethylene glycoL POWDER 17 GM (MIRALAX) PACK PO PRN (16:15)
[2021-02-04] MEDS ORDERED: ACETAMINOPHEN 500 MG TAB (TYLENOL) PO PRN (16:15)
[2021-02-04] MEDS: oxyCODONE/APAP 5/325MG (PERCOCET 5) TABLET PO PRN ×2 (16:41→22:23)
[2021-02-04 19:46] VITALS: BP 130/74
[2021-02-04] MEDS ORDERED: NORTRIPTYLINE 25 MG (PAMELOR) CAP PO SCH (21:00)
[2021-02-04] MEDS ORDERED: busPIRone 10 MG (BUSPAR) TAB PO SCH (21:00)
[2021-02-04] MEDS ORDERED: ENALAPRIL 10 MG (VASOTEC) TAB PO SCH (21:00)
[2021-02-04] MEDS ORDERED: APIXABAN 5 MG (ELIQUIS) TABLET PO SCH (21:00)
[2021-02-04] MEDS ORDERED: PREGABALIN 100 MG (LYRICA) CAPSULE PO SCH (21:00)
[2021-02-04] MEDS ORDERED: AtorvaSTATin TABLET 10 MG TABLET PO SCH (21:00)
[2021-02-04 23:27] VITALS: BP 120/71
[2021-02-05] MEDS ORDERED: ENOXAPARIN 80 MG/0.8 ML (LOVENOX) SYR SC SCH
[2021-02-05 03:28] VITALS: BP 115/68
[2021-02-05 04:56] LABS: HEMATOCRIT 32 % (35-52); HEMOGLOBIN 9.5 g/dL (11.5-16.0); MEAN CORPUSCULAR HEMOGLOBIN 24 pg (25-34); MEAN CORPUSCULAR HGB CONC 30 g/dL (32-36); MEAN CORPUSCULAR VOLUME 81 fL (80-99); MEAN PLATELET VOLUME 10.2 fL (9.0-12.2); PLATELET COUNT 297 10^3/uL (130-400); WHITE BLOOD COUNT 6.3 10^3/uL (4.3-11.0)
[2021-02-05 05:06] LABS: POTASSIUM 4.4 MMOL/L (3.6-5.0)
[2021-02-05 05:08] LABS: CALCIUM 8.8 MG/DL (8.5-10.1)
[2021-02-05 05:12] LABS: CREATININE SERUM 0.94 MG/DL (0.60-1.30)
[2021-02-05] MEDS: CATHETER FLUSH 10 ML SYR IV SCH (05:12)
[2021-02-05] MEDS: oxyCODONE/APAP 5/325MG (PERCOCET 5) TABLET PO PRN (05:15)
[2021-02-05 08:11] VITALS: BP 97/41
[2021-02-05] MEDS ORDERED: PATIENT MAY USE OWN MEDS, ALL MC SCH (08:30)
[2021-02-05] MEDS ORDERED: DULoxetine 30 MG (CYMBALTA) CAP PO SCH (09:00)
[2021-02-05] MEDS ORDERED: MELOXICAM 7.5 MG (MOBIC) TABLET PO SCH (09:00)
[2021-02-05] MEDS ORDERED: APIXABAN 5 MG (ELIQUIS) TABLET PO SCH (09:00)
--- NOTE | 2021-02-05 09:10 | Discharge Summary ---
Diagnosis/Chief Complaint Date of Admission Feb 04, 2021 at 12:10 Date of Discharge Discharge Date: Feb 04, 2021 Admission Diagnosis Bilateral pulmonary emboli Primary Care Clark Mijares MD Discharge Diagnosis (1) Pulmonary emboli Status: Acute (2) HLD (hyperlipidemia) (3) Hypertension Status: Chronic (4) Anxiety Status: Chronic (5) Chronic pain Status: Chronic (6) On hormone replacement therapy Status: Acute (7) Hypoxia Status: Acute Discharge Summary Discharge Physical Exam Allergies: Coded Allergies: amoxicillin (Verified Allergy, Unknown, 06/19/16) clavulanic acid (Verified Allergy, Unknown, 06/19/16) diphenhydramine (Unverified Allergy, Unknown, "hebby jebby", 06/19/16) latex (Verified Allergy, Unknown, 08/27/16) Vitals & I&Os Vital Signs Date Time Temp Pulse Resp B/P (MAP) Pulse Ox O2 Delivery O2 Flow Rate FiO2 02/05/21 08:19 Nasal Cannula 2.00 02/05/21 08:11 36.2 80 16 97/41 (59) 96 General Appearance: No Apparent Distress, WD/WN Respiratory: Lungs Clear, No Respiratory Distress Cardiovascular: Regular Rate, Rhythm, No Murmur Gastrointestinal: Normal Bowel Sounds, Non Tender, Soft Neurologic/Psychiatric: Alert, Oriented x3 Hospital Course . Patient 6-year-old female who was admitted to the hospital due to bilateral subsegmental pulmonary emboli. She was mildly hypoxic. She was treated with Lovenox in the emergency room and transition to Eliquis. She tolerated this well. She was tested for oxygen prior to discharge which revealed she was discharged home in stable and improved condition to follow-up with her primary care doctor, Dr. Mijares to follow-up this hospital stay. Labs (last 24 hrs) Laboratory Tests 02/04/21 09:44: White Blood Count 11.4H, Red Blood Count 4.61, Hemoglobin 11.2L, Hematocrit 38, Mean Corpuscular Volume 81, Mean Corpuscular Hemoglobin 24L, Mean Corpuscular Hemoglobin Concent 30L, Red Cell Distribution Width 17.4H, Platelet Count 401H, Mean Platelet Volume 10.1, Immature Granulocyte % (Auto) 1, Neutrophils (%) (Auto) 82H, Lymphocytes (%) (Auto) 7L, Monocytes (%) (Auto) 9, Eosinophils (%) (Auto) 2, Basophils (%) (Auto) 0, Neutrophils # (Auto) 9.3H, Lymphocytes # (Auto) 0.8L, Monocytes # (Auto) 1.0, Eosinophils # (Auto) 0.2, Basophils # (Auto) 0.0, Immature Granulocyte # (Auto) 0.1, Neutrophils % (Manual) 80, Lymphocytes % (Manual) 9, Monocytes % (Manual) 3, Eosinophils % (Manual) 1, Basophils % (Manual) 1, Band Neutrophils 6, Anisocytosis SLIGHT, Microcytosis SLIGHT, Prothrombin Time 12.3, INR Comment 0.9, D-Dimer 1.26H, Sodium Level 136, Potassium Level 4.5, Chloride Level 99, Carbon Dioxide Level 24, Anion Gap 13, Blood Urea Nitrogen 17, Creatinine 1.43H, Estimat Glomerular Filtration Rate 37, BUN/Creatinine Ratio 12, Glucose Level 102, Calcium Level 9.8, Corrected Calcium 9.8, Total Bilirubin 0.5, Aspartate Amino Transf (AST/SGOT) 19, Alanine Aminotransferase (ALT/SGPT) 28, Alkaline Phosphatase 107, Troponin I < 0.028, B- Type Natriuretic Peptide 14.4, Total Protein 7.2, Albumin 4.0, Lipase 17 02/05/21 04:24: White Blood Count 6.3, Red Blood Count 3.90, Hemoglobin 9.5L, Hematocrit 32L, Mean Corpuscular Volume 81, Mean Corpuscular Hemoglobin 24L, Mean Corpuscular Hemoglobin Concent 30L, Red Cell Distribution Width 17.5H, Platelet Count 297, Mean Platelet Volume 10.2, Sodium Level 138, Potassium Level 4.4, Chloride Level 102, Carbon Dioxide Level 23, Anion Gap 13, Blood Urea Nitrogen 18, Creatinine 0.94, Estimat Glomerular Filtration Rate 61, BUN/Creatinine Ratio 19, Glucose Level 97, Calcium Level 8.8 Patient resulted labs reviewed. Pending Labs Laboratory Tests 02/05/21 04:24: White Blood Count 6.3, Red Blood Count 3.90, Hemoglobin 9.5, Hematocrit 32, Mean Corpuscular Volume 81, Mean Corpuscular Hemoglobin 24, Mean Corpuscular Hemoglobin Concent 30, Red Cell Distribution Width 17.5, Platelet Count 297, Mean Platelet Volume 10.2, Sodium Level 138, Potassium Level 4.4, Chloride Level 102, Carbon Dioxide Level 23, Anion Gap 13, Blood Urea Nitrogen 18, Creatinine 0.94, Estimat Glomerular Filtration Rate 61, BUN/Creatinine Ratio 19, Glucose Level 97, Calcium Level 8.8 Imaging: Reviewed Imaging Report Discussion & Recommendations Discharge Planning: >30 minutes discharge planning Discharge Home Medications: Active Scripts Active Reported Miralax (Polyethylene Glycol 3350) 17 Gm Powd.pack 17 Gm PO DAILY PRN Tums Ultra (Calcium Carbonate) 400 Mg Tab.chew 400-800 Mg PO Q8H PRN Ondansetron Odt (Ondansetron) 4 Mg Tab.rapdis 4 Mg PO Q8H PRN Pregabalin 100 Mg Capsule 100 Mg PO BID Oxycodone-Acetaminophen 5-325 (Oxycodone HCl/Acetaminophen) 1 Each Tablet 1 Each PO Q6H PRN Tylenol Extra Strength (Acetaminophen) 500 Mg Tablet 500-1,000 Mg PO Q6H PRN Excedrin Migraine Caplet (Aspirin/Acetaminophen/Caffeine) 1 Each Tablet 2 Each PO Q6-8HR PRN Meloxicam 15 Mg Tablet 15 Mg PO DAILY Diltiazem 24Hr ER (Diltiazem HCl) 240 Mg Cap.er.24h 240 Mg PO DAILY Tizanidine HCl 4 Mg Tablet 4 Mg PO BID PRN Estrace Tablet (Estradiol) 1 Mg Tablet 1 Mg PO HS LAST FILLED 10-15-2020 #90/90 DAY SUPPLY Duloxetine HCl 60 Mg Capsule.dr 60 Mg PO DAILY Buspirone HCl 10 Mg Tablet 10 Mg PO BID Enalapril Maleate 20 Mg Tablet 20 Mg PO HS Nortriptyline HCl 25 Mg Capsule 75 Mg PO HS TAKES 3 (25MG) CAPS Atorvastatin Calcium 10 Mg Tablet 10 Mg PO HS Instructions to patient/family Please see electronic discharge instructions given to patient. Copy Copies To 1: CLARK MIJARES MD Problem Qualifiers (1) Pulmonary emboli: Pulmonary embolism type: multiple subsegmental (without acute cor pulmonale) Qualified Codes: I26.94 - Multiple subsegmental pulmonary emboli without acute cor pulmonale (2) HLD (hyperlipidemia): Hyperlipidemia type: unspecified Qualified Codes: E78.5 - Hyperlipidemia, unspecified (3) Hypertension: Hypertension type: primary hypertension Qualified Codes: I10 - Essential (p rimary) hypertension (4) Chronic pain: Chronic pain type: other chronic pain Qualified Codes: G89.29 - Other chronic pain MELINA CALDWELL MD Feb 05, 2021 09:10
[2021-02-05] MEDS ORDERED: APIX5TAB PO (09:11)
--- NOTE | 2021-02-05 09:13 | Discharge Inst-Simple/Standard ---
Discharge Inst-Standard Patient Instructions/Follow Up Plan of Care/Instructions/FU: Please continue to take your medications as written. Please follow up with Dr Portillo to follow up this hospital stay. Activity as Tolerated: Yes Discharge Diet: No Restrictions Return to The Hospital For: Chest pain, shortness of breath, weakness, confusion, fever, if you feel you are getting worse. MELINA CALDWELL MD Feb 05, 2021 09:13
[2021-02-05] MEDS ORDERED: PREGABALIN 100 MG (LYRICA) CAPSULE PO SCH (09:33)
[2021-02-05] MEDS ORDERED: busPIRone 10 MG (BUSPAR) TAB PO SCH (09:34)
[2021-02-05] MEDS ORDERED: MELOXICAM 15 MG PO SCH (10:05)
[2021-02-05] MEDS ORDERED: DULOXETINE 60 MG PO SCH (10:06)
[2021-02-05 13:41] VITALS: BP 93/59
[2021-02-05] MEDS ORDERED: ENALAPRIL 20MG TABLET PO SCH (21:00)
[2021-02-05] MEDS ORDERED: NORTRIPTYLINE 25 MG (PAMELOR) CAP PO SCH (21:00)
[2021-02-05] MEDS ORDERED: AtorvaSTATin TABLET 10 MG TABLET PO SCH (21:00)
== END 2021-02-05 13:55 | disposition home or self-care (01) ==
LOC: EDUNIT# 09:29 → ER 09:30 → CSD 12:10
PROVIDERS: ADMIT Family Medicine; ATTEND Family Medicine
DX: I26.94 Multiple subsegmental thrombotic pulmonary emboli without acute cor pulmonale (principal); R09.02 Hypoxemia; R10.9 Unspecified abdominal pain; R06.02 Shortness of breath; G47.30 Sleep apnea, unspecified; E78.00 Pure hypercholesterolemia, unspecified; I10 Essential (primary) hypertension; N39.0 Urinary tract infection, site not specified; F32.A Depression, unspecified; F41.9 Anxiety disorder, unspecified; E78.5 Hyperlipidemia, unspecified; M89.29 Other disorders of bone development and growth, multiple sites; G62.9 Polyneuropathy, unspecified; E66.9 Obesity, unspecified; Z79.890 Hormone replacement therapy; Z86.16 Personal history of COVID-19; Z79.899 Other long term (current) drug therapy; Z79.82 Long term (current) use of aspirin; Z79.891 Long term (current) use of opiate analgesic; Z68.31 Body mass index [BMI] 31.0-31.9, adult
CPT/HCPCS: 36415; 71045; 71275; 80048; 80053; 83690; 83880; 84484; 85007; 85027; 85379; 85610; 93005; 93041; 94761

== ENCOUNTER → 2021-03-05 | Outpatient (CLI) | payer BC ==
[~2021-03-05] MED LIST changes: +APIX5TAB PO; +CALC10009 PO; +POLY17PO6 PO; +PREG100C55 PO; -VERA120T27 PO; +VERA120T74 PO
--- NOTE | 2021-03-05 12:06 | Diagnostic Imaging Report ---
Indication: Routine screening. Comparison is made with prior mammogram 11/28/2019 and 11/24/2018. 2-D and 3-D bilateral screening mammography was performed with CAD. Both breasts are heterogeneously dense, limiting the sensitivity of mammography. No mass or malignant-appearing microcalcifications are seen. Axillae are unremarkable. IMPRESSION: BI-RADS Category 1 No mammographic features suspicious for malignancy are identified. ACR BI-RADS Category 1: Negative. Result letter will be mailed to the patient. Note: At least 10% of breast cancer is not imaged by mammography. Dictated by: Dictated on workstation # [id number]
== END ==
LOC: RAD 10:03
PROVIDERS: ATTEND Obstetrics & Gynecology
DX: Z12.31 Encounter for screening mammogram for malignant neoplasm of breast (principal)
CPT/HCPCS: 77063; 77067

== ENCOUNTER → 2021-06-05 | Outpatient (CLI) | payer BC ==
[~2021-06-05] VITALS: Ht 165 cm; Wt 85.0 kg
[~2021-06-05] MED LIST changes: +REGADENOSON 0.4 MG/5 ML SYR (LEXISCAN) IV ONE; +TIZA-186 PO; -TIZA4TAB4 PO; +meTOprolol 5 MG/5 ML (LOPRESSOR) VIAL IV ONE; +meTOprolol 5 MG/5 ML (LOPRESSOR) VIAL ONE
[2021-06-05] MEDS: CATHETER FLUSH 10 ML SYR IV PRN ×2 (12:05→13:25)
[2021-06-05 13:21] VITALS: BP 147/88
--- NOTE | 2021-06-06 07:55 | Cardiology Stress Test Report ---
Stress Test Report Date of Procedure/Referring: Date of Procedure: Jun 05, 2021 Lynn Bryan Admitting Physician Clark Portillo MD Indications: CAD Baseline Heart Rate: 98 Baseline Blood Pressure: Blood Pressure Systolic: 147 Blood Pressure Diastolic: 88 Baseline Vitals Vital Signs Date Time Temp Pulse Resp B/P (MAP) Pulse Ox O2 Delivery O2 Flow Rate FiO2 06/05/21 13:21 98 147/88 (107) 99 Room Air Baseline EKG: Baseline EKG: NSR Summary After explaining the procedure to the patient, she signed a consent and then brought to the stress nuclear laboratory. Patient received 0.4 mg Lexiscan for stress test, ECG, heart rate and blood pressure were monitored continuously. Resting and stress dose of radio tracer were injected, imaging was acquired and reviewed in short axis, horizontal long axis and vertical long axis views. SSS: 1 SDS: 1 EF: 66 1. Patient tolerated test well 2. Mild decrease uptake in the anterior wall with breast attenuation, overall there is no significant ischemia or infarction on SPECT images 3. Normal ejection fraction 66% 4. Unable to process KENYETTA RAO MD Jun 06, 2021 07:55
== END ==
LOC: CARD 10:53
PROVIDERS: ATTEND Physician Assistant
DX: I35.1 Nonrheumatic aortic (valve) insufficiency (principal); I25.10 Atherosclerotic heart disease of native coronary artery without angina pectoris; I10 Essential (primary) hypertension
CPT/HCPCS: 78452; 93017; 93306; A9502

== ENCOUNTER 2021-11-18 11:47 | Emergency (ER) | payer BC ==
[~2021-11-18] VITALS: Ht 165.1 cm; Wt 84.8 kg
[~2021-11-18 11:47] MED LIST changes: -ASPI-789 PO; +ASPI1TAB23 PO; +OMEP20TA56 PO; -OMEP20TA7 PO; -REGADENOSON 0.4 MG/5 ML SYR (LEXISCAN) IV ONE; -meTOprolol 5 MG/5 ML (LOPRESSOR) VIAL IV ONE; -meTOprolol 5 MG/5 ML (LOPRESSOR) VIAL ONE
--- NOTE | 2021-11-18 12:11 | ED Chest Pain ---
General Stated Complaint: SOA Source: patient Exam Limitations: no limitations History of Present Illness Date Seen by Provider: Nov 18, 2021 Time Seen by Provider: 12:08 Initial Comments Patient is a 60-year-old female with a history of PE who presents ED with chest pressure. She states she has been having this chest pressure since she was diagnosed with a PE on April 2020. She had COVID in January 2020. She is currently on warfarin. She states that she has been having this chest pressure on and off but became worse over the past weekend. She states is constant rates 6 out of 10. Pain is below her breast upper abdomen and central chest. feels like somebody sitting on her chest. Went to her primary care physician had an EKG performed and was recommended come to ED. She denies of any abnormal on her EKG except it was fast. She states this feels very similar when she had a blood clot. She reports a mild cough but denies of any abdominal pain, fever, vomiting, diarrhea, recent travels or surgeries. Denies history of coronary artery disease, COPD or asthma. Denies of any urinary symptoms. Patient had a stress test in May [address]. Borrero and showed normal ejection fraction 66%, mild decrease uptake in anterior wall with breast attenuation overall there is no significant ischemia or infarction on stress test Allergies and Home Medications Allergies Coded Allergies: amoxicillin (Verified Allergy, Unknown, 06/19/16) clavulanic acid (Verified Allergy, Unknown, 06/19/16) diphenhydramine (Unverified Allergy, Unknown, "hebby jebby", 06/19/16) latex (Verified Allergy, Unknown, 08/27/16) Patient Home Medication List Home Medication List Reviewed: Yes Acetaminophen (Tylenol Extra Strength) 500 Mg Tablet, 500-1,000 MG PO Q6H PRN for PAIN-MILD (1-4), (Reported) Entered as Reported by: KORIN JENSEN on 08/27/20 1329 Apixaban (Eliquis) 5 Mg Tablet, 5 MG PO BID Prescribed by: MELINA CALDWELL on 02/05/21 0911 Aspirin/Acetaminophen/Caffeine (Excedrin Migraine Caplet) 1 Each Tablet, 2 EACH PO Q6-8HR PRN for Headache, (Reported) Entered as Reported by: KORIN JENSEN on 08/27/20 1329 Atorvastatin Calcium (Atorvastatin Calcium) 10 Mg Tablet, 10 MG PO HS, (Reported) Entered as Reported by: TARAS ARMENDARIZ on 05/30/16 162 Buspirone HCl (Buspirone HCl) 10 Mg Tablet, 10 MG PO BID, (Reported) Entered as Reported by: KORIN JENSEN on 04/17/20 143 Calcium Carbonate (Tums Ultra) 400 Mg Tab.chew, 400-800 MG PO Q8H PRN for INDIGESTION, (Reported) Entered as Reported by: KORIN JENSEN on 02/04/21 140 Diltiazem HCl (Diltiazem 24Hr ER) 240 Mg Cap.er.24h, 240 MG PO DAILY, (Reported) Entered as Reported by: KORIN JENSEN on 08/27/20 132 Duloxetine HCl (Duloxetine HCl) 60 Mg Capsule.dr, 60 MG PO DAILY, (Reported) Entered as Reported by: KORIN JENSEN on 04/17/20 143 Enalapril Maleate (Enalapril Maleate) 20 Mg Tablet, 20 MG PO HS, (Reported) Entered as Reported by: CHRIS HOWARD on 06/19/161999 Meloxicam (Meloxicam) 15 Mg Tablet, 15 MG PO DAILY, (Reported) Entered as Reported by: KORIN JENSEN on 08/27/20 132 Nortriptyline HCl (Nortriptyline HCl) 25 Mg Capsule, 75 MG PO HS, (Reported) Entered as Reported by: TARAS ARMENDARIZ on 05/30/16 162 Ondansetron (Ondansetron Odt) 4 Mg Tab.rapdis, 4 MG PO Q8H PRN for NAUSEA/VOMITING-1ST LINE, (Reported) Entered as Reported by: KORIN JENSEN on 02/04/21 140 Oxycodone HCl/Acetaminophen (Oxycodone-Acetaminophen 5-325) 1 Each Tablet, 1 EACH PO Q6H PRN for PAIN-MODERATE (5-7), (Reported) Entered as Reported by: KORIN JENSEN on 02/04/21 140 Polyethylene Glycol 3350 (Miralax) 17 Gm Powd.pack, 17 GM PO DAILY PRN for CONSTIPATION-2ND LINE, (Reported) Entered as Reported by: KORIN JENSEN on 02/04/21 1407 Pregabalin (Pregabalin) 100 Mg Capsule, 100 MG PO BID, (Reported) Entered as Reported by: KORIN JENSEN on 02/04/21 1407 Tizanidine HCl (Tizanidine HCl) 4 Mg Tablet, 4 MG PO BID PRN for MUSCLE SPASMS, (Reported) Entered as Reported by: KORIN JENSEN on 04/17/20 1435 Review of Systems Review of Systems Constitutional: No chills, No diaphoresis, No malaise, No weakness EENTM: No Blurred Vision Respiratory: Cough, Shortness of Air Cardiovascular: Chest Pain Gastrointestinal: Denies Abdominal Pain, Denies Diarrhea, Denies Nausea, Denies Vomiting Genitourinary: Denies Burning, Denies Discharge Musculoskeletal: No back pain, No joint pain Skin: No change in color, No change in hair/nails All Other Systems Reviewed Negative Unless Noted: Yes Past Ckwpejc-Dbxiiv-Brsnxw Hx Immunizations Up To Date Tetanus Booster (TDap): Less than 5yrs PED Vaccines UTD: No First/Initial COVID19 Vaccinat: June 2020 Second COVID19 Vaccination Panchito: July 2020 Seasonal Allergies Seasonal Allergies: No Past Medical History Surgery/Hospitalization HX: tonsilectomy, csection x2, hysterectomy, laproscopic surgeries for cysts/pcos, htn, Surgeries: Yes (LAPAROSCOPY X3-ENDOMETRIOSIS, LEFT BREAST BX) Abdominal, Breast, Section, Eye Surgery, Hysterectomy, Oophorectomy, Tonsillectomy, Tubal Ligation Respiratory: Yes (COVID + IN APRIL 2020) Sleep Apnea Currently Using CPAP: No Currently Using BIPAP: No Cardiac: Yes High Cholesterol, Hypertension, Irregular Heartbeat Neurological: Yes 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 Reproductive Disorders: Yes (CPP, DUB) Female Reproductive Disorders: Endometriosis, Ovarian Cyst INFUSION RN History: Hysterectomy, Menopausal Sexually Transmitted Disease: No HIV/AIDS: No Genitourinary: Yes UTI-Chronic Gastrointestinal: Yes Colitis Musculoskeletal: Yes (NECK PAIN AND RIGHT ARM PAIN) Endocrine: No HEENT: Yes Cataract Loss of Vision: Bilateral Hearing Impairment: Denies Cancer: No Psychosocial: Yes Depression Integumentary: No Blood Disorders: No Adverse Reaction/Blood Tranf: No (N/A) Family Medical History Arthritis 19 MOTHER Gastroenteritis G8 BROTHER Headache disorder 19 MOTHER G8 SISTER Hypertension 19 FATHER Prostate cancer 19 FATHER GI Disease, Hypertension, Other Conditions/Hx Physical Exam Vital Signs Vital Signs - First Documented 11/18/21 12:00 Pulse 92 Resp 19 B/P (MAP) 128/81 (97) Pulse Ox 97 O2 Delivery Room Air Capillary Refill : Height, Weight, BMI Height: 5'5.00" Weight: 196lbs. oz. 88.125973ud; 31.22 BMI Method:Stated General Appearance: No Apparent Distress, WD/WN HEENT: PERRL/EOMI, TMs Normal, Normal ENT Inspection, Pharynx Normal Neck: Full Range of Motion, Normal Inspection, Non Tender, Supple Respiratory: Chest Non Tender, Lungs Clear, Normal Breath Sounds, No Accessory Muscle Use, No Respiratory Distress Cardiovascular: Regular Rate, Rhythm, No Edema, No Gallop, No JVD, No Murmur Gastrointestinal: Normal Bowel Sounds, No Organomegaly, No Pulsatile Mass, Non Tender, Soft Rectal: Normal Exam, Normal Rectal Tone Extremity: Normal Capillary Refill, Normal Inspection, Normal Range of Motion, Non Tender, No Calf Tenderness Progress/Results/Core Measures Results/Orders Lab Results Laboratory Tests Test 11/18/21 12:10 11/18/21 12:20 Range/Units White Blood Count 9.6 4.3-11.0 10^3/uL Red Blood Count 4.56 3.80-5.11 10^6/uL Hemoglobin 12.7 11.5-16.0 g/dL Hematocrit 39 35-52 % Mean Corpuscular Volume 86 80-99 fL Mean Corpuscular Hemoglobin 28 25-34 pg Mean Corpuscular Hemoglobin Concent 33 32-36 g/dL Red Cell Distribution Width 14.3 10.0-14.5 % Platelet Count 335 130-400 10^3/uL Mean Platelet Volume 10.4 9.0-12.2 fL Immature Granulocyte % (Auto) 0 % Neutrophils (%) (Auto) 77 H 42-75 % Lymphocytes (%) (Auto) 15 12-44 % Monocytes (%) (Auto) 6 0-12 % Eosinophils (%) (Auto) 1 0-10 % Basophils (%) (Auto) 0 0-10 % Neutrophils # (Auto) 7.4 1.8-7.8 10^3/uL Lymphocytes # (Auto) 1.4 1.0-4.0 10^3/uL Monocytes # (Auto) 0.6 0.0-1.0 10^3/uL Eosinophils # (Auto) 0.1 0.0-0.3 10^3/uL Basophils # (Auto) 0.0 0.0-0.1 10^3/uL Immature Granulocyte # (Auto) 0.0 0.0-0.1 10^3/uL Prothrombin Time 24.2 H 12.2-14.7 SEC INR Comment 2.1 H 0.8-1.4 Activated Partial Thromboplast Time 47 H 24-35 SEC D-Dimer < 0.27 0.00-0.49 UG/ML Sodium Level 140 135-145 MMOL/L Potassium Level 4.1 3.6-5.0 MMOL/L Chloride Level 107 98-107 MMOL/L Carbon Dioxide Level 21 21-32 MMOL/L Anion Gap 12 5-14 MMOL/L Blood Urea Nitrogen 18 7-18 MG/DL Creatinine 0.94 0.60-1.30 MG/DL Estimat Glomerular Filtration Rate 69 BUN/Creatinine Ratio 19 Glucose Level 93 70-105 MG/DL Calcium Level 9.6 8.5-10.1 MG/DL Corrected Calcium 9.4 8.5-10.1 MG/DL Magnesium Level 1.9 1.6-2.4 MG/DL Total Bilirubin 0.4 0.1-1.0 MG/DL Aspartate Amino Transf (AST/SGOT) 16 5-34 U/L Alanine Aminotransferase (ALT/SGPT) 33 0-55 U/L Alkaline Phosphatase 126 40-136 U/L Myoglobin 29.7 10.0-92.0 NG/ML Troponin I < 0.028 <0.028 NG/ML B-Type Natriuretic Peptide < 10.0 <100.0 PG/ML Total Protein 7.3 6.4-8.2 GM/DL Albumin 4.3 3.2-4.5 GM/DL Influenza Type A (RT-PCR) Not Detected Not Detecte Influenza Type B (RT-PCR) Not Detected Not Detecte SARS-CoV-2 RNA (RT-PCR) Not Detected Not Detecte My Orders Orders - JENS LOW Covid 19 Inhouse Test (11/18/21 12:00) Influenza A And B By Pcr (11/18/21 12:00) Ekg Tracing (11/18/21 12:00) Cbc With Automated Diff (11/18/21 12:07) Magnesium (11/18/21 12:07) Chest 1 View, Ap/Pa Only (11/18/21 12:07) Ekg Tracing (11/18/21 12:07) Comprehensive Metabolic Panel (11/18/21 12:07) Myoglobin Serum (11/18/21 12:07) Protime With Inr (11/18/21 12:07) Partial Thromboplastin Time (11/18/21 12:07) Ed Iv/Invasive Line Start (11/18/21 12:07) Bnp Winn (11/18/21 12:07) Fibrin Degradation Products (11/18/21 12:07) Troponin I Winn (11/18/21 12:07) Aspirin Chewable Tablet (Baby Aspirin Ch (11/18/21 12:15) Medications Given in ED Current Medications Medications Dose Ordered Sig/Litzy Route Start Time Stop Time Status Last Admin Dose Admin Aspirin 324 mg ONCE ONCE PO 11/18/21 12:15 11/18/21 12:16 DC 11/18/21 12:17 324 MG Vital Signs/I&O 11/18/21 11/18/21 12:00 13:34 Pulse 92 79 Resp 19 19 B/P (MAP) 128/81 (97) 105/73 Pulse Ox 97 96 O2 Delivery Room Air Room Air Comment Sinus rhythm, left axis deviation, low QRS voltage in precordial leads, incomplete right bundle branch block, 80 bpm, QRS duration 110 MS, QTc 435 MS Departure Communication (PCP) Patient with dyspnea and chest discomfort. She has been having these intermittent symptoms since COVID and her PE early last year. Patient vital signs stable. EKG without evidence of arrhythmia. No ST elevation or depression. Cardiac work-up unremarkable. Negative D-dimer. INR 2.1 currently on generic of warfarin. She had a stress test with ejection fraction of 66% in May 2021 without any strong evidence of ischemic changes on stress test. Patient was treated conservatively. Chest x-ray was negative for pneumonia, pneumothorax, pleural effusion. COVID influenza negative. Lab work was otherwise unremarkable. Discussed these results with patient. She believes this is all secondary to her COVID back in January 2020. Due to her reassuring lab work and recent cardiac work-up performed by Dr. Borrero feel comfortable sending patient home at this time. She does have some upper abdominal pain and was concern for a possible ulcer and was treated with a PPI and Carafate. She denies of any ulcer or exacerbating pain with eating. She believes this is residual from COVID. If any worsening symptoms return back to ED for further evaluation. Follow-up with your research nurse for further evaluation. Impression Primary Impression: Shortness of breath Disposition: HOME, SELF-CARE Condition: Stable Departure-Patient Inst. Decision time for Depature: 13:26 Referrals: MARGUERITE CABEZAS MD (PCP/Family) Primary Care Physician Patient Instructions: Shortness of Breath (Dyspnea) (DC) Add. Discharge Instructions: If any worsening symptoms return back to ED for further evaluation JENS LOW Nov 18, 2021 12:11
[2021-11-18] MEDS ORDERED: ASPIRIN 81 MG CHEW (CHILDREN'S ASA) PO ONE (12:15)
[2021-11-18 12:20] LABS: BASOPHILS % (AUTO) 0 % (0-10); EOSINOPHILS # (AUTO) 0.1 10^3/uL (0.0-0.3); EOSINOPHILS % (AUTO) 1 % (0-10); HEMATOCRIT 39 % (35-52); HEMOGLOBIN 12.7 g/dL (11.5-16.0); LYMPHOCYTES # (AUTO) 1.4 10^3/uL (1.0-4.0); LYMPHOCYTES % (AUTO) 15 % (12-44); MEAN CORPUSCULAR HEMOGLOBIN 28 pg (25-34); MEAN CORPUSCULAR HGB CONC 33 g/dL (32-36); MEAN CORPUSCULAR VOLUME 86 fL (80-99); MEAN PLATELET VOLUME 10.4 fL (9.0-12.2); MONOCYTES # (AUTO) 0.6 10^3/uL (0.0-1.0); MONOCYTES % (AUTO) 6 % (0-12); NEUTROPHILS # (AUTO) 7.4 10^3/uL (1.8-7.8); NEUTROPHILS % (AUTO) 77 % (42-75); PLATELET COUNT 335 10^3/uL (130-400); WHITE BLOOD COUNT 9.6 10^3/uL (4.3-11.0)
[2021-11-18 12:44] LABS: INR 2.1 (0.8-1.4); PROTHROMBIN TIME PATIENT 24.2 SEC (12.2-14.7)
[2021-11-18 12:50] LABS: ALBUMIN 4.3 GM/DL (3.2-4.5); BILIRUBIN,TOTAL 0.4 MG/DL (0.1-1.0); CALCIUM 9.6 MG/DL (8.5-10.1); CREATININE SERUM 0.94 MG/DL (0.60-1.30); MAGNESIUM 1.9 MG/DL (1.6-2.4); POTASSIUM 4.1 MMOL/L (3.6-5.0); TOTAL PROTEIN 7.3 GM/DL (6.4-8.2)
--- NOTE | 2021-11-18 13:16 | Diagnostic Imaging Report ---
INDICATION: Chest pain. COMPARISON: February 04, 2021. TECHNIQUE: Single radiograph of the chest dated November 18, 2021. FINDINGS: The cardiac silhouette is within normal limits in size. No significant pulmonary vascular congestion. The lungs are clear of focal pulmonary opacity. No pleural effusion. No pneumothorax. No acute osseous abnormality. IMPRESSION: No acute cardiopulmonary abnormality. Dictated by: Dictated on workstation # [id number]
[2021-11-18 13:34] VITALS: BP 105/73
== END 2021-11-18 13:34 | disposition home or self-care (01) ==
LOC: EDUNIT# 11:47 → ER 11:48
DX: R06.02 Shortness of breath (principal); R07.89 Other chest pain; Z86.16 Personal history of COVID-19; Z86.711 Personal history of pulmonary embolism; Z20.822 Contact with and (suspected) exposure to COVID-19
CPT/HCPCS: 36415; 71045; 80053; 83735; 83874; 83880; 84484; 85025; 85379; 85610; 85730; 87636; 93005

== ENCOUNTER 2021-12-30 13:05 | Outpatient (CLI) | payer BC ==
[~2021-12-30] VITALS: Ht 165.1 cm; Wt 88.2 kg
[2021-12-30 13:11] VITALS: BP 127/72
[2021-12-30 13:12] VITALS: BP 127/72
[2021-12-30] MEDS ORDERED: ONDANSETRON 4 MG/2 ML (SDV) Z0FRAN IV PRN (13:15)
[2021-12-30] MEDS ORDERED: ACETAMINOPHEN 500 MG TAB (TYLENOL) PO PRN (13:15)
[2021-12-30] MEDS ORDERED: BEBTELOVIMAB 175 MG/2 ML VIAL IV ONE (13:15)
[2021-12-30] MEDS ORDERED: EPINEPHrine INJECTION 1 MG/ML AMP IM PRN (13:15)
== END 2021-12-30 13:50 | disposition home or self-care (01) ==
LOC: INFUSION 13:05
PROVIDERS: ATTEND Nurse Practitioner
DX: U07.1 COVID-19 (principal)

== ENCOUNTER → 2022-04-18 | Outpatient (CLI) | payer BC ==
--- NOTE | 2022-04-18 12:06 | Diagnostic Imaging Report ---
INDICATION: Routine screening. Comparison is made with prior mammogram from 03/05/2021 and 11/28/2019. 2-D and 3-D bilateral screening mammography was performed with CAD. Both breasts are heterogeneously dense, limiting the sensitivity of mammography. No mass or malignant-appearing microcalcifications are seen. Axillae are unremarkable. IMPRESSION: No mammographic features suspicious for malignancy are identified. ACR BI-RADS Category 1: Negative. Result letter will be mailed to the patient. Note: At least 10% of breast cancer is not imaged by mammography. BI-RADS Category 1 Dictated by: Dictated on workstation # [id number]
== END ==
LOC: RAD 10:15
PROVIDERS: ATTEND Obstetrics & Gynecology
DX: Z12.39 Encounter for other screening for malignant neoplasm of breast (principal)
CPT/HCPCS: 77063; 77067

== ENCOUNTER 2022-05-25 13:34 | Inpatient (IN) | payer BC ==
[~2022-05-25] VITALS: Ht 165 cm; Wt 90.2 kg
[2022-05-25] MEDS ORDERED: fentaNYL INJ 100 MCG/2 ML AMP IVP ONE (13:45)
[2022-05-25] MEDS ORDERED: LACTATED RINGERS 1,000 ML IV SCH (13:45)
[2022-05-25] MEDS ORDERED: ONDANSETRON 4 MG/2 ML (SDV) Z0FRAN IVP ONE (13:45)
--- NOTE | 2022-05-25 13:51 | ED Abdominal Pain ---
General Chief Complaint: Abdominal/GI Problems Stated Complaint: ABDOMINAL PAIN, LOW BLOOD PRESSURE Nursing Triage Note: ABD PAIN STARTING YESTERDAY. HX OF ULCERATIVE COLITIS. EMS REPORTS A LOW BP. Source of Information: Patient, EMS Exam Limitations: No Limitations History of Present Illness Date Seen by Provider: May 25, 2022 Time Seen by Provider: 13:35 Initial Comments Patient is a 61-year-old female who presents to the emergency room with a chief complaint of bandlike abdominal pain across her mid abdomen onset last night accompanied by nausea and multiple episodes of diarrhea. Patient states that she has a history of ulcerative colitis although she has never had true pathology diagnosis. Her brother from complications related to Crohn's disease and her primary care doctor is treating her as ulcerative colitis. She was on prednisone 2 or 3 months ago she thinks for a "flare". She and her family just got back from [facility] yesterday her symptoms started last evening. She denies fevers or chills. No URI symptoms. She is COVID vaccinated. She is not sure that she is urinated today. She had multiple falls throughout the evening and was unable to get up this afternoon. She feels very dehydrated. She states the diarrhea slacked off as the day progressed today. No black or bloody stools. No injuries in her falls. She has a history of high blood pressure that she takes medication for. She is not on daily medication or weekly/monthly injections for ulcerative colitis. On arrival her BP is in the 70s systolic, mildly tachycardic. Clinically very d ry with very dry oral mucosa and dry lips. Mentating normally. 1 L of normal saline has almost infused and as I leave the room her blood pressure is up to 90 systolic. Allergies to Augmentin which causes a rash, Benadryl and occasionally latex causes a rash. Timing/Duration: 12-24 Hours Severity/Quality: Severe, Cramping Location: Other ("Bandlike" across the abdomen) Radiation: No Radiation Activities at Onset: None Associated Symptoms: Nausea/Vomiting, Weakness Allergies and Home Medications Allergies Coded Allergies: amoxicillin (Verified Allergy, Unknown, 06/19/16) clavulanic acid (Verified Allergy, Unknown, 06/19/16) diphenhydramine (Unverified Allergy, Unknown, "hebby jebby", 06/19/16) latex (Verified Allergy, Unknown, 08/27/16) Patient Home Medication List Home Medication List Reviewed: Yes Acetaminophen (Tylenol Extra Strength) 500 Mg Tablet, 500-1,000 MG PO Q6H PRN for PAIN-MILD (1-4), (Reported) Entered as Reported by: KORIN JENSEN on 08/27/20 1329 Apixaban (Eliquis) 5 Mg Tablet, 5 MG PO BID Prescribed by: MELINA CALDWELL on 02/05/21 0911 Aspirin/Acetaminophen/Caffeine (Excedrin Migraine Caplet) 1 Each Tablet, 2 EACH PO Q6-8HR PRN for Headache, (Reported) Entered as Reported by: KORIN JENSEN on 08/27/20 1329 Atorvastatin Calcium (Atorvastatin Calcium) 10 Mg Tablet, 10 MG PO HS, (Reported) Entered as Reported by: TARAS ARMENDARIZ on 05/30/16 1624 Buspirone HCl (Buspirone HCl) 10 Mg Tablet, 10 MG PO BID, (Reported) Entered as Reported by: KORIN JENSEN on 04/17/20 1434 Calcium Carbonate (Tums Ultra) 400 Mg Tab.chew, 400-800 MG PO Q8H PRN for INDIGESTION, (Reported) Entered as Reported by: KORIN JENSEN on 02/04/21 1407 Diltiazem HCl (Diltiazem 24Hr ER) 240 Mg Cap.er.24h, 240 MG PO DAILY, (Reported) Entered as Reported by: KORIN JENSEN on 08/27/20 1329 Duloxetine HCl (Duloxetine HCl) 60 Mg Capsule.dr, 60 MG PO DAILY, (Reported) Entered as Reported by: KORIN JENSEN on 04/17/20 1434 Enalapril Maleate (Enalapril Maleate) 20 Mg Tablet, 20 MG PO HS, (Reported) Entered as Reported by: CHRIS HOWARD on 06/19/161999 Meloxicam (Meloxicam) 15 Mg Tablet, 15 MG PO DAILY, (Reported) Entered as Reported by: KORIN JENSEN on 08/27/20 1329 Nortriptyline HCl (Nortriptyline HCl) 25 Mg Capsule, 75 MG PO HS, (Reported) Entered as Reported by: TARAS ARMENDARIZ on 05/30/16 1624 Ondansetron (Ondansetron Odt) 4 Mg Tab.rapdis, 4 MG PO Q8H PRN for NAUSEA/VOMITING-1ST LINE, (Reported) Entered as Reported by: KORIN JENSEN on 02/04/21 1407 Oxycodone HCl/Acetaminophen (Oxycodone-Acetaminophen 5-325) 1 Each Tablet, 1 EACH PO Q6H PRN for PAIN-MODERATE (5-7), (Reported) Entered as Reported by: KORIN JENSEN on 02/04/21 1407 Polyethylene Glycol 3350 (Miralax) 17 Gm Powd.pack, 17 GM PO DAILY PRN for CONSTIPATION-2ND LINE, (Reported) Entered as Reported by: KORIN JENSEN on 02/04/21 140 Pregabalin (Pregabalin) 100 Mg Capsule, 100 MG PO BID, (Reported) Entered as Reported by: KORIN JENSEN on 02/04/21 1407 Last Action: Last Taken Edited Tizanidine HCl (Tizanidine HCl) 4 Mg Tablet, 4 MG PO BID PRN for MUSCLE SPASMS, (Reported) Entered as Reported by: KORIN JENSEN on 04/17/20 1435 Review of Systems Review of Systems Constitutional: see HPI, malaise, weakness EENTM: No Symptoms Reported Respiratory: No Symptoms Reported Cardiovascular: No Symptoms Reported Gastrointestinal: Abdominal Pain, Diarrhea, Nausea, Poor Appetite Musculoskeletal: no symptoms reported Skin: no symptoms reported Psychiatric/Neurological: Weakness All Other Systems Reviewed Negative Unless Noted: Yes Past Cyfxuca-Vtielv-Krhirm Hx Patient Social History Tobacco Use?: No Substance use?: No Alcohol Use?: No Immunizations Up To Date Tetanus Booster (TDap): Less than 5yrs PED Vaccines UTD: No First/Initial COVID19 Vaccinat: June 2020 Second COVID19 Vaccination Panchito: July 2020 Third COVID19 Vaccination Date: June 2020 Seasonal Allergies Seasonal Allergies: No Past Medical History Surgery/Hospitalization HX: tonsilectomy, csection x2, hysterectomy, laproscopic surgeries for cysts/pcos, htn, Surgeries: Yes (LAPAROSCOPY X3-ENDOMETRIOSIS, LEFT BREAST BX) Abdominal, Breast, Section, Eye Surgery, Hysterectomy, Oophorectomy, Tonsillectomy, Tubal Ligation Respiratory: Yes (COVID + IN APRIL 2020) Sleep Apnea Currently Using CPAP: No Currently Using BIPAP: No Cardiac: Yes High Cholesterol, Hypertension, Irregular Heartbeat Neurological: Yes 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 Reproductive Disorders: Yes (CPP, DUB) Female Reproductive Disorders: Endometriosis, Ovarian Cyst [employer]GER History: Hysterectomy, Menopausal Sexually Transmitted Disease: No HIV/AIDS: No Genitourinary: Yes UTI-Chronic Gastrointestinal: Yes Colitis Musculoskeletal: Yes (NECK PAIN AND RIGHT ARM PAIN) Endocrine: No HEENT: Yes Cataract Loss of Vision: Bilateral Hearing Impairment: Denies Cancer: No Psychosocial: Yes Depression Integumentary: No Blood Disorders: No Adverse Reaction/Blood Tranf: No (N/A) Family Medical History Arthritis 19 MOTHER Gastroenteritis G8 BROTHER Headache disorder 19 MOTHER G8 SISTER Hypertension 19 FATHER Prostate cancer 19 FATHER GI Disease, Hypertension, Other Conditions/Hx Physical Exam Vital Signs Vital Signs - First Documented 05/25/22 05/25/22 13:34 16:52 Temp 37.2 Pulse 102 Resp 16 B/P (MAP) 78/47 (57) Pulse Ox 94 O2 Delivery Room Air O2 Flow Rate 2.00 Capillary Refill : Less Than 3 Seconds Height/Weight/BMI Height: 5'5.00" Weight: 196lbs. oz. [id number]; 31.00 BMI Method:Stated General Appearance: WD/WN, mild distress HEENT: PERRL/EOMI, other (Very dry oral mucosa and lips) Neck: normal inspection Respiratory: lungs clear, normal breath sounds, no respiratory distress, no accessory muscle use Cardiovascular: regular rate, rhythm, tachycardia (103) Peripheral Pulses: 2+ Radial Pulses (R), 2+ Radial Pulses (L) Gastrointestinal: soft, abnormal bowel sounds (Hypoactive bowel sounds), tenderness Extremities: normal range of motion, non-tender, normal inspection, no pedal edema Neurologic/Psychiatric: alert, normal mood/affect, oriented x 3 Skin: warm/dry, pallor Focused Exam Sepsis Stage: Septic Shock Possible Source: GI Tract/Intra-Abdominal Lactate Level 05/25/22 14:00: Lactic Acid Level 3.21*H Time of Focused Exam: 15:00 Respiratory: Lungs Clear, Normal Breath Sounds, No Accessory Muscle Use, No Respiratory Distress Cardiovascular: Regular Rate, Rhythm, Normal Peripheral Pulses Capillary Refill: Less Than 3 Seconds Peripheral Pulses: 2+ Radial Pulses (R), 2+ Radial Pulses (L) Skin: warm/dry, pallor Lactic Acid Level Laboratory Tests Test 05/25/22 14:00 Lactic Acid Level 3.21 MMOL/L (0.50-2.00) *H Within 3hrs of presentation: Admin fluids, Admin ABX, Blood cultures prior to ABX's, Focus exam, Lactate level Procedures/Interventions Lumen: triple Central Line Procedure: betadine prep, sterile drapes applied, sterile dressing applied Position: internal jugular (R) Anesthesia: local Volume Anesthetic (ccs): 3 Complications: unsuccessful x # attempts Consulted Dr Amor after failed attempts - he was able to place left IJ without complication. PLease see his note for details Progress/Results/Core Measures Results/Orders Lab Results Laboratory Tests Test 05/25/22 14:00 05/25/22 15:50 Range/Units White Blood Count 15.7 H 4.3-11.0 10^3/uL Red Blood Count 3.99 3.80-5.11 10^6/uL Hemoglobin 11.4 L 11.5-16.0 g/dL Hematocrit 36 35-52 % Mean Corpuscular Volume 90 80-99 fL Mean Corpuscular Hemoglobin 29 25-34 pg Mean Corpuscular Hemoglobin Concent 32 32-36 g/dL Red Cell Distribution Width 14.4 10.0-14.5 % Platelet Count 326 130-400 10^3/uL Mean Platelet Volume 10.5 9.0-12.2 fL Immature Granulocyte % (Auto) 0 % Neutrophils (%) (Auto) 83 H 42-75 % Lymphocytes (%) (Auto) 4 L 12-44 % Monocytes (%) (Auto) 10 0-12 % Eosinophils (%) (Auto) 2 0-10 % Basophils (%) (Auto) 0 0-10 % Neutrophils # (Auto) 13.1 H 1.8-7.8 10^3/uL Lymphocytes # (Auto) 0.7 L 1.0-4.0 10^3/uL Monocytes # (Auto) 1.6 H 0.0-1.0 10^3/uL Eosinophils # (Auto) 0.3 0.0-0.3 10^3/uL Basophils # (Auto) 0.1 0.0-0.1 10^3/uL Immature Granulocyte # (Auto) 0.0 0.0-0.1 10^3/uL Neutrophils % (Manual) 74 % Lymphocytes % (Manual) 5 % Monocytes % (Manual) 12 % Band Neutrophils 9 % Toxic Granulation 1+ Blood Morphology Comment NORMAL Prothrombin Time 37.9 H 12.2-14.7 SEC INR Comment 3.8 H 0.8-1.4 Activated Partial Thromboplast Time 54 H 24-35 SEC Sodium Level 140 135-145 MMOL/L Potassium Level 5.2 H 3.6-5.0 MMOL/L Chloride Level 114 H 98-107 MMOL/L Carbon Dioxide Level 17 L 21-32 MMOL/L Anion Gap 9 5-14 MMOL/L Blood Urea Nitrogen 34 H 7-18 MG/DL Creatinine 1.67 H 0.60-1.30 MG/DL Estimat Glomerular Filtration Rate 35 BUN/Creatinine Ratio 20 Glucose Level 132 H 70-105 MG/DL Lactic Acid Level 3.21 *H 0.50-2.00 MMOL/L Calcium Level 7.6 L 8.5-10.1 MG/DL Corrected Calcium 8.5 8.5-10.1 MG/DL Total Bilirubin 0.3 0.1-1.0 MG/DL Aspartate Amino Transf (AST/SGOT) 22 5-34 U/L Alanine Aminotransferase (ALT/SGPT) 35 0-55 U/L Alkaline Phosphatase 248 H 40-136 U/L Total Protein 4.7 L 6.4-8.2 GM/DL Albumin 2.9 L 3.2-4.5 GM/DL Urine Color YELLOW Urine Clarity CLEAR Urine pH 5.0 5-9 Urine Specific [place] 1.025 H 1.016-1.022 Urine Protein NEGATIVE NEGATIVE Urine Glucose (UA) NEGATIVE NEGATIVE Urine Ketones TRACE H NEGATIVE Urine Nitrite NEGATIVE NEGATIVE Urine Bilirubin NEGATIVE NEGATIVE Urine Urobilinogen 0.2 < = 1.0 MG/DL Urine Leukocyte Esterase NEGATIVE NEGATIVE Urine RBC (Auto) NEGATIVE NEGATIVE Urine RBC NONE /HPF Urine WBC RARE /HPF Urine Squamous Epithelial Cells 0-2 /HPF Urine Crystals NONE /LPF Urine Bacteria TRACE /HPF Urine Casts PRESENT /LPF Urine Hyaline Casts 0-2 H /LPF Urine Mucus NEGATIVE /LPF Urine Culture Indicated CULTURE PENDING My Orders Orders - SIMONE DHILLON MD Cbc With Automated Diff (05/25/22 13:44) Comprehensive Metabolic Panel (05/25/22 13:44) Blood Culture (05/25/22 13:44) Sputum Culture (05/25/22 13:44) Urinalysis (05/25/22 13:44) Urine Culture (05/25/22 13:44) Protime With Inr (05/25/22 13:44) Partial Thromboplastin Time (05/25/22 13:44) Chest 1 View, Ap/Pa Only (05/25/22 13:44) Ed Iv/Invasive Line Start (05/25/22 13:44) Ed Iv/Invasive Line Start (05/25/22 13:44) Vital Signs Adult Sepsis Patie Q15M (05/25/22 13:44) O2 (05/25/22 13:44) Remove Rings In Anticipation O (05/25/22 13:44) Lactic Acid Analyzer (05/25/22 13:44) Lactated Ringers (Lr 1000 Ml Iv Solution (05/25/22 13:45) Fentanyl Inj (Sublimaze Injection) (05/25/22 13:45) Ondansetron Injection (Zofran Injectio (05/25/22 13:45) Manual Differential (05/25/22 14:00) Ns Iv 1000 Ml (Sodium Chloride 0.9%) (05/25/22 14:30) Norepinephrine 8 Mg/250 Ml (Norepinephri (05/25/22 14:30) Ed Iv/Invasive Line Start (05/25/22 14:34) Ns Iv 1000 Ml (Sodium Chloride 0.9%) (05/25/22 14:45) Meropenem (Merrem 500 Mg) (05/25/22 15:00) Metronidazole 500mg/100ml Ivpb (Flagyl 5 (05/25/22 15:00) Ct Abdomen/Pelvis Wo (05/25/22 14:57) Norepinephrine 8 Mg/250 Ml (Norepinephri (05/25/22 15:00) Ed Admission (Communication) (05/25/22 16:56) Medications Given in ED Vital Signs/I&O 05/25/22 05/25/22 13:34 16:52 Temp 37.2 Pulse 102 98 Resp 16 22 B/P (MAP) 78/47 (57) 103/66 Pulse Ox 94 99 O2 Delivery Room Air Nasal Cannula O2 Flow Rate 2.00 05/26/22 00:00 Intake Total 1000 ml Balance 1000 ml Blood Pressure Mean: 57 Admisison Planning May Need Admission (Planning): 13:51 Progress Progress Note : Time: 15:56 Progress Note Patient seen and examined by me, 61-year-old septic shock. Evaluation today includes physical exam, sepsis labs to include CBC, Chem-12, coagulation studie s, lactic acid, blood cultures, chest x-ray, urinalysis. Differential diagnosis based on history and physical exam includes sepsis due to ulcerative colitis flare, acute ruptured appendicitis, cholecystitis, urosepsis, enteritis/sepsis, hypovolemic shock secondary to possible spontaneous intra-abdominal bleeding. After labs and imaging returned her CBC shows a white blood cell count of 15,000 with normal hemoglobin, normal platelets. She does have a predominance of neutrophils. Chemistry shows mildly elevated potassium at 5.2, CO2 of 17, elevated BUN and creatinine. Elevated alk phos. Normal LFTs. Normal total bilirubin. Lactic acid is elevated at 3.21. Coagulation studies are very high, likely related to volume contracture and her Eliquis. Dr. Amor was consulted after my failed attempts at right central venous line placement in the IJ.. He placed a central venous catheter triple-lumen in the left IJ successfully after 1 attempt. I reviewed the chest x-ray postprocedure, line is in place, no pneumothorax. No effusion, no infiltrate. Antibiotics given, meropenem and Flagyl. Blood cultures were obtained prior to antibiotic administration. At the time of this dictation patient has had 2 L of normal saline and 1 unit of lactated Ringer's. Blood pressure is 98 systolic. Newsome and urinalysis are still pending. has been at the bedside has been kept informed of the plan of care. Patient will be admitted to the intensive care unit to Dr. Copeland, hospitalist. Dr. Amor will be consulting. Diagnostic Imaging Diagonstic Imaging: Xray Plain Films/CT/US/NM/MRI: chest Comments interpreted by me - no infiltrate, no effusion; Left IJ central line in place Diagonstic Imaging: CT Comments [facility], [place] NAME: EMILE BOYER [facility] REC#: [id number] PT STATUS: REG ER : 1960 PHYSICIAN: SIMONE DHILLON MD ADMIT DATE: 05/25/22/ER Draft Date of Exam:05/25/22 CT ABDOMEN/PELVIS WO Clinical indication: Patient with abdominal pain started yesterday. Patient has history of ulcerative colitis. Patient with low blood pressure and shortness of air. Exam: CT exam of the abdomen and pelvis is performed without IV or oral contrast using stone protocol. Coronal and sagittal reformatted images were created. Auto Exposure Controls were utilized during the CT exam to meet ALARA standards for radiation dose reduction. Comparisons: CT scan of the abdomen and pelvis with contrast dated 11/23/2020. Findings: There is minimal patchy consolidation involving the left lung base likely representing atelectasis. There are degenerative spurs involving the bilateral acetabular regions. There is lower lumbar spine facet arthropathy. There are small degenerative spurs involving the lumbar spine. The liver, spleen, pancreas and gallbladder are unremarkable. Adrenal glands are unremarkable. Newsome catheter is seen within the bladder. There is a small amount of fluid within the bladder. Bladder is otherwise unremarkable. Both kidneys are unremarkable with no hydronephrosis, mass or stones. There is diffuse wall thickening involving the proximal sigmoid colon through the ascending colon, and to the proximal transverse colon concerning for colitis. There is mild fat stranding adjacent to these areas of the colon. The appendix is either surgically absent or obscured by adjacent closely intestinal structures. There is no enlarged tubular structure seen in the expected region of the appendix. There is minimal free fluid in the pelvis. There is no intra-abdominal free air. The stomach is unremarkable. The extra-abdominal and extra-pelvic soft tissue structures are unremarkable. Impression: 1: There is diffuse wall thickening seen from the proximal transverse colon all the way to the sigmoid colon consistent with colitis. There is mild fat stranding adjacent to the colon. 2: There is no other acute abnormality seen on this exam. Dictated on workstation # [id number] Dict: 05/25/22 1619 Trans: 05/25/22 1640 E [id number] Interpreted by: CAMMY TREJO MD Electronically signed by: Critical Care Note Critical Care Start Time: 13:35 Stop Time: 15:56 Total Time (minutes) Critical care time 40 minutes in the evaluation and management of this 61-year-old with septic shock. Time includes initial evaluation and management, fluid resuscitation, administration of antibiotics, review of prior medical records, discussion with who is primary historian; review and interpretation of labs, chest x-ray. Discussion with surgeon, discussion with hospitalist time does not include that spent in procedures Departure Communication (Admissions) Time/Spoke to Admitting Phy: 15:[address] copeland - admit to ICU septic shock Time/Spoke to Consulting Phy: 15:[address] Amor Impression Primary Impression: Septic shock Additional Impressions: Abdominal pain Qualified Codes: R10.10 - Upper abdominal pain, unspecified Chronic anticoagulation Disposition: ADMITTED INPATIENT Condition: Critical Admissions Decision to Admit Reason: Admit from ER (General) Decision to Admit/Date: May 25, 2022 Time/Decision to Admit Time: 15:54 Departure-Patient Inst. Referrals: MARGUERITE CABEZAS MD (PCP/Family) Primary Care Physician SIMONE DHILLON MD May 25, 2022 13:51
[2022-05-25 14:12] LABS: BASOPHILS # (AUTO) 0.1 10^3/uL (0.0-0.1); BASOPHILS % (AUTO) 0 % (0-10); EOSINOPHILS # (AUTO) 0.3 10^3/uL (0.0-0.3); EOSINOPHILS % (AUTO) 2 % (0-10); HEMATOCRIT 36 % (35-52); HEMOGLOBIN 11.4 g/dL (11.5-16.0); LYMPHOCYTES # (AUTO) 0.7 10^3/uL (1.0-4.0); LYMPHOCYTES % (AUTO) 4 % (12-44); MEAN CORPUSCULAR HEMOGLOBIN 29 pg (25-34); MEAN CORPUSCULAR HGB CONC 32 g/dL (32-36); MEAN CORPUSCULAR VOLUME 90 fL (80-99); MEAN PLATELET VOLUME 10.5 fL (9.0-12.2); MONOCYTES # (AUTO) 1.6 10^3/uL (0.0-1.0); MONOCYTES % (AUTO) 10 % (0-12); NEUTROPHILS # (AUTO) 13.1 10^3/uL (1.8-7.8); NEUTROPHILS % (AUTO) 83 % (42-75); PLATELET COUNT 326 10^3/uL (130-400); WHITE BLOOD COUNT 15.7 10^3/uL (4.3-11.0)
[2022-05-25 14:22] LABS: ALBUMIN 2.9 GM/DL (3.2-4.5); POTASSIUM 5.2 MMOL/L (3.6-5.0)
[2022-05-25 14:23] LABS: CALCIUM 7.6 MG/DL (8.5-10.1)
[2022-05-25 14:24] LABS: TOTAL PROTEIN 4.7 GM/DL (6.4-8.2)
[2022-05-25 14:25] LABS: INR 3.8 (0.8-1.4); PROTHROMBIN TIME PATIENT 37.9 SEC (12.2-14.7)
[2022-05-25 14:26] LABS: BILIRUBIN,TOTAL 0.3 MG/DL (0.1-1.0)
[2022-05-25 14:28] LABS: CREATININE SERUM 1.67 MG/DL (0.60-1.30)
[2022-05-25 14:30] LABS: BAND NEUTROPHILS 9 %; LYMPHOCYTES % (MANUAL) 5 %; MONOCYTES % (MANUAL) 12 %; NEUTROPHILS % (MANUAL) 74 %; RBC MORPH NORMAL
[2022-05-25] MEDS ORDERED: NS IV 1000 ML 1,000 ML ONE (14:30)
[2022-05-25] MEDS ORDERED: NOREPINEPHRINE 8 MG/250 ML 250 ML IV ONE (14:30)
[2022-05-25 14:31] LABS: TOXIC GRANULATION/VACUOLAZATIO 1+
[2022-05-25] MEDS ORDERED: NS IV 1000 ML 1,000 ML IV SCH (14:45)
[2022-05-25] MEDS ORDERED: NOREPINEPHRINE 8 MG/250 ML 250 ML IV SCH (15:00)
[2022-05-25] MEDS ORDERED: MEROPENEM 500 MG in NS (IVPB) 100 ML IV ONE (15:00)
[2022-05-25] MEDS ORDERED: metroNIDAZOLE 500MG/100ML IVPB 100 ML IV ONE (15:00)
--- NOTE | 2022-05-25 15:39 | Consultation - Surgery ---
History of Present Illness History of Present Illness Patient Consulted On(jose ramon/time) 05/25/22 15:34 Time Seen by Provider: 14:58 History of Present Illness Surgery asked to consult regarding Hypotension possible sepsis, need for central access and abdominal pain with hx of Colitis. HPI per ED: Patient is a 61-year-old female who presents to the emergency room with a chief complaint of bandlike abdominal pain across her mid abdomen onset last night accompanied by nausea and multiple episodes of diarrhea. Patient states that she has a history of ulcerative colitis although she has never had true pathology diagnosis. Her brother from complications related to Crohn's disease and her primary care doctor is treating her as ulcerative colitis. She was on prednisone 2 or 3 months ago she thinks for a "flare". She and her family just got back from [facility] yesterday her symptoms started last evening. She denies fevers or chills. No URI symptoms. She is COVID vaccinated. She is not sure that she is urinated today. She had multiple falls throughout the evening and was unable to get up this afternoon. She feels very dehydrated. She states the diarrhea slacked off as the day progressed today. No black or bloody stools. No injuries in her falls. She has a history of high blood pressure that she takes medication for. She is not on daily medication or weekly/monthly injections for ulcerative colitis. On arrival her BP is in the 70s systolic, mildly tachycardic. Clinically very dry with very dry oral mucosa and dry lips. Mentating normally. 1 L of normal saline has almost infused and as I leave the room her blood pressure is up to 90 systolic. When I spoke to pt and her they stated that she had some diarrhea this am; "large amount, but not red or black". She was too weak to get herself to the bathroom and couldn't walk to car even with help from her , so they called EMS. They just got back from a trip, yesterday morning. Stated they spent a long time in the airport, didn't eat well (all greasy, fatty foods including trip to [employer]) and didn't drink much fluids. is not sick and neither are their four kids. I spoke to her after placing central line. They state her last colonoscopy was in 2015 and nothing was found. In fact, "there has never been physical evidence of Colitis, just the symptoms and that is what her doctor is treating her for". Allergies and Home Medications Allergies Coded Allergies: amoxicillin (Verified Allergy, Unknown, 06/19/16) clavulanic acid (Verified Allergy, Unknown, 06/19/16) diphenhydramine (Unverified Allergy, Unknown, "hebby jebby", 06/19/16) latex (Verified Allergy, Unknown, 08/27/16) Patient Home Medication List Home Medication List Reviewed: Yes Acetaminophen (Tylenol Extra Strength) 500 Mg Tablet, 500-1,000 MG PO Q6H PRN for PAIN-MILD (1-4), (Reported) Entered as Reported by: KORIN JENSEN on 08/27/20 1329 Apixaban (Eliquis) 5 Mg Tablet, 5 MG PO BID Prescribed by: MELINA CALDWELL on 02/05/21 0911 Aspirin/Acetaminophen/Caffeine (Excedrin Migraine Caplet) 1 Each Tablet, 2 EACH PO Q6-8HR PRN for Headache, (Reported) Entered as Reported by: KORIN JENSEN on 08/27/20 1329 Atorvastatin Calcium (Atorvastatin Calcium) 10 Mg Tablet, 10 MG PO HS, (Reported) Entered as Reported by: TARAS ARMENDARIZ on 05/30/16 1624 Buspirone HCl (Buspirone HCl) 10 Mg Tablet, 10 MG PO BID, (Reported) Entered as Reported by: KORIN JENSEN on 04/17/20 1434 Calcium Carbonate (Tums Ultra) 400 Mg Tab.chew, 400-800 MG PO Q8H PRN for INDIGESTION, (Reported) Entered as Reported by: KORIN JENSEN on 02/04/21 1407 Diltiazem HCl (Diltiazem 24Hr ER) 240 Mg Cap.er.24h, 240 MG PO DAILY, (Reported) Entered as Reported by: KORIN JENSEN on 08/27/20 1329 Duloxetine HCl (Duloxetine HCl) 60 Mg Capsule.dr, 60 MG PO DAILY, (Reported) Entered as Reported by: KORIN JENSEN on 04/17/20 1434 Enalapril Maleate (Enalapril Maleate) 20 Mg Tablet, 20 MG PO HS, (Reported) Entered as Reported by: CHRIS HOWARD on 06/19/161999 Meloxicam (Meloxicam) 15 Mg Tablet, 15 MG PO DAILY, (Reported) Entered as Reported by: KORIN JENSEN on 08/27/20 1329 Nortriptyline HCl (Nortriptyline HCl) 25 Mg Capsule, 75 MG PO HS, (Reported) Entered as Reported by: TARAS ARMENDARIZ on 05/30/16 1624 Ondansetron (Ondansetron Odt) 4 Mg Tab.rapdis, 4 MG PO Q8H PRN for NAUSEA/VOMITING-1ST LINE, (Reported) Entered as Reported by: KORIN JENSEN on 02/04/21 1407 Oxycodone HCl/Acetaminophen (Oxycodone-Acetaminophen 5-325) 1 Each Tablet, 1 EACH PO Q6H PRN for PAIN-MODERATE (5-7), (Reported) Entered as Reported by: KORIN JENSEN on 02/04/21 1407 Polyethylene Glycol 3350 (Miralax) 17 Gm Powd.pack, 17 GM PO DAILY PRN for CONSTIPATION-2ND LINE, (Reported) Entered as Reported by: KORIN JENSEN on 02/04/21 1407 Pregabalin (Pregabalin) 100 Mg Capsule, 100 MG PO BID, (Reported) Entered as Reported by: KORIN JENSEN on 02/04/21 1407 Tizanidine HCl (Tizanidine HCl) 4 Mg Tablet, 4 MG PO BID PRN for MUSCLE SPASMS, (Reported) Entered as Reported by: KORIN JENSEN on 04/17/20 1435 Past Pqoasxu-Gqdusp-Kvvdov Hx Patient Social History Smoking Status: Never a Smoker 2nd Hand Smoke Exposure: No Recent Hopitalizations: No Alcohol Use?: No Immunizations Up To Date Tetanus Booster (TDap): Less than 5yrs PED Vaccines UTD: No Date of Influenza Vaccine: Jan 18, 2021 Seasonal Allergies Seasonal Allergies: No Surgeries History of Surgeries: Yes (LAPAROSCOPY X3-ENDOMETRIOSIS, LEFT BREAST BX) Surgeries: Abdominal, Breast, Section, Eye Surgery, Hysterectomy, Oophorectomy, Tonsillectomy, Tubal Ligation Respiratory History of Respiratory Disorde: Yes (COVID + IN APRIL 2020, Hx of PE) Respiratory Disorders: Sleep Apnea Cardiovascular History of Cardiac Disorders: Yes Cardiac Disorders: High Cholesterol, Hypertension, Irregular Heartbeat Neurological History of Neurological Disord: Yes Neurological Disorders: 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 Reproductive System Hx Reproductive Disorders: Yes (CPP, DUB) Sexually Transmitted Disease: No HIV/AIDS: No Female Reproductive Disorders: Endometriosis, Ovarian 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 [employer]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, 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 Genitourinary History of Genitourinary Disor: Yes Genitourinary Disorders: UTI-Chronic Gastrointestinal History of Gastrointestinal Di: Yes Gastrointestinal Disorders: Colitis Musculoskeletal History of Musculoskeletal Dis: Yes (NECK PAIN AND RIGHT ARM PAIN) Endocrine History of Endocrine Disorders: No HEENT History of HEENT Disorders: Yes HEENT Disorders: Cataract Loss of Vision: Bilateral Hearing Impairment: Denies Cancer History of Cancer: No Psychosocial History of Psychiatric Problem: Yes Behavioral Health Disorders: Depression Integumentary History of Skin or Integumenta: No Blood Transfusions History of Blood Disorders: No Adverse Reaction to a Blood Tr: No (N/A) Family Medical History Significant Family History: GI Disease (Brother of Crohn's), Hypertension (Mother), Other Conditions/Hx Family Medial History: Arthritis 19 MOTHER Gastroenteritis G8 BROTHER Headache disorder 19 MOTHER G8 SISTER Hypertension 19 FATHER Prostate cancer 19 FATHER Review of Systems-General Constitutional: diaphoresis, malaise, weakness EENTM: No blurred vision, No mouth swelling, No epistaxis, No throat swelling Respiratory: No cough, No dyspnea on exertion, No hemoptysis, No phlegm; short of breath Cardiovascular: No chest pain, No edema, No palpitations Gastrointestinal: abdominal pain (LLQ), diarrhea; No hematemesis, No jaundice, No melena, No nausea, No vomiting Genitourinary: No dysuria, No frequency Musculoskeletal: No back pain; joint pain (right arm); No muscle stiffness; neck pain Skin: No change in color, No change in hair/nails Psychiatric/Neurological: Anxiety, Depressed; Denies Seizure, Denies Tremors Physical Exam-General Problems Physical Exam Vital Signs Vital Signs - First Documented 05/25/22 13:34 Temp 37.2 Pulse 102 Resp 16 B/P (MAP) 78/47 (57) Pulse Ox 94 O2 Delivery Room Air Capillary Refill : Less Than 3 Seconds General Appearance: WD/WN, moderate distress Eyes: Bilateral Eye PERRL, Bilateral Eye EOMI HEENT: pharynx normal; No scleral icterus (R), No scleral icterus (L) Neck: non-tender, supple Respiratory: lungs clear, normal breath sounds, no respiratory distress, no accessory muscle use Cardiovascular: regular rate, rhythm, no murmur Gastrointestinal: soft, no organomegaly; No distended, No guarding; tenderness (diffusely, but more in LLQ) Back: no CVA tenderness, no vertebral tenderness Extremities: no pedal edema, no calf tenderness, normal capillary refill Neurologic/Psychiatric: alert, oriented x 3 Skin: diaphoresis; No jaundice, No mottled Lymphatic: no adenopathy (neck, axilla or groin) Data Review Labs Laboratory Tests 05/25/22 14:00: White Blood Count 15.7H, Red Blood Count 3.99, Hemoglobin 11.4L, Hematocrit 36, Mean Corpuscular Volume 90, Mean Corpuscular Hemoglobin 29, Mean Corpuscular Hemoglobin Concent 32, Red Cell Distribution Width 14.4, Platelet Count 326, Mean Platelet Volume 10.5, Immature Granulocyte % (Auto) 0, Neutrophils (%) (Auto) 83H, Lymphocytes (%) (Auto) 4L, Monocytes (%) (Auto) 10, Eosinophils (%) (Auto) 2, Basophils (%) (Auto) 0, Neutrophils # (Auto) 13.1H, Lymphocytes # (Auto) 0.7L, Monocytes # (Auto) 1.6H, Eosinophils # (Auto) 0.3, Basophils # (Auto) 0.1, Immature Granulocyte # (Auto) 0.0, Neutrophils % (Manual) 74, Lymphocytes % (Manual) 5, Monocytes % (Manual) 12, Band Neutrophils 9, Toxic Granulation 1+, Blood Morphology Comment NORMAL, Prothrombin Time 37.9H, INR Comment 3.8H, Activated Partial Thromboplast Time 54H, Sodium Level 140, Potassium Level 5.2H, Chloride Level 114H, Carbon Dioxide Level 17L, Anion Gap 9, Blood Urea Nitrogen 34H, Creatinine 1.67H, Estimat Glomerular Filtration Rate 35, BUN/Creatinine Ratio 20, Glucose Level 132H, Lactic Acid Level 3.21*H, Calcium Level 7.6L, Corrected Calcium 8.5, Total Bilirubin 0.3, Aspartate Amino Transf (AST/SGOT) 22, Alanine Aminotransferase (ALT/SGPT) 35, Alkaline Phosphatase 248H, Total Protein 4.7L, Albumin 2.9L Assessment/Plan Assessment/Plan Assessment/Plan Hypotensive - meets septic criteria Venous Insufficiency Hyperkalemia Lactic Acidosis LLQ Abdominal pain Central line placed. Pt looks very sick, unsure of source. She is mostly dehydrated and will wait on CT findings. IV fluids at 200ml/hr. Will need UA with culture. ??start prophylactic ABX , monitor labs. Will check CXR after central line placement. ASHU DOSHI DO May 25, 2022 15:39
--- NOTE | 2022-05-25 15:56 | Progress Note-Post Operative ---
Post-Operative Progess Note Surgeon (s)/Pasteurizing Supervisor (s) Surgeon ASHU DOSHI DO Pasteurizing Supervisor: none Pre-Operative Diagnosis Hypotension, Venous insufficiency Post-Operative Diagnosis same possible sepsis Procedure & Operative Findings Date of Procedure 05/25/22 Procedure Performed/Findings The patient was in their bed in the ER, was prepped and draped in the sterile fashion. A surgical pause was performed. Ultrasound was used to locate the internal jugular vein. Once located anesthetic was infiltrated above it. Using an 18 gauge finder needle and watching with the US; the left internal jugular vein was accessed. Dark nonpulsatile blood was withdrawn. The wire was inserted. US assured proper placement. The needle was removed. A [#11] blade scalpel was used to make a stab incision along the guidewire. Dilator sheath was then advanced over the wire using Seldinger technique and the dilator was removed. The Groshong catheter was inserted over the guide wire using the Seldinger technique. The Groshong wire was removed. The catheter was then accessed in all three ports without difficulty. Good flash of blood was seen and each port was then flushed with saline. The catheter was sutured in place with 3-0 silk. The areas were then washed and dried. Sterile dressing was placed over incision. The patient tolerated the procedure well without complication. Dr. Lantigua tried 3 times on right and unfortunately unable to get the wire to thread. Anesthesia Type Local lidocaine Estimated Blood Loss Estimated blood loss (mL): scant Specimens/Packing Specimens Removed none ASHU DOSHI DO May 25, 2022 15:56
[2022-05-25 16:02] LABS: CLARITY,URINE CLEAR; COLOR,URINE YELLOW; GLUCOSE, URINE (UA) NEGATIVE (NEGATIVE); KETONES,URINE TRACE (NEGATIVE); LEUKOCYTE ESTERASE ,URINE NEGATIVE (NEGATIVE); NITRITE,URINE NEGATIVE (NEGATIVE); PROTEIN,URINE NEGATIVE (NEGATIVE)
--- NOTE | 2022-05-25 16:06 | Diagnostic Imaging Report ---
CLINICAL INDICATION: Patient with hypotension and shortness of air. Central line placed. EXAM: Portable chest x-ray upright view. COMPARISON: Chest x-ray dated 11/18/2021. FINDINGS: There is interval placement of left IJ central line with tip in the mid to distal superior vena cava region. Lungs/pleura: There is interval development of patchy airspace opacities involving both lung bases and right midlung field region. These findings may represent atelectasis, but infiltrates may be considered. Elevation of right hemidiaphragm is again seen. There is no pneumothorax. There is no pleural effusion. Mediastinum: Unremarkable. Pulmonary vasculature: Unremarkable. Heart: Unremarkable. Bones/extrathoracic soft tissue: There are degenerative spurs involving the spine. IMPRESSION: 1: Interval placement of left IJ central line with tip in the mid to distal superior vena cava. There is no pneumothorax. 2: There is interval progression of atelectasis versus infiltrates involving both lung bases and right midlung field. Dictated by: Dictated on workstation # [id number]
[2022-05-25 16:11] LABS: BACTERIA,URINE TRACE /HPF; BILIRUBIN,URINE NEGATIVE (NEGATIVE); SQUAMOUS EPITHELIAL CELL,UR 0-2 /HPF; WBC,URINE RARE /HPF
[2022-05-25 16:12] LABS: HYALINE CASTS, URINE 0-2 /LPF
--- NOTE | 2022-05-25 16:41 | Diagnostic Imaging Report ---
Clinical indication: Patient with abdominal pain started yesterday. Patient has history of ulcerative colitis. Patient with low blood pressure and shortness of air. Exam: CT exam of the abdomen and pelvis is performed without IV or oral contrast using stone protocol. Coronal and sagittal reformatted images were created. Auto Exposure Controls were utilized during the CT exam to meet ALARA standards for radiation dose reduction. Comparisons: CT scan of the abdomen and pelvis with contrast dated 11/23/2020. Findings: There is minimal patchy consolidation involving the left lung base likely representing atelectasis. There are degenerative spurs involving the bilateral acetabular regions. There is lower lumbar spine facet arthropathy. There are small degenerative spurs involving the lumbar spine. The liver, spleen, pancreas and gallbladder are unremarkable. Adrenal glands are unremarkable. Newsome catheter is seen within the bladder. There is a small amount of fluid within the bladder. Bladder is otherwise unremarkable. Both kidneys are unremarkable with no hydronephrosis, mass or stones. There is diffuse wall thickening involving the proximal sigmoid colon through the ascending colon, and to the proximal transverse colon concerning for colitis. There is mild fat stranding adjacent to these areas of the colon. The appendix is either surgically absent or obscured by adjacent closely intestinal structures. There is no enlarged tubular structure seen in the expected region of the appendix. There is minimal free fluid in the pelvis. There is no intra-abdominal free air. The stomach is unremarkable. The extra-abdominal and extra-pelvic soft tissue structures are unremarkable. Impression: 1: There is diffuse wall thickening seen from the proximal transverse colon all the way to the sigmoid colon consistent with colitis. There is mild fat stranding adjacent to the colon. 2: There is no other acute abnormality seen on this exam. Dictated by: Dictated on workstation # [id number]
--- NOTE | 2022-05-25 17:21 | Tele-ICU Progress Note ---
Subjective Date Seen by a Provider: May 25, 2022 Subjective/Events-last exam This virtual visit was conducted using real time audio/video. Thank you for asking us to see this patient for critical care services due to septic shock, colitis, dehydration and AYLEEN. Recent events: presented w abd pain. PMH: Ulcerative Colitis(not biopsy proven), htn, HL, BART, depression, Covid 04/2021. SH: smoking history N FH: Non-contributory Crohn's. ROS: limited by patient's clinical condition, but as in HPI. PE: Obese. VSS. 95/48, 101 ST. O2 sat 95% on RA HEENT: No obvious masses, adenopathy or JVD. Chest: clear to auscultation. CV: RRR S1 S2 No murmur or added sounds. Abd: Tender, hpoactive bowel sounds. : Unremarkable. Newsome N. 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 No obvious focal findings. Extremities: No edema. Capillary refill < 3 seconds. Skin: unremarkable. Results: Elevated WCC 15.7, BUN 34, Creat 1.67, K 5.2, BG 132. Decreased Hb 11.4. CXR: Clear santos, L IJ CVC. CTAP C/W colitis.. Available chart/ vitals / labs / images reviewed. Video assessment done using teleICU camera, rest of exam as per RN. A/P: Critical Care: critically ill patient. Cont. IVF, abx. Seen by surgery. Discussed with RN Shanon. Asked RN to reach out to eICU if any questions or concerns later. Time spent with patient/coordination of care with other health professionals (mins): 22 Sepsis Event Evaluation Height, Weight, BMI Height: 5'5.00" Weight: 196lbs. oz. 88.437252eo; 31.00 BMI Method:Stated Focused Exam Lactate Level 05/25/22 14:00: Lactic Acid Level 3.21*H Time of Focused Exam: 15:00 Lactic Acid Level Laboratory Tests Test 05/25/22 14:00 Lactic Acid Level 3.21 MMOL/L (0.50-2.00) *H Exam Exam Patient acknowledged, consented, and participated in this virtual visit which was conducted using real time audio/video Vital Signs Date Time Temp Pulse Resp B/P (MAP) Pulse Ox O2 Delivery O2 Flow Rate FiO2 05/25/22 17:08 102 05/25/22 16:52 98 22 103/66 99 Nasal Cannula 2.00 05/25/22 13:34 37.2 102 16 78/47 (57) 94 Room Air Height & Weight Height: 5'5.00" Weight: 196lbs. oz. 88.621120ir; 31.00 BMI Method:Stated General Appearance: Obese Respiratory: Lungs Clear, Normal Breath Sounds, No Accessory Muscle Use, No Respiratory Distress Cardiovascular: Regular Rate, Rhythm, Normal Peripheral Pulses Capillary Refill: Less Than 3 Seconds Peripheral Pulses: 2+ Dorsalis Pedis (R), 2+ Left Dors-Pedis (L) (See free text.) Gastrointestinal: soft, abnormal bowel sounds (Hypoactive bowel sounds), tenderness Results Lab Laboratory Tests 05/25/22 14:00 Assessment/Plan Assessment/Plan See free text Critical Care: Critically Ill Patient NEO CHERRY MD May 25, 2022 17:21
[2022-05-25] MEDS ORDERED: LACTULOSE SYRUP 10GM/15ML (ENULOSE) 30ML UDC PO PRN (17:30)
[2022-05-25] MEDS ORDERED: CALCIUM CARBONATE 500 MG (TUMS) TAB.CHEW PO PRN (17:30)
[2022-05-25] MEDS ORDERED: BISACODYL 10 MG SUPP (DULCOLAX) PR PRN (17:30)
[2022-05-25] MEDS ORDERED: polyethylene glycoL POWDER 17 GM (MIRALAX) PACK PO PRN (17:30)
[2022-05-25] MEDS ORDERED: ONDANSETRON 4 MG (ZOFRAN) ORAL DISSOLVE TAB PO PRN (17:30)
[2022-05-25] MEDS ORDERED: diphenhydrAMINE 50 MG/ML INJ (BENADRYL) IVP PRN (17:30)
[2022-05-25] MEDS ORDERED: ONDANSETRON 4 MG/2 ML (SDV) Z0FRAN IV PRN (17:30)
[2022-05-25] MEDS ORDERED: diphenhydrAMINE 25 MG TAB (BENADRYL) PO PRN (17:30)
[2022-05-25] MEDS ORDERED: MILK OF MAGNESIA 400 MG/5 ML 30 ML UDC PO PRN (17:30)
[2022-05-25] MEDS ORDERED: MELATONIN 3 MG TABLET PO PRN (17:30)
[2022-05-25] MEDS ORDERED: ANTACID SUSP 30 ML UDC (MYLANTA) PO PRN (17:30)
[2022-05-25] MEDS ORDERED: ACETAMINOPHEN 325 MG TABLET PO PRN (17:30)
[2022-05-25] MEDS ORDERED: MEROPENEM 1,000 MG in NS (IVPB) 100 ML IV SCH (17:30)
[2022-05-25] MEDS ORDERED: NS IV 500 ML 500 ML IV PRN (17:30)
[2022-05-25] MEDS ORDERED: EPINEPHrine 1 MG INJECTION 4 MG in NS (IVPB) 248 ML IV SCH (17:30)
[2022-05-25] MEDS: LACTATED RINGERS 1,000 ML IV SCH (17:47)
[2022-05-25] MEDS: HYDROmorphone 2 MG/ML VIAL (DILAUDID) IV PRN ×3 (17:48→22:31)
[2022-05-25] MEDS: NOREPINEPHRINE 8 MG/250 ML 250 ML IV SCH (18:27)
[2022-05-25] MEDS: VASOPRESSIN INJECTION 20 UNIT in NS (IVPB) 100 ML IV SCH (18:31)
--- NOTE | 2022-05-25 19:59 | History & Physical-Hospitalist ---
History of Present Illness HPI/Chief Complaint Alycia Lynch is a 61 year old female with PMH HTN, HLD, PE, anxiety, chronic pain, obesity, who presented with abdominal pain. She says the pain started yesterday. It is all over her abdomen but mainly left sided. She has also had diarrhea. She denies bloody stools. She has not noticed any fevers. She is having chills now. She denies nausea and vomiting. She denies chest pain and shortness of breath. She reports a history of presumed inflammatory bowel disease. She has been treated with courses of steroids but has never had a biopsy to diagnose it. She did have a colonoscopy for cancer screening. She also says she may have had C diff in the past. Source: patient Exam Limitations: no limitations Date Seen 05/25/22 Time Seen by a Provider: 18:50 Attending Physician Demar Patel MD PCP Admitting Physician: Misty Hernandes MD Attending Physician: Misty Hernandes MD Referring Physician Date of Admission May 25, 2022 at 16:57 Home Medications & Allergies Home Medications Reviewed patient Home Medication Reconciliation performed by pharmacy medication reconciliations auto glass technician and/or nursing. Patients Allergies have been reviewed. Allergies Allergies Coded Allergies amoxicillin (Verified Allergy, Unknown, 06/19/16) clavulanic acid (Verified Allergy, Unknown, 06/19/16) diphenhydramine (Unverified Allergy, Unknown, "hebby jebby", 06/19/16) latex (Verified Allergy, Unknown, 08/27/16) Past [id number]-Ewyfvp-Fdfrpl Hx Patient Social History Tobacco Use?: No Smoking Status: Never a Smoker Substance use?: No Alcohol Use?: No Pt feels they are or have been: No Immunizations Up To Date Date of Influenza Vaccine: Jan 18, 2021 First/Initial COVID19 Vaccinat: June 2020 Second COVID19 Vaccination Panchito: July 2020 Tetanus Booster (TDap): Less Than 5 Years Hepatitis A: Yes Hepatitis B: Yes PED Vaccines UTD: No Seasonal Allergies Seasonal Allergies: No Current Status status: No Advance Directives: No Communicates: Verbally Primary Language: Barbadian Preferred Spoken Language: Barbadian Is interpretation needed?: No Sensory deficits: Vision impairment Implanted or Applied Medical D: None Past Medical History Surgeries: Abdominal, Breast, Section, Eye Surgery, Hysterectomy, Oophorectomy, Tonsillectomy, Tubal Ligation Sleep Apnea Currently Using CPAP: No Currently Using BIPAP: No High Cholesterol, Hypertension, Irregular Heartbeat 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, 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 Sexually Transmitted Disease: No HIV/AIDS: No UTI-Chronic Colitis Cataract Loss of Vision: Bilateral Hearing Impairment: Denies Depression Blood Disorders: No Adverse Reaction/Blood Tranf: No (N/A) Hypertension Hyperlipidemia Obesity Chronic pain Family Medical History Arthritis 19 MOTHER Gastroenteritis G8 BROTHER Headache disorder 19 MOTHER G8 SISTER Hypertension 19 FATHER Prostate cancer 19 FATHER GI Disease, Hypertension, Other Conditions/Hx Review of Systems Constitutional: chills EENTM: no symptoms reported Respiratory: no symptoms reported Cardiovascular: no symptoms reported Gastrointestinal: abdominal pain, diarrhea Physical Exam Physical Exam Vital Signs Vital Signs - First Documented 05/25/22 05/25/22 13:34 16:52 Temp 37.2 Pulse 102 Resp 16 B/P (MAP) 78/47 (57) Pulse Ox 94 O2 Delivery Room Air O2 Flow Rate 2.00 Capillary Refill : Less Than 3 Seconds Height, Weight, BMI Height: 5'5.00" Weight: 196lbs. oz. 88.883311qz; 31.58 BMI Method:Stated General Appearance: Mild Distress (rigors), Obese HEENT: PERRL/EOMI (wearing glasses), Pharynx Normal Neck: Normal Inspection, Supple Respiratory: Lungs Clear, Normal Breath Sounds, No Respiratory Distress Cardiovascular: No Murmur, Tachycardia Gastrointestinal: Normal Bowel Sounds, Soft, Guarding, Tenderness (left > right, tender to light palpation) Extremity: Normal Inspection, No Pedal Edema Neurologic/Psychiatric: Alert, Oriented x3, No Motor/Sensory Deficits Skin: Warm/Dry, Diaphoresis Results Results/Procedures Labs Laboratory Tests 05/25/22 14:00 Patient resulted labs reviewed. Imaging: Reviewed Imaging Films, Reviewed Imaging Report Assessment/Plan Admission Diagnosis Septic shock Admission Status: Inpatient Order (span 2 midnights) Reason for Inpatient Admission: Pressor support IV fluids Colitis Surgical evaluation Assessment and Plan Septic shock Colitis Lactic acidosis Acute kidney injury SIRS+ with fever, leukocytosis, tachycardia CXR negative UA negative CT abdomen with colitis from proximal transverse colon to sigmoid colon Check C diff Trend lactic acid IV fluids IV pressors, on Levophed now Dilaudid NPO Merrem Surgery consulted TeleICU consulted HTN HLD Anxiety Chronic pain History of PE Obesity Hold home meds Therapeutic Lovenox Critical Care Critically Ill Patient Diagnosis/Problems Diagnosis/Problems (1) Septic shock Status: Acute (2) Colitis Status: Acute (3) Lactic acidosis Status: Acute (4) Acute kidney injury Status: Acute (5) Pulmonary emboli Status: Acute (6) Chronic anticoagulation Status: Acute (7) Hypertension Status: Chronic (8) HLD (hyperlipidemia) Status: Chronic (9) Chronic pain Status: Chronic (10) Anxiety Status: Chronic (11) Obesity Status: Chronic MISTY HERNANDES MD May 25, 2022 19:59
[2022-05-25] MEDS: SENNOSIDES 8.6 MG (SENOKOT) TAB PO SCH (21:00)
[2022-05-25] MEDS: DOCUSATE SODIUM 100 MG (COLACE) CAP PO SCH (21:15)
[2022-05-25] MEDS: ENOXAPARIN 100 MG/1 ML (LOVENOX) SYR SC SCH (21:29)
[2022-05-25] MEDS: MEROPENEM 500 MG/NS 100 ML IVPB IV SCH ×2 (21:30)
[2022-05-26] MEDS: KCL 20 MEQ TAB (K-DUR) PO SCH (00:10)
[2022-05-26] MEDS: LACTATED RINGERS 1,000 ML IV SCH ×4 (01:53→18:45)
[2022-05-26 03:28] LABS: BASOPHILS % (AUTO) 0 % (0-10); EOSINOPHILS % (AUTO) 0 % (0-10); HEMATOCRIT 36 % (35-52); HEMOGLOBIN 11.3 g/dL (11.5-16.0); LYMPHOCYTES # (AUTO) 0.6 10^3/uL (1.0-4.0); LYMPHOCYTES % (AUTO) 5 % (12-44); MEAN CORPUSCULAR HEMOGLOBIN 28 pg (25-34); MEAN CORPUSCULAR HGB CONC 32 g/dL (32-36); MEAN CORPUSCULAR VOLUME 89 fL (80-99); MEAN PLATELET VOLUME 10.5 fL (9.0-12.2); MONOCYTES # (AUTO) 2.1 10^3/uL (0.0-1.0); MONOCYTES % (AUTO) 16 % (0-12); NEUTROPHILS # (AUTO) 10.5 10^3/uL (1.8-7.8); NEUTROPHILS % (AUTO) 79 % (42-75); PLATELET COUNT 327 10^3/uL (130-400); WHITE BLOOD COUNT 13.4 10^3/uL (4.3-11.0)
[2022-05-26] MEDS: HYDROmorphone 2 MG/ML VIAL (DILAUDID) IV PRN ×6 (03:30→22:34)
[2022-05-26 03:37] LABS: POTASSIUM 4.7 MMOL/L (3.6-5.0)
[2022-05-26 03:39] LABS: CALCIUM 7.9 MG/DL (8.5-10.1)
[2022-05-26 03:40] LABS: TOTAL PROTEIN 5.2 GM/DL (6.4-8.2)
[2022-05-26 03:42] LABS: BILIRUBIN,TOTAL 0.4 MG/DL (0.1-1.0)
[2022-05-26 03:43] LABS: CREATININE SERUM 1.06 MG/DL (0.60-1.30)
[2022-05-26] MEDS: VASOPRESSIN INJECTION 20 UNIT in NS (IVPB) 100 ML IV SCH ×3 (04:06→21:24)
[2022-05-26] MEDS: MAGNESIUM 1 GM/100 ML IVPB 100 ML IV SCH (04:08)
[2022-05-26] MEDS: POTASSIUM CL 10MEQ/50ML IVPB 50 ML IV SCH (04:08)
[2022-05-26] MEDS: MEROPENEM 500 MG/NS 100 ML IVPB IV SCH ×8 (05:03→22:30)
--- NOTE | 2022-05-26 06:51 | Progress Note - Surgery ---
CHANA QUINTERO 05/26/22 0651: Subjective Date Seen by a Provider: May 26, 2022 Subjective/Events-last exam Patient is laying in bed this morning in bed with minimal discomfort. She has been in bed resting on and off throughout the night according to her nurse. Her only complaint this morning is her abdominal pain which was diffuse upon arrival and has now localized to LLQ. She is tolerating the pain medication well, rating her pain at a 9/10 earlier this morning to a 8/10 currently. Upon questioning she has difficulty recalling certain details of her prior bouts with what she calls "colitis", attributing her memory issue to having COVID prior. She has not had any bowel movements since yesterday. She denies any nausea or vomiting since being placed in her ICU room. She denies any SOB, headache, chest pain, or any other pain at this time. Has not ambulated since being placed in her room. She is curious as to why she was NPO at this time, which was explained to her. Review of Systems General: Fatigue, Malaise HEENT: No Head Aches, No Ear Pain Pulmonary: No Dyspnea, No Cough Cardiovascular: No: Chest Pain, Palpitations Gastrointestinal: No: Nausea, Vomiting Genitourinary: No Dysuria, No Hematuria Musculoskeletal: No: neck pain, back pain Neurological: No: Weakness, Numbness Focused Exam Lactate Level 05/25/22 14:00: Lactic Acid Level 3.21*H 05/25/22 17:41: Lactic Acid Level 4.08*H 05/25/22 19:53: Lactic Acid Level 1.97 Time of Focused Exam: 15:00 Objective Exam Vital Signs Date Time Temp Pulse Resp B/P (MAP) Pulse Ox O2 Delivery O2 Flow Rate FiO2 05/26/22 06:00 111 18 110/62 (77) 98 Nasal Cannula 3.00 05/26/22 05:00 116 39 110/73 (88) 99 Nasal Cannula 3.00 05/26/22 04:53 36.9 05/26/22 04:00 117 111/72 (85) 98 Nasal Cannula 3.00 05/26/22 04:00 Nasal Cannula 3.00 05/26/22 04:00 37.0 05/26/22 03:00 100 34 128/75 (93) 97 Nasal Cannula 3.00 05/26/22 02:00 109 36 125/71 (82) 99 Nasal Cannula 3.00 05/26/22 01:00 107 05/26/22 01:00 107 107/62 (77) 99 Nasal Cannula 3.00 05/26/22 00:00 107 19 104/65 (77) 96 Nasal Cannula 3.00 05/25/22 23:59 Nasal Cannula 3.00 05/25/22 23:01 36.7 05/25/22 23:00 107 97/58 (72) 97 Nasal Cannula 3.00 05/25/22 23:00 36.5 05/25/22 22:31 36.5 05/25/22 22:00 108 23 113/70 (80) 98 Nasal Cannula 3.00 05/25/22 22:00 Nasal Cannula 3.00 05/25/22 21:30 112 106/70 (84) 98 Nasal Cannula 3.00 05/25/22 21:00 112 20 90/52 (55) 97 Nasal Cannula 3.00 05/25/22 20:00 Nasal Cannula 3.00 05/25/22 20:00 113 15 132/78 (94) 95 Nasal Cannula 3.00 05/25/22 19:37 37.7 05/25/22 19:07 38.3 05/25/22 19:00 109 05/25/22 19:00 109 37 103/71 (83) 98 Nasal Cannula 3.00 05/25/22 18:27 100 73/50 05/25/22 18:00 100 10 90/57 (65) 97 Nasal Cannula 3.00 05/25/22 17:08 102 05/25/22 17:00 36.3 112 22 115/55 (75) 98 Nasal Cannula 3.00 05/25/22 17:00 Nasal Cannula 3.00 05/25/22 16:52 98 22 103/66 99 Nasal Cannula 2.00 05/25/22 13:34 37.2 102 16 78/47 (57) 94 Room Air I & O 05/26/22 07:00 Intake Total 3100 ml Output Total 1000 ml Balance 2100 ml Capillary Refill : Less Than 3 Seconds General Appearance: No Apparent Distress, Obese HEENT: PERRL/EOMI (wearing glasses); No Scleral Icterus (L), No Scleral Icterus (R) Neck: Normal Inspection, Supple Respiratory: Lungs Clear, Normal Breath Sounds, No Accessory Muscle Use, No Respiratory Distress Cardiovascular: No Murmur, Normal Peripheral Pulses, Tachycardia Peripheral Pulses: 2+ Dorsalis Pedis (R), 2+ Left Dors-Pedis (L) (See free text.), 2+ Radial Pulses (R), 2+ Radial Pulses (L) Gastrointestinal: soft; No guarding, No rebound; tenderness (LLQ tender to deep palpation), other (Normoactive bowel sounds) Extremity: Normal Inspection, Non Tender, No Pedal Edema Neurologic/Psychiatric: Alert, Oriented x3, Normal Mood/Affect Skin: Warm/Dry, Diaphoresis Results Lab Laboratory Tests 05/25/22 14:00: White Blood Count 15.7H, Red Blood Count 3.99, Hemoglobin 11.4L, Hematocrit 36, Mean Corpuscular Volume 90, Mean Corpuscular Hemoglobin 29, Mean Corpuscular Hemoglobin Concent 32, Red Cell Distribution Width 14.4, Platelet Count 326, Mean Platelet Volume 10.5, Immature Granulocyte % (Auto) 0, Neutrophils (%) (Auto) 83H, Lymphocytes (%) (Auto) 4L, Monocytes (%) (Auto) 10, Eosinophils (%) (Auto) 2, Basophils (%) (Auto) 0, Neutrophils # (Auto) 13.1H, Lymphocytes # (Auto) 0.7L, Monocytes # (Auto) 1.6H, Eosinophils # (Auto) 0.3, Basophils # (Auto) 0.1, Immature Granulocyte # (Auto) 0.0, Neutrophils % (Manual) 74, Lymphocytes % (Manual) 5, Monocytes % (Manual) 12, Band Neutrophils 9, Toxic Granulation 1+, Blood Morphology Comment NORMAL, Prothrombin Time 37.9H, INR Comment 3.8H, Activated Partial Thromboplast Time 54H, Sodium Level 140, Potassium Level 5.2H, Chloride Level 114H, Carbon Dioxide Level 17L, Anion Gap 9, Blood Urea Nitrogen 34H, Creatinine 1.67H, Estimat Glomerular Filtration Rate 35, BUN/Creatinine Ratio 20, Glucose Level 132H, Lactic Acid Level 3.21*H, Ca lcium Level 7.6L, Corrected Calcium 8.5, Total Bilirubin 0.3, Aspartate Amino Transf (AST/SGOT) 22, Alanine Aminotransferase (ALT/SGPT) 35, Alkaline Phosphatase 248H, Total Protein 4.7L, Albumin 2.9L 05/25/22 15:50: Urine Color YELLOW, Urine Clarity CLEAR, Urine pH 5.0, Urine Specific Evans 1.025H, Urine Protein NEGATIVE, Urine Glucose (UA) NEGATIVE, Urine Ketones TRACEH, Urine Nitrite NEGATIVE, Urine Bilirubin NEGATIVE, Urine Urobilinogen 0.2, Urine Leukocyte Esterase NEGATIVE, Urine RBC (Auto) NEGATIVE, Urine RBC NON E, Urine WBC RARE, Urine Squamous Epithelial Cells 0-2, Urine Crystals NONE, Urine Bacteria TRACE, Urine Casts PRESENT, Urine Hyaline Casts 0-2H, Urine Mucus NEGATIVE, Urine Culture Indicated CULTURE PENDING 05/25/22 17:41: Lactic Acid Level 4.08*H 05/25/22 19:53: Lactic Acid Level 1.97 05/26/22 03:15: White Blood Count 13.4H, Red Blood Count 3.99, Hemoglobin 11.3L, Hematocrit 36, Mean Corpuscular Volume 89, Mean Corpuscular Hemoglobin 28, Mean Corpuscular Hemoglobin Concent 32, Red Cell Distribution Width 14.8H, Platelet Count 327, M natali Platelet Volume 10.5, Immature Granulocyte % (Auto) 0, Neutrophils (%) (Auto) 79H, Lymphocytes (%) (Auto) 5L, Monocytes (%) (Auto) 16H, Eosinophils (%) (Auto) 0, Basophils (%) (Auto) 0, Neutrophils # (Auto) 10.5H, Lymphocytes # (Auto) 0.6L, Monocytes # (Auto) 2.1H, Eosinophils # (Auto) 0.0, Basophils # (Auto) 0.0, Immature Granulocyte # (Auto) 0.0, Sodium Level 141, Potassium Level 4.7, Chloride Level 115H, Carbon Dioxide Level 17L, Anion Gap 9, Blood Urea Nitrogen 29H, Creatinine 1.06, Estimat Glomerular Filtration Rate 60, BUN/Creatinine Ratio 27, Glucose Level 119H, Calcium Level 7.9L, Corrected Calcium 8.7, Magnesium Level 2.4, Total Bilirubin 0.4, Aspartate Amino Transf (AST/SGOT) 47H, Alanine Aminotransferase (ALT/SGPT) 57H, Alkaline Phosphatase 221H, Total Protein 5.2L, Albumin 3.0L Assessment/Plan Assessment/Plan Assessment/Plan Assessment: Septic Shock- Meets criteria Acute Colitis LLQ Abdominal pain- Minor improvement Hypotension - Improving compared to admission Venous Insufficiency Hyperkalemia- Improving to 4.7 from 5.2 Lactic Acidosis-Resolved Obesity 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 She reports she is still having some diarrhea, but no hematochezia or melena. Denies any nausea or vomiting. Rating the pain as 5 out of 10 when I saw her. I also spoke with the nurse and she is currently of the Levophed. Review of Systems General: Fatigue, Malaise HEENT: No Head Aches Pulmonary: No Dyspnea, No Cough Cardiovascular: No: Chest Pain, Palpitations Gastrointestinal: Abdominal Pain; No: Nausea, Vomiting Genitourinary: No Dysuria, No Hematuria Objective Exam General Appearance: No Apparent Distress, Chronically ill, Obese HEENT: PERRL/EOMI (wearing glasses); No Scleral Icterus (L), No Scleral Icterus (R) Respiratory: Lungs Clear, Normal Breath Sounds, No Accessory Muscle Use, No Respiratory Distress Cardiovascular: Tachycardia Peripheral Pulses: 2+ Radial Pulses (R), 2+ Radial Pulses (L) Gastrointestinal: soft; No guarding, No rebound; tenderness (mild diffuse, but worse on left side and especially LLQ ), hernia (incisional at umbilicus) Extremity: No Calf Tenderness, No Pedal Edema Neurologic/Psychiatric: Alert, Oriented x3 Skin: Warm/Dry, Diaphoresis Assessment/Plan Assessment/Plan Assessment/Plan Acute Colitis - per CT, mainly transverse and left side with mild stranding LLQ Abdominal pain- Minor improvement Hypotension - Resolved and off Levophed Venous Insufficiency Hyperkalemia- resolved Lactic Acidosis-Resolved Obesity 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 Continue with IV fluids, pain control, anti-emetics if needed and ABX, NPO except sips for meds (at least until abdominal pain is minimal) DVT propholaxis, Monitor Labs and physical exam, Stool cultures sent for C-diff; I also ordered O&P plus all other enteric organisms Supervisory-Addendum Brief Verification & Attestation Participated in pt care: history, MDM, physical Personally performed: exam, history, MDM, supervision of care Care discussed with: Medical Student Procedures: n/a Verification and Attestation of Medical Student E/M Service A medical student performed and documented this service. I then reviewed and verified all information documented by the medical student and made modifications to such information, when appropriate. I personally performed a physical exam, medical decision making and then discussed any differences between the notes and made revisions as necessary to create one note. Rolly Amor , 05/26/22 , 14:44 CHANA QUINTERO May 26, 2022 06:51 ROLLY AMOR DO May 26, 2022 14:44
--- NOTE | 2022-05-26 08:39 | Progress Note - Hospitalist ---
Subjective HPI/CC On Admission Date Seen by Provider: May 26, 2022 Alycia Lynch is a 61 year old female with PMH HTN, HLD, PE, anxiety, chronic pain, obesity, who presented with abdominal pain. She says the pain started yesterday. It is all over her abdomen but mainly left sided. She has also had diarrhea. She denies bloody stools. She has not noticed any fevers. She is having chills now. She denies nausea and vomiting. She denies chest pain and shortness of breath. She reports a history of presumed inflammatory bowel disease. She has been treated with courses of steroids but has never had a biopsy to diagnose it. She did have a colonoscopy for cancer screening. She also says she may have had C diff in the past. Subjective/Events-last exam Pt reports feeling a little better today but still having persistent abd pain. Pain improved with current pain regimen though. Currently getting daly care after BM. Focused Exam Lactate Level 05/25/22 14:00: Lactic Acid Level 3.21*H 05/25/22 17:41: Lactic Acid Level 4.08*H 05/25/22 19:53: Lactic Acid Level 1.97 Time of Focused Exam: 15:00 Objective Exam Vital Signs Vital Signs Date Time Temp Pulse Resp B/P (MAP) Pulse Ox O2 Delivery O2 Flow Rate FiO2 05/27/22 10:00 95 15 127/74 (91) 90 Nasal Cannula 1.00 05/27/22 08:00 36.3 Capillary Refill : Less Than 3 Seconds General Appearance: No Apparent Distress Respiratory: Lungs Clear, No Respiratory Distress Cardiovascular: No Murmur, Tachycardia (regular) Gastrointestinal: Normal Bowel Sounds, Soft, Tenderness (left sided, no rebound or guarding) Neurologic/Psychiatric: Alert, Oriented x3 Results/Procedures Lab Laboratory Tests 05/27/22 02:26 Patient resulted labs reviewed. Imaging: Reviewed Imaging Films, Reviewed Imaging Report Assessment/Plan Assessment and Plan Assess & Plan/Chief Complaint Septic shock Colitis Lactic acidosis Acute kidney injury CT abdomen with colitis from proximal transverse colon to sigmoid colon Check C diff- unable to collect sample still- continue to attempt lactic acid trended down Wean pressors as able Dilaudid NPO Merrem Surgery consulted, appreciate recs TeleICU consulted Consider steroids HTN HLD Anxiety Chronic pain History of PE Obesity Hold home meds as is NPO Will attempt to start with sips if ok with surgery Therapeutic Lovenox DVT ppx: Lovenox as above Critical Care Critically Ill Patient MELINA CALDWELL MD May 26, 2022 8:39 am
[2022-05-26] MEDS: ENOXAPARIN 100 MG/1 ML (LOVENOX) SYR SC SCH ×2 (10:01→20:39)
[2022-05-26] MEDS: SENNOSIDES 8.6 MG (SENOKOT) TAB PO SCH ×2 (10:02→19:33)
[2022-05-26] MEDS: DOCUSATE SODIUM 100 MG (COLACE) CAP PO SCH ×2 (10:02→19:33)
[2022-05-26] MEDS: NOREPINEPHRINE 8 MG/250 ML 250 ML IV SCH ×2 (10:03→21:23)
[2022-05-26] MEDS ORDERED: WRF5T PO (11:57)
[2022-05-26] MEDS ORDERED: ESTR42.511 VG (11:57)
[2022-05-26] MEDS ORDERED: WARF-48 PO (11:57)
[2022-05-26] MEDS ORDERED: TOPI25TA10 PO (11:57)
--- NOTE | 2022-05-26 13:19 | Tele-ICU Progress Note ---
Subjective Date Seen by a Provider: May 26, 2022 Time Seen by a Provider: 12:48 Subjective/Events-last exam SHE STILL HAS DIARRHOEA. BUT BP IMPROVING. LEVO IS OFF. HAS MODERATE LLQ ABDOMINAL PAIN. ITS BETTER WHEN COMPARED TO YESTERDAY. NO FEVER TODAY. Review of Systems ROS PER RN Sepsis Event Evaluation Height, Weight, BMI Height: 5'5.00" Weight: 196lbs. oz. [id number]; 31.58 BMI Method:Stated Focused Exam Lactate Level 05/25/22 14:00: Lactic Acid Level 3.21*H 05/25/22 17:41: Lactic Acid Level 4.08*H 05/25/22 19:53: Lactic Acid Level 1.97 Time of Focused Exam: 15:00 Exam Exam Patient acknowledged, consented, and participated in this virtual visit which was conducted using real time audio/video Vital Signs Date Time Temp Pulse Resp B/P (MAP) Pulse Ox O2 Delivery O2 Flow Rate FiO2 05/26/22 12:20 160/90 05/26/22 12:19 127 05/26/22 12:18 Nasal Cannula 3.00 05/26/22 12:00 36.6 05/26/22 11:00 117 19 127/73 (91) 94 Nasal Cannula 1.00 05/26/22 10:05 88 Nasal Cannula 1.00 05/26/22 10:05 137/69 05/26/22 10:00 115 130/78 (95) 88 Room Air 05/26/22 09:00 112 12 124/67 (86) 93 Room Air 05/26/22 08:33 145/69 05/26/22 08:31 100 Room Air 05/26/22 08:00 36.4 05/26/22 08:00 111 12 126/76 (93) 99 Room Air 05/26/22 08:00 Nasal Cannula 3.00 05/26/22 07:06 111 05/26/22 07:00 111 17 113/77 (89) 98 Nasal Cannula 3.00 05/26/22 06:00 111 18 110/62 (77) 98 Nasal Cannula 3.00 05/26/22 05:00 116 39 110/73 (88) 99 Nasal Cannula 3.00 05/26/22 04:53 36.9 05/26/22 04:00 117 111/72 (85) 98 Nasal Cannula 3.00 05/26/22 04:00 Nasal Cannula 3.00 05/26/22 04:00 37.0 05/26/22 03:00 100 34 128/75 (93) 97 Nasal Cannula 3.00 05/26/22 02:00 109 36 125/71 (82) 99 Nasal Cannula 3.00 05/26/22 01:00 107 05/26/22 01:00 107 107/62 (77) 99 Nasal Cannula 3.00 05/26/22 00:00 107 19 104/65 (77) 96 Nasal Cannula 3.00 05/25/22 23:59 Nasal Cannula 3.00 05/25/22 23:01 36.7 05/25/22 23:00 107 97/58 (72) 97 Nasal Cannula 3.00 05/25/22 23:00 36.5 05/25/22 22:31 36.5 05/25/22 22:00 108 23 113/70 (80) 98 Nasal Cannula 3.00 05/25/22 22:00 Nasal Cannula 3.00 05/25/22 21:30 112 106/70 (84) 98 Nasal Cannula 3.00 05/25/22 21:00 112 20 90/52 (55) 97 Nasal Cannula 3.00 05/25/22 20:00 Nasal Cannula 3.00 05/25/22 20:00 113 15 132/78 (94) 95 Nasal Cannula 3.00 05/25/22 19:37 37.7 05/25/22 19:07 38.3 05/25/22 19:00 109 05/25/22 19:00 109 37 103/71 (83) 98 Nasal Cannula 3.00 05/25/22 18:27 100 73/50 05/25/22 18:00 100 10 90/57 (65) 97 Nasal Cannula 3.00 05/25/22 17:08 102 05/25/22 17:00 36.3 112 22 115/55 (75) 98 Nasal Cannula 3.00 05/25/22 17:00 Nasal Cannula 3.00 05/25/22 16:52 98 22 103/66 99 Nasal Cannula 2.00 05/25/22 13:34 37.2 102 16 78/47 (57) 94 Room Air I & O 05/26/22 07:00 Intake Total 3100 ml Output Total 1000 ml Balance 2100 ml Height & Weight Height: 5'5.00" Weight: 196lbs. oz. [id number]; 31.58 BMI Method:Stated General Appearance: No Apparent Distress HEENT: PERRL/EOMI (wearing glasses); No Scleral Icterus (L), No Scleral Icterus (R) Neck: Normal Inspection, Supple Respiratory: Lungs Clear, No Respiratory Distress Cardiovascular: No Murmur, Tachycardia (regular) Capillary Refill: Less Than 3 Seconds Peripheral Pulses: 2+ Dorsalis Pedis (R), 2+ Left Dors-Pedis (L) (See free text.), 2+ Radial Pulses (R), 2+ Radial Pulses (L) Gastrointestinal: soft; No guarding, No rebound; tenderness (LLQ tender to deep palpation), other (Normoactive bowel sounds) Extremity: Normal Inspection, Non Tender, No Pedal Edema Neurologic/Psychiatric: Alert, Oriented x3 Skin: Warm/Dry, Diaphoresis Other comments PE PER RN Results Lab Laboratory Tests 05/25/22 14:00 05/26/22 03:15 Assessment/Plan Assessment/Plan 1. SPTIC SHOCK IMPROVING. 2. DIARRHOEA DUE TO COLITIS, SURGEON ON THE CASE. 3. HX OD RECURRENT DIARRHOEA, R/O C.DIFF COLITIS, CHRONS DISEASE. 4. ELEVATED LIVER ENZYMES DUE TO PROBABLY HYPOTENSION AND SEPSIS. PLAN. 1. CONTINUE HYDRATION 2. CONTINUE ANTIBIOTICS PER PRIMARY. 3. SUGGEST COLONOSCOPY AND BIOSPY WHEN STABLE. 4.STOOL FOR C.DIFF TOXIN PENDING. 5. PAIN MANAGEMENT PER GEN. SURGERY. 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
[2022-05-26] MEDS: busPIRone 10 MG (BUSPAR) TAB PO SCH (20:38)
[2022-05-26] MEDS: toPIRamate 25 MG (TOPAMAX) TAB PO SCH (20:38)
[2022-05-26] MEDS: PREGABALIN 100 MG (LYRICA) CAPSULE PO SCH (20:38)
[2022-05-26] MEDS: methylPREDNISolone 40 MG/ML (Solu-MEDROL) VIAL IV SCH (20:39)
[2022-05-26] MEDS: NORTRIPTYLINE 25 MG (PAMELOR) CAP PO SCH (20:39)
[2022-05-27] MEDS: HYDROmorphone 2 MG/ML VIAL (DILAUDID) IV PRN ×8 (01:32→22:54)
[2022-05-27] MEDS: LACTATED RINGERS 1,000 ML IV SCH ×3 (02:19→22:43)
[2022-05-27 02:46] LABS: BASOPHILS % (AUTO) 0 % (0-10); EOSINOPHILS % (AUTO) 0 % (0-10); HEMATOCRIT 30 % (35-52); HEMOGLOBIN 9.5 g/dL (11.5-16.0); LYMPHOCYTES # (AUTO) 0.6 10^3/uL (1.0-4.0); LYMPHOCYTES % (AUTO) 7 % (12-44); MEAN CORPUSCULAR HEMOGLOBIN 28 pg (25-34); MEAN CORPUSCULAR HGB CONC 32 g/dL (32-36); MEAN CORPUSCULAR VOLUME 90 fL (80-99); MEAN PLATELET VOLUME 10.8 fL (9.0-12.2); MONOCYTES # (AUTO) 1.1 10^3/uL (0.0-1.0); MONOCYTES % (AUTO) 13 % (0-12); NEUTROPHILS # (AUTO) 6.3 10^3/uL (1.8-7.8); NEUTROPHILS % (AUTO) 79 % (42-75); PLATELET COUNT 215 10^3/uL (130-400)
[2022-05-27 03:37] LABS: ALBUMIN 2.7 GM/DL (3.2-4.5)
[2022-05-27 03:38] LABS: POTASSIUM 4.5 MMOL/L (3.6-5.0)
[2022-05-27 03:39] LABS: CALCIUM 8.2 MG/DL (8.5-10.1)
[2022-05-27] MEDS: MAGNESIUM 1 GM/100 ML IVPB 100 ML IV SCH (03:39)
[2022-05-27] MEDS: KCL 20 MEQ TAB (K-DUR) PO SCH (03:39)
[2022-05-27] MEDS: POTASSIUM CL 10MEQ/50ML IVPB 50 ML IV SCH (03:39)
[2022-05-27 03:40] LABS: TOTAL PROTEIN 4.8 GM/DL (6.4-8.2)
[2022-05-27 03:42] LABS: BILIRUBIN,TOTAL 0.5 MG/DL (0.1-1.0)
[2022-05-27 03:44] LABS: CREATININE SERUM 0.7 MG/DL (0.60-1.30)
[2022-05-27] MEDS: MEROPENEM 500 MG/NS 100 ML IVPB IV SCH ×8 (04:00→22:43)
[2022-05-27] MEDS: methylPREDNISolone 40 MG/ML (Solu-MEDROL) VIAL IV SCH ×3 (05:03→21:11)
--- NOTE | 2022-05-27 07:48 | Progress Note - Surgery ---
CHANA QUINTERO 05/27/22 0748: Subjective Date Seen by a Provider: May 27, 2022 Time Seen by a Provider: 07:23 Subjective/Events-last exam Patient is laying in bed in no visible discomfort. She states that her abdominal pain has improved from yesterday and is controlled with her current pain medic ation. Her pain is still in her LLQ and rates it as a 6/10 today from a 8/10 yesterday. She did have one bowel movement last night which was diarrhea, but denies any hematochezia or melena. Was able to ambulate to toilet without any difficulty, denying any dizziness or syncope. She denies any nausea, vomiting, SOB, chest pain, or any other pain at this time. She was able to get some sleep throughout the night. Her nurse states she did well overnight with nothing to note. She has been restarted on her home migraine medication. Her blood pressure continues to hold in 130's systolic while off of Levophed. Review of Systems General: Fatigue, Malaise, Other (Rigors) HEENT: No Head Aches, No Sore Throat Pulmonary: No Dyspnea, No Cough Cardiovascular: No: Chest Pain, Edema Gastrointestinal: Diarrhea; No: Nausea, Vomiting, Melena, Hematochezia Genitourinary: No Dysuria, No Hematuria Musculoskeletal: No: neck pain, back pain Neurological: No: Weakness, Numbness Focused Exam Lactate Level 05/25/22 14:00: Lactic Acid Level 3.21*H 05/25/22 17:41: Lactic Acid Level 4.08*H 05/25/22 19:53: Lactic Acid Level 1.97 Time of Focused Exam: 15:00 Objective Exam Vital Signs Date Time Temp Pulse Resp B/P (MAP) Pulse Ox O2 Delivery O2 Flow Rate FiO2 05/27/22 06:00 96 13 133/81 (98) 93 Nasal Cannula 1.00 05/27/22 05:00 98 24 116/73 (85) 93 Nasal Cannula 1.00 05/27/22 04:00 96 16 132/82 (94) 97 Nasal Cannula 1.00 05/27/22 03:00 97 Nasal Cannula 1.00 05/27/22 03:00 97 15 108/71 (82) 95 Nasal Cannula 1.00 05/27/22 02:00 99 14 116/81 (93) 93 Nasal Cannula 1.00 05/27/22 01:00 101 28 123/74 (87) 94 Nasal Cannula 1.00 05/27/22 01:00 101 05/27/22 00:00 103 18 113/77 (88) 95 Nasal Cannula 1.00 05/26/22 23:10 36.6 Nasal Cannula 1.00 05/26/22 23:05 98 Nasal Cannula 1.00 05/26/22 23:00 104 17 116/65 (80) 94 Nasal Cannula 1.00 05/26/22 22:00 105 24 113/64 (83) 95 Nasal Cannula 1.00 05/26/22 21:07 36.8 05/26/22 21:00 110 23 107/64 (74) 95 Nasal Cannula 1.00 05/26/22 20:00 113 9 110/73 (94) 94 Nasal Cannula 1.00 05/26/22 19:25 Nasal Cannula 1.00 05/26/22 19:00 37.1 116 14 128/73 (91) 95 Nasal Cannula 1.00 05/26/22 19:00 114 05/26/22 18:00 117 122/70 (87) 94 Nasal Cannula 1.00 05/26/22 17:00 120 103/63 (76) 94 Nasal Cannula 1.00 05/26/22 16:56 38.1 05/26/22 16:00 120 30 101/61 (74) 94 Nasal Cannula 1.00 05/26/22 16:00 Nasal Cannula 3.00 05/26/22 15:00 121 30 110/58 (75) 94 Nasal Cannula 1.00 05/26/22 14:00 126 36 116/75 (89) 94 Nasal Cannula 1.00 05/26/22 13:00 128 12 130/69 (89) 93 Nasal Cannula 1.00 05/26/22 12:20 160/90 05/26/22 12:19 127 05/26/22 12:18 Nasal Cannula 3.00 05/26/22 12:00 126 15 124/63 (83) 95 Nasal Cannula 1.00 05/26/22 12:00 36.6 05/26/22 11:00 117 19 127/73 (91) 94 Nasal Cannula 1.00 05/26/22 10:05 88 Nasal Cannula 1.00 05/26/22 10:05 137/69 05/26/22 10:00 115 130/78 (95) 88 Room Air 05/26/22 09:00 112 12 124/67 (86) 93 Room Air 05/26/22 08:33 145/69 05/26/22 08:31 100 Room Air 05/26/22 08:00 36.4 05/26/22 08:00 111 12 126/76 (93) 99 Room Air 05/26/22 08:00 Nasal Cannula 3.00 I & O 05/27/22 07:00 Intake Total 3250 ml Output Total 1325 ml Balance 1925 ml Capillary Refill : Less Than 3 Seconds General Appearance: No Apparent Distress, Obese HEENT: PERRL/EOMI (wearing glasses); No Scleral Icterus (L), No Scleral Icterus (R) Neck: Normal Inspection, Supple Respiratory: Lungs Clear, Normal Breath Sounds, No Accessory Muscle Use, No Respiratory Distress Cardiovascular: Regular Rate, Rhythm, No Murmur Peripheral Pulses: 2+ Dorsalis Pedis (R), 2+ Left Dors-Pedis (L) (See free text.), 2+ Radial Pulses (R), 2+ Radial Pulses (L) Gastrointestinal: soft; No guarding, No rebound; tenderness (LLQ tender to palpation, improving from yesterday), hernia (incisional at umbilicus) Extremity: No Calf Tenderness, No Pedal Edema Neurologic/Psychiatric: Alert, Oriented x3 Skin: Warm/Dry, Diaphoresis Results Lab Laboratory Tests 05/26/22 17:52: Glucometer 113H 05/27/22 02:26: White Blood Count 8.0, Red Blood Count 3.34L, Hemoglobin 9.5L, Hematocrit 30L, Mean Corpuscular Volume 90, Mean Corpuscular Hemoglobin 28, Mean Corpuscular Hemoglobin Concent 32, Red Cell Distribution Width 14.6H, Platelet Count 215, Mean Platelet Volume 10.8, Immature Granulocyte % (Auto) 1, Neutrophils (%) (Auto) 79H, Lymphocytes (%) (Auto) 7L, Monocytes (%) (Auto) 13H, Eosinophils (%) (Auto) 0, Basophils (%) (Auto) 0, Neutrophils # (Auto) 6.3, Lymphocytes # (Auto) 0.6L, Monocytes # (Auto) 1.1H, Eosinophils # (Auto) 0.0, Basophils # (Auto) 0.0, Immature Granulocyte # (Auto) 0.0, Sodium Level 139, Potassium Level 4.5, Chl oride Level 111H, Carbon Dioxide Level 22, Anion Gap 6, Blood Urea Nitrogen 18, Creatinine 0.70, Estimat Glomerular Filtration Rate 98, BUN/Creatinine Ratio 26, Glucose Level 129H, Calcium Level 8.2L, Corrected Calcium 9.2, Magnesium Level 2.2, Total Bilirubin 0.5, Aspartate Amino Transf (AST/SGOT) 26, Alanine Aminotransferase (ALT/SGPT) 34, Alkaline Phosphatase 164H, Total Protein 4.8L, Albumin 2.7L Microbiology 05/26/22 C. difficile GDH Antigen & Toxins - Final, Complete 05/25/22 MRSA Screen - Preliminary, Resulted MRSA not isolated 05/25/22 Urine Culture - Preliminary, Resulted Culture In Progress 05/25/22 Blood Culture - Preliminary, Resulted Gram Positive Cocci in Chains See Comments Assessment/Plan Assessment/Plan Assessment/Plan Acute Colitis - Per CT, mainly transverse and left side with mild fat stranding LLQ Abdominal pain- Improvement compared to yesterday Hypotension - Resolved and off Levophed Venous Insufficiency Hyperkalemia- Resolved Lactic Acidosis-Resolved Obesity Hypercoagulable state- intermediate accountant anticoagulant use due 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 Septic shock-Peripheral blood culture resulted with Gram+ cocci in chains C-diff culture negative Plan: Continue with IV fluids, Pain control, and ABX Continue with anti-emetics as needed NPO with sips for medications DVT propholaxis Continue to monitor labs Awaiting stool culture and Ova/Parasites to be resulted ROLLY AMOR DO 05/27/22 1225: Subjective Time Seen by a Provider: 11:43 Subjective/Events-last exam Pt seen and examined, states she still has pain but it is better. Still having loose BMs, but no hematochezia or melena. Review of Systems General: Fatigue, Malaise, Other (Rigors) HEENT: No Head Aches Pulmonary: No Dyspnea, No Cough Cardiovascular: No: Chest Pain, Edema Gastrointestinal: Diarrhea; No: Nausea, Vomiting, Melena, Hematochezia Genitourinary: No Dysuria, No Hematuria Musculoskeletal: No: neck pain, back pain Neurological: Weakness Objective Exam General Appearance: No Apparent Distress, Chronically ill, Obese HEENT: PERRL/EOMI (wearing glasses); No Scleral Icterus (L), No Scleral Icterus (R) Respiratory: Lungs Clear, Normal Breath Sounds, No Accessory Muscle Use, No Respiratory Distress Cardiovascular: Regular Rate, Rhythm, No Murmur Gastrointestinal: soft, no organomegaly, guarding (voluntary with deep palpation); No rebound; tenderness (LLQ tender to palpation, improving from yesterday. Some in LUQ, but right side is not bad), hernia (incisional at umbilicus) Extremity: No Calf Tenderness, No Pedal Edema Neurologic/Psychiatric: Alert, Oriented x3 Skin: Warm/Dry, Diaphoresis Assessment/Plan Assessment/Plan Assessment/Plan Bacteremia - Peripheral blood culture resulted with Gram+ cocci in chains Acute Colitis - Per CT, mainly transverse and left side with mild fat stranding LLQ Abdominal pain- Improvement compared to yesterday Hypotension - Resolved and off Levophed Venous Insufficiency Hyperkalemia- Resolved Lactic Acidosis-Resolved Obesity Hypercoagulable state- correction anticoagulant use due 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 C-diff culture negative Plan: Continue with IV fluids, Pain control, and ABX Continue with anti-emetics as needed Ok to try clear liquids DVT propholaxis Continue to monitor labs Awaiting stool culture and Ova/Parasites to be resulted Supervisory-Addendum Brief Verification & Attestation Participated in pt care: history, MDM, physical Personally performed: exam, history, MDM, supervision of care Care discussed with: Medical Student Procedures: n/a Verification and Attestation of Medical Student E/M Service A medical student performed and documented this service. I then reviewed and verified all information documented by the medical student and made modifications to such information, when appropriate. I personally performed a physical exam, medical decision making and then discussed any differences between the notes and made revisions as necessary to create one note. Rolly Amor , 05/27/22 , 12:25 CHANA QUINTERO May 27, 2022 07:48 ROLLY AMOR DO May 27, 2022 12:25
[2022-05-27] MEDS ORDERED: NON-FORMULARY MEDICATION 1 EA EA (Duloxetine HCl 60 MG) PO SCH (09:00)
[2022-05-27] MEDS: PREGABALIN 100 MG (LYRICA) CAPSULE PO SCH ×2 (09:29→21:11)
[2022-05-27] MEDS: ENOXAPARIN 100 MG/1 ML (LOVENOX) SYR SC SCH ×2 (09:29→21:13)
[2022-05-27] MEDS: DULoxetine 30 MG (CYMBALTA) CAP PO SCH (09:29)
[2022-05-27] MEDS: busPIRone 10 MG (BUSPAR) TAB PO SCH ×2 (09:29→21:11)
[2022-05-27] MEDS: toPIRamate 25 MG (TOPAMAX) TAB PO SCH ×2 (09:29→21:11)
[2022-05-27] MEDS: SENNOSIDES 8.6 MG (SENOKOT) TAB PO SCH ×2 (09:29→21:12)
[2022-05-27] MEDS: DOCUSATE SODIUM 100 MG (COLACE) CAP PO SCH ×2 (09:30→21:11)
--- NOTE | 2022-05-27 10:53 | Tele-ICU Progress Note ---
Subjective Date Seen by a Provider: May 27, 2022 Time Seen by a Provider: 10:53 Subjective/Events-last exam (Tele-ICU Physician , Progress Note ) Service provided via interactive audio and video telecommunications E-CARE system to a patient admitted to ICU bed in [facility]. Patient is seen today due to persistent need of ICU care Available chart/ vitals / labs / Images reviewed Video assessment done using teleICU camera, rest of exam as per RN Discussed with RN Events overnight : Afebrile hemodynamically stable Respiratory - I/O = Drips: lr 100 Pressors- no Consultants: Hospital course: (05/25) 61Yf admitted from the ED with abd pain, N/V/D. colitis A/P 1. SPTIC SHOCK - resolved , on 100 cc/h LR - cont today DIARRHOEA DUE TO COLITIS, -SURGEON ON THE CASE. - R/O C.DIFF COLITIS, CHRONS DISEASE. ELEVATED LIVER ENZYMES DUE TO PROBABLY HYPOTENSION AND SEPSIS. 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 STOOL FOR C.DIFF TOXIN neg PAIN MANAGEMENT PER GEN. SURGERY. Lines : peripg , (Central Line Necessity Reviewed) Newsome: OG: Nutrition: npo Analgesia: Anxiety/ delirium VTE Prophylaxis: marina 90 Stress Ulcer Prophylaxis: Plans in collaboration with bedside consultants and IM MDs. Discussed with RN to reach out if any questions or concerns A total of 20 minutes of critical care time was devoted to this patient today, required to treat and/or prevent further deterioration of critical care condition ( as above ) . I am remotely monitoring this patient from another state. I am unable to do the bedside exam, and history/physical and pertinent information is taken from other notes in the computer and bedside staff. Sepsis Event Evaluation Height, Weight, BMI Height: 5'5.00" Weight: 196lbs. oz. 88.758024ro; 33.20 BMI Method:Stated Focused Exam Lactate Level 05/25/22 14:00: Lactic Acid Level 3.21*H 05/25/22 17:41: Lactic Acid Level 4.08*H 05/25/22 19:53: Lactic Acid Level 1.97 Time of Focused Exam: 15:00 Exam Exam Patient acknowledged, consented, and participated in this virtual visit which was conducted using real time audio/video Vital Signs Date Time Temp Pulse Resp B/P (MAP) Pulse Ox O2 Delivery O2 Flow Rate FiO2 05/27/22 10:00 95 15 127/74 (91) 90 Nasal Cannula 1.00 05/27/22 09:00 93 16 127/79 (95) 90 Nasal Cannula 1.00 05/27/22 08:00 36.3 05/27/22 08:00 90 19 123/77 (92) 94 Nasal Cannula 1.00 05/27/22 08:00 96 Nasal Cannula 1.00 05/27/22 07:00 96 14 133/85 (101) 95 Nasal Cannula 1.00 05/27/22 07:00 96 05/27/22 06:00 96 13 133/81 (98) 93 Nasal Cannula 1.00 05/27/22 05:00 98 24 116/73 (85) 93 Nasal Cannula 1.00 05/27/22 04:00 96 16 132/82 (94) 97 Nasal Cannula 1.00 05/27/22 03:00 97 Nasal Cannula 1.00 05/27/22 03:00 97 15 108/71 (82) 95 Nasal Cannula 1.00 05/27/22 02:00 99 14 116/81 (93) 93 Nasal Cannula 1.00 05/27/22 01:00 101 28 123/74 (87) 94 Nasal Cannula 1.00 05/27/22 01:00 101 05/27/22 00:00 103 18 113/77 (88) 95 Nasal Cannula 1.00 05/26/22 23:10 36.6 Nasal Cannula 1.00 05/26/22 23:05 98 Nasal Cannula 1.00 05/26/22 23:00 104 17 116/65 (80) 94 Nasal Cannula 1.00 05/26/22 22:00 105 24 113/64 (83) 95 Nasal Cannula 1.00 05/26/22 21:07 36.8 05/26/22 21:00 110 23 107/64 (74) 95 Nasal Cannula 1.00 05/26/22 20:00 113 9 110/73 (94) 94 Nasal Cannula 1.00 05/26/22 19:25 Nasal Cannula 1.00 05/26/22 19:00 37.1 116 14 128/73 (91) 95 Nasal Cannula 1.00 05/26/22 19:00 114 05/26/22 18:00 117 122/70 (87) 94 Nasal Cannula 1.00 05/26/22 17:00 120 103/63 (76) 94 Nasal Cannula 1.00 05/26/22 16:56 38.1 05/26/22 16:00 120 30 101/61 (74) 94 Nasal Cannula 1.00 05/26/22 16:00 Nasal Cannula 3.00 05/26/22 15:00 121 30 110/58 (75) 94 Nasal Cannula 1.00 05/26/22 14:00 126 36 116/75 (89) 94 Nasal Cannula 1.00 05/26/22 13:00 128 12 130/69 (89) 93 Nasal Cannula 1.00 05/26/22 12:20 160/90 05/26/22 12:19 127 05/26/22 12:18 Nasal Cannula 3.00 05/26/22 12:00 126 15 124/63 (83) 95 Nasal Cannula 1.00 05/26/22 12:00 36.6 05/26/22 11:00 117 19 127/73 (91) 94 Nasal Cannula 1.00 I & O 05/27/22 07:00 Intake Total 3250 ml Output Total 1325 ml Balance 1925 ml Height & Weight Height: 5'5.00" Weight: 196lbs. oz. 88.866211mq; 33.20 BMI Method:Stated General Appearance: No Apparent Distress, Obese HEENT: PERRL/EOMI (wearing glasses); No Scleral Icterus (L), No Scleral Icterus (R) Neck: Normal Inspection, Supple Respiratory: Lungs Clear, Normal Breath Sounds, No Accessory Muscle Use, No Respiratory Distress Cardiovascular: Regular Rate, Rhythm, No Murmur Capillary Refill: Less Than 3 Seconds Peripheral Pulses: 2+ Dorsalis Pedis (R), 2+ Left Dors-Pedis (L) (See free text.), 2+ Radial Pulses (R), 2+ Radial Pulses (L) Gastrointestinal: soft; No guarding, No rebound; tenderness (LLQ tender to palpation, improving from yesterday), hernia (incisional at umbilicus) Extremity: No Calf Tenderness, No Pedal Edema Neurologic/Psychiatric: Alert, Oriented x3 Skin: Warm/Dry, Diaphoresis Results Lab Laboratory Tests 05/25/22 14:00 05/26/22 03:15 05/27/22 02:26 Assessment/Plan Assessment/Plan 1 TAWANDA CALLOWAY MD May 27, 2022 10:53
--- NOTE | 2022-05-27 12:12 | Progress Note - Hospitalist ---
Subjective HPI/CC On Admission Date Seen by Provider: May 27, 2022 Alycia Lynch is a 61 year old female with PMH HTN, HLD, PE, anxiety, chronic pain, obesity, who presented with abdominal pain. She says the pain started yesterday. It is all over her abdomen but mainly left sided. She has also had diarrhea. She denies bloody stools. She has not noticed any fevers. She is having chills now. She denies nausea and vomiting. She denies chest pain and shortness of breath. She reports a history of presumed inflammatory bowel disease. She has been treated with courses of steroids but has never had a biopsy to diagnose it. She did have a colonoscopy for cancer screening. She also says she may have had C diff in the past. Subjective/Events-last exam Pt reports doing much better today. Pain improved. Off Pressors. Able to get to toilet as well. Focused Exam Lactate Level 05/25/22 14:00: Lactic Acid Level 3.21*H 05/25/22 17:41: Lactic Acid Level 4.08*H 05/25/22 19:53: Lactic Acid Level 1.97 Time of Focused Exam: 15:00 Objective Exam Vital Signs Vital Signs Date Time Temp Pulse Resp B/P (MAP) Pulse Ox O2 Delivery O2 Flow Rate FiO2 05/27/22 10:00 95 15 127/74 (91) 90 Nasal Cannula 1.00 05/27/22 08:00 36.3 Capillary Refill : Less Than 3 Seconds General Appearance: No Apparent Distress, WD/WN Respiratory: Lungs Clear, No Respiratory Distress Cardiovascular: Regular Rate, Rhythm, No Murmur Neurologic/Psychiatric: Alert, Oriented x3 Results/Procedures Lab Laboratory Tests 05/27/22 02:26 Patient resulted labs reviewed. Imaging: Reviewed Imaging Films, Reviewed Imaging Report Assessment/Plan Assessment and Plan Assess & Plan/Chief Complaint Septic shock Colitis Lactic acidosis Acute kidney injury CT abdomen with colitis from proximal transverse colon to sigmoid colon C diff negative off pressors Dilaudid NPO- try to advance to [facility] today- will discuss with surgery [facility] Surgery consulted, appreciate recs TeleICU consulted Continue steroids Transfer to floor HTN HLD Anxiety Chronic pain History of PE Obesity Hold home meds as is NPO Will attempt to start with sips if ok with surgery Therapeutic Lovenox DVT ppx: Lovenox as above Critical Care Critically Ill Patient MELINA CALDWELL MD May 27, 2022 12:12 pm
[2022-05-27] MEDS: NORTRIPTYLINE 25 MG (PAMELOR) CAP PO SCH (21:11)
[2022-05-28] MEDS: methylPREDNISolone 40 MG/ML (Solu-MEDROL) VIAL IV SCH ×2 (05:12→14:20)
[2022-05-28] MEDS: MEROPENEM 500 MG/NS 100 ML IVPB IV SCH ×4 (05:12→09:49)
[2022-05-28] MEDS: HYDROmorphone 2 MG/ML VIAL (DILAUDID) IV PRN ×4 (05:12→16:00)
[2022-05-28 05:24] LABS: BASOPHILS % (AUTO) 1 % (0-10); EOSINOPHILS % (AUTO) 0 % (0-10); HEMATOCRIT 28 % (35-52); HEMOGLOBIN 9.2 g/dL (11.5-16.0); LYMPHOCYTES # (AUTO) 0.7 10^3/uL (1.0-4.0); LYMPHOCYTES % (AUTO) 8 % (12-44); MEAN CORPUSCULAR HEMOGLOBIN 28 pg (25-34); MEAN CORPUSCULAR HGB CONC 32 g/dL (32-36); MEAN CORPUSCULAR VOLUME 87 fL (80-99); MEAN PLATELET VOLUME 11.1 fL (9.0-12.2); MONOCYTES # (AUTO) 0.9 10^3/uL (0.0-1.0); MONOCYTES % (AUTO) 11 % (0-12); NEUTROPHILS # (AUTO) 6.8 10^3/uL (1.8-7.8); NEUTROPHILS % (AUTO) 80 % (42-75); PLATELET COUNT 247 10^3/uL (130-400); WHITE BLOOD COUNT 8.5 10^3/uL (4.3-11.0)
[2022-05-28 06:03] LABS: ALBUMIN 2.6 GM/DL (3.2-4.5); BILIRUBIN,TOTAL 0.3 MG/DL (0.1-1.0); CALCIUM 8.5 MG/DL (8.5-10.1); CREATININE SERUM 0.61 MG/DL (0.60-1.30); POTASSIUM 3.9 MMOL/L (3.6-5.0); TOTAL PROTEIN 5.1 GM/DL (6.4-8.2)
[2022-05-28] MEDS: KCL 20 MEQ TAB (K-DUR) PO SCH (06:06)
[2022-05-28] MEDS: MAGNESIUM 1 GM/100 ML IVPB 100 ML IV SCH (06:06)
[2022-05-28] MEDS: POTASSIUM CL 10MEQ/50ML IVPB 50 ML IV SCH (06:06)
[2022-05-28 06:09] LABS: SMEAR SCAN COMMENT YES
--- NOTE | 2022-05-28 06:50 | Progress Note - Surgery ---
CHANA QUINTERO 05/28/22 0650: Subjective Date Seen by a Provider: May 28, 2022 Time Seen by a Provider: 06:42 Subjective/Events-last exam Patient is laying in bed comfortably this morning. She was able to get some rest last night. She states she is feeling better, her abdominal pain is improved to a 5/10 today from a 6/10 yesterday. The abdominal pain is still localized to her LLQ. She denies any bowel movement since yesterday morning. Denies any nausea, vomiting, SOB, chest pain, or any other pain at this time. She is currently on a clear liquid diet and tolerating it well. She would "like to get up and move around today." Blood pressure is still holding around 130s systolic off of levophed. She is also off of nasal cannula oxygen support with 02 sat around 94. No other complaints at this time. Review of Systems General: No Night Sweats; Fatigue, Malaise HEENT: No Dysphasia, No Sore Throat Pulmonary: No Dyspnea, No Cough Cardiovascular: No: Chest Pain, Palpitations Gastrointestinal: No: Nausea, Vomiting Genitourinary: No Dysuria, No Hematuria Musculoskeletal: No: neck pain, back pain Neurological: No: Weakness, Numbness Focused Exam Lactate Level 05/25/22 14:00: Lactic Acid Level 3.21*H 05/25/22 17:41: Lactic Acid Level 4.08*H 05/25/22 19:53: Lactic Acid Level 1.97 Time of Focused Exam: 15:00 Objective Exam Vital Signs Date Time Temp Pulse Resp B/P (MAP) Pulse Ox O2 Delivery O2 Flow Rate FiO2 05/28/22 06:00 92 19 92 05/28/22 05:00 90 22 93 05/28/22 04:00 36.0 87 17 136/81 (100) 94 05/28/22 03:00 90 18 96 05/28/22 02:00 96 20 94 05/28/22 01:10 87 96 05/28/22 01:00 87 05/28/22 00:00 36.1 92 21 128/80 (93) 95 05/27/22 23:00 91 16 95 Nasal Cannula 1.00 05/27/22 22:00 92 16 95 Nasal Cannula 1.00 05/27/22 21:00 92 18 134/75 (92) 89 05/27/22 20:00 100 19 133/80 (100) 90 Room Air 05/27/22 20:00 36.2 05/27/22 19:45 98 Room Air 05/27/22 19:30 95 16 150/84 (97) 94 05/27/22 19:00 97 05/27/22 19:00 104 17 150/95 (117) 91 05/27/22 18:00 96 19 141/82 (101) 91 Nasal Cannula 1.00 05/27/22 17:00 97 16 135/85 (102) 93 Nasal Cannula 1.00 05/27/22 16:00 98 Room Air 05/27/22 16:00 91 13 128/69 (88) 90 Nasal Cannula 1.00 05/27/22 15:48 36.5 05/27/22 15:00 92 16 155/84 (107) 94 Nasal Cannula 1.00 05/27/22 14:00 91 15 146/78 (100) 92 Nasal Cannula 1.00 05/27/22 13:00 101 17 129/74 (92) 90 Nasal Cannula 1.00 05/27/22 12:55 94 05/27/22 12:00 93 20 142/81 (101) 95 Nasal Cannula 1.00 05/27/22 12:00 36.4 05/27/22 12:00 96 Nasal Cannula 1.00 05/27/22 11:00 92 15 133/81 (98) 94 Nasal Cannula 1.00 05/27/22 10:00 95 15 127/74 (91) 90 Nasal Cannula 1.00 05/27/22 09:00 93 16 127/79 (95) 90 Nasal Cannula 1.00 05/27/22 08:00 36.3 05/27/22 08:00 90 19 123/77 (92) 94 Nasal Cannula 1.00 05/27/22 08:00 96 Nasal Cannula 1.00 05/27/22 07:00 96 14 133/85 (101) 95 Nasal Cannula 1.00 05/27/22 07:00 96 I & O 05/28/22 07:00 Intake Total 2600 ml Output Total 1650 ml Balance 950 ml Capillary Refill : Less Than 3 Seconds General Appearance: No Apparent Distress, Obese HEENT: PERRL/EOMI; No Scleral Icterus (L), No Scleral Icterus (R) Neck: Non Tender, Supple Respiratory: Lungs Clear, No Accessory Muscle Use, No Respiratory Distress Cardiovascular: Regular Rate, Rhythm, No Murmur Peripheral Pulses: 2+ Dorsalis Pedis (R), 2+ Left Dors-Pedis (L) (See free text.), 2+ Radial Pulses (R), 2+ Radial Pulses (L) Gastrointestinal: soft, no organomegaly; No guarding, No rebound; tenderness (LLQ tender to palpation, improving from yesterday.), hernia (Incisional at umbilicus) Extremity: No Calf Tenderness, No Pedal Edema Neurologic/Psychiatric: Alert, Oriented x3 Skin: Normal Color, Warm/Dry Results Lab Laboratory Tests 05/28/22 05:05: White Blood Count 8.5, Red Blood Count 3.25L, Hemoglobin 9.2L, Hematocrit 28L, Mean Corpuscular Volume 87, Mean Corpuscular Hemoglobin 28, Mean Corpuscular Hemoglobin Concent 32, Red Cell Distribution Width 13.9, Platelet Count 247, Mean Platelet Volume 11.1, Immature Granulocyte % (Auto) 1, Neutrophils (%) (Auto) 80H, Lymphocytes (%) (Auto) 8L, Monocytes (%) (Auto) 11, Eosinophils (%) (Auto) 0, Basophils (%) (Auto) 1, Neutrophils # (Auto) 6.8, Lymphocytes # (Auto) 0.7L, Monocytes # (Auto) 0.9, Eosinophils # (Auto) 0.0, Basophils # (Auto) 0.0, Immature Granulocyte # (Auto) 0.1, Sodium Level 141, Potassium Level 3.9, Chlo ride Level 111H, Carbon Dioxide Level 21, Anion Gap 9, Blood Urea Nitrogen 21H, Creatinine 0.61, Estimat Glomerular Filtration Rate 102, BUN/Creatinine Ratio 34, Glucose Level 124H, Calcium Level 8.5, Corrected Calcium 9.6, Magnesium Level 2.0, Total Bilirubin 0.3, Aspartate Amino Transf (AST/SGOT) 17, Alanine Aminotransferase (ALT/SGPT) 22, Alkaline Phosphatase 126, Total Protein 5.1L, Albumin 2.6L, Smear Scan YES Microbiology 05/26/22 C. difficile GDH Antigen & Toxins - Final, Complete 05/25/22 MRSA Screen - Final, Complete MRSA not isolated 05/25/22 Urine Culture - Final, Complete Lactobacillus jensenii 05/25/22 Blood Culture - Preliminary, Resulted Streptococcus mitis group Streptococcus gordonii Assessment/Plan Assessment/Plan Assessment/Plan 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 She is feeling a little better and tolerating clears. She did have a few BMs. Review of Systems General: Fatigue, Malaise Pulmonary: No Dyspnea, No Cough Cardiovascular: No: Chest Pain, Palpitations Gastrointestinal: No: Nausea, Vomiting Objective Exam General Appearance: No Apparent Distress, Obese HEENT: PERRL/EOMI Respiratory: Lungs Clear, No Accessory Muscle Use, No Respiratory Distress Cardiovascular: Regular Rate, Rhythm, No Murmur Gastrointestinal: soft, no organomegaly, tenderness (LLQ tender to palpation, improving from yesterday.), hernia (Incisional at umbilicus) Assessment/Plan Assessment/Plan Assessment/Plan This is a late entry note, pt was seen yesterday but note put in today. 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 due 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 C-diff culture negative Plan: Continue with IV fluids, Pain control, and ABX Continue with anti-emetics as needed Currently on liquid diet-tolerating well DVT prophylaxis Continue to monitor labs Encourage ambulation Awaiting stool culture and Ova/Parasites to be resulted Supervisory-Addendum Brief Verification & Attestation Participated in pt care: history, MDM, physical Personally performed: exam, history, MDM, supervision of care Care discussed with: Medical Student Procedures: n/a Verification and Attestation of Medical Student E/M Service A medical student performed and documented this service. I then reviewed and verified all information documented by the medical student and made modifications to such information, when appropriate. I personally performed a physical exam, medical decision making and then discussed any differences between the notes and made revisions as necessary to create one note. Rolly Amor , 05/29/22 , 12:50 CHANA QUINTERO May 28, 2022 06:50 ROLLY AMOR DO May 29, 2022 12:50
--- NOTE | 2022-05-28 07:49 | Pulmonary Consultation ---
History of Present Illness History of Present Illness Date Seen by Provider: May 28, 2022 Time Seen by Provider: 07:46 Date of Admission (Tele-ICU Physician , Progress Note ) Service provided via interactive audio and video telecommunications E-CARE system to a patient admitted to ICU bed in [facility]. Patient is seen today due to persistent need of ICU care Available chart/ vitals / labs / Images reviewed Video assessment done using teleICU camera, rest of exam as per RN Discussed with RN Events overnight : 61 yo F with diarrhea, colitis, hypotension-now resolved Stool negative for C diff. On IV Meropenem, Medrol CT abd shows diffuse thickening of proximal transverse colon, Hx of presumed IBD Allergies and Home Medications Allergies Coded Allergies: amoxicillin (Verified Allergy, Unknown, 06/19/16) clavulanic acid (Verified Allergy, Unknown, 06/19/16) diphenhydramine (Unverified Allergy, Unknown, "hebby jebby", 06/19/16) latex (Verified Allergy, Unknown, 08/27/16) Home Medications Acetaminophen 500 Mg Tablet, 500-1,000 MG PO Q6H PRN for PAIN-MILD (1-4), (R eported) Aspirin/Acetaminophen/Caffeine 250 Mg-250 Mg-65 Mg Tablet, 1-2 EACH PO Q6H PRN for HEADACHE, (Reported) Atorvastatin Calcium 10 Mg Tablet, 10 MG PO HS, (Reported) Buspirone HCl 10 Mg Tablet, 10 MG PO BID, (Reported) Diltiazem HCl 240 Mg Cap.er.24h, 240 MG PO DAILY, (Reported) Duloxetine HCl 60 Mg Capsule.dr, 60 MG PO DAILY, (Reported) Enalapril Maleate 20 Mg Tablet, 20 MG PO HS, (Reported) Estradiol 0.01 % Cream.appl, 1 APPFUL VG MO,TH @[facility], (Reported) Meloxicam 15 Mg Tablet, 15 MG PO DAILY, (Reported) Nortriptyline HCl 25 Mg Capsule, 75 MG PO HS, (Reported) TAKES 3 (25MG) CAPS Oxycodone HCl/Acetaminophen 5 Mg-325 Mg Tablet, 1 EACH PO TID PRN for PAIN- MODERATE (5-7), (Reported) Pregabalin 100 Mg Capsule, 100 MG PO BID, (Reported) Tizanidine HCl 4 Mg Tablet, 4 MG PO BID, (Reported) Topiramate 25 Mg Tablet, 25 MG PO BID, (Reported) Warfarin Sodium 5 Mg Tablet, 5 MG PO TU,TH @[facility], (Reported) Warfarin Sodium 5 Mg Tablet, 2.5 MG PO JOHNSON,MO,WE,FR,SA @[facility], (Reported) Past Medical/Social/Family Hx Patient Social History Tobacco Use?: No Smoking Status: Never a Smoker Substance use?: No Alcohol Use?: No Pt stated abuse/neglect: No Immunizations Up To Date Influenza Vaccine Up-to-Date: No; Not Current First/Initial COVID19 Vaccinat: June 2020 Second COVID19 Vaccination Panchito: July 2020 Tetanus Booster (TDap): Less Than 5 Years Hepatitis A: Yes Hepatitis B: Yes TB Skin Test: None Current Status status: No Advance Directives: No Communicates: Verbally Primary Language: Mauritian Preferred Spoken Language: Mauritian Is interpretation needed?: No Sensory deficits: Vision impairment Implanted or Applied Medical D: None Past Medical History Hypertension Hyperlipidemia Obesity Chronic pain Review of Systems Constitutional: see HPI Sepsis Event Evaluation Height, Weight, BMI Height: 5'5.00" Weight: 196lbs. oz. 88.733163fq; 33.20 BMI Method:Stated Exam Exam Patient acknowledged, consented, and participated in this virtual visit which was conducted using real time audio/video Vital Signs Date Time Temp Pulse Resp B/P (MAP) Pulse Ox O2 Delivery O2 Flow Rate FiO2 05/28/22 07:00 81 18 90 05/28/22 06:00 92 19 92 05/28/22 05:00 90 22 93 05/28/22 04:00 36.0 87 17 136/81 (100) 94 05/28/22 03:00 90 18 96 05/28/22 02:00 96 20 94 05/28/22 01:10 87 96 05/28/22 01:00 87 05/28/22 00:00 36.1 92 21 128/80 (93) 95 05/27/22 23:00 91 16 95 Nasal Cannula 1.00 05/27/22 22:00 92 16 95 Nasal Cannula 1.00 05/27/22 21:00 92 18 134/75 (92) 89 05/27/22 20:00 100 19 133/80 (100) 90 Room Air 05/27/22 20:00 36.2 05/27/22 19:45 98 Room Air 05/27/22 19:30 95 16 150/84 (97) 94 05/27/22 19:00 97 05/27/22 19:00 104 17 150/95 (117) 91 05/27/22 18:00 96 19 141/82 (101) 91 Nasal Cannula 1.00 05/27/22 17:00 97 16 135/85 (102) 93 Nasal Cannula 1.00 05/27/22 16:00 98 Room Air 05/27/22 16:00 91 13 128/69 (88) 90 Nasal Cannula 1.00 05/27/22 15:48 36.5 05/27/22 15:00 92 16 155/84 (107) 94 Nasal Cannula 1.00 05/27/22 14:00 91 15 146/78 (100) 92 Nasal Cannula 1.00 05/27/22 13:00 101 17 129/74 (92) 90 Nasal Cannula 1.00 05/27/22 12:55 94 05/27/22 12:00 93 20 142/81 (101) 95 Nasal Cannula 1.00 05/27/22 12:00 36.4 05/27/22 12:00 96 Nasal Cannula 1.00 05/27/22 11:00 92 15 133/81 (98) 94 Nasal Cannula 1.00 05/27/22 10:00 95 15 127/74 (91) 90 Nasal Cannula 1.00 05/27/22 09:00 93 16 127/79 (95) 90 Nasal Cannula 1.00 05/27/22 08:00 36.3 05/27/22 08:00 90 19 123/77 (92) 94 Nasal Cannula 1.00 05/27/22 08:00 96 Nasal Cannula 1.00 I & O 05/28/22 07:00 Intake Total 2600 ml Output Total 1650 ml Balance 950 ml Height & Weight Height: 5'5.00" Weight: 196lbs. oz. 88.513889cm; 33.20 BMI Method:Stated General Appearance: No Apparent Distress, Obese HEENT: PERRL/EOMI; No Scleral Icterus (L), No Scleral Icterus (R) Neck: Normal Inspection, Supple Respiratory: Lungs Clear, Normal Breath Sounds, No Accessory Muscle Use, No Respiratory Distress Cardiovascular: Regular Rate, Rhythm, No Murmur Capillary Refill: Less Than 3 Seconds Peripheral Pulses: 2+ Dorsalis Pedis (R), 2+ Left Dors-Pedis (L) (See free text.), 2+ Radial Pulses (R), 2+ Radial Pulses (L) Gastrointestinal: soft, no organomegaly; No guarding, No rebound; tenderness (LLQ tender to palpation, improving from yesterday.), hernia (Incisional at umbilicus) Extremity: No Calf Tenderness, No Pedal Edema Neurologic/Psychiatric: Alert, Oriented x3 Skin: Normal Color, Warm/Dry Results Lab Laboratory Tests 05/27/22 02:26 05/28/22 05:05 Assessment/Plan Assessment/Plan IBD, will continue on steroids, hypotension is resolved, not on pressors Critical Care: Critically Ill Patient Time spent with patient (mins): 25 KEITH DUNAWAY MD May 28, 2022 07:49
[2022-05-28] MEDS: toPIRamate 25 MG (TOPAMAX) TAB PO SCH ×2 (08:38→20:03)
[2022-05-28] MEDS: PREGABALIN 100 MG (LYRICA) CAPSULE PO SCH ×2 (08:38→20:09)
[2022-05-28] MEDS: ENOXAPARIN 100 MG/1 ML (LOVENOX) SYR SC SCH ×2 (08:39→20:10)
[2022-05-28] MEDS: SENNOSIDES 8.6 MG (SENOKOT) TAB PO SCH ×2 (08:39→20:06)
[2022-05-28] MEDS: DOCUSATE SODIUM 100 MG (COLACE) CAP PO SCH ×2 (08:39→20:06)
[2022-05-28] MEDS: busPIRone 10 MG (BUSPAR) TAB PO SCH ×2 (08:39→19:58)
[2022-05-28] MEDS: DULoxetine 30 MG (CYMBALTA) CAP PO SCH (08:39)
--- NOTE | 2022-05-28 09:21 | Progress Note - Hospitalist ---
Subjective HPI/CC On Admission Date Seen by Provider: May 28, 2022 Alycia Lynch is a 61 year old female with PMH HTN, HLD, PE, anxiety, chronic pain, obesity, who presented with abdominal pain. She says the pain started yesterday. It is all over her abdomen but mainly left sided. She has also had diarrhea. She denies bloody stools. She has not noticed any fevers. She is having chills now. She denies nausea and vomiting. She denies chest pain and shortness of breath. She reports a history of presumed inflammatory bowel disease. She has been treated with courses of steroids but has never had a biopsy to diagnose it. She did have a colonoscopy for cancer screening. She also says she may have had C diff in the past. Subjective/Events-last exam Pt reports doing well. Pain improved. Still off pressors. Focused Exam Lactate Level 05/25/22 14:00: Lactic Acid Level 3.21*H 05/25/22 17:41: Lactic Acid Level 4.08*H 05/25/22 19:53: Lactic Acid Level 1.97 Time of Focused Exam: 15:00 Objective Exam Vital Signs Vital Signs Date Time Temp Pulse Resp B/P (MAP) Pulse Ox O2 Delivery O2 Flow Rate FiO2 05/28/22 09:00 96 Room Air 05/28/22 08:00 36.5 96 12 157/89 (111) 05/27/22 23:00 1.00 Capillary Refill : Less Than 3 Seconds General Appearance: No Apparent Distress, WD/WN Respiratory: Lungs Clear, No Respiratory Distress Cardiovascular: Regular Rate, Rhythm, No Murmur Gastrointestinal: Normal Bowel Sounds, Soft Neurologic/Psychiatric: Alert, Oriented x3 Results/Procedures Lab Laboratory Tests 05/28/22 05:05 Patient resulted labs reviewed. Imaging: Reviewed Imaging Films, Reviewed Imaging Report Assessment/Plan Assessment and Plan Assess & Plan/Chief Complaint Septic shock Colitis Lactic acidosis Acute kidney injury CT abdomen with colitis from proximal transverse colon to sigmoid colon C diff negative Dilaudid, will add back on home oxycodone CLD Merrem Surgery consulted, appreciate recs TeleICU consulted Continue steroids HTN HLD Anxiety Chronic pain History of PE Obesity Resume home meds, as able Therapeutic Lovenox DVT ppx: Lovenox as above Critical Care Critically Ill Patient MELINA CALDWELL MD May 28, 2022 09:21
[2022-05-28] MEDS: LACTATED RINGERS 1,000 ML IV SCH (09:53)
[2022-05-28] MEDS ORDERED: PATIENT MAY USE OWN MEDS, ALL MC SCH (10:00)
[2022-05-28] MEDS: oxyCODONE/APAP 5/325MG (PERCOCET 5) TABLET PO PRN ×2 (10:29→20:01)
[2022-05-28] MEDS: cefTRIAXone 1 GM PRE-MIX 50 ML IV SCH (12:45)
[2022-05-28] MEDS: metroNIDAZOLE 500MG/100ML IVPB 100 ML IV SCH ×2 (14:20→22:44)
[2022-05-28 16:30] VITALS: BP 173/98
[2022-05-28 19:42] VITALS: BP 186/95
[2022-05-28] MEDS: ENALAPRIL 20MG TABLET PO SCH (20:02)
[2022-05-28] MEDS: AtorvaSTATin TABLET 10 MG TABLET PO SCH (20:04)
[2022-05-28] MEDS: NORTRIPTYLINE 25 MG (PAMELOR) CAP PO SCH (20:04)
[2022-05-28 23:00] VITALS: BP 165/87
[2022-05-29 03:15] VITALS: BP 144/81
[2022-05-29] MEDS: oxyCODONE/APAP 5/325MG (PERCOCET 5) TABLET PO PRN ×3 (03:21→21:50)
[2022-05-29 03:24] LABS: BASOPHILS % (AUTO) 0 % (0-10); EOSINOPHILS % (AUTO) 0 % (0-10); HEMATOCRIT 26 % (35-52); HEMOGLOBIN 8.3 g/dL (11.5-16.0); LYMPHOCYTES # (AUTO) 0.9 10^3/uL (1.0-4.0); LYMPHOCYTES % (AUTO) 13 % (12-44); MEAN CORPUSCULAR HEMOGLOBIN 28 pg (25-34); MEAN CORPUSCULAR HGB CONC 32 g/dL (32-36); MEAN CORPUSCULAR VOLUME 87 fL (80-99); MEAN PLATELET VOLUME 10.8 fL (9.0-12.2); MONOCYTES # (AUTO) 1.1 10^3/uL (0.0-1.0); MONOCYTES % (AUTO) 15 % (0-12); NEUTROPHILS # (AUTO) 4.8 10^3/uL (1.8-7.8); NEUTROPHILS % (AUTO) 65 % (42-75); PLATELET COUNT 259 10^3/uL (130-400); WHITE BLOOD COUNT 7.5 10^3/uL (4.3-11.0)
[2022-05-29 03:41] LABS: ALBUMIN 2.6 GM/DL (3.2-4.5); POTASSIUM 3.8 MMOL/L (3.6-5.0)
[2022-05-29 03:42] LABS: CALCIUM 8.2 MG/DL (8.5-10.1)
[2022-05-29 03:43] LABS: TOTAL PROTEIN 4.6 GM/DL (6.4-8.2)
[2022-05-29 03:45] LABS: BILIRUBIN,TOTAL 0.3 MG/DL (0.1-1.0)
[2022-05-29 03:47] LABS: CREATININE SERUM 0.67 MG/DL (0.60-1.30)
[2022-05-29 03:50] LABS: MAGNESIUM 2.1 MG/DL (1.6-2.4)
[2022-05-29] MEDS: MAGNESIUM 1 GM/100 ML IVPB 100 ML IV SCH (05:06)
[2022-05-29] MEDS: KCL 20 MEQ TAB (K-DUR) PO SCH (05:06)
[2022-05-29] MEDS: POTASSIUM CL 10MEQ/50ML IVPB 50 ML IV SCH (05:06)
--- NOTE | 2022-05-29 06:24 | Progress Note - Surgery ---
CHANA QUINTERO 05/29/22 0624: Subjective Date Seen by a Provider: May 29, 2022 Time Seen by a Provider: 06:19 Subjective/Events-last exam Patient is resting in bed comfortably this morning, was able to get some sleep last night. She states her pain is unchanged from yesterday, rating the pain a 5 /10 in her LLQ. She had 3 bowel movements yesterday morning which were all diarrhea, denying any hematochezia or melena. She has not had a bowel movement since. She denies any nausea, vomiting, chest pain, SOB, or any other pain at this time. Was able to ambulate some yesterday. She has been restarted on her home medications. It still tolerating clear liquid diet. Vitals currently stable. Review of Systems General: No Chills, No Night Sweats HEENT: No Head Aches, No Sore Throat Pulmonary: No Dyspnea, No Cough Cardiovascular: No: Chest Pain, Edema Gastrointestinal: No: Nausea, Vomiting Genitourinary: No Dysuria, No Hematuria Musculoskeletal: No: neck pain, back pain Neurological: No: Weakness, Numbness Focused Exam Time of Focused Exam: 15:00 Objective Exam Vital Signs Date Time Temp Pulse Resp B/P (MAP) Pulse Ox O2 Delivery O2 Flow Rate FiO2 05/29/22 03:15 37.0 82 20 144/81 (102) 96 Room Air 05/29/22 01:00 82 05/28/22 23:00 36.5 98 18 165/87 (113) 94 Room Air 05/28/22 19:58 Room Air 05/28/22 19:42 36.3 93 16 186/95 (125) 94 Room Air 05/28/22 19:00 90 05/28/22 16:30 36.6 90 16 173/98 (123) 96 Nasal Cannula 2.00 05/28/22 16:00 89 20 169/102 (124) 97 Room Air 05/28/22 12:55 92 05/28/22 12:00 36.6 108 18 155/84 (107) 96 Room Air 05/28/22 09:00 96 Room Air 05/28/22 08:00 36.5 96 12 157/89 (111) 96 Room Air 05/28/22 07:00 81 18 90 05/28/22 07:00 81 I & O 2/9/23 07:00 Intake Total 2700 ml Output Total 450 ml Balance 2250 ml Capillary Refill : Less Than 3 Seconds General Appearance: No Apparent Distress, Obese HEENT: PERRL/EOMI; No Scleral Icterus (L), No Scleral Icterus (R) Neck: Non Tender, Supple Respiratory: Lungs Clear, No Accessory Muscle Use, No Respiratory Distress Cardiovascular: Regular Rate, Rhythm, No Murmur Peripheral Pulses: 2+ Dorsalis Pedis (R), 2+ Left Dors-Pedis (L), 2+ Radial Pulses (R), 2+ Radial Pulses (L) Gastrointestinal: soft, no organomegaly; No guarding, No rebound; tenderness (LLQ tender to palpation, unchagned from yesterday still 08/27), hernia (Incisional at umbilicus) Extremity: No Calf Tenderness, No Pedal Edema Neurologic/Psychiatric: Alert, Oriented x3 Skin: Normal Color, Warm/Dry Results Lab Laboratory Tests 05/29/22 03:17: White Blood Count 7.5, Red Blood Count 2.94L, Hemoglobin 8.3L, Hematocrit 26L, Mean Corpuscular Volume 87, Mean Corpuscular Hemoglobin 28, Mean Corpuscular Hemoglobin Concent 32, Red Cell Distribution Width 14.1, Platelet Count 259, Mean Platelet Volume 10.8, Immature Granulocyte % (Auto) 7, Neutrophils (%) (Auto) 65, Lymphocytes (%) (Auto) 13, Monocytes (%) (Auto) 15H, Eosinophils (%) (Auto) 0, Basophils (%) (Auto) 0, Neutrophils # (Auto) 4.8, Lymphocytes # (Auto) 0.9L, Monocytes # (Auto) 1.1H, Eosinophils # (Auto) 0.0, Basophils # (Auto) 0.0, Immature Granulocyte # (Auto) 0.6H, Sodium Level 141, Potassium Level 3.8, Chloride Level 111H, Carbon Dioxide Level 22, Anion Gap 8, Blood Urea Nitrogen 23H, Creatinine 0.67, Estimat Glomerular Filtration Rate 99, BUN/Creatinine Ratio 34, Glucose Level 105, Calcium Level 8.2L, Corrected Calcium 9.3, Magnesium Level 2.1, Total Bilirubin 0.3, Aspartate Amino Transf (AST/SGOT) 13, Alanine Aminotransferase (ALT/SGPT) 17, Alkaline Phosphatase 102, Total Protein 4.6L, Albumin 2.6L Microbiology 05/26/22 C. difficile GDH Antigen & Toxins - Final, Complete 05/25/22 MRSA Screen - Final, Complete MRSA not isolated 05/25/22 Urine Culture - Final, Complete Lactobacillus jensenii 05/25/22 Blood Culture - Final, Complete Streptococcus mitis group Streptococcus gordonii Assessment/Plan Assessment/Plan Assessment/Plan Acute Colitis- Per CT, mainly transverse and left side with mild fat stranding Bacteremia- Peripheral blood culture resulted with Streptococcus mitis group and Streptococcus gordonii LLQ Abdominal pain- Unchanged compared to yesterday Hypotension- Resolved and off Levophed Venous Insufficiency Hyperkalemia- Resolved Lactic Acidosis-Resolved Obesity Hypercoagulable state- skilled nursing anticoagulant use due 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 C-diff culture negative Plan: Continue with IV fluids, Pain control, Ceftriaxone and Metronidazole started Continue with anti-emetics as needed Currently on liquid diet-tolerating well- Introduce soft foods as tolerated DVT prophylaxis Continue to monitor labs Continue to encourage ambulation Awaiting stool culture and Ova/Parasites to be resulted Home medications restarted ROLLY AMOR DO 05/29/22 1151: Subjective Time Seen by a Provider: 10:11 Subjective/Events-last exam Pt seen and examined, states she is feeling better today; but still with 5 out of 10 pain. She has been having liquid BMs, but no melena or hematochezia. She would like to try soft diet. Review of Systems General: No Chills, No Night Sweats Pulmonary: No Dyspnea, No Cough Cardiovascular: No: Chest Pain Gastrointestinal: Abdominal Pain; No: Nausea, Vomiting Objective Exam General Appearance: No Apparent Distress, Obese HEENT: PERRL/EOMI Respiratory: Lungs Clear, No Accessory Muscle Use, No Respiratory Distress Cardiovascular: Regular Rate, Rhythm, No Murmur Gastrointestinal: soft, no organomegaly; No rebound; tenderness (LLQ tender to palpation, unchagned from yesterday still 08/27), hernia (Incisional at umbilicus) Assessment/Plan Assessment/Plan Assessment/Plan Acute Colitis- Per CT, mainly transverse and left side with mild fat stranding Bacteremia- Peripheral blood culture resulted with Streptococcus mitis group and Streptococcus gordonii LLQ Abdominal pain- Unchanged compared to yesterday Hypotension- Resolved and off Levophed Venous Insufficiency Hyperkalemia- Resolved Lactic Acidosis-Resolved Obesity 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 C-diff culture negative Plan: Continue with IV fluids, Pain control, Ceftriaxone and Metronidazole started Continue with anti-emetics as needed Increase to soft foods as tolerated DVT prophylaxis Continue to monitor labs Continue to encourage ambulation Awaiting stool culture and Ova/Parasites to be resulted Home medications restarted Discussed her care with Hospitalist Supervisory-Addendum Brief Verification & Attestation Participated in pt care: history, MDM, physical Personally performed: exam, history, MDM, supervision of care Care discussed with: Medical Student Procedures: n/a Verification and Attestation of Medical Student E/M Service A medical student performed and documented this service. I then reviewed and verified all information documented by the medical student and made modifications to such information, when appropriate. I personally performed a physical exam, medical decision making and then discussed any differences between the notes and made revisions as necessary to create one note. Rolly Amor , 05/29/22 , 11:50 CHANA QUINTERO May 29, 2022 06:24 ROLLY AMOR DO May 29, 2022 11:51
[2022-05-29] MEDS: metroNIDAZOLE 500MG/100ML IVPB 100 ML IV SCH ×3 (06:29→21:03)
[2022-05-29] MEDS: LACTATED RINGERS 1,000 ML IV SCH ×2 (06:30→21:19)
[2022-05-29] MEDS: predniSONE 20 MG TAB PO SCH (06:30)
[2022-05-29 07:37] VITALS: BP 158/76
[2022-05-29] MEDS: busPIRone 10 MG (BUSPAR) TAB PO SCH ×2 (09:40→21:06)
[2022-05-29] MEDS: toPIRamate 25 MG (TOPAMAX) TAB PO SCH ×2 (09:41→21:07)
[2022-05-29] MEDS: Duloxetine HCl 60 MG PO SCH (09:42)
[2022-05-29] MEDS: DOCUSATE SODIUM 100 MG (COLACE) CAP PO SCH ×2 (09:42→21:12)
[2022-05-29] MEDS: SENNOSIDES 8.6 MG (SENOKOT) TAB PO SCH ×2 (09:43→21:12)
[2022-05-29] MEDS: PREGABALIN 100 MG (LYRICA) CAPSULE PO SCH ×3 (09:46→22:05)
[2022-05-29] MEDS: ENOXAPARIN 100 MG/1 ML (LOVENOX) SYR SC SCH ×2 (09:47→21:03)
[2022-05-29] MEDS ORDERED: LOPERAMIDE 2 MG (IMODIUM) TABLET PO PRN (10:15)
[2022-05-29 11:20] VITALS: BP 155/73
--- NOTE | 2022-05-29 11:30 | Physical Therapy Evaluation ---
PT Evaluation-General Medical Diagnosis Admission Date May 25, 2022 at 16:57 Medical Diagnosis: abdominal pain Onset Date: May 25, 2022 Therapy Diagnosis Therapy Diagnosis: debility Height/Weight Height (Feet): 5 Height (Inches): 5.00 Weight (Pounds): 196 Precautions Precautions/Isolations: Standard Precautions Referral Physician: Sissy Reason for Referral: Evaluation/Treatment Medical History Pertinent Medical History: HTN Additional Medical History Covid x 2/ulcerative colitis Current History EMS secondary to abdominal pain and weakness Reviewed History: Yes Social History Home: [facility] Current Living Status: Spouse Entry Into Home: Level Entry PT Steps Into Home: 4 Prior Prior Level of Function SCALE: Activities may be completed with or without assistive devices. 2-Dphhhkwbby-jpnnqxi completes the activity by him/herself with no assistance from a helper. 5-Set-up or Clean-up Assistance-helper sets up or cleans up; patient completes activity. [place] assists only prior to or following the activity. 4-Supervision or Touching Assistance-helper provides verbal cues and/or touching/steadying and/or contact guard assistance as patient completes activity. Assistance may be provided throughout the activity or intermittently. 3-Partial/Moderate Assistance-helper does LESS THAN HALF the effort. [place] lifts, holds or supports trunk or limbs, but provides less than half the effort. 2-Substantial/Maximal Assistance-helper does MORE THAN HALF the effort. [place] lifts or holds trunk or limbs and provides more than half the effort. 6-Eznxyhyud-dodsvh does ALL the effort. Patient does none of the effort to complete the activity. Or, the assistance of 2 or more helpers is required for the patient to complete the activity. If activity was not attempted, code reason: 7-Patient Refused. 9-Not Applicable-not attempted and the patient did not perform the activity bef ore the current illness, exacerbation or injury. 10-Not Attempted due to Environmental Limitations-(lack of equipment, weather r estraints, etc.). 88-Not Attempted due to Medical Conditions or Safety Concerns. Bed Mobility: 6 Transfers (B,C,W/C): 6 Gait: 6 Stairs: 6 Indoor Mobility (Ambulation): Independent Stairs: Independent Prior Devices Use: None PT Evaluation-Current Subjective Patient agrees to PT. Objective Patient Orientation: Normal For Age Attachments: [place] Catheter, IV ROM/Strength ROM Lower Extremities bilateral LE WFL Strength Lower Extremities 4-/5 grossly bilateral LE all planes Integumentary/Posture Bladder Incontinence: Costa Cath Posture WFL Neuromuscular (Tone, Coordination, Reflexes) grossly intact with all Sensory Vision: Wears Glasses Hearing: Functional Transfers Lying to Sitting/Side of Bed(Q: 6 Sit to Stand (QC): 6 Chair/Zcu-up-Wdidz Xfer(QC): 6 Gait Mode of Locomotion: Walk Anticipated Mode of Locomotion: Walk Walk 10 feet (QC): 6 Walk 50 ft with 2 Turns(QC): 6 Walk 150 ft (QC): 6 Distance: 400' Gait Assistive Device: FWW Comments/Gait Description slow, steady gait, FWW for initial use due to inactivity in hospital Balance Sitting Static: Normal Sitting Dynamic: Normal Standing Static: Normal Standing Dynamic: Normal Assessment/Needs Patient is currently at independent OF with gross motor skills. PT instructed patient and nursing staff to have patient ambulate PRN in hallway independently if not attached to IV or costa. Both voice understanding. No skilled PT indicated at this time. Rehab Potential: Fair PT Plan Treatment/Plan Treatment Plan: Discontinue PT, goals met Treatment Duration: May 29, 2022 Frequency: 1 time per week Estimated Hrs Per Day: .25 hour per day Patient and/or Family Agrees t: Yes Time Time In: 1045 Time Out: 1058 DATE: May 29, 2022 Total Billed Treatment Time: 13 [facility] HOWARD SCHULZ PT May 29, 2022 11:30
[2022-05-29] MEDS: cefTRIAXone 1 GM PRE-MIX 50 ML IV SCH (11:49)
[2022-05-29 15:05] VITALS: BP 136/73
--- NOTE | 2022-05-29 15:16 | Progress Note - Hospitalist ---
Subjective HPI/CC On Admission Date Seen by Provider: May 29, 2022 Alycia Lynch is a 61 year old female with PMH HTN, HLD, PE, anxiety, chronic pain, obesity, who presented with abdominal pain. She says the pain started yesterday. It is all over her abdomen but mainly left sided. She has also had diarrhea. She denies bloody stools. She has not noticed any fevers. She is having chills now. She denies nausea and vomiting. She denies chest pain and shortness of breath. She reports a history of presumed inflammatory bowel disease. She has been treated with courses of steroids but has never had a biopsy to diagnose it. She did have a colonoscopy for cancer screening. She also says she may have had C diff in the past. Subjective/Events-last exam Pt reports doing much better today. Pain improved though still present. Having diarrhea still and would like to advance diet. Focused Exam Time of Focused Exam: 15:00 Objective Exam Vital Signs Vital Signs Date Time Temp Pulse Resp B/P (MAP) Pulse Ox O2 Delivery O2 Flow Rate FiO2 05/29/22 15:05 36.4 77 20 136/73 (94) 94 Room Air 05/29/22 08:00 2.00 Capillary Refill : Less Than 3 Seconds General Appearance: No Apparent Distress Respiratory: Lungs Clear, No Respiratory Distress Cardiovascular: Regular Rate, Rhythm Neurologic/Psychiatric: Alert, Oriented x3 Results/Procedures Lab Laboratory Tests 05/29/22 03:17 Patient resulted labs reviewed. Imaging: Reviewed Imaging Films, Reviewed Imaging Report Assessment/Plan Assessment and Plan Assess & Plan/Chief Complaint Septic shock- resolved Colitis Lactic acidosis- resolved Acute kidney injury- resolved CT abdomen with colitis from proximal transverse colon to sigmoid colon C diff negative Dilaudid and home oxycodone CLD- advance to soft diet Continue abx Surgery consulted, appreciate recs TeleICU consulted Continue steroids- switch to oral Hopefully home tomorrow HTN HLD Anxiety Chronic pain History of PE Obesity Resume home meds, as able Therapeutic Lovenox DVT ppx: Lovenox as above Critical Care Critically Ill Patient MELINA CALDWELL MD May 29, 2022 15:16
[2022-05-29] MEDS ORDERED: warFARin 5 MG (COUMADIN) TAB PO SCH (18:00)
[2022-05-29 19:17] VITALS: BP 118/65
[2022-05-29] MEDS: NORTRIPTYLINE 25 MG (PAMELOR) CAP PO SCH (21:05)
[2022-05-29] MEDS: AtorvaSTATin TABLET 10 MG TABLET PO SCH (21:07)
[2022-05-29] MEDS: ENALAPRIL 20MG TABLET PO SCH (21:08)
[2022-05-29 23:16] VITALS: BP 124/68
[2022-05-30 04:51] VITALS: BP 118/67
[2022-05-30] MEDS: metroNIDAZOLE 500MG/100ML IVPB 100 ML IV SCH (04:57)
[2022-05-30] MEDS: LACTATED RINGERS 1,000 ML IV SCH (04:57)
[2022-05-30 05:38] LABS: BASOPHILS # (AUTO) 0.1 10^3/uL (0.0-0.1); BASOPHILS % (AUTO) 1 % (0-10); EOSINOPHILS # (AUTO) 0.1 10^3/uL (0.0-0.3); EOSINOPHILS % (AUTO) 1 % (0-10); HEMATOCRIT 26 % (35-52); HEMOGLOBIN 8.6 g/dL (11.5-16.0); LYMPHOCYTES # (AUTO) 2.2 10^3/uL (1.0-4.0); LYMPHOCYTES % (AUTO) 23 % (12-44); MEAN CORPUSCULAR HEMOGLOBIN 29 pg (25-34); MEAN CORPUSCULAR HGB CONC 33 g/dL (32-36); MEAN CORPUSCULAR VOLUME 86 fL (80-99); MEAN PLATELET VOLUME 10.3 fL (9.0-12.2); MONOCYTES # (AUTO) 1.1 10^3/uL (0.0-1.0); MONOCYTES % (AUTO) 11 % (0-12); NEUTROPHILS # (AUTO) 4.9 10^3/uL (1.8-7.8); NEUTROPHILS % (AUTO) 51 % (42-75); PLATELET COUNT 271 10^3/uL (130-400); WHITE BLOOD COUNT 9.6 10^3/uL (4.3-11.0)
[2022-05-30 05:50] LABS: ALBUMIN 2.7 GM/DL (3.2-4.5); POTASSIUM 2.9 MMOL/L (3.6-5.0)
[2022-05-30 05:51] LABS: CALCIUM 7.9 MG/DL (8.5-10.1)
[2022-05-30 05:52] LABS: INR 1.8 (0.8-1.4); PROTHROMBIN TIME PATIENT 21.2 SEC (12.2-14.7); TOTAL PROTEIN 4.5 GM/DL (6.4-8.2)
[2022-05-30 05:54] LABS: BILIRUBIN,TOTAL 0.4 MG/DL (0.1-1.0)
[2022-05-30 05:56] LABS: CREATININE SERUM 0.7 MG/DL (0.60-1.30)
[2022-05-30 05:58] LABS: MAGNESIUM 1.9 MG/DL (1.6-2.4)
[2022-05-30] MEDS: MAGNESIUM 1 GM/100 ML IVPB 100 ML IV SCH (06:00)
[2022-05-30] MEDS: KCL 20 MEQ TAB (K-DUR) PO SCH (06:00)
[2022-05-30] MEDS: POTASSIUM CL 10MEQ/50ML IVPB 50 ML IV SCH (06:00)
[2022-05-30] MEDS ORDERED: KCL 20 MEQ TAB (K-DUR) PO NR ×3 (06:30→10:30)
[2022-05-30] MEDS: predniSONE 20 MG TAB PO SCH (06:36)
[2022-05-30] MEDS: oxyCODONE/APAP 5/325MG (PERCOCET 5) TABLET PO PRN (06:39)
[2022-05-30 07:40] VITALS: BP 141/73
[2022-05-30] MEDS: busPIRone 10 MG (BUSPAR) TAB PO SCH (08:39)
[2022-05-30] MEDS: toPIRamate 25 MG (TOPAMAX) TAB PO SCH (08:40)
[2022-05-30] MEDS: Duloxetine HCl 60 MG PO SCH (08:41)
[2022-05-30] MEDS: DOCUSATE SODIUM 100 MG (COLACE) CAP PO SCH (08:42)
[2022-05-30] MEDS: SENNOSIDES 8.6 MG (SENOKOT) TAB PO SCH (08:42)
[2022-05-30] MEDS: ENOXAPARIN 100 MG/1 ML (LOVENOX) SYR SC SCH (08:43)
[2022-05-30] MEDS: PREGABALIN 100 MG (LYRICA) CAPSULE PO SCH ×2 (08:43)
[2022-05-30] MEDS ORDERED: CEPH500T PO (09:16)
[2022-05-30] MEDS ORDERED: PRD20T PO (09:16)
[2022-05-30] MEDS ORDERED: METR-145 PO (09:16)
--- NOTE | 2022-05-30 09:17 | Discharge Inst-Simple/Standard ---
Discharge Inst-Standard Patient Instructions/Follow Up Plan of Care/Instructions/FU: Please continue to take your medications as written. Please follow up with your primary care doctor to follow up this hospital stay. You will need to see Dr Saucedo in the next two weeks to get a prescription for your steroid taper. Activity as Tolerated: Yes Discharge Diet: Regular Diet Return to The Hospital For: Chest pain, abd pain, worsening diarrhea, shortness of breath, fever, weakness, if you feel you are getting worse. MELINA CALDWELL MD May 30, 2022 09:17
--- NOTE | 2022-05-30 09:20 | Progress Note - Surgery ---
CHANA QUINTERO 05/30/22 0920: Subjective Date Seen by a Provider: May 30, 2022 Time Seen by a Provider: 09:10 Subjective/Events-last exam Patient is laying bed comfortably this morning eating breakfast. Accompanied by her . She states that her LLQ pain is improved today, rating it a 4/10 today compared to a 5/10 yesterday. She has had several episodes of diarrhea since yesterday afternoon, denying any hematochezia or melena. She denies any nausea, vomiting, SOB, or chest pain. She is currently on a soft food diet and is eating well, tolerating it without pain. She was able to ambulate yesterday without complication. She has been switched over to oral steroids and oral pain medication. Review of Systems General: No Chills, No Night Sweats HEENT: No Head Aches, No Sore Throat Pulmonary: No Dyspnea, No Cough Cardiovascular: No: Chest Pain, Edema Gastrointestinal: No: Nausea, Vomiting Genitourinary: No Dysuria, No Hematuria Musculoskeletal: No: neck pain, back pain Neurological: No: Weakness, Numbness Focused Exam Time of Focused Exam: 15:00 Objective Exam Vital Signs Date Time Temp Pulse Resp B/P (MAP) Pulse Ox O2 Delivery O2 Flow Rate FiO2 05/30/22 08:00 96 Room Air 05/30/22 07:40 36.8 84 18 141/73 (95) 96 Room Air 05/30/22 07:00 85 05/30/22 06:39 36.3 05/30/22 04:51 36.3 81 18 118/67 (84) 96 Room Air 05/30/22 01:00 74 05/29/22 23:16 36.4 81 18 124/68 (86) 95 Room Air 05/29/22 22:23 36.2 05/29/22 21:50 36.2 05/29/22 21:17 Room Air 05/29/22 20:00 Room Air 05/29/22 19:17 36.2 98 22 118/65 (82) 97 Room Air 05/29/22 19:00 100 05/29/22 15:05 36.4 77 20 136/73 (94) 94 Room Air 05/29/22 13:00 104 05/29/22 11:20 36.4 80 18 155/73 (100) 97 Room Air I & O 05/30/22 06:59 Intake Total 6860 ml Balance 6860 ml Capillary Refill : Less Than 3 Seconds General Appearance: No Apparent Distress, Obese HEENT: PERRL/EOMI; No Scleral Icterus (L), No Scleral Icterus (R) Neck: Non Tender, Supple Respiratory: Lungs Clear, No Accessory Muscle Use, No Respiratory Distress Cardiovascular: Regular Rate, Rhythm, No Murmur Peripheral Pulses: 2+ Dorsalis Pedis (R), 2+ Left Dors-Pedis (L), 2+ Radial Pulses (R), 2+ Radial Pulses (L) Gastrointestinal: soft, no organomegaly; No guarding, No rebound; tenderness (LLQ tender to palpation, improving from yesterday.), hernia (Incisional at umbilicus) Extremity: No Calf Tenderness, No Pedal Edema Neurologic/Psychiatric: Alert, Oriented x3 Skin: Normal Color, Warm/Dry Results Lab Laboratory Tests 05/30/22 05:30: White Blood Count 9.6, Red Blood Count 3.00L, Hemoglobin 8.6L, Hematocrit 26L, Mean Corpuscular Volume 86, Mean Corpuscular Hemoglobin 29, Mean Corpuscular Hemoglobin Concent 33, Red Cell Distribution Width 13.9, Platelet Count 271, Mean Platelet Volume 10.3, Immature Granulocyte % (Auto) 14, Neutrophils (%) (Auto) 51, Lymphocytes (%) (Auto) 23, Monocytes (%) (Auto) 11, Eosinophils (%) (Auto) 1, Basophils (%) (Auto) 1, Neutrophils # (Auto) 4.9, Lymphocytes # (Auto) 2.2, Monocytes # (Auto) 1.1H, Eosinophils # (Auto) 0.1, Basophils # (Auto) 0.1, Immature Granulocyte # (Auto) 1.4H, Prothrombin Time 21.2H, INR Comment 1.8H, Sodium Level 140, Potassium Level 2.9L, Chloride Level 110H, Carbon Dioxide Level 23, Anion Gap 7, Blood Urea Nitrogen 17, Creatinine 0.70, Estimat Glomerular Filtration Rate 98, BUN/Creatinine Ratio 24, Glucose Level 85, Calcium Level 7.9L, Corrected Calcium 8.9, Magnesium Level 1.9, Total Bilirubin 0.4, Aspartate Amino Transf (AST/SGOT) 20, Alanine Aminotransferase (ALT/SGPT) 20, Alkaline Phosphatase 84, Total Protein 4.5L, Albumin 2.7L Microbiology 05/27/22 Cryptosporidium/Giardia - Final, Complete 05/25/22 MRSA Screen - Final, Complete MRSA not isolated 05/25/22 Urine Culture - Final, Complete Lactobacillus jensenii 05/25/22 Blood Culture - Final, Complete Streptococcus mitis group Streptococcus gordonii Assessment/Plan Assessment/Plan Assessment/Plan Acute Colitis- Per CT, mainly transverse and left side with mild fat stranding Bacteremia- Peripheral blood culture resulted with Streptococcus mitis group and Streptococcus gordonii LLQ Abdominal pain- Improvement compared to yesterday Hypotension- Resolved and off Levophed Venous Insufficiency Hyperkalemia- Resolved Lactic Acidosis-Resolved Obesity 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 due 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- Warfarin restarted C-diff culture negative Ova/Parasites came back negative for Cyrptosporidium and Giardia Plan: Continue oral pain control, and ABX Continue with anti-emetics as needed Currently on soft foot diet-tolerating well DVT prophylaxis Continue to monitor labs Encourage ambulation Still awaiting stool culture results (culture in progress) ASHU DOSHI DO 05/30/22 1250: Supervisory-Addendum Brief Verification & Attestation Participated in pt care: other (Pt left before I saw her) Personally performed: other (Pt left before I saw her) Care discussed with: Medical Student Procedures: n/a Pt left before I saw her MATNEGROCHANA BOLDEN May 30, 2022 09:20 ASHU DOSHI DO May 30, 2022 12:50
[2022-05-30 10:13] VITALS: BP 141/73
== END 2022-05-30 10:25 | disposition home or self-care (01) | DRG 871 ==
LOC: EDUNIT# 13:34 → ER 13:35 → ICU 16:57 → 4TH 05-28 16:21
PROVIDERS: ADMIT Internal Medicine; ATTEND Internal Medicine
PROC: 02HV33Z Insertion of Infusion Device into Superior Vena Cava, Percutaneous Approach (ICD-10-PCS; principal; 2022-05-25)
DX: A41.9 Sepsis, unspecified organism (principal); R65.21 Severe sepsis with septic shock; E87.20 Acidosis, unspecified; N17.9 Acute kidney failure, unspecified; D68.59 Other primary thrombophilia; Z79.82 Long term (current) use of aspirin; Z79.01 Long term (current) use of anticoagulants; Z79.899 Other long term (current) drug therapy; Z86.16 Personal history of COVID-19; E78.00 Pure hypercholesterolemia, unspecified; I10 Essential (primary) hypertension; G43.909 Migraine, unspecified, not intractable, without status migrainosus; F32.A Depression, unspecified; Z86.711 Personal history of pulmonary embolism; E66.9 Obesity, unspecified; G89.29 Other chronic pain; F41.9 Anxiety disorder, unspecified; E78.5 Hyperlipidemia, unspecified; K52.9 Noninfective gastroenteritis and colitis, unspecified; K42.9 Umbilical hernia without obstruction or gangrene; I87.2 Venous insufficiency (chronic) (peripheral); E87.5 Hyperkalemia
CPT/HCPCS: 36415; 51702; 71045; 74176; 80053; 81000; 82947; 83605; 83735; 85007; 85025; 85027; 85610; 85730; 87015; 87040; 87045; 87046; 87077; 87081; 87088; 87324; 87328; 87329; 87449; 87899

== ENCOUNTER 2022-06-01 20:08 | Emergency (ER) | payer BC ==
[~2022-06-01] VITALS: Ht 165.1 cm; Wt 86.2 kg
[~2022-06-01 20:08] MED LIST changes: +CEPH500T PO; +ESTR42.511 VG; +METR-145 PO; +PRD20T PO; +TOPI25TA10 PO; +WARF-48 PO; +WRF5T PO
[2022-06-01 20:30] LABS: BILIRUBIN,URINE NEGATIVE (NEGATIVE); CLARITY,URINE SL CLOUDY; COLOR,URINE YELLOW; GLUCOSE, URINE (UA) NEGATIVE (NEGATIVE); KETONES,URINE NEGATIVE (NEGATIVE); LEUKOCYTE ESTERASE ,URINE TRACE (NEGATIVE); NITRITE,URINE NEGATIVE (NEGATIVE); PROTEIN,URINE NEGATIVE (NEGATIVE)
[2022-06-01] MEDS ORDERED: DICYCLOMINE 10 MG/ML (BENTYL) 2 ML AMP IM ONE (20:45)
[2022-06-01] MEDS ORDERED: NS IV 1000 ML 1,000 ML IV SCH (20:45)
[2022-06-01] MEDS ORDERED: ONDANSETRON 4 MG/2 ML (SDV) Z0FRAN IVP ONE (20:45)
--- NOTE | 2022-06-01 20:45 | ED Abdominal Pain ---
General Chief Complaint: Abdominal/GI Problems Stated Complaint: ABD PAIN/NAUSEA/DIARRHEA Nursing Triage Note: PT AMBULATE TO ROOM 06 WITHOUT DIFFICULTY WITH C/O ABD PAIN, N/D, LIGHT HEADEDNESS. PT REPORTS BEING DISCHARGED FROM THIS HOSPITAL ON THURSDAY FOR COLITIS. PT REPORTS SYMPTOMS HAVE NOT IMPROVED. PT REPORTS APPT WITH PCP THIS COMING THURSDAY. Source of Information: Patient, Spouse Exam Limitations: No Limitations History of Present Illness Date Seen by Provider: Jun 01, 2022 Time Seen by Provider: 20:25 Initial Comments 61-year-old female presents to the ED with complaints of abdominal pain. She was recently admitted to the ICU for septic shock due to colitis, she was discharged on 05/30/2022. Discharged with cephalexin, Flagyl, and prednisone. States she is still having problems with diarrhea, states she thinks is getting better, but last had an episode about 2 hours ago that was small amount. States that she has been trying to push fluids. Complains of nausea, no vomiting. States she is able to keep her medications down. Thinks her abdomen hurts because she has been unable to eat and has been taking her medications on empty stomach. Denies fevers, chest pain, dysuria, urgency, frequency. Reports some shortness of air when walking up and down stairs, but states this is normal since having COVID. Allergies and Home Medications Allergies Coded Allergies: amoxicillin (Verified Allergy, Unknown, 06/19/16) clavulanic acid (Verified Allergy, Unknown, 06/19/16) diphenhydramine (Unverified Allergy, Unknown, "hebby jebby", 06/19/16) latex (Verified Allergy, Unknown, 08/27/16) Patient Home Medication List Home Medication List Reviewed: Yes Acetaminophen (Tylenol Extra Strength) 500 Mg Tablet, 500-1,000 MG PO Q6H PRN for PAIN-MILD (1-4), (Reported) Entered as Reported by: KORIN JENSEN on 08/27/20 1329 Aspirin/Acetaminophen/Caffeine (Excedrin Migraine Caplet) 250 Mg-250 Mg-65 Mg Tablet, 1-2 EACH PO Q6H PRN for HEADACHE, (Reported) Entered as Reported by: KORIN JENSEN on 08/27/20 1329 Atorvastatin Calcium (Atorvastatin Calcium) 10 Mg Tablet, 10 MG PO HS, (Reported) Entered as Reported by: TARAS ARMENDARIZ on 05/30/16 1624 Buspirone HCl (Buspirone HCl) 10 Mg Tablet, 10 MG PO BID, (Reported) Entered as Reported by: KORIN JENSEN on 04/17/20 1434 Cephalexin (Cephalexin) 500 Mg Tablet, 500 MG PO BID Prescribed by: MELINA SHEEHAN on 05/30/22 0916 Diltiazem HCl (Diltiazem 24Hr ER) 240 Mg Cap.er.24h, 240 MG PO DAILY, (Reported) Entered as Reported by: KORIN JENSEN on 08/27/20 1329 Duloxetine HCl (Duloxetine HCl) 60 Mg Capsule.dr, 60 MG PO DAILY, (Reported) Entered as Reported by: KORIN JENSEN on 04/17/20 1434 Enalapril Maleate (Enalapril Maleate) 20 Mg Tablet, 20 MG PO HS, (Reported) Entered as Reported by: CHRIS HOWARD on 06/19/161999 Estradiol (Estradiol) 0.01 % Cream.appl, 1 APPFUL VG MO,TH @HS, (Reported) Entered as Reported by: KORIN JENSEN on 05/26/22 1157 Meloxicam (Meloxicam) 15 Mg Tablet, 15 MG PO DAILY, (Reported) Entered as Reported by: KORIN JENSEN on 08/27/20 1329 Metronidazole (Metronidazole) 500 Mg Tablet, 500 MG PO TID Prescribed by: MELINA SHEEHAN on 05/30/22 0916 Nortriptyline HCl (Nortriptyline HCl) 25 Mg Capsule, 75 MG PO HS, (Reported) Entered as Reported by: TARAS ARMENDARIZ on 05/30/16 1624 Ondansetron (Ondansetron Odt) 4 Mg Tab.rapdis, 4 MG SL Q4H PRN for NAUSEA/VOMITING Prescribed by: Verito Barrios on 06/01/222252 Oxycodone HCl/Acetaminophen (Oxycodone-Acetaminophen 5-325) 5 Mg-325 Mg Tablet, 1 EACH PO TID PRN for PAIN-MODERATE (5-7) Prescribed by: Verito Barrios on 06/01/222250 Prednisone (Prednisone) 20 Mg Tab, 60 MG PO DAILY@0700 Prescribed by: MELINA SHEEHAN on 05/30/22 0916 Pregabalin (Pregabalin) 100 Mg Capsule, 100 MG PO BID, (Reported) Entered as Reported by: KORIN JENSEN on 02/04/21 1407 Tizanidine HCl (Tizanidine HCl) 4 Mg Tablet, 4 MG PO BID, (Reported) Entered as Reported by: KORIN JENSEN on 04/17/20 1435 Topiramate (Topiramate) 25 Mg Tablet, 25 MG PO BID, (Reported) Entered as Reported by: KORIN JENSEN on 05/26/22 1157 Warfarin Sodium (Jantoven) 5 Mg Tablet, 5 MG PO ,TH @HS, (Reported) Entered as Reported by: KORIN JENSEN on 05/26/22 1157 Warfarin Sodium (Warfarin Sodium) 5 Mg Tablet, 2.5 MG PO JOHNSON,MO,WE,FR,SA @HS, (Reported) Entered as Reported by: KORIN JENSEN on 05/26/22 1157 Review of Systems Review of Systems Constitutional: see HPI Past Rrfhsbn-Drxhnr-Zkoplf Hx Patient Social History Tobacco Use?: No Smoking Status: Never a Smoker Smokeless Tobacco Frequency: Never a User Use of E-Cig and/or Vaping dev: No Use of E-Cig and/or Vaping Abimael: Never a User Substance use?: No Alcohol Use?: Yes Alcohol Frequency: Rarely Pt feels they are or have been: No Immunizations Up To Date Tetanus Booster (TDap): Less than 5yrs PED Vaccines UTD: No First/Initial COVID19 Vaccinat: June 2020 Second COVID19 Vaccination Panchito: July 2020 Third COVID19 Vaccination Date: June 2020 Seasonal Allergies Seasonal Allergies: No Past Medical History Surgery/Hospitalization HX: tonsilectomy, csection x2, hysterectomy, laproscopic surgeries for cysts/pcos, htn, Surgeries: Yes (LAPAROSCOPY X3-ENDOMETRIOSIS, LEFT BREAST BX) Abdominal, Breast, Section, Eye Surgery, Hysterectomy, Oophorectomy, Tonsillectomy, Tubal Ligation Respiratory: Yes (COVID + IN APRIL 2020, Hx of PE) Sleep Apnea Currently Using CPAP: No Currently Using BIPAP: No Cardiac: Yes High Cholesterol, Hypertension, Irregular Heartbeat Neurological: Yes 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 Reproductive Disorders: Yes (CPP, DUB) Female Reproductive Disorders: Endometriosis, Ovarian Cyst SEW[employer] P[employer]BE[employer]ER History: Hysterectomy, Menopausal Sexually Transmitted Disease: No HIV/AIDS: No Genitourinary: Yes UTI-Chronic Gastrointestinal: Yes Colitis Musculoskeletal: Yes (NECK PAIN AND RIGHT ARM PAIN) Endocrine: No HEENT: Yes Cataract Loss of Vision: Bilateral Hearing Impairment: Denies Cancer: No Psychosocial: Yes Depression Integumentary: No Blood Disorders: No Adverse Reaction/Blood Tranf: No (N/A) Family Medical History Arthritis 19 MOTHER Gastroenteritis G8 BROTHER Headache disorder 19 MOTHER G8 SISTER Hypertension 19 FATHER Prostate cancer 19 FATHER GI Disease, Hypertension, Other Conditions/Hx Physical Exam Vital Signs Vital Signs - First Documented 06/01/22 06/01/22 20:13 23:00 Temp 36.9 Pulse 91 Resp 17 B/P (MAP) 190/107 (134) Pulse Ox 98 O2 Delivery Room Air Capillary Refill : Less Than 3 Seconds Height/Weight/BMI Height: 5'5.00" Weight: 196lbs. oz. [id number]; 31.00 BMI Method:Stated General Appearance: WD/WN, no apparent distress Neck: supple, normal inspection Respiratory: lungs clear, normal breath sounds, no respiratory distress, no accessory muscle use Cardiovascular: regular rate, rhythm, no edema, no gallop, no JVD, no murmur Gastrointestinal: normal bowel sounds, soft, no organomegaly, no pulsatile mass, tenderness (Mild left lower quadrant tenderness) Extremities: normal range of motion, normal inspection Back: normal inspection Neurologic/Psychiatric: alert, normal mood/affect, oriented x 3 Skin: normal color, warm/dry Progress/Results/Core Measures Results/Orders Lab Results Laboratory Tests Test 06/01/22 20:22 06/01/22 21:00 Range/Units Urine Color YELLOW Urine Clarity SL CLOUDY Urine pH 7.0 5-9 Urine Specific [place] 1.015 L 1.016-1.022 Urine Protein NEGATIVE NEGATIVE Urine Glucose (UA) NEGATIVE NEGATIVE Urine Ketones NEGATIVE NEGATIVE Urine Nitrite NEGATIVE NEGATIVE Urine Bilirubin NEGATIVE NEGATIVE Urine Urobilinogen 0.2 < = 1.0 MG/DL Urine Leukocyte Esterase TRACE H NEGATIVE Urine RBC (Auto) NEGATIVE NEGATIVE Urine RBC NONE /HPF Urine WBC 0-2 /HPF Urine Squamous Epithelial Cells 5-10 /HPF Urine Crystals NONE /LPF Urine Bacteria TRACE /HPF Urine Casts PRESENT /LPF Urine Hyaline Casts RARE /LPF Urine Mucus LARGE H /LPF Urine Culture Indicated NO White Blood Count 19.0 H 4.3-11.0 10^3/uL Red Blood Count 3.43 L 3.80-5.11 10^6/uL Hemoglobin 9.5 L 11.5-16.0 g/dL Hematocrit 29 L 35-52 % Mean Corpuscular Volume 85 80-99 fL Mean Corpuscular Hemoglobin 28 25-34 pg Mean Corpuscular Hemoglobin Concent 33 32-36 g/dL Red Cell Distribution Width 14.1 10.0-14.5 % Platelet Count 388 130-400 10^3/uL Mean Platelet Volume 10.3 9.0-12.2 fL Immature Granulocyte % (Auto) 22 % Neutrophils (%) (Auto) 63 42-75 % Lymphocytes (%) (Auto) 9 L 12-44 % Monocytes (%) (Auto) 6 0-12 % Eosinophils (%) (Auto) 0 0-10 % Basophils (%) (Auto) 0 0-10 % Neutrophils # (Auto) 11.9 H 1.8-7.8 10^3/uL Lymphocytes # (Auto) 1.7 1.0-4.0 10^3/uL Monocytes # (Auto) 1.1 H 0.0-1.0 10^3/uL Eosinophils # (Auto) 0.0 0.0-0.3 10^3/uL Basophils # (Auto) 0.1 0.0-0.1 10^3/uL Immature Granulocyte # (Auto) 4.2 H 0.0-0.1 10^3/uL Neutrophils % (Manual) 75 % Lymphocytes % (Manual) 19 % Monocytes % (Manual) 2 % Metamyelocytes % 1 % Myelocytes % 2 % Band Neutrophils 1 % Anisocytosis SLIGHT Sodium Level 139 135-145 MMOL/L Potassium Level 3.1 L 3.6-5.0 MMOL/L Chloride Level 106 98-107 MMOL/L Carbon Dioxide Level 22 21-32 MMOL/L Anion Gap 11 5-14 MMOL/L Blood Urea Nitrogen 10 7-18 MG/DL Creatinine 0.70 0.60-1.30 MG/DL Estimat Glomerular Filtration Rate 98 BUN/Creatinine Ratio 14 Glucose Level 115 H 70-105 MG/DL Calcium Level 8.4 L 8.5-10.1 MG/DL Corrected Calcium 9.0 8.5-10.1 MG/DL Total Bilirubin 0.8 0.1-1.0 MG/DL Aspartate Amino Transf (AST/SGOT) 28 5-34 U/L Alanine Aminotransferase (ALT/SGPT) 68 H 0-55 U/L Alkaline Phosphatase 90 40-136 U/L Total Protein 5.7 L 6.4-8.2 GM/DL Albumin 3.3 3.2-4.5 GM/DL Amylase Level 50 25-125 U/L Lipase 43 8-78 U/L Smear Scan YES My Orders Orders - VERITO BARRIOS APRN Ua Culture If Indicated (06/01/22 20:12) Comprehensive Metabolic Panel (06/01/22 20:33) Lipase (06/01/22 20:33) Amylase (06/01/22 20:33) Cbc With Automated Diff (06/01/22 20:33) Ns Iv 1000 Ml (Sodium Chloride 0.9%) (06/01/22 20:45) Ondansetron Injection (Zofran Injectio (06/01/22 20:45) Dicyclomine Injection (Bentyl Injection) (06/01/22 20:45) Manual Differential (06/01/22 21:00) Pantoprazole Injection (Protonix Injecti (06/01/22 22:00) Lidocaine 2% Viscous 15 Ml (Xylocaine Vi (06/01/22 22:00) Antacid Suspension (Mylanta Suspension (06/01/22 22:00) Fentanyl Inj (Sublimaze Injection) (06/01/22 22:45) Medications Given in ED Vital Signs/I&O 06/01/22 06/01/22 20:13 23:00 Temp 36.9 36.4 Pulse 91 79 Resp 17 15 B/P (MAP) 190/107 (134) 158/86 Pulse Ox 98 O2 Delivery Room Air Room Air Blood Pressure Mean: 134 Progress Progress Note #1: Time: 20:46 Progress Note Patient seen and evaluated, resting comfortably in bed, no acute distress. Concern for gastritis, colitis. Work-up initiated included CBC, CMP, amylase, lipase, UA with culture. IV fluids, Zofran, Bentyl ordered. Progress Note #2: Time: 21:47 Progress Note Labs reviewed. Protonix and GI cocktail ordered. 2155 Dr. Barrientos called regarding patient to see if he recommends rescanning her. He states that she does not need to be rescanned at this time. 2199 Dr. Sheehan called to see if she recommends admission for patient. Dr. Sheehan stated that we can leave it up to the patient. We will discuss this with patient Progress Note #3: Time: 22:46 Progress Note Results discussed with patient. She states she is still not feeling better. She would like a dose of fentanyl. And she would like to be discharge after that. Patient given discharge instructions and return precautions. Departure Impression Primary Impression: Colitis Disposition: HOME, SELF-CARE Condition: Stable Departure-Patient Inst. Decision time for Depature: 22:47 Referrals: MARGUERITE CABEZAS MD (PCP/Family) Primary Care Physician Patient Instructions: Colitis Add. Discharge Instructions: Continue taking your antibiotics and prednisone as prescribed. Take Percocet as needed for pain. Monitor for constipation. Take Zofran as needed for nausea. Monitor for constipation Follow-up with your primary care provider. Return for uncontrollable pain, recurrent vomiting, recurrent diarrhea, fevers greater than 100.4, or any other new, concerning, or worsening symptoms. All discharge instructions reviewed with patient and/or family. Voiced understanding. Scripts Ondansetron (Ondansetron Odt) 4 Mg Tab.rapdis 4 MG SL Q4H PRN for NAUSEA/VOMITING, #14 TAB 0 Refills Prov: VERITO BARRIOS APRN 06/01/22 Oxycodone HCl/Acetaminophen (Oxycodone-Acetaminophen 5-325) 5 Mg-325 Mg Tablet 1 EACH PO TID PRN for PAIN-MODERATE (5-7), #15 TAB 0 Refills Prov: VERITO BARRIOS APRN 06/01/22 VERITO BARRIOS APRN Jun 01, 2022 20:45
[2022-06-01 21:10] LABS: BACTERIA,URINE TRACE /HPF; WBC,URINE 0-2 /HPF
[2022-06-01 21:11] LABS: HYALINE CASTS, URINE RARE /LPF
[2022-06-01 21:12] LABS: BASOPHILS # (AUTO) 0.1 10^3/uL (0.0-0.1); BASOPHILS % (AUTO) 0 % (0-10); EOSINOPHILS % (AUTO) 0 % (0-10); HEMATOCRIT 29 % (35-52); HEMOGLOBIN 9.5 g/dL (11.5-16.0); LYMPHOCYTES # (AUTO) 1.7 10^3/uL (1.0-4.0); LYMPHOCYTES % (AUTO) 9 % (12-44); MEAN CORPUSCULAR HEMOGLOBIN 28 pg (25-34); MEAN CORPUSCULAR HGB CONC 33 g/dL (32-36); MEAN CORPUSCULAR VOLUME 85 fL (80-99); MEAN PLATELET VOLUME 10.3 fL (9.0-12.2); MONOCYTES # (AUTO) 1.1 10^3/uL (0.0-1.0); MONOCYTES % (AUTO) 6 % (0-12); NEUTROPHILS # (AUTO) 11.9 10^3/uL (1.8-7.8); NEUTROPHILS % (AUTO) 63 % (42-75); PLATELET COUNT 388 10^3/uL (130-400)
[2022-06-01 21:31] LABS: ALBUMIN 3.3 GM/DL (3.2-4.5); BILIRUBIN,TOTAL 0.8 MG/DL (0.1-1.0); CALCIUM 8.4 MG/DL (8.5-10.1); CREATININE SERUM 0.7 MG/DL (0.60-1.30); POTASSIUM 3.1 MMOL/L (3.6-5.0); TOTAL PROTEIN 5.7 GM/DL (6.4-8.2)
[2022-06-01 21:32] LABS: BAND NEUTROPHILS 1 %; LYMPHOCYTES % (MANUAL) 19 %; METAMYELOCYTES % 1 %; MONOCYTES % (MANUAL) 2 %; NEUTROPHILS % (MANUAL) 75 %
[2022-06-01 21:33] LABS: ANISOCYTOSIS SLIGHT; MYELOCYTES % 2 %
[2022-06-01 21:34] LABS: SMEAR SCAN COMMENT YES
[2022-06-01] MEDS ORDERED: LIDOCAINE 2% VISCOUS 15 ML UDC PO ONE (22:00)
[2022-06-01] MEDS ORDERED: ANTACID SUSP 30 ML UDC (MYLANTA) PO ONE (22:00)
[2022-06-01] MEDS ORDERED: PANTOPRAZOLE 40 MG (PROTONIX) VIAL IV ONE (22:00)
[2022-06-01] MEDS ORDERED: fentaNYL INJ 100 MCG/2 ML AMP IVP ONE (22:45)
[2022-06-01] MEDS ORDERED: OXYC1TAB11 PO (22:50)
[2022-06-01] MEDS ORDERED: ONDA4TAB11 SL (22:53)
[2022-06-01 23:00] VITALS: BP 158/86
== END 2022-06-01 23:00 | disposition home or self-care (01) ==
LOC: EDUNIT# 20:08 → ER 20:10
DX: K52.9 Noninfective gastroenteritis and colitis, unspecified (principal); Z91.040 Latex allergy status; Z86.16 Personal history of COVID-19
CPT/HCPCS: 36415; 80053; 81000; 82150; 83690; 85007; 85027; 99283

== ENCOUNTER 2022-10-15 10:48 | Emergency (ER) | payer BC ==
[~2022-10-15 10:48] MED LIST changes: +ENAL-70 PO; -ENAL20TA16 PO
[2022-10-15] MEDS ORDERED: NS IV 1000 ML 1,000 ML IV SCH (11:00)
[2022-10-15] MEDS ORDERED: ONDANSETRON 4 MG/2 ML (SDV) Z0FRAN IVP ONE (11:00)
--- NOTE | 2022-10-15 11:03 | ED General ---
General Chief Complaint: General Problems/Pain Stated Complaint: NAUSEA | VOMITING | NECK PAIN Source of Information: Patient Exam Limitations: No Limitations History of Present Illness Date Seen by Provider: Oct 15, 2022 Time Seen by Provider: 10:54 Initial Comments 61-year-old female presents emergency department today for nausea, diarrhea. She also has some chronic pain in her neck which is worsened with her current symptoms. She denies any fevers or chills. She started to have loose stools with significant nausea early this morning around 2 or 3 in the morning. She has had upwards of 6 stools since that time. No blood in her stools. No vomiting. She states she has no neck stiffness but it twinges pain through her neck she moves it side to side. This is fairly normal for her because again her symptoms are worsened with her current illness. She was concerned for possible she has a predilection for colitis and was admitted here earlier in the year for what she states was sepsis related to this. All other systems reviewed and negative except documented per HPI. Voice recognition software was used to help create this chart Allergies and Home Medications Allergies Coded Allergies: amoxicillin (Verified Allergy, Unknown, 06/19/16) clavulanic acid (Verified Allergy, Unknown, 06/19/16) latex (Verified Allergy, Unknown, 08/27/16) Patient Home Medication List Home Medication List Reviewed: Yes Acetaminophen (Tylenol Extra Strength) 500 Mg Tablet, 500-1,000 MG PO Q6H PRN fo r PAIN-MILD (1-4), (Reported) Entered as Reported by: KORIN JENSEN on 08/27/20 1329 Aspirin/Acetaminophen/Caffeine (Excedrin Migraine Caplet) 250 Mg-250 Mg-65 Mg Tablet, 1-2 EACH PO Q6H PRN for HEADACHE, (Reported) Entered as Reported by: KORIN JENSEN on 08/27/20 1329 Atorvastatin Calcium (Atorvastatin Calcium) 10 Mg Tablet, 10 MG PO HS, (Reported) Entered as Reported by: TARAS ARMENDARIZ on 05/30/16 1624 Buspirone HCl (Buspirone HCl) 10 Mg Tablet, 10 MG PO BID, (Reported) Entered as Reported by: KORIN JENSEN on 04/17/20 1434 Cephalexin (Cephalexin) 500 Mg Tablet, 500 MG PO BID Prescribed by: MELINA CALDWELL on 05/30/22 0916 Ciprofloxacin HCl (Ciprofloxacin HCl) 500 Mg Tablet, 500 MG PO BID Prescribed by: KARLA GATICA MD on 10/15/22 115 Diltiazem HCl (Diltiazem 24Hr ER) 240 Mg Cap.er.24h, 240 MG PO DAILY, (Reported) Entered as Reported by: KORIN JENSEN on 08/27/20 1329 Duloxetine HCl (Duloxetine HCl) 60 Mg Capsule.dr, 60 MG PO DAILY, (Reported) Entered as Reported by: KORIN JENSEN on 04/17/20 1434 Enalapril Maleate (Enalapril Maleate) 20 Mg Tablet, 20 MG PO HS, (Reported) Entered as Reported by: CHRIS HOWARD on 06/19/161999 Estradiol (Estradiol) 0.01 % Cream.appl, 1 APPFUL VG MO,TH @HS, (Reported) Entered as Reported by: KORIN JENSEN on 05/26/22 115 Meloxicam (Meloxicam) 15 Mg Tablet, 15 MG PO DAILY, (Reported) Entered as Reported by: KORIN JENSEN on 08/27/20 1329 Metronidazole (Metronidazole) 500 Mg Tablet, 500 MG PO TID Prescribed by: MELINA Angel JAVI on 05/30/22 0916 Metronidazole (Metronidazole) 500 Mg Tablet, 500 MG PO BID Prescribed by: KARLA GATICA MD on 10/15/22 115 Nortriptyline HCl (Nortriptyline HCl) 25 Mg Capsule, 75 MG PO HS, (Reported) Entered as Reported by: TARAS ARMENDARIZ on 05/30/16 1624 Ondansetron (Ondansetron Odt) 4 Mg Tab.rapdis, 4 MG SL Q4H PRN for NAUSEA/V OMITING Prescribed by: Verito Jarquin on 06/01/22 2253 Ondansetron (Ondansetron Odt) 8 Mg Tab.rapdis, 8 MG SL Q6H PRN for NAUSEA/VOMITING Prescribed by: KARLA GATICA MD on 10/15/22 115 Oxycodone HCl/Acetaminophen (Oxycodone-Acetaminophen 5-325) 5 Mg-325 Mg Tablet, 1 EACH PO TID PRN for PAIN-MODERATE (5-7) Prescribed by: Verito Jarquin on 06/01/22 2251 Prednisone (Prednisone) 20 Mg Tab, 60 MG PO DAILY@0700 Prescribed by: MELINA CALDWELL on 05/30/22 0916 Pregabalin (Pregabalin) 100 Mg Capsule, 100 MG PO BID, (Reported) Entered as Reported by: KORIN JENSEN on 02/04/21 1407 Tizanidine HCl (Tizanidine HCl) 4 Mg Tablet, 4 MG PO BID, (Reported) Entered as Reported by: KORIN JENSEN on 04/17/20 1435 Topiramate (Topiramate) 25 Mg Tablet, 25 MG PO BID, (Reported) Entered as Reported by: KORIN JENSEN on 05/26/22 1157 Warfarin Sodium (Jantoven) 5 Mg Tablet, 5 MG PO , @HS, (Reported) Entered as Reported by: KORIN JENSEN on 05/26/22 1157 Warfarin Sodium (Warfarin Sodium) 5 Mg Tablet, 2.5 MG PO JOHNSON,MO,WE,FR,SA @HS, (Reported) Entered as Reported by: KORIN JENSEN on 05/26/22 1157 Review of Systems Review of Systems Constitutional: see HPI Past Isxuxfs-Trkhxt-Rywxil Hx Patient Social History Tobacco Use?: No Use of E-Cig and/or Vaping dev: No Substance use?: No Alcohol Use?: Yes Alcohol Frequency: Rarely Pt feels they are or have been: No Immunizations Up To Date Tetanus Booster (TDap): Less than 5yrs PED Vaccines UTD: No First/Initial COVID19 Vaccinat: June 2020 Second COVID19 Vaccination Panchito: July 2020 Third COVID19 Vaccination Date: June 2020 Seasonal Allergies Seasonal Allergies: No Past Medical History Surgery/Hospitalization HX: tonsilectomy, csection x2, hysterectomy, laproscopic surgeries for cysts/pcos, htn, Surgeries: Yes (LAPAROSCOPY X3-ENDOMETRIOSIS, LEFT BREAST BX) Abdominal, Breast, Section, Eye Surgery, Hysterectomy, Oophorectomy, Tonsillectomy, Tubal Ligation Respiratory: Yes (COVID + IN APRIL 2020, Hx of PE) Sleep Apnea Currently Using CPAP: No Currently Using BIPAP: No Cardiac: Yes High Cholesterol, Hypertension, Irregular Heartbeat Neurological: Yes 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 Reproductive Disorders: Yes (CPP, DUB) Female Reproductive Disorders: Endometriosis, Ovarian Cyst [employer] History: Hysterectomy, Menopausal Sexually Transmitted Disease: No HIV/AIDS: No Genitourinary: Yes UTI-Chronic Gastrointestinal: Yes Colitis Musculoskeletal: Yes (NECK PAIN AND RIGHT ARM PAIN) Endocrine: No HEENT: Yes Cataract Loss of Vision: Bilateral Hearing Impairment: Denies Cancer: No Psychosocial: Yes Depression Integumentary: No Blood Disorders: No Adverse Reaction/Blood Tranf: No (N/A) Family Medical History Arthritis 19 MOTHER Gastroenteritis G8 BROTHER Headache disorder 19 MOTHER G8 SISTER Hypertension 19 FATHER Prostate cancer 19 FATHER GI Disease, Hypertension, Other Conditions/Hx Physical Exam Vital Signs Vital Signs - First Documented 10/15/22 10:54 Temp 36.7 Pulse 114 Resp 17 B/P (MAP) 127/77 (94) Pulse Ox 97 O2 Delivery Room Air Capillary Refill : Height, Weight, BMI Height: 5'5.00" Weight: 196lbs. oz. 88.016277xa; 31.00 BMI Method:Stated General Appearance: No Apparent Distress, WD/WN HEENT: Normal ENT Inspection, Pharynx Normal Neck: Full Range of Motion, Normal Inspection, Non Tender, Supple Respiratory: Chest Non Tender, Lungs Clear, Normal Breath Sounds, No Accessory Muscle Use, No Respiratory Distress Cardiovascular: No Murmur, Normal Peripheral Pulses, Tachycardia Gastrointestinal: Normal Bowel Sounds, Non Tender, Soft Extremity: Normal Capillary Refill, Normal Inspection, Normal Range of Motion, Non Tender, No Calf Tenderness Neurologic/Psychiatric: Alert, Oriented x3 Skin: Normal Color, Warm/Dry Focused Exam Lactate Level 10/15/22 11:10: Lactic Acid Level 2.01*H Lactic Acid Level Laboratory Tests Test 10/15/22 11:10 Lactic Acid Level 2.01 MMOL/L (0.50-2.00) *H Progress/Results/Core Measures Suspected Sepsis SIRS Temperature: Pulse: Respiratory Rate: Laboratory Tests 10/15/22 11:03: White Blood Count 13.8H Blood Pressure / Mean: 10/15/22 11:10: Lactic Acid Level 2.01*H Laboratory Tests 10/15/22 11:03: Creatinine 0.86, Platelet Count 295, Total Bilirubin 0.3 Results/Orders Lab Results Laboratory Tests Test 10/15/22 11:03 10/15/22 11:10 Range/Units White Blood Count 13.8 H 4.3-11.0 10^3/uL Red Blood Count 4.97 3.80-5.11 10^6/uL Hemoglobin 14.0 11.5-16.0 g/dL Hematocrit 44 35-52 % Mean Corpuscular Volume 88 80-99 fL Mean Corpuscular Hemoglobin 28 25-34 pg Mean Corpuscular Hemoglobin Concent 32 32-36 g/dL Red Cell Distribution Width 13.4 10.0-14.5 % Platelet Count 295 130-400 10^3/uL Mean Platelet Volume 10.3 9.0-12.2 fL Immature Granulocyte % (Auto) 1 % Neutrophils (%) (Auto) 93 H 42-75 % Lymphocytes (%) (Auto) 2 L 12-44 % Monocytes (%) (Auto) 4 0-12 % Eosinophils (%) (Auto) 1 0-10 % Basophils (%) (Auto) 0 0-10 % Neutrophils # (Auto) 12.8 H 1.8-7.8 10^3/uL Lymphocytes # (Auto) 0.3 L 1.0-4.0 10^3/uL Monocytes # (Auto) 0.5 0.0-1.0 10^3/uL Eosinophils # (Auto) 0.1 0.0-0.3 10^3/uL Basophils # (Auto) 0.0 0.0-0.1 10^3/uL Immature Granulocyte # (Auto) 0.1 0.0-0.1 10^3/uL Neutrophils % (Manual) 92 % Lymphocytes % (Manual) 1 % Monocytes % (Manual) 3 % Eosinophils % (Manual) 1 % Basophils % (Manual) 0 % Band Neutrophils 3 % Blood Morphology Comment NORMAL Sodium Level 138 135-145 MMOL/L Potassium Level 4.1 3.6-5.0 MMOL/L Chloride Level 106 98-107 MMOL/L Carbon Dioxide Level 20 L 21-32 MMOL/L Anion Gap 12 5-14 MMOL/L Blood Urea Nitrogen 22 H 7-18 MG/DL Creatinine 0.86 0.60-1.30 MG/DL Estimat Glomerular Filtration Rate 77 BUN/Creatinine Ratio 26 Glucose Level 117 H 70-105 MG/DL Calcium Level 9.2 8.5-10.1 MG/DL Corrected Calcium 9.0 8.5-10.1 MG/DL Total Bilirubin 0.3 0.1-1.0 MG/DL Aspartate Amino Transf (AST/SGOT) 47 H 5-34 U/L Alanine Aminotransferase (ALT/SGPT) 93 H 0-55 U/L Alkaline Phosphatase 128 40-136 U/L Total Protein 7.0 6.4-8.2 GM/DL Albumin 4.3 3.2-4.5 GM/DL Lipase 16 8-78 U/L Lactic Acid Level 2.01 *H 0.50-2.00 MMOL/L My Orders Orders - KARLA GATICA DO Lipase (10/15/22 11:00) Iv/Invasive Line Insertion .IV INSERT (10/15/22 11:00) Comprehensive Metabolic Panel (10/15/22 11:00) Cbc With Automated Diff (10/15/22 11:00) Ns Iv 1000 Ml (Sodium Chloride 0.9%) (10/15/22 11:00) Ondansetron Injection (Zofran Injectio (10/15/22 11:00) Lactic Acid Analyzer (10/15/22 11:03) Manual Differential (10/15/22 11:03) Ibuprofen Tablet (Motrin Tablet) (10/15/22 12:00) Medications Given in ED Current Medications Medications Dose Ordered Sig/Litzy Route Start Time Stop Time Status Last Admin Dose Admin Ibuprofen 600 mg ONCE ONCE PO 10/15/22 12:00 10/15/22 12:01 DC 10/15/22 11:55 600 MG Ondansetron HCl 8 mg ONCE ONCE IVP 10/15/22 11:00 10/15/22 11:02 DC 10/15/22 11:09 8 MG Vital Signs/I&O 10/15/22 10/15/22 10:54 12:02 Temp 36.7 36.7 Pulse 114 84 Resp 17 17 B/P (MAP) 127/77 (94) 124/72 Pulse Ox 97 95 O2 Delivery Room Air Room Air Capillary Refill : Departure Communication (Admissions) Patient is hemodynamically stable. Differential diagnosis includes gastroenteritis, viral enteritis, colitis. Given the recent history of colitis we will go ahead and treat with antibiotics. Is very mild pain, no indication f or CT scanning at this time. She is nontoxic and otherwise hemodynamically stable. She is given IV fluids, IV Zofran. She was discharged home with p.o. Cipro and Flagyl, Zofran. Impression Primary Impression: Chronic pain Qualified Codes: G89.29 - Other chronic pain Additional Impression: Colitis Disposition: 01 HOME, SELF-CARE Condition: Stable Departure-Patient Inst. Referrals: MARGUERITE CABEZAS MD (PCP/Family) Primary Care Physician Patient Instructions: Colitis (DC) Add. Discharge Instructions: You are seen in the emergency department today for abdominal pain and diarrhea. As discussed this may be related to colitis. Out of caution we will go ahead and start you on antibiotics. I have also given you a nausea medicine that you may use by dissolving it under your tongue. Increase your fluids at home and rest. Return to the emergency department for any severe concerns. Follow-up with your primary doctor for any nonemergent needs All discharge instructions reviewed with patient and/or family. Voiced understanding. Scripts Ondansetron (Ondansetron Odt) 8 Mg Tab.rapdis 8 MG SL Q6H PRN for NAUSEA/VOMITING for 5 Days, #20 TAB Prov: KARLA GATICA DO 10/15/22 Metronidazole (Metronidazole) 500 Mg Tablet 500 MG PO BID for 7 Days, #14 TAB Prov: KARLA GATICA DO 10/15/22 Ciprofloxacin HCl (Ciprofloxacin HCl) 500 Mg Tablet 500 MG PO BID for 7 Days, #14 TAB Prov: KARLA GATICA DO 10/15/22 KARLA GATICA DO Oct 15, 2022 11:03
[2022-10-15 11:11] LABS: BASOPHILS % (AUTO) 0 % (0-10); EOSINOPHILS # (AUTO) 0.1 10^3/uL (0.0-0.3); EOSINOPHILS % (AUTO) 1 % (0-10); HEMATOCRIT 44 % (35-52); LYMPHOCYTES # (AUTO) 0.3 10^3/uL (1.0-4.0); LYMPHOCYTES % (AUTO) 2 % (12-44); MEAN CORPUSCULAR HEMOGLOBIN 28 pg (25-34); MEAN CORPUSCULAR HGB CONC 32 g/dL (32-36); MEAN CORPUSCULAR VOLUME 88 fL (80-99); MEAN PLATELET VOLUME 10.3 fL (9.0-12.2); MONOCYTES # (AUTO) 0.5 10^3/uL (0.0-1.0); MONOCYTES % (AUTO) 4 % (0-12); NEUTROPHILS # (AUTO) 12.8 10^3/uL (1.8-7.8); NEUTROPHILS % (AUTO) 93 % (42-75); PLATELET COUNT 295 10^3/uL (130-400); WHITE BLOOD COUNT 13.8 10^3/uL (4.3-11.0)
[2022-10-15 11:20] LABS: ALBUMIN 4.3 GM/DL (3.2-4.5); POTASSIUM 4.1 MMOL/L (3.6-5.0)
[2022-10-15 11:21] LABS: CALCIUM 9.2 MG/DL (8.5-10.1)
[2022-10-15 11:24] LABS: BILIRUBIN,TOTAL 0.3 MG/DL (0.1-1.0)
[2022-10-15 11:26] LABS: CREATININE SERUM 0.86 MG/DL (0.60-1.30)
[2022-10-15 11:38] LABS: BAND NEUTROPHILS 3 %; BASOPHILS % (MANUAL) 0 %; EOSINOPHILS % (MANUAL) 1 %; LYMPHOCYTES % (MANUAL) 1 %; MONOCYTES % (MANUAL) 3 %; NEUTROPHILS % (MANUAL) 92 %; RBC MORPH NORMAL
[2022-10-15] MEDS ORDERED: METR-145 PO (11:52)
[2022-10-15] MEDS ORDERED: ONDA8TAB13 SL (11:52)
[2022-10-15] MEDS ORDERED: CIPR500T5 PO (11:52)
[2022-10-15] MEDS ORDERED: IBUPROFEN 600 MG (MOTRIN) TAB PO ONE (12:00)
[2022-10-15 12:02] VITALS: BP 124/72
== END 2022-10-15 12:04 | disposition home or self-care (01) ==
LOC: EDUNIT# 10:48 → ER 10:50
DX: G89.29 Other chronic pain (principal); K52.9 Noninfective gastroenteritis and colitis, unspecified; M54.2 Cervicalgia; Z91.040 Latex allergy status; Z88.0 Allergy status to penicillin; Z86.16 Personal history of COVID-19
CPT/HCPCS: 36415; 80053; 83605; 83690; 85007; 85027